=== PATIENT | female | born 1965 | race Hispanic/Latino ===

== ENCOUNTER 2017-09-14 21:57 | Inpatient (IN) | payer OTHER ==
[~2017-09-14] VITALS: Ht 154.9 cm; Wt 55.1 kg
[2017-09-14 23:41] LABS: ABSOLUTE BASOPHIL COUNT 0 /CUMM (0.0-0.2); ABSOLUTE EOSINOPHIL COUNT 0 /CUMM (0.0-0.7); ABSOLUTE GRANULOCYTE CT 9.8 /CUMM (1.4-6.5); ABSOLUTE LYMPH COUNT 0.8 /CUMM (1.2-3.4); ABSOLUTE MONOCYTE COUNT 0.6 /CUMM (0.10-0.60); BASOPHIL % 0.3 % (0.0-2.0); EOSINOPHIL % 0 % (0-5); GRANULOCYTE % 87.4 % (42.2-75.2); HEMATOCRIT 40.9 % (37-47); MEAN CORPUSCULAR HGB 28.5 PG (27.0-31.0); MEAN CORPUSCULAR HGB CONC 33.9 G/DL (33.0-37.0); MEAN CORPUSCULAR VOLUME 84.3 FL (81.0-99.0); MEAN PLATELET VOLUME 7.7 FL (7.4-10.4); PLATELET COUNT 337 /CUMM (130-400); RBC DISTRIBUTION WIDTH 13.7 % (11.5-14.5); RED BLOOD CELL CT 4.85 /CUMM (4.20-5.40); WHITE BLOOD CELL COUNT 11.2 /CUMM (4.8-10.8)
--- NOTE | 2017-09-15 00:46 | ED GI/GU/ABDOMINAL COMPLAINT ---
History of Present Illness General Chief Complaint: Abdominal Pain/Flank Pain Stated Complaint: ABD PAIN,+NVD Source: patient, family Exam Limitations: no limitations Vital Signs & Intake/Output Vital Signs & Intake/Output Vital Signs Date Time Temp Pulse Resp B/P B/P Pulse O2 O2 Flow FiO2 Mean Ox Delivery Rate 09/15 0111 84 16 135/78 98 Room Air 09/14 2247 96.3 59 14 131/82 99 Room Air ED Intake and Output 09/15 0000 09/14 1200 Intake Total Output Total Balance Patient 116 lb Weight Weight Reported by Patient Measurement Method Allergies Coded Allergies: No Known Allergies (09/14/17) Triage Note: PT PRESENTS TO THE ER C/O ABD PAIN. RUQ AND LUQ AND PER PT RADIATES TO HER BACK. 10/10 PAIN PER PT. PT IS MOANING IN TRIAGE AND CANT SEEM TO GET IN A COMFORTABLE POSITION IN THE CHAIR. PT STATES STARTED 3 DAYS AGO.. PT LAST BM THIS AM, PT STATES THAT SHE IS NAUSEOUS AND VOMITTING. PT IS ACTIVELY VOMITTING IN TRIAGE.. Triage Nurses Notes Reviewed? yes ? N Is pt currently ? No Onset: Gradual Duration: day(s): Timing: recent history Quality/Severity: cramping, vomiting Location: epigastric, generalized abdomen Radiation: no radiation Activities at Onset: none Prior Abdominal Problems: similar symptoms Modifying Factors: Worsens With: movement, palpation, vomiting. Associated Symptoms: abdominal pain HPI: 52 YO WOMAN, h/o gastric ulcer, in prior good health presents with 3 days of mid epigastric pain, nausea, vomiting, "and then today, I started vomiting and couldn't hold anything down." She had a normal bowel movement today. She notes no fever, chills, dyspnea, dizziness, chest pain. Past History Travel History Traveled to [place] past 21 day No Medical History Any Pertinent Medical History? see below for history Surgical History Surgical History: none Family History Hx Contributory? No Review of Systems Review of Systems Constitutional: Reports: no symptoms. EENTM: Reports: no symptoms. Respiratory: Reports: no symptoms. Cardiovascular: Reports: no symptoms. GI: Reports: no symptoms. Genitourinary: Reports: no symptoms. Musculoskeletal: Reports: no symptoms. Skin: Reports: no symptoms. Neurological/Psychological: Reports: no symptoms. Hematologic/Endocrine: Reports: no symptoms. Immunologic/Allergic: Reports: no symptoms. All Other Systems: Reviewed and Negative Physical Exam Physical Exam General Appearance: well developed/nourished, moderate distress Head: atraumatic, normal appearance Eyes: Bilateral: normal appearance. Ears, Nose, Throat, Mouth: hearing grossly normal, moist mucous membrane Neck: normal inspection, supple, full range of motion Respiratory: normal breath sounds, chest non-tender, no respiratory distress, quiet respiration, lungs clear Cardiovascular: regular rate/rhythm Gastrointestinal: normal bowel sounds, soft, mid epigastric tenderness to palpation. no rebound. no guarding. ruq/rlq tenderness w/o saeed's sign. Back: normal inspection, normal range of motion Extremities: normal range of motion Neurologic/Psych: no motor/sensory deficits, awake, alert, oriented x 3 Skin: intact, normal color, warm/dry Core Measures ACS in differential dx? No Sepsis Present: No Sepsis Focused Exam Completed? No Progress Differential Diagnosis: appendicitis, biliary colic, cholecystitis, diverticulitis, gastritis, hepatitis Plan of Care: Orders Procedure Date/time Status Patient Data 09/15 0309 Active Admit to inpatient 09/15 0306 Active D-DIMER 09/14 2320 Complete TROPONIN LEVEL 09/14 2315 Complete LIPASE 09/14 2315 Complete COMPREHENSIVE METABOLIC PANEL 09/14 2315 Complete CBC WITHOUT DIFFERENTIAL 09/14 2315 Complete AMYLASE 09/14 2315 Complete EKG 09/14 2254 Active Current Medications Sig/Mk Start time Last Medication Dose Stop Time Status Admin Sodium Chloride 1,000 ML BOLUS ONE 09/15 0300 AC 09/15 (Normal Saline 0.9%) 09/15 0359 0306 Laboratory Tests 09/14/17 2322: Anion Gap 13, Estimated GFR > 60, BUN/Creatinine Ratio 17.1, Glucose 175 H, Calcium 11.0 H, Total Bilirubin 3.6 H, AST 682 H, ALT 1076 H, Alkaline Phosphatase 383 H, Troponin I < 0.01, Total Protein 8.0, Albumin 4.7, Globulin 3.3, Albumin/Globulin Ratio 1.4, Amylase 4467 H, Lipase > 40216 H, D-Dimer High Sensitivty 281 H, CBC w Diff MAN DIFF ORDERED, RBC 4.85, MCV 84.3, MCH 28.5, MCHC 33.9, RDW 13.7, MPV 7.7, Gran % 87.4 H, Lymphocytes % 7.1 L, Monocytes % 5.2, Eosinophils % 0, Basophils % 0.3, Absolute Granulocytes 9.8 H, Segmented Neutrophils 90 H, Absolute Lymphocytes 0.8 L, Lymphocytes 7 L, Monocytes 3, Absolute Monocytes 0.6, Absolute Eosinophils 0, Absolute Basophils 0, Platelet Estimate ADEQUATE, Polychromasia 1+, Poikilocytosis 2+, Ovalocytes 1 +, Stomatocytes 1+, Fld Total RBCs Counted 100 Diagnostic Imaging: Viewed by Me: Radiology Read, CT Scan. Discussed w/RAD: Radiology Read, CT Scan. Radiology Impression: PATIENT: HAN KONG PRESENT AGE: 52 PATIENT ACCOUNT NO: [id number] : 67 LOCATION: ER ORDERING PHYSICIAN: Mark Ortiz MD SERVICE DATE: 09/15/17 EXAM TYPE: RAD - XRY-PORTABLE CHEST XRAY EXAMINATION: XR PORTABLE CHEST CLINICAL INFORMATION: Preoperative. Dyspnea. COMPARISON: None TECHNIQUE: Portable frontal view of the chest was obtained. FINDINGS: The lungs are well expanded. There is no focal consolidation, edema, or effusion. No pneumothorax. Probable 0.3 cm calcified granuloma at the left base. The cardiomediastinal silhouette is within normal limits. No acute osseous abnormality. IMPRESSION: No acute pulmonary findings. DICTATED BY: Joseph aLmar MD DATE/TIME DICTATED:09/15/17219 [employer]:CHUCKY DATE/TIME TRANSCRIBED:09/15/17219 CONFIDENTIAL, DO NOT COPY WITHOUT APPROPRIATE AUTHORIZATION. <Electronically signed in Other Vendor System> SIGNED BY: Joseph Lamar MD 09/15/17223, PATIENT: HAN KONG PRESENT AGE: 52 PATIENT ACCOUNT NO: [id number] : 67 LOCATION: [facility] ORDERING PHYSICIAN: Mark Ortiz MD SERVICE DATE: 09/15/17 EXAM TYPE: CAT - CT ABD & PELVIS W IV CONTRAST EXAMINATION: CT ABDOMEN AND PELVIS WITH CONTRAST CLINICAL INFORMATION: Right upper quadrant pain. Elevated LFTs. COMPARISON: None TECHNIQUE: Multidetector volumetric imaging was performed of the abdomen and pelvis following IV administration of 95 mL of Optiray 320 intravenous contrast. Sagittal and coronal reformatted images were obtained on the technologist's workstation. DLP: 254 mGy-cm FINDINGS: LUNG BASES: The visualized lung bases are unremarkable. LIVER, GALLBLADDER, AND BILIARY TREE: The liver is normal in size, shape, and attenuation. No focal hepatic lesion. Mild intrahepatic biliary ductal dilatation noted. The gallbladder is distended. Mild pericholecystic fluid noted. No definite gallstone seen within the gallbladder lumen. The common bile duct is dilated, measuring up to 1.2 cm. In the region of the pancreatic head at the distal aspect of the common duct there is a 0.3 cm calcification. This may represent choledocholithiasis. PANCREAS: The pancreas is mildly prominent and hypoattenuating suggestive of edema. Prominent peripancreatic fluid. No fluid collection identified. Fluid extends distally along the left paracolic gutter. No focal pancreatic parenchymal lesion. SPLEEN: Unremarkable. ADRENAL GLANDS: Unremarkable. KIDNEYS AND URETERS: The kidneys are normal in size, shape, and attenuation. No hydronephrosis, hydroureter, or calculi seen. No perinephric stranding. BLADDER: Unremarkable. GASTROINTESTINAL TRACT: The stomach is unremarkable. The small bowel is normal in caliber. No obstruction. Normal appendix. No colonic wall thickening or inflammatory change. No free air. ABDOMINAL WALL: No significant hernia is appreciated. LYMPH NODES: Normal. VASCULAR: Unremarkable. PELVIC VISCERA: The uterus and adnexa are unremarkable. OSSEOUS STRUCTURES: No acute or suspicious osseous abnormality. IMPRESSION: Findings are most suggestive of gallstone pancreatitis. Small calcification at the region of the pancreatic head with dilatation of the common bile duct and intrahepatic ducts. Distended gallbladder with pericholecystic fluid. Diffuse peripancreatic edema with edematous appearance of the pancreas. DICTATED BY: Joseph Lamar MD DATE/TIME DICTATED:09/15/17207 [employer]: CHUCKY DATE/TIME TRANSCRIBED:09/15/17207 CONFIDENTIAL, DO NOT COPY WITHOUT APPROPRIATE AUTHORIZATION. <Electronically signed in Other Vendor System> SIGNED BY: Joseph Lamar MD 09/15/17 0223 Initial ED EKG: normal intervals, normal p-waves, NSR Departure Departure Disposition: STILL A PATIENT Condition: Stable Clinical Impression Primary Impression: SIRS (systemic inflammatory response syndrome) Secondary Impressions: Gallstone pancreatitis Referrals: Pj MORILLO,Lee Valles (PCP/Family) Departure Forms: Customer Survey General Discharge Information Comments 09/15/17, 2:42am... discussed with dr. nieto... pt consistent with gallstone pancreatitis... they will consult in the am. 09/15/17, 2:45am... discussed with dr. gamboa... dr. brown is available for ercp Admission Note Spoke With: eKrwin Mackey MD Documentation of Exam: Documentation of any treatments & extenuating circumstances including Concerns Regarding Discharge (functional status, medication knowledge or non-compliance, living conditions, etc.) that warrant an admission rather than observation: pt with gallstone pancreatitis.... pt merits ercp in AM... pt to reside in ICU overnight for close monitoring. Critical Care Note Critical Care Note Critical Care Time: 30-74 min
--- NOTE | 2017-09-15 02:23 | CT SCAN REPORT ---
EXAMINATION: CT ABDOMEN AND PELVIS WITH CONTRAST CLINICAL INFORMATION: Right upper quadrant pain. Elevated LFTs. COMPARISON: None TECHNIQUE: Multidetector volumetric imaging was performed of the abdomen and pelvis following IV administration of 95 mL of Optiray 320 intravenous contrast. Sagittal and coronal reformatted images were obtained on the technologist's workstation. DLP: 254 mGy-cm FINDINGS: LUNG BASES: The visualized lung bases are unremarkable. LIVER, GALLBLADDER, AND BILIARY TREE: The liver is normal in size, shape, and attenuation. No focal hepatic lesion. Mild intrahepatic biliary ductal dilatation noted. The gallbladder is distended. Mild pericholecystic fluid noted. No definite gallstone seen within the gallbladder lumen. The common bile duct is dilated, measuring up to 1.2 cm. In the region of the pancreatic head at the distal aspect of the common duct there is a 0.3 cm calcification. This may represent choledocholithiasis. PANCREAS: The pancreas is mildly prominent and hypoattenuating suggestive of edema. Prominent peripancreatic fluid. No fluid collection identified. Fluid extends distally along the left paracolic gutter. No focal pancreatic parenchymal lesion. SPLEEN: Unremarkable. ADRENAL GLANDS: Unremarkable. KIDNEYS AND URETERS: The kidneys are normal in size, shape, and attenuation. No hydronephrosis, hydroureter, or calculi seen. No perinephric stranding. BLADDER: Unremarkable. GASTROINTESTINAL TRACT: The stomach is unremarkable. The small bowel is normal in caliber. No obstruction. Normal appendix. No colonic wall thickening or inflammatory change. No free air. ABDOMINAL WALL: No significant hernia is appreciated. LYMPH NODES: Normal. VASCULAR: Unremarkable. PELVIC VISCERA: The uterus and adnexa are unremarkable. OSSEOUS STRUCTURES: No acute or suspicious osseous abnormality. IMPRESSION: Findings are most suggestive of gallstone pancreatitis. Small calcification at the region of the pancreatic head with dilatation of the common bile duct and intrahepatic ducts. Distended gallbladder with pericholecystic fluid. Diffuse peripancreatic edema with edematous appearance of the pancreas.
--- NOTE | 2017-09-15 02:24 | RADIOLOGY REPORT ---
EXAMINATION: XR PORTABLE CHEST CLINICAL INFORMATION: Preoperative. Dyspnea. COMPARISON: None TECHNIQUE: Portable frontal view of the chest was obtained. FINDINGS: The lungs are well expanded. There is no focal consolidation, edema, or effusion. No pneumothorax. Probable 0.3 cm calcified granuloma at the left base. The cardiomediastinal silhouette is within normal limits. No acute osseous abnormality. IMPRESSION: No acute pulmonary findings.
--- NOTE | 2017-09-15 03:39 | History & Physical ---
Dontea Gu 09/15/17 0339: General Information and HPI MD Statement: I have seen and personally examined HAN KONG and documented this H&P. The patient is a 52 year old F who presented with a patient stated chief complaint of [ABD pain]. Source of Information: patient, family Exam Limitations: no limitations History of Present Illness: This is 52-year-old female with a medical history of GERD, hyperlipidemia not currently on medication. Presented to the emergency department with a chief complaint of abdominal pain, nausea, vomiting for the past 3 days. Patient stated that for long time she has an issue with abdominal discomfort when she eats fatty food and because of that she take some time Zantac and Tums. Patient stated that her abdominal pain symptoms started on Wednesday after she ate [place] food, she stated that was on and off in the epigastric area around 7 out of 10 in severity, relieved with Zantac. On wednesday/Wednesday after she ate her breakfast abdominal pain restarted again and she take a Zantac. On Wednesday patient stated that she ate his breakfast and she preferred to take the Zantac and she went to work and around 2 PM she started to complain off chills so she took Tums and Tylenol despite that the abdominal pain getting worse and she stated that she vomited once that was yellow in color associated with nausea. And around [address] back home she vomited twice watery, also she report that her stool become power transmission engineer in color in the past couple days and today morning she noticed that her skin color change and become more yellow. Due to that patient reports having increase in frequency, she denies any hematuria, dysuria. Her stated that for the past couple days she has issue feeling cold with chills and she required more blankets or increase the heater degree. Patient stated is the first time she has this type of abdominal pain and complaints. Patient deny any fever, shortness of breath, cough, wheezing, constipation, diarrhea, headaches, change in vision or hearing, chest pain, heart racing, lower extremity edema. In the ED CT with IV contrast of abdomen and pelvis showed gallstone pancreatitis. Small calcification at the region of the pancreatic head with dilatation of the common bile duct and intrahepatic ducts. Distended gallbladder with pericholecystic fluid. Diffuse peripancreatic edema with edematous appearance of the pancreas. Patient received aggressive IV fluid hydration, IV morphine for pain. Lab roblero he has elevated amylase, lipase and calcium level along with transaminitis. Allergies/Medications Allergies: Coded Allergies: No Known Allergies (09/14/17) Past History Travel History Traveled to [place] past 21 day No Medical History Cardiovascular: hyperlipidemia Gastrointestinal: peptic ulcer disease Surgical History Surgical History: none, Past Family/Social History Family History Relations & Conditions if any FATHER (DM, HLD, HTN). MOTHER (Healthy). Psychosocial History Where do you live? Home Smoking Status: Never Smoked ETOH Use: occasional use Illicit Drug Use: denies illicit drug use Functional Ability ADLs Independent: dressing, eating, toileting, bathing. Ambulation: independent IADLs Independent: shopping, housework, finances, food prep, telephone, transportation , medication admin. Review of Systems Review of Systems Constitutional: Reports: see HPI. Cardiovascular: Denies: see HPI. Respiratory: Denies: see HPI. GI: Reports: see HPI. Genitourinary: Reports: see HPI. Exam & Diagnostic Data Last 24 Hrs of Vital Signs/I&O Vital Signs Date Time Temp Pulse Resp B/P B/P Pulse O2 O2 Flow FiO2 Mean Ox Delivery Rate 09/15 0406 96.3 69 18 125/59 99 Room Air 09/15 0111 84 16 135/78 98 Room Air 09/14 2247 96.3 59 14 131/82 99 Room Air Intake & Output 09/15 0800 09/15 0000 09/14 1600 Intake Total 2000 Output Total Balance 2000 Intake, IV 2000 Patient 116 lb Weight Weight Reported by Patient Measurement Method Physical Exam General Appearance Alert, Oriented X3, Cooperative, Moderate Distress Skin jaundice HEENT PERRLA, EOMI Neck Supple Cardiovascular Regular Rate, Normal S1, Normal S2 Lungs Clear to Auscultation, Normal Air Movement Abdomen hypoactive bowel sound, ppositive Ryan sign, moderate tenderness with deep palpation Extremities No Cyanosis, No Edema Last 24 Hrs of Labs/Luis Antonio: Laboratory Tests 09/14/172: Anion Gap 13, Estimated GFR > 60, BUN/Creatinine Ratio 17.1, Glucose 175 H, Calcium 11.0 H, Total Bilirubin 3.6 H, AST 682 H, ALT 1076 H, Alkaline Phosphatase 383 H, Troponin I < 0.01, Total Protein 8.0, Albumin 4.7, Globulin 3.3, Albumin/Globulin Ratio 1.4, Amylase 4467 H, Lipase > 29617 H, TSH Pending , Free T4 Pending, D-Dimer High Sensitivty 281 H, CBC w Diff MAN DIFF ORDERED, RBC 4.85, MCV 84.3, MCH 28.5, MCHC 33.9, RDW 13.7, MPV 7.7, Gran % 87.4 H, Lymphocytes % 7.1 L, Monocytes % 5.2, Eosinophils % 0, Basophils % 0.3, Absolute Granulocytes 9.8 H, Segmented Neutrophils 90 H, Absolute Lymphocytes 0.8 L, Lymphocytes 7 L, Monocytes 3, Absolute Monocytes 0.6, Absolute Eosinophils 0, Absolute Basophils 0, Platelet Estimate ADEQUATE, Polychromasia 1 +, Poikilocytosis 2+, Ovalocytes 1+, Stomatocytes 1+, Fld Total RBCs Counted 100 Microbiology 09/15 0356 URINE ROUT: Urine Culture - ORD Diagnostic Data EKG Results Normal sinus rhythm, QTC 405 CXR Results EXAMINATION: XR PORTABLE CHEST CLINICAL INFORMATION: Preoperative. Dyspnea. COMPARISON: None TECHNIQUE: Portable frontal view of the chest was obtained. FINDINGS: The lungs are well expanded. There is no focal consolidation, edema, or effusion. No pneumothorax. Probable 0.3 cm calcified granuloma at the left base. The cardiomediastinal silhouette is within normal limits. No acute osseous abnormality. IMPRESSION: No acute pulmonary findings. Other Results EXAMINATION: CT ABDOMEN AND PELVIS WITH CONTRAST CLINICAL INFORMATION: Right upper quadrant pain. Elevated LFTs. COMPARISON: None TECHNIQUE: Multidetector volumetric imaging was performed of the abdomen and pelvis following IV administration of 95 mL of Optiray 320 intravenous contrast. Sagittal and coronal reformatted images were obtained on the technologist's workstation. DLP: 254 mGy-cm FINDINGS: LUNG BASES: The visualized lung bases are unremarkable. LIVER, GALLBLADDER, AND BILIARY TREE: The liver is normal in size, shape, and attenuation. No focal hepatic lesion. Mild intrahepatic biliary ductal dilatation noted. The gallbladder is distended. Mild pericholecystic fluid noted. No definite gallstone seen within the gallbladder lumen. The common bile duct is dilated, measuring up to 1.2 cm. In the region of the pancreatic head at the distal aspect of the common duct there is a 0.3 cm calcification. This may represent choledocholithiasis. PANCREAS: The pancreas is mildly prominent and hypoattenuating suggestive of edema. Prominent peripancreatic fluid. No fluid collection identified. Fluid extends distally along the left paracolic gutter. No focal pancreatic parenchymal lesion. SPLEEN: Unremarkable. ADRENAL GLANDS: Unremarkable. KIDNEYS AND URETERS: The kidneys are normal in size, shape, and attenuation. No hydronephrosis, hydroureter, or calculi seen. No perinephric stranding. BLADDER: Unremarkable. GASTROINTESTINAL TRACT: The stomach is unremarkable. The small bowel is normal in caliber. No obstruction. Normal appendix. No colonic wall thickening or inflammatory change. No free air. ABDOMINAL WALL: No significant hernia is appreciated. LYMPH NODES: Normal. VASCULAR: Unremarkable. PELVIC VISCERA: The uterus and adnexa are unremarkable. OSSEOUS STRUCTURES: No acute or suspicious osseous abnormality. IMPRESSION: Findings are most suggestive of gallstone pancreatitis. Small calcification at the region of the pancreatic head with dilatation of the common bile duct and intrahepatic ducts. Distended gallbladder with pericholecystic fluid. Diffuse peripancreatic edema with edematous appearance of the pancreas. Assessment/Plan Assessment: This is 52-year-old female with a medical history of GERD, hyperlipidemia not currently on medication. Presented to the emergency department with a chief complaint of abdominal pain, nausea, vomiting for the past 3 days. Problem list: -Acute edematous pancreatitis 2/2 gallstone and hypercalcemia -Acute cholecystitis/cholangitis with dilatation of the common bile duct -Leukocytosis/transaminitis Plan: -Admit patient to critical care unit -Vitals every shift -Keep patient nothing by mouth for bowel rest -Aggressive IV fluid hydration with lactated Ringer 200 mL per hour -IV Protonix 40 mg daily -IV Zofran as needed for nausea and vomiting -IV morphine as needed for pain -Gastroenterology consultation in a.m. -Obtain limited abdominal ultrasound with reevaluation -surgery consultation in a.m. -Lipid panel, ICU bundle, PT/PTT, CBC in AM. -Accu-Chek every 8 -DVT prophylaxis: subcutaneous Lovenox -Full code As Ranked By This Provider Problem List: 1. Gallstone pancreatitis Core Measures/Misc (04/04) Acute Coronary Syndrome ACS Diagnosis: No Congestive Heart Failure Congestive Heart Failure Diagnosis No Cerebrovascular Accident CVA/TIA Diagnosis: No VTE (View Protocol) VTE Risk Factors Acute Medical Illness No Mechanical VTE Prophylaxis d/t N/A MechProphylax Ordered No VTE Pharm Prophylaxis d/t NA PharmProphylax ordered Sepsis (View protocol) Sepsis Present: No Resident Review Statement Resident Statement: examined this patient, discussed with advertising internship, agreed with advertising internship, discussed with family, reviewed EMR data (avail), discussed with nursing , discussed with case mgmt, reviewed images, amended to note Kerwin Mackey 09/15/17 0645: Attending MD Review Statement Attending Statement Attending MD Statement: examined this patient, discuss w/resident/PA/MEDICAL STAFF ASSISTANT, agreed w/resident/PA/MEDICAL STAFF ASSISTANT, discussed with family, reviewed EMR data (avail), reviewed images, amended to note Attending Assessment/Plan: CC: Severe abdominal pain PMH: None Patient has 3 day history of severe abdominal pain, sharp, 8/10, associated with nausea and vomiting, chills. Patient's symptoms progressively worsened over last 3 days, did not have much relief with segm-xob-psheaum antacid medication. She also noticed yellowish discoloration of skin, or tarry stools. She denies any fever, chills, fall, cough. Patient and her are unclear if she had similar episodes in the past or symptoms suggestive of biliary colic in the past Vitals: Afebrile, pulse in 60s, RR 16, blood pressure 135/78, saturating well on room air. On exam: A O 3, cooperative, in acute distress due to pain, neck supple, JVD normal, no lymphadenopathy, mucosa dry, no focal neurological deficit, no dependent edema, no obvious skin rashes or inflammation CVS: S1-S2, RRR. RS: Clear to auscultate bilaterally. Abdomen: Diffuse abdominal tenderness, no guarding or rigidity, Ryan's sign positive CT abdomen and pelvis With IV contrast: Findings are most suggestive of gallstone pancreatitis. Small calcification at the region of the pancreatic head with dilatation of the common bile duct and intrahepatic ducts. Distended gallbladder with pericholecystic fluid. Diffuse peripancreatic edema with edematous appearance of the pancreas. Assessment and plan 52-year-old female with no significant past medical history presented in ER for progressively worsening severe abdominal pain over last 3 days. She has diffuse abdominal tenderness on palpation and Ryan's sign positive. She is found to have significantly elevated lipase, elevated calcium, elevated bilirubin, transaminitis, elevated alkaline phosphatase, left shift, all suggestive of gallstone pancreatitis. CT abdomen and pelvis with IV contrast confirms this finding, additionally there is suspicion of acute cholecystitis and acute ascending cholangitis secondary to choledocholithiasis. In this setting and extent of the disease patient would benefit from ICU admission for close monitoring. Vender and surgeon was informed from here. Patient also endorses drinking alcohol a day prior to symptoms. + Gallstone pancreatitis + Suspected cholecystitis and ascending cholangitis with choledocholithiasis - Admit to ICU - Every hourly vitals - Aggressive hydration with Ringer's lactate at 200 mL per hour - Continuous telemetry monitoring - Strict I's and O's - Serial abdominal exam - Continue IV Unasyn - Blood culture if fever spikes - IV Protonix - When necessary Zofran for nausea - Adequate pain control - Check lipid profile - Right upper quadrant ultrasound - GI consult - Surgical consult - Check CRP as inflammatory markers for severity monitoring - DVT prophylaxis
[2017-09-15 06:06] LABS: ABSOLUTE BASOPHIL COUNT 0 /CUMM (0.0-0.2); ABSOLUTE EOSINOPHIL COUNT 0 /CUMM (0.0-0.7); ABSOLUTE GRANULOCYTE CT 12.9 /CUMM (1.4-6.5); ABSOLUTE LYMPH COUNT 0.7 /CUMM (1.2-3.4); ABSOLUTE MONOCYTE COUNT 0.6 /CUMM (0.10-0.60); BASOPHIL % 0 % (0.0-2.0); EOSINOPHIL % 0 % (0-5); GRANULOCYTE % 91.2 % (42.2-75.2); HEMATOCRIT 36.3 % (37-47); MEAN CORPUSCULAR VOLUME 85.4 FL (81.0-99.0); MEAN PLATELET VOLUME 7.9 FL (7.4-10.4); PLATELET COUNT 308 /CUMM (130-400); RED BLOOD CELL CT 4.25 /CUMM (4.20-5.40); WHITE BLOOD CELL COUNT 14.1 /CUMM (4.8-10.8)
[2017-09-15 06:10] LABS: PTT 26 SEC (25-37)
--- NOTE | 2017-09-15 06:47 | Admission Certification ---
Admission Certification Certification Statement - As attending physician, I certify that at the time of - admission, based on clinical presentation, severity of - symptoms, need for further diagnostic testing and - therapeutic interventions, and risk of adverse outcomes - without in-hospital treatment, in my clinical assessment, - this patient requires an acute hospital stay for a minimum - of two nights or longer. I have also considered psychsocial - factors such as support system, advanced age, financial - issues, cognitive issues, and failed out-patient treatments, - past re-admission history, safety of patient, and lack of - compliance as applicable. Specific rationale supporting this admission is: Gallstone pancreatitis with suspected cholangitis, cholecystitis secondary to choledocholithiasis
[2017-09-15 07:00] VITALS: BP 117/63
--- NOTE | 2017-09-15 07:14 | Cons- CRCU ---
Rajan MORILLO,[facility] 09/15/17 0713: General Information and HPI Consulting Request Date of Consult: 09/15/17 Requested By: Dr. Ac Source of Information: patient, old records Exam Limitations: no limitations History of Present Illness: The patient is 65-year-old female with past medical history of GERD and hyperlipidemia not on any medication. She presented to [facility] ED on 09/13 with complaint of abdominal pain ongoing for the past 3 days. 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 The pain has been associated with consumption of fatty food, and has not responded to over-the- counter medications. Yesterday 2 PM patient was at work and started experiencing chills as well. At home she experienced nausea and had an episode of vomiting followed by 2 episodes of vomiting in the ED as well. Clear, Nonbloody. 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 As per patient's she has been using more blankets and adjusting the most part of the house. She has not had these episodes in the past. Vital signs at presentation were stable Examination was positive for diffuse abdominal tenderness and Ryan's sign Patient presented with elevated WBC count, lipase, and amylase, hypercalcemia, hyperbilirubinemia, elevated alkaline phosphatase, transaminitis. Her lab findings are suggestive of costochondritis which was confirmed with imaging which was consistent with gallstone pancreatitis along with calcification in head of pancreas, dilation of CBD, distended gallbladder with pericholecystic fluid, diffuse peripancreatic edematous changes. The patient was admitted to ICU for closer monitoring and is being treated and evaluated for pancreatitis, cholecystitis, cholangitis Of note patient gives history of H. pylori detected by breath test, for which she states that she has been treated twice. Does not remember the name of medication. It is a possibility that it was not completely eradicated Allergies/Medications Allergies: Coded Allergies: No Known Allergies (09/14/17) Review of Systems Review of Systems Constitutional: Reports: see HPI. Past History Travel History Traveled to [place] past 21 day No Medical History Blood Transfusion Hx: No Cardiovascular: hyperlipidemia Surgical History Surgical History: , 1 Family History Relations & Conditions If Any: FATHER (DM, HLD, HTN). MOTHER (Healthy). Psychosocial History Where Do You Live? Home Smoking Status: Never Smoked ETOH Use: occasional use Illicit Drug Use: denies illicit drug use Functional Ability ADLs Independent: dressing, eating, toileting, bathing. Ambulation: independent IADLs Independent: shopping, housework, finances, food prep, telephone, transportation , medication admin. Exam & Diagnostic Data Last 24 Hrs of Vital Signs/I&O Vital Signs Date Time Temp Pulse Resp B/P B/P Pulse O2 O2 Flow FiO2 Mean Ox Delivery Rate 09/15 0700 98.5 71 26 117/63 96 Room Air 09/15 0445 Room Air 09/15 0445 99 Room Air 09/15 0406 96.3 69 18 125/59 99 Room Air 09/15 0111 84 16 135/78 98 Room Air 09/14 2247 96.3 59 14 131/82 99 Room Air Intake & Output 09/15 1600 09/15 0800 09/15 0000 Intake Total 3520 Output Total 800 Balance 2720 Intake, IV 3520 Output, Urine 800 Patient 120 lb 116 lb Weight Weight Bed scale Reported by Patient Measurement Method Physical Exam General Appearance: alert, awake, mild distress Head: atraumatic, normal appearance Ears, Nose, Throat: normal ENT inspection Neck: normal inspection, supple Respiratory: normal breath sounds, chest non-tender, no respiratory distress Cardiovascular: regular rate/rhythm Gastrointestinal: diffuse abd tenderness Last 48 Hrs of Labs/Luis Antonio: Laboratory Tests 09/15/17 0520: Urinalysis LIGHT H, Urine Color YEL, Urine Clarity CLEAR, Urine pH 7.0, Ur Specific [place] 1.010, Urine Protein NEG, Urine Ketones TRACE H, Urine Nitrite NEG, Urine Bilirubin NEG, Urine Urobilinogen 0.2, Ur Leukocyte Esterase NEG, Ur Microscopic SEDIMENT EXAMINED, Urine RBC 3-5, Urine WBC RARE, Urine Bacteria RARE H, Urine Hemoglobin TRACE-INTACT, Urine Glucose NEG 09/15/17 0515: Anion Gap 12, Estimated GFR > 60, Glucose 145 H, Hemoglobin A1c Pending, Calcium 8.7, Phosphorus 3.5, Magnesium 1.4 L, Total Bilirubin 3.1 H, Direct Bilirubin 2.3 H, AST 426 H, ALT 749 H, Alkaline Phosphatase 286 H, Total Protein 6.1 L, Albumin 3.6, Triglycerides 41, Cholesterol 226 H, LDL Cholesterol, Calc 133 H, HDL Cholesterol 85 H, Cholesterol/HDL Ratio 3, PT 12.0, INR 1.14, APTT 26, CBC w Diff NO MAN DIFF REQ, RBC 4.25, MCV 85.4, MCH 29.0, MCHC 34.0, RDW 14.0, MPV 7.9, Gran % 91.2 H, Lymphocytes % 4.8 L, Monocytes % 4.0, Eosinophils % 0, Basophils % 0, Absolute Granulocytes 12.9 H, Absolute Lymphocytes 0.7 L, Absolute Monocytes 0.6, Absolute Eosinophils 0, Absolute Basophils 0 09/15/17 0500: Sodium Cancelled, Potassium Cancelled, Chloride Cancelled, Carbon Dioxide Cancelled, Anion Gap Cancelled, BUN Cancelled, Creatinine Cancelled, Glucose Cancelled, Calcium Cancelled, Phosphorus Cancelled, Magnesium Cancelled, Total Bilirubin Cancelled, AST Cancelled, ALT Cancelled, Albumin Cancelled 09/14/17 2322: Anion Gap 13, Estimated GFR > 60, BUN/Creatinine Ratio 17.1, Glucose 175 H, Calcium 11.0 H, Total Bilirubin 3.6 H, AST 682 H, ALT 1076 H, Alkaline Phosphatase 383 H, Troponin I < 0.01, Total Protein 8.0, Albumin 4.7, Globulin 3.3, Albumin/Globulin Ratio 1.4, Triglycerides 69, Amylase 4467 H, Lipase > 81825 H, TSH 0.759, Free T4 1.70, D-Dimer High Sensitivty 281 H, CBC w Diff MAN DIFF ORDERED, RBC 4.85, MCV 84.3, MCH 28.5, MCHC 33.9, RDW 13.7, MPV 7.7, Gran % 87.4 H, Lymphocytes % 7.1 L, Monocytes % 5.2, Eosinophils % 0, Basophils % 0.3, Absolute Granulocytes 9.8 H, Segmented Neutrophils 90 H, Absolute Lymphocytes 0.8 L, Lymphocytes 7 L, Monocytes 3, Absolute Monocytes 0.6, Absolute Eosinophils 0, Absolute Basophils 0, Platelet Estimate ADEQUATE, Polychromasia 1+, Poikilocytosis 2+, Ovalocytes 1+, Stomatocytes 1+, Fld Total RBCs Counted 100 Assessment/Plan CRCU Impression/Plan: 52-year-old female with no significant past medical history presented in ER for progressively worsening severe abdominal pain over last 3 days. She has diffuse abdominal tenderness on palpation and Ryan's sign positive. She is found to have significantly elevated lipase, elevated calcium, elevated bilirubin, transaminitis, elevated alkaline phosphatase, left shift, all suggestive of gallstone pancreatitis. CT abdomen and pelvis with IV contrast confirms this finding, additionally there is suspicion of acute cholecystitis and acute ascending cholangitis secondary to choledocholithiasis The patient was is cemented to ICU overnight for closer monitoring. She is being treated and evaluated for following conditions. #Gallstone pancreatitis Patient's presentation, presenting labs, CT scan findings are consistent with gallstone pancreatitis. Patient has been evaluated by gastroenterology in the morning, they donot believe that patient has acute cholangitis. [place]'s score 2 , 1% predicted mortality, severe pancreatitis unlikely. BISAP score 0 <1% risk of mortality. Harmless acute pancreatitis score 1 point unable to rule out severe pancreatitis -NPO -Lactated Ringer at 250 ML per hour -Monitor urine WBC curve afebrile with white count of 14 today -F/U BC x2 drawn after initiation of antibiotic therapy -F/U urine cultures -CRP with tomorrow labs for prognostic purposes -Watch for hemoconcentration (rising BUN or H/H) -Lipid profile showed total cholesterol 226 LDL 133 HDL 85 TAG WNL -Right upper quadrant ultrasound is still pending -ERCP scheduled for today -Surgical evaluation for cholecystectomy -Adequate pain control with morphine -Manage nausea with Zofran -IV protonix #Hyperbilirubinemia, Transaminitis, elevated alkaline phosphatase Insetting of gallstone pancreatitis -Continue to monitor LFTs #Hypomagnesemia -PPI may lower Mg -Continue to monitor and replete #Hypercalcemia- resolved #Outpatient follow-up -She will be provided a referral for GI services to get a baseline endoscopy/ screening colonoscopy and workup for H. pylori infection -Recheck stool antigen H. pylori after resolution of gallstone pancreatitis #DVT prophylaxis with mechanical ALPS for now, anticipated procedure hold off lovenox #CODE STATUS full code Consult Acknowledgment - Thank you for your consult request. Joe Baxter MD 09/15/17 1053: Assessment/Plan CRCU Other Findings/Comments: Joe Mcmanus M.D. have examined this patient, reviewed available EMR data, personally reviewed images, discussed with resident/PA/UNISAW OPERATOR, discussed management plan with housestaff and nursing staff, discussed managment plan all of healthcare providers, discussed management plan with patient and/or family, agreed with resident/PA/UNISAW OPERATOR. The past history and parts of the chart have been autopopulated. Impression 52-year-old woman with gallstone pancreatitis admitted to the ICU for further management until all diagnostic testing is performed. Plan -Gastroenterology and surgical input -Continue lactated Ringer's -The pain is controlled and continue pain medications -Plan for ERCP -Hold anticoagulants until plan for procedure is delineated. -DVT prophylaxis at all times TTS 40 min Consult Acknowledgment - Thank you for your consult request.
--- NOTE | 2017-09-15 07:49 | Cons- Gastroenterology ---
General Information and HPI Consulting Request Date of Consult: 09/15/17 Requested By: Kerwin Mackey MD Reason for Consult: I was just notified within the past 1/2 hour of a request by the hospitalist service to assess this patient for her "pancreatitis/cholangitis". Source of Information: patient Exam Limitations: no limitations History of Present Illness: 52 y/o female, f/b Dr. Lee Oliva for primary care, HLD (w/o meds), hx GERD & "PUD". Upon further questioning, PUD was never documented. The patient had never had an EGD or baseline screening colonoscopy, despite her age. She apparently had positive H. pylori by an outpt urea breath test, obtained by her PMD. She was treated with an unknown regimen, and it sounded like the H. pylori was not eradicated. 12/07/16: UGI series per PMD- [id number] GERD, extending up to the thoracic inlet, otherwise negative study, without any ulcer. The patient arrived at the [facility] 09/14/17 at 9:57 p.m., complaining of of RUQ/LUQ abdominal pain, radiating to her back, "10 out of 10". 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 Her last BM was the a.m. of admission. She had nausea & vomiting. She was actively vomiting in triage. There was no hematemesis. Upon arrival, BP 131/82, P 59, R 14, T 96.3, O2 sat RA 99%. The patient was given IV NS, Zofran, Morphine, Pepcid & Unasyn 3g IVPB. IVF were switched to Lactated Ringers. There was no documented hypotension, nor any temperature spikes. There was no change in mental status. The patient claimed that she has a long history of fatty food intolerance and that she occasionally uses Zantac and/or Tums. After eating greasy German food on 09/11/17, she noted onset of epigastric pain, initially "7 out of 10" in severity, partially relieved with Zantac. Her abdominal pain recurred the next day, after eating breakfast, treated with Zantac. On 09/14/17, the patient ate breakfast, had recurrent symptoms, took a Zantac, and went to work. At 2 PM she noted chills without any fevers, and took Tums and Tylenol. Despite this, her symptoms got worse, and she had bilious vomiting. She also noticed that her stools were little administrative personal assistant in color and that her skin was becoming yellow. She denied any pruritus. She had mild urinary frequency, without any hematuria or dysuria. She denied any rashes or symptoms of URI. She denied any chest pain, shortness of breath, diarrhea, constipation, melena, or rectal bleeding. She had intermittent reflux, without any odynophagia, dysphagia, hematemesis, or early satiety. She denied any weight loss or previous change in appetite. She denies any history of hepatitis or blood transfusions. There is a history of gallbladder disease in the patient's paternal uncle. Otherwise, there is no family history of any GI disease, GI CA, inherited pancreatitis, or inherited liver disease, aside from the fact that her mother incidentally had some "liver cysts". The patient denied any cigarettes, EtOH, or illicit drugs. She denied any sulfa medications, BCP, thiazides, or NSAIDs. *Her only outpatient medications included Zantac, Tums, and/or Tylenol as needed. She was born in [facility] and has lived in the [place] since 1998. The patient was admitted to the ICU overnight to watch for possible cholangitis, although she was not critically ill. 06/26/15: *previous LFTs in computer- normal, xc borderline alk phos 131, with borderline Ca2+ 10.6. 09/14/17: Admission labs- WBC 11.2 (90S/7L/3M), H/H 13.9/40.9, MCV 84.3, RDW 13.7, PLT 337, glucose 175, BUN/Cr 12/0.7, GFR > 60, Na 139, K 3.8, HCO3 28, AG 13, amylase 4467, lipase > 10K, Ca 11.0, TG 69, albumin 4.7, globulin 3.3, TBil 3.6, alk phos 383, AST 682, ALT 1076, troponin < 0.01, nl FT4 1.70, nl TSH 0.759 , mild elevated d-Dimer 281 (< 243). 09/15/17: PT 12.0, INR 1.14, PTT 26, WBC 14.1 (91% gran/13 gran Ab), H/H 12.3/ 36.3, MCV 85.4, RDW 14, PLT 308, glucose 145, BUN/Cr 9/0.5, GFR > 60, Na 140, K 3.5, HCO3 23, Ca 8.7, PO4 3.5, *Mg 1.4, albumin 3.6, globulin 2.5, TChol 226, TG 41, HDL 85, LDL 133, TBil 3.1, DBil 2.3, alk phos 286, AST 426, ALT 749; *HgA1C- pending. 09/15/17: U/A- clear, yellow, 1.010, 7.0, rare WBC, 3-5 RBC, tr ketone, tr Hgb; neg nitirite, neg esterase 09/15/17: UC- pending (no BC sent). 09/15/17: EKG- SB @ 57, nl axis, nl intervalsm w/o acute ischemic changes. 09/15/17: XRY-PORTABLE CHEST XRAY- No acute pulmonary findings. 3 mm calcified granuloma left base. 09/15/17: CT ABD & PELVIS W IV CONTRAST- Findings are most suggestive of gallstone pancreatitis. Small calcification at the region of the pancreatic head with dilatation of the common bile duct 1.2 cm and mildly dilated intrahepatic ducts. Distended gallbladder with pericholecystic fluid. Normal liver. Diffuse peripancreatic edema with edematous appearance of the pancreas. No focal fluid collection or necrosis. Focal pancreatic lesion. Fluid extends distally along the left paracolic gutter. Allergies/Medications Allergies: Coded Allergies: No Known Allergies (09/14/17) Current Medications: Current Medications Sig/Mk Start time Last Medication Dose Route Stop Time Status Admin Ampicillin Sodium/ 3,000 MG Q6H 09/15 0900 AC Sulbactam Sodium IV Sodium Chloride 100 ML Ampicillin Sodium/ 0 .STK-MED ONE 09/15 0252 DC Sulbactam Sodium .ROUTE Ampicillin Sodium/ 3,000 MG ONCE ONE 09/15 0245 DC 09/15 Sulbactam Sodium IV 09/15 0314 0250 Sodium Chloride 100 ML Enoxaparin Sodium 40 MG DAILY 09/15 1000 AC SC Famotidine 0 .STK-MED ONE 09/15 0112 DC IV Famotidine 20 MG ONCE ONE 09/15 0100 DC 09/15 IV 09/15 0101 0111 Lactated Ringer's 1,000 ML Q6H 09/15 0345 AC 09/15 IV 09/15 1344 0551 Lactated Ringer's 1,000 ML ONCE ONE 09/15 0300 DC 09/15 IV 09/15 0301 0400 Lactated Ringer's 1,000 ML ONCE ONE 09/15 0300 DC 09/15 IV 09/15 0301 0418 Magnesium Sulfate 1 GM Q2H 09/15 0845 AC Dextrose/Water 100 ML IV 09/15 1244 Morphine Sulfate 0 .STK-MED ONE 09/15 0417 DC .ROUTE Morphine Sulfate 2 MG ONCE ONE 09/15 0415 DC 09/15 IV 09/15 0416 0417 Morphine Sulfate 2 MG Q4P PRN 09/15 0345 AC IV Morphine Sulfate 0 .STK-MED ONE 09/15 0112 DC .ROUTE Morphine Sulfate 6 MG ONCE ONE 09/15 0100 DC 09/15 IV 09/15 0101 0111 Ondansetron HCl 4 MG Q8P PRN 09/15 0345 AC IV Ondansetron HCl 0 .STK-MED ONE 09/15 0101 DC .ROUTE Ondansetron HCl 4 MG ONCE ONE 09/15 0100 DC 09/15 IV 09/15 0101 0102 Pantoprazole Sodium 40 MG DAILY 09/15 0500 AC 09/15 IV 0621 Phytonadione 10 MG ONCE ONE 09/15 0845 UNVr SC 09/15 0846 Potassium Chloride 10 MEQ Q1H 09/15 0845 AC IV 09/15 0946 Sodium Chloride 1,000 ML BOLUS ONE 09/15 0300 DC 09/15 IV 09/15 0359 0306 Sodium Chloride 1,000 ML BOLUS ONE 09/15 0100 DC 09/15 IV 09/15 0159 0206 Sodium Chloride 1,000 ML BOLUS ONE 09/15 0100 DC 09/15 IV 09/15 0159 0102 Past History Travel History Traveled to [place] past 21 day No Medical History Blood Transfusion Hx: No Neurological: NONE EENT: NONE Cardiovascular: NONE (w/o meds), hyperlipidemia Respiratory: NONE Gastrointestinal: NONE (not documented; allegedly +HP), peptic ulcer disease Hepatic: NONE Renal: NONE Musculoskeletal: degen joint disease Psychiatric: NONE Endocrine: vitamin D deficiency Blood Disorders: NONE Cancer(s): NONE 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 Age 74. MOTHER (Healthy; hepatic cysts). Age 68. PU ([facility] for sx gallstones). Psychosocial History Where Do You Live? Home Who Do You Live With? spouse Services at Home: None Primary Language: Malian, Lithuanian Smoking Status: Never Smoked ETOH Use: denies use (rare), occasional use Illicit Drug Use: denies illicit drug use Living Will? no Power of Sand Car Worker/HCP? no Other Social History: to 2nd . from 1st . 1 son & 1 dtr by 1st - [employer]. No cigarettes. Rare EtOH. 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 In [place] since 1998. Functional Ability ADLs Independent: dressing, eating, toileting, bathing. Ambulation: independent IADLs Independent: shopping, housework, finances, food prep, telephone, transportation , medication admin. 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 Review of Systems Constitutional: Reports: chills. Denies: diaphoresis, fever, malaise, weakness, unexplained weight loss. EENTM: Denies: blurred vision, double vision, visual changes, eye pain, eye drainage, eye tearing, icterus, ear discharge, ear pain, ear redness, hearing changes, nasal congestion, epistaxis, nasal pain, throat pain, throat swelling, mouth pain, tooth pain. Cardiovascular: Denies: chest pain, edema, orthopena, palpitations, peripheral edema, syncope. Respiratory: Denies: cough, hemoptysis, orthopnea, short of breath, sputum production, stridor, wheezing. GI: Reports: abdominal pain, nausea, vomiting. Denies: bloating, constipation, diarrhea, distention, bowel incontinence, melena, bloody stool, changes in stool , steatorrhea. Genitourinary: Reports: frequency. Denies: discharge, dysuria, hematuria, hesitation, nocturia , pain, urgency. Musculoskeletal: Denies: back pain, gout, joint pain, joint swelling, muscle pain, muscle stiffness, neck pain. Skin: Reports: jaundice. Denies: cysts, change in skin color, change in hair/nails, dryness, erythema, lesions, lymphangitis, lumps, moles, rash. Neurological/Psychological: Denies: anxiety, ataxia, cognitive dysfunction, confusion, depressed, dementia, emotional problems, headache, numbness, paresthesia, pre-existing deficit, petit mal seizures, tingling, tremors, tonic-clonic seizures, unable to move lower ext , unable to move upper ext, weakness. Hematologic/Endocrine: Denies: bruising, bleeding, polyuria, polydipsia. Immunologic/Allergic: Denies: splenectomy, HIV/AIDS, lymphadenopathy. All Other Systems: Reviewed and Negative Exam & Diagnostic Data Vital Signs and I&O Vital Signs Date Time Temp Pulse Resp B/P B/P Pulse O2 O2 Flow FiO2 Mean Ox Delivery Rate 09/15 0700 98.5 71 26 117/63 96 Room Air 09/15 0445 Room Air 09/15 0445 99 Room Air 09/15 0406 96.3 69 18 125/59 99 Room Air 09/15 0111 84 16 135/78 98 Room Air 09/14 2247 96.3 59 14 131/82 99 Room Air Intake & Output 09/15 1600 09/15 0400 09/14 1600 09/14 0400 09/13 1600 09/13 0400 Intake Total 1520 2000 Output Total 800 Balance 720 2000 Intake, IV 1520 2000 Output, Urine 800 Patient 120 lb 116 lb Weight Weight Bed scale Reported by Patient Measurement Method Physical Exam: Well-developed well-nourished, yellow female, in mild distress. Sclera icteric. Conjunctiva pink. Oropharynx clear. No oral thrush. Dry mucus membranes. No aphthous ulcers. There is no adenopathy, thyromegaly, or JVD. No peripheral stigmata of inflammatory bowel disease or chronic liver disease on exam. No spiders on the anterior chest wall. Breast & pelvic exams: API. No CVA tenderness. No spine tenderness. Lungs: clear to A&P. No wheezing, rales, or rhonchi. Heart exam: regular rate rhythm, S1 and S2, without any murmur. Abdominal exam: normal bowel sounds, soft belly, epigastric > LUQ tenderness, with mild guarding, but no rebound. No mass. No organomegaly. No definite Ryan's sign. No fluid shift. No pulsatile mass. No epigastric bruit. Digital rectal exam: deferred by patient. Extremities: without C, C, or E. No palpable cords. Mild DJD. No acute arthropathy. No rash. No palmar erythema. No Dupuytren's contractures. Distal pulses 2+ bilaterally. DTRs 2+ bilaterally. Alert and oriented x 3. Right-handed. Motor 5/5 B/L. No tremor. No asterixis. Results Pertinent Lab Results: Laboratory Tests 09/15 09/15 0520 0515 Chemistry Sodium (137 - 145 mmol/L) 140 Potassium (3.5 - 5.1 mmol/L) 3.5 Chloride (98 - 107 mmol/L) 105 Carbon Dioxide (22 - 30 mmol/L) 23 Anion Gap (5 - 16) 12 BUN (7 - 17 mg/dL) 9 Creatinine (0.5 - 1.0 mg/dL) 0.5 Estimated GFR (>60 ml/min) > 60 Glucose (65 - 99 mg/dL) 145 H Hemoglobin A1c (4.2 - 5.8 %) Pending Calcium (8.4 - 10.2 mg/dL) 8.7 Phosphorus (2.5 - 4.5 mg/dL) 3.5 Magnesium (1.6 - 2.3 mg/dL) 1.4 L Total Bilirubin (0.2 - 1.3 mg/dL) 3.1 H Direct Bilirubin (< 0.4 mg/dL) 2.3 H AST (14 - 36 U/L) 426 H ALT (9 - 52 U/L) 749 H Alkaline Phosphatase (<127 U/L) 286 H Total Protein (6.3 - 8.2 g/dL) 6.1 L Albumin (3.5 - 5.0 g/dL) 3.6 Triglycerides (<150 mg/dL) 41 Cholesterol (<200 MG/DL) 226 H LDL Cholesterol, Calc (65 - 129 mg/dL) 133 H HDL Cholesterol (40 - 60 mg/dL) 85 H Cholesterol/HDL Ratio (0.00 - 4.23 %) 3 Coagulation PT (9.4 - 12.5 SEC) 12.0 INR (0.90 - 1.19) 1.14 APTT (25 - 37 SEC) 26 Hematology CBC w Diff NO MAN DIFF REQ WBC (4.8 - 10.8 /CUMM) 14.1 H RBC (4.20 - 5.40 /CUMM) 4.25 Hgb (12.0 - 16.0 G/DL) 12.3 Hct (37 - 47 %) 36.3 L MCV (81.0 - 99.0 FL) 85.4 MCH (27.0 - 31.0 PG) 29.0 MCHC (33.0 - 37.0 G/DL) 34.0 RDW (11.5 - 14.5 %) 14.0 Plt Count (130 - 400 /CUMM) 308 MPV (7.4 - 10.4 FL) 7.9 Gran % (42.2 - 75.2 %) 91.2 H Lymphocytes % (20.5 - 51.1 %) 4.8 L Monocytes % (1.7 - 9.3 %) 4.0 Eosinophils % (0 - 5 %) 0 Basophils % (0.0 - 2.0 %) 0 Absolute Granulocytes (1.4 - 6.5 /CUMM) 12.9 H Absolute Lymphocytes (1.2 - 3.4 /CUMM) 0.7 L Absolute Monocytes (0.10 - 0.60 /CUMM) 0.6 Absolute Eosinophils (0.0 - 0.7 /CUMM) 0 Absolute Basophils (0.0 - 0.2 /CUMM) 0 Urines Urinalysis LIGHT H Urine Color (YEL,AMB,STR) YEL Urine Clarity (CLEAR) CLEAR Urine pH (5.0 - 8.0) 7.0 Ur Specific [place] (1.001 - 1.035) 1.010 Urine Protein (NEG,<30 MG/DL) NEG Urine Ketones (NEG) TRACE H Urine Nitrite (NEG) NEG Urine Bilirubin (NEG) NEG Urine Urobilinogen (0.1 - 1.0 EU/dl) 0.2 Ur Leukocyte Esterase (NEG) NEG Ur Microscopic SEDIMENT EXAMINED Urine RBC (0 - 5 /HPF) 3-5 Urine WBC (0 - 2 /HPF) RARE Urine Bacteria (NEG/NONE) RARE H Urine Hemoglobin (NEG) TRACE-INTACT Urine Glucose (N MG/DL) NEG 09/15 09/14 0500 2322 Chemistry Sodium (137 - 145 mmol/L) Cancelled 139 Potassium (3.5 - 5.1 mmol/L) Cancelled 3.8 Chloride (98 - 107 mmol/L) Cancelled 98 Carbon Dioxide (22 - 30 mmol/L) Cancelled 28 Anion Gap (5 - 16) Cancelled 13 BUN (7 - 17 mg/dL) Cancelled 12 Creatinine (0.5 - 1.0 mg/dL) Cancelled 0.7 Estimated GFR (>60 ml/min) > 60 BUN/Creatinine Ratio (7 - 25 %) 17.1 Glucose (65 - 99 mg/dL) Cancelled 175 H Calcium (8.4 - 10.2 mg/dL) Cancelled 11.0 H Phosphorus Cancelled Magnesium Cancelled Total Bilirubin (0.2 - 1.3 mg/dL) Cancelled 3.6 H AST (14 - 36 U/L) Cancelled 682 H ALT (9 - 52 U/L) Cancelled 1076 H Alkaline Phosphatase (<127 U/L) 383 H Troponin I (< 0.11 ng/ml) < 0.01 Total Protein (6.3 - 8.2 g/dL) 8.0 Albumin (3.5 - 5.0 g/dL) Cancelled 4.7 Globulin (1.9 - 4.2 gm/dL) 3.3 Albumin/Globulin Ratio (1.1 - 2.2 %) 1.4 Triglycerides (<150 mg/dL) 69 Amylase (30 - 110 U/L) 4467 H Lipase (23 - 300 U/L) > 93866 H TSH (0.270 - 4.200 uIU/mL) 0.759 Free T4 (0.64 - 1.79 ng/dL) 1.70 Coagulation D-Dimer High Sensitivty (0 - 243 ng/ml) 281 H Hematology CBC w Diff MAN DIFF ORDERED WBC (4.8 - 10.8 /CUMM) 11.2 H RBC (4.20 - 5.40 /CUMM) 4.85 Hgb (12.0 - 16.0 G/DL) 13.9 Hct (37 - 47 %) 40.9 MCV (81.0 - 99.0 FL) 84.3 MCH (27.0 - 31.0 PG) 28.5 MCHC (33.0 - 37.0 G/DL) 33.9 RDW (11.5 - 14.5 %) 13.7 Plt Count (130 - 400 /CUMM) 337 MPV (7.4 - 10.4 FL) 7.7 Gran % (42.2 - 75.2 %) 87.4 H Lymphocytes % (20.5 - 51.1 %) 7.1 L Monocytes % (1.7 - 9.3 %) 5.2 Eosinophils % (0 - 5 %) 0 Basophils % (0.0 - 2.0 %) 0.3 Absolute Granulocytes (1.4 - 6.5 /CUMM) 9.8 H Segmented Neutrophils (42.2 - 75.2 %) 90 H Absolute Lymphocytes (1.2 - 3.4 /CUMM) 0.8 L Lymphocytes (20.5 - 51.1 %) 7 L Monocytes (1.7 - 9.3 %) 3 Absolute Monocytes (0.10 - 0.60 /CUMM) 0.6 Absolute Eosinophils (0.0 - 0.7 /CUMM) 0 Absolute Basophils (0.0 - 0.2 /CUMM) 0 Platelet Estimate (ADEQUATE) ADEQUATE Polychromasia 1+ Poikilocytosis 2+ Ovalocytes 1+ Stomatocytes 1+ Other Body Source Fld Total RBCs Counted (%) 100 Imaging/Other Studies: 09/15/17: EKG- SB @ 57, nl axis, nl intervalsm w/o acute ischemic changes. 09/15/17: XRY-PORTABLE CHEST XRAY- No acute pulmonary findings. 3 mm calcified granuloma left base. 09/15/17: CT ABD & PELVIS W IV CONTRAST- Findings are most suggestive of gallstone pancreatitis. Small calcification at the region of the pancreatic head with dilatation of the common bile duct 1.2 cm and mildly dilated intrahepatic ducts. Distended gallbladder with pericholecystic fluid. Normal liver. Diffuse peripancreatic edema with edematous appearance of the pancreas. No focal fluid collection or necrosis. Focal pancreatic lesion. Fluid extends distally along the left paracolic gutter. Assessment/Plan Assessment/Recommendations: 52 y/o female, f/b Dr. Lee Oliva for primary care, HLD (w/o meds), hx GERD & "PUD". Upon further questioning, PUD was never documented. The patient had never had an EGD or baseline screening colonoscopy, despite her age. She apparently had positive H. pylori by an outpt urea breath test, obtained by her PMD. She was treated with an unknown regimen, and it sounded like the H. pylori was not eradicated. 12/07/16: UGI series per PMD- [id number] GERD, extending up to the thoracic inlet, otherwise negative study, without any ulcer. The patient arrived at the [facility] 09/14/17 at 9:57 p.m., complaining of of RUQ/LUQ abdominal pain, radiating to her back, "10 out of 10". 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 Her last BM was the a.m. of admission. She had nausea & vomiting. She was actively vomiting in triage. There was no hematemesis. Upon arrival, BP 131/82, P 59, R 14, T 96.3, O2 sat RA 99%. The patient was given IV NS, Zofran, Morphine, Pepcid & Unasyn 3g IVPB. IVF were switched to Lactated Ringers. There was no documented hypotension, nor any temperature spikes. There was no change in mental status. The patient claimed that she has a long history of fatty food intolerance and that she occasionally uses Zantac and/or Tums. After eating greasy German food on 09/11/17, she noted onset of epigastric pain, initially "7 out of 10" in severity, partially relieved with Zantac. Her abdominal pain recurred the next day, after eating breakfast, treated with Zantac. On 09/14/17, the patient ate breakfast, had recurrent symptoms, took a Zantac, and went to work. At 2 PM she noted chills without any fevers, and took Tums and Tylenol. Despite this, her symptoms got worse, and she had bilious vomiting. She also noticed that her stools were little administrative personal assistant in color and that her skin was becoming yellow. She denied any pruritus. She had mild urinary frequency, without any hematuria or dysuria. She denied any rashes or symptoms of URI. She denied any chest pain, shortness of breath, diarrhea, constipation, melena, or rectal bleeding. She had intermittent reflux, without any odynophagia, dysphagia, hematemesis, or early satiety. She denied any weight loss or previous change in appetite. She denies any history of hepatitis or blood transfusions. There is a history of gallbladder disease in the patient's paternal uncle. Otherwise, there is no family history of any GI disease, GI CA, inherited pancreatitis, or inherited liver disease, aside from the fact that her mother incidentally had some "liver cysts". The patient denied any cigarettes, EtOH, or illicit drugs. She denied any sulfa medications, BCP, thiazides, or NSAIDs. *Her only outpatient medications included Zantac, Tums, and/or Tylenol as needed. She was born in [facility] and has lived in the [place] since 1998. The patient was admitted to the ICU overnight to watch for possible cholangitis, although she was not critically ill. 06/26/15: *previous LFTs in [facility]- normal, xc borderline alk phos 131, with borderline Ca2+ 10.6. 09/14/17: Admission labs- WBC 11.2 (90S/7L/3M), H/H 13.9/40.9, MCV 84.3, RDW 13.7, PLT 337, glucose 175, BUN/Cr 12/0.7, GFR > 60, Na 139, K 3.8, HCO3 28, AG 13, amylase 4467, lipase > 10K, Ca 11.0, TG 69, albumin 4.7, globulin 3.3, TBil 3.6, alk phos 383, AST 682, ALT 1076, troponin < 0.01, nl FT4 1.70, nl TSH 0.759 , mild elevated d-Dimer 281 (< 243). 09/15/17: PT 12.0, INR 1.14, PTT 26, WBC 14.1 (91% gran/13 gran Ab), H/H 12.3/ 36.3, MCV 85.4, RDW 14, PLT 308, glucose 145, BUN/Cr 9/0.5, GFR > 60, Na 140, K 3.5, HCO3 23, Ca 8.7, PO4 3.5, *Mg 1.4, albumin 3.6, globulin 2.5, TChol 226, TG 41, HDL 85, LDL 133, TBil 3.1, DBil 2.3, alk phos 286, AST 426, ALT 749; *HgA1C- pending. 09/15/17: U/A- clear, yellow, 1.010, 7.0, rare WBC, 3-5 RBC, tr ketone, tr Hgb; neg nitirite, neg esterase 09/15/17: UC- pending (no BC sent). 09/15/17: EKG- SB @ 57, nl axis, nl intervalsm w/o acute ischemic changes. 09/15/17: XRY-PORTABLE CHEST XRAY- No acute pulmonary findings. 3 mm calcified granuloma left base. 09/15/17: CT ABD & PELVIS W IV CONTRAST- Findings are most suggestive of gallstone pancreatitis. Small calcification at the region of the pancreatic head with dilatation of the common bile duct 1.2 cm and mildly dilated intrahepatic ducts. Distended gallbladder with pericholecystic fluid. Normal liver. Diffuse peripancreatic edema with edematous appearance of the pancreas. No focal fluid collection or necrosis. Focal pancreatic lesion. Fluid extends distally along the left paracolic gutter. *Clinically, the patient has gallstone pancreatitis. *She does not appear to have cholangitis. She had no grave signs by [place] criteria on admission, although no LDH was sent. She had no grave signs by [facility] criteria on admission. Admission chest x -ray did not show any pleural effusions. Fortunately, subsequent labs have not shown evidence of hemoconcentration despite IV fluids, which would have been a poor prognostic sign. *SUGGEST- NPO for now. *RUQ sono. *For probable ERCP later today (discussed with Dr. Abbie Toribio, as I do not perform therapeutic biliary procedures). *Check BC ( already on abx). *Empiric Vit K 10 mg sc x 1 dose. IV Lactated Ringers @ 250 cc/ hr. Strict I's & O's. *Watch for hemoconcentration (i.e.- rising BUN or H/H). Supplemental O2 as needed. *Surgical consult for eventual lap CCKY, post ERCP. * Add LDH to admit labs. *Check CRP in 1-2 days for prognostic purposes. *Replete Mg2+. Add IV PPI vs. H2B for GERD (PPI may lower Mg). *Serial LFTs and CBC with differential. Follow-up electrolytes. *IV Zofran.*Analgesics as per medical team. The patient's borderline hypercalcemia, which normalized, may have been from dehydration (this can be further worked up by the medical team). DVT prophylaxis with mechanical ALPS. *Eventual semielective outpatient baseline EGD /baseline screening colonoscopy & workup of "H. pylori" (reportedly had positive urea breath test, treated with some unknown regimen by PMD; *consider rechecking stool antigen H. pylori), once her gallstone pancreatitis is treated. The patient was given my office number for future reference. The case was discussed with the medical house staff. Further GI recommendations to follow, based on clinical course. Problem List: 1. Gallstone pancreatitis Copies To: Key MORILLO,Kerwin; Pj MORILLO,Lee Valles; Sahil MORILLO,Joe Consult Acknowledgment - Thank you for your consult request.
[2017-09-15 08:00] VITALS: BP 118/78
--- NOTE | 2017-09-15 12:55 | ULTRASOUND REPORT ---
EXAMINATION: US ABDOMEN LIMITED CLINICAL INFORMATION: Abdominal pain. Result diagnosis: Cholangitis. COMPARISON: CT of the abdomen and pelvis done earlier today. (Gallstone pancreatitis). TECHNIQUE: Real-time imaging of the right upper quadrant abdominal viscera. FINDINGS: PANCREAS: The pancreatic duct measures 3 mm. There is generalized edema of the pancreas. LIVER: Normal size and echogenicity. There is mild dilatation of intrahepatic biliary ducts. The liver demonstrates normal size, contour and echogenicity. No focal lesion. The common bile duct proximal to the head of the pancreas measures 1.2 cm. GALLBLADDER: The gallbladder is enlarged. Numerous small stones are seen in the gallbladder lumen. The gallbladder wall measures 0.4 cm. The [place] operator noted that the patient was tender over the gallbladder fossa. COMMON BILE DUCT: Normal in caliber measuring 1.2 cm in diameter. RIGHT KIDNEY: Normal. No hydronephrosis. No renal calculi or focal parenchymal lesions. The kidney measures 10.1 cm in maximum dimension. FREE FLUID: None. IMPRESSION: 1. Prominent pancreatic duct measuring 3 mm. Generalized edema of the pancreas. 2. Cholelithiasis in an enlarged gallbladder.
[2017-09-15 16:00] VITALS: BP 120/70
--- NOTE | 2017-09-15 16:31 | Proc Note ERCP ---
ERCP Procedure Procedure Date: 09/15/17 GI Procedure(s): ERCP with sphincterotomy/stone grinding machine operator: Ted Toribio M.D. ASA Classification: III Indications: Gallstone pancreatitis, jaundice, dilated bile ducts; suggestion of choledocholithiasis on CT scan Instrument: duodenoscope Meds Received: MILLY Patient's Tolerance: good Complications: none Procedure: The patient signed informed consent, was brought to the OR suite and turned into the prone position, and was medicated. Lidocaine pharyngeal spray was administered. Pulse oximetry, blood pressure and cardiac monitoring were performed continuously throughout the procedure. The Olympus duodenoscope was inserted into the mouth and advanced to the duodenum. Indomethacin 100 mg was administered per rectum. The stomach was not examined. The duodenum was normal. There was an enlarged papilla, with the suggestion of an impacted stone within the orifice. The common bile duct was cannulated, and the stone pushed upwards. Of note, the pancreatic duct was not cannulated/injected. There was mild dilatation of the common bile duct and common hepatic duct. There were several distal filling defects. The cystic duct was not opacified. The hepatic ducts were normal. A large, bloodless sphincterotomy was performed. There was bile flow. 4 stones were extracted with an inflated balloon. A final occlusion cholangiogram and sweep were normal. Impression: * Choledocholithiasis, treated with sphincterotomy and extraction Recommendations: * Nothing by mouth for 4 hours, and then begin clear liquid diet * Management of pancreatitis * Follow-up CBC and liver associated enzymes * If blood cultures negative tomorrow, may consider stopping antibiotics * Cholecystectomy once pancreatitis resolved;; please consult surgical service CC: Pj MORILLO,Lee Valles
--- NOTE | 2017-09-15 16:44 | RADIOLOGY REPORT ---
EXAM: ERCP fluoroscopy in the operating suite. INDICATION: [ERCP in the operating room for the workup of abdominal pain. Pancreatitis.] TECHNIQUE: Fluoroscopic assistance was rendered by the medical technologist microbiology to Dr. Toribio who performed ERCP . 10 spot images acquired during the procedure are reviewed. 4 minutes 14 secondsof fluoroscopy time was utilized for this study. FINDINGS/IMPRESSION: Common bile duct was cannulated and injected with retrograde contrast. Common bile duct is normal in course and caliber. There is also retrograde filling of the intrahepatic biliary ducts which appear normal. 2 small rounded filling defects are present in the distal common bile duct on the first images, which are not visualized on later images, consistent with stone removal. There is also partial filling of the cystic duct. Please refer to procedural notes for further details.
[2017-09-15 23:30] VITALS: BP 120/64
[2017-09-16 04:19] LABS: ABSOLUTE BASOPHIL COUNT 0.1 /CUMM (0.0-0.2); ABSOLUTE EOSINOPHIL COUNT 0 /CUMM (0.0-0.7); ABSOLUTE GRANULOCYTE CT 15.6 /CUMM (1.4-6.5); ABSOLUTE LYMPH COUNT 0.8 /CUMM (1.2-3.4); ABSOLUTE MONOCYTE COUNT 0.7 /CUMM (0.10-0.60); BASOPHIL % 0.6 % (0.0-2.0); EOSINOPHIL % 0.1 % (0-5); GRANULOCYTE % 90.1 % (42.2-75.2); HEMATOCRIT 41.2 % (37-47); MEAN CORPUSCULAR HGB 28.7 PG (27.0-31.0); MEAN CORPUSCULAR HGB CONC 33.4 G/DL (33.0-37.0); MEAN CORPUSCULAR VOLUME 85.9 FL (81.0-99.0); MEAN PLATELET VOLUME 7.8 FL (7.4-10.4); PLATELET COUNT 325 /CUMM (130-400); RBC DISTRIBUTION WIDTH 14.4 % (11.5-14.5); WHITE BLOOD CELL COUNT 17.3 /CUMM (4.8-10.8)
--- NOTE | 2017-09-16 07:14 | PN- Resident CRCU ---
See Addendum Rajan MORILLO,Richa 09/16/17 0714: Subjective HPI/CRCU Issues: Gallstone pancreatitis 24 Hour Events: Patient seen and examined. Postop day 1, continues to complain of pain. Tolerated the procedure well. on clear liquids. Objective Vital Signs & I&O Last 8 Hrs of Vitals and I&O: Vital Signs Date Time Temp Pulse Resp B/P B/P Pulse O2 O2 Flow FiO2 Mean Ox Delivery Rate 09/16 0800 95 Room Air 09/16 08 98.3 86 18 120/74 94 Room Air 09/16 0151 97 Nasal 1.0L Cannula 09/15 2330 98.1 82 16 120/64 97 Nasal 1.0L Cannula 09/15 2000 98 Nasal 2.0L Cannula 09/15 1600 97 Nasal 2.0L Cannula 09/15 1600 101.1 77 17 120/70 97 Nasal 2.0L Cannula 09/15 1200 96 Room Air Intake & Output 09/16 1600 09/16 0800 09/16 0000 Intake Total 800 980 Output Total 800 500 Balance 0 480 Intake, IV 800 950 Intake, Oral 30 Output, Urine 800 500 Exam General Appearance: well developed/nourished, alert, awake, comfortable Head: atraumatic Neck: normal inspection, supple Respiratory: normal breath sounds, chest non-tender Cardiovascular: regular rate/rhythm Gastrointestinal: tenderness Extremities: normal inspection Cranial Nerves: normal hearing, normal speech Current Medications: Current Medications Sig/Mk Start time Last Medication Dose Route Stop Time Status Admin Ampicillin Sodium/ 3,000 MG Q6H 09/15 0900 AC 09/16 Sulbactam Sodium IV 0341 Sodium Chloride 100 ML Enoxaparin Sodium 40 MG DAILY 09/15 1000 DC SC Heparin Sodium 5,000 UNIT Q8 09/16 0600 AC 09/16 (Porcine) SC 0558 Hydromorphone HCl 2 MG ONCE ONE 09/15 2300 DC 09/15 PO 09/15 2301 2310 Hydromorphone HCl 0.4 MG Q4P PRN 09/15 1630 CAN IV Ketorolac 30 MG ONCE ONE 09/15 1645 DC 09/15 Tromethamine IV 09/15 1646 1648 Lactated Ringer's 1,000 ML Q10H 09/15 1645 AC 09/16 IV 09/16 1244 0341 Lactated Ringer's 1,000 ML Q6H 09/15 0345 DC 09/15 IV 09/15 1344 0938 Magnesium Sulfate 1 GM Q2H 09/15 0845 DC 09/15 Dextrose/Water 100 ML IV 09/15 1244 1049 Meperidine HCl 25 MG ONCE ONE 09/16 0930 DC IV 09/16 0931 Meperidine HCl 25 MG Q4P PRN 09/15 1345 DC IV Meperidine HCl 25 MG ONCE ONE 09/15 1245 DC 09/15 IV 09/15 1246 1250 Morphine Sulfate 2 MG ONCE ONE 09/16 0615 DC 09/16 IV 09/16 0616 0616 Morphine Sulfate 2 MG ONCE ONE 09/15 2300 DC 09/15 IV 09/15 2301 2310 Morphine Sulfate 2 MG ONCE ONE 09/15 2030 DC 09/15 IV 09/15 203 2031 Morphine Sulfate 2 MG ONCE ONE 09/15 1645 DC 09/15 IV 09/15 1646 1638 Morphine Sulfate 2 MG Q4P PRN 09/15 0345 DC 09/15 IV 1008 Ondansetron HCl 4 MG Q8P PRN 09/15 0345 AC IV Pantoprazole Sodium 40 MG DAILY 09/15 0500 AC 09/15 IV 0957 Tramadol HCl 50 MG Q6 09/16 0945 AC PO Impression/Plan Impression/Problem List Impression: She is being treated and evaluate for following conditions #Gallstone pancreatitis S/P ERCP Patient's presentation, presenting labs, CT scan findings are consistent with gallstone pancreatitis. Patient has been evaluated by gastroenterology they donot believe that patient has acute cholangitis. Lipid profile showed total cholesterol 226 LDL 133 HDL 85 TAG WNL. RUQ: Prominent pancreatic duct measuring 3 mm. Generalized edema of the pancreas. Cholelithiasis in an enlarged gallbladder. She is s/p ERCP -Monitor fever and WBC curve afebrile with white count of 17 and bands 20 likely reactive postop -CRP 9 -Surgical evaluation for cholecystectomy -Adequate pain control, manage nausea with Zofran -IV protonix -Currently on Unasyn day 2 #Hyperbilirubinemia, Transaminitis, elevated alkaline phosphatase-improving Insetting of gallstone pancreatitis -Continue to monitor LFTs #Hypomagnesemia -resolved #Hypercalcemia- resolved Problem List: 1. Gallstone pancreatitis Pain Ratin Pain Location: abd Tomorrow's Labs & Rationales: cbc bep Plan DVT/Prophylaxis: mechanical, pharmacological Joe Baxter MD 09/16/17 1037: Attending MD Review Statement Attending Sign Off Attending Cosign Statement: I have: examined this patient, reviewed avalbl EMR data, personally reviewd images, discussd w/resident/PA/HUMAN RESOURCES REPRESENTATIVE, discussed mgmt plan w/lauren, discussed mgmt plan w/CM, discussed mgmt plan w/pt, agreed w/resident/PA/HUMAN RESOURCES REPRESENTATIVE, amended to note. Other Findings: I, Joe Baxter M.D. have examined this patient, reviewed available EMR data, personally reviewed images, discussed with resident/PA/HUMAN RESOURCES REPRESENTATIVE, discussed management plan with housestaff and nursing staff, discussed managment plan all of healthcare providers, discussed management plan with patient and/or family, agreed with resident/PA/HUMAN RESOURCES REPRESENTATIVE. The past history and parts of the chart have been autopopulated. Impression 52-year-old woman with gallstone pancreatitis admitted to the ICU for further management until all diagnostic testing is performed. Plan -Gastroenterology and surgical input appreciated -pain control, doing solomon -hydration -DG to gen med -DVT prophylaxis at all times TTS 35 min
[2017-09-16 08:00] VITALS: BP 120/74
--- NOTE | 2017-09-16 09:54 | Transfer of Care Summary ---
Hospital Course Course Hospital Course: Reason of ICU admission Gallstone pancreatitis with possibility of ascending cholangitis HPI The patient is 65-year-old female with past medical history of GERD and hyperlipidemia not on any medication. She presented to [facility] ED on 09/13 with complaint of abdominal pain ongoing for the past 3 days, nausea, vomiting and chills. She has been intolerent to fatty food. Of note patient gives history of H. pylori detected by breath test, for which she states that she has been treated twice. Does not remember the name of medication. It is a possibility that it was not completely eradicated She presented with elevated WBC count, lipase, and amylase, hypercalcemia, hyperbilirubinemia, elevated alkaline phosphatase, transaminitis. Her lab findings are suggestive of gall stone pancreatitis which was confirmed with imaging which was consistent with gallstone pancreatitis along with calcification in head of pancreas, dilation of CBD, distended gallbladder with pericholecystic fluid, diffuse peripancreatic edematous changes. Eland's score 2, 1% predicted mortality, severe pancreatitis unlikely. BISAP score 0 <1% risk of mortality. Harmless acute pancreatitis score 1 point unable to rule out severe pancreatitis Interval events Patient underwent ERCP on 09/15, impression Choledocholithiasis, treated with sphincterotomy and extraction of 4 stones. She tolerated the procedure well and was started on clear liquids. Initially the pain control was an issue patient responded well to demrol now she has been switched to by mouth Dilaudid and her pain is much better controlled. She undrerwent cholecystectomy on 09/18. Postprocedure patient had an episode of hypotension to 80/40 requiring 500 ML bolus, responded well BP has been ranging in 100s to 120s/50s to 60s ever since. Her diet has been advanced to full liquid. There is concern about worsening WBC count and bandemia potential etiology aspiration pneumonia versus biliary leakage during cholecystectomy. #Gallstone pancreatitis S/P ERCP, S/P cholecystectomy Patient's presentation, presenting labs, CT scan findings are consistent with gallstone pancreatitis. Patient has been evaluated by gastroenterology they donot believe that patient has acute cholangitis. Lipid profile showed total cholesterol 226 LDL 133 HDL 85 TAG WNL. CRP 9 -Monitor fever and WBC curve -F/u blood and urine cultures -Adequate pain control, manage nausea with Zofran -IV protonix can convert to Oral PPI -Unasyn Day 4 #Hyperbilirubinemia, Transaminitis, elevated alkaline phosphatase-improving Insetting of gallstone pancreatitis -Continue to monitor LFTs #Possible aspiration versus atelectasis CXR was obtained 09/16 in context of bandemia. Positive for bibasilar opacities atelectasis versus aspiration. -Monitor fever and WBC, bands curve, afebrile with normal white count persistent bandemia worsening -Continue Unasyn for now -Incentive spirometry #Hypomagnesemia -resolved #Hypercalcemia- resolved Mechanical ventilations none NIPPV none Antibiotic paln Unasyn day 4 Catheters/lines PIV Things to be be followed -F/U GI note -F/U Gen Surg note -Monitor fever and WBC curve. I'm concerned about persistent bandemia,can be secondary to biliary leakage during the procedure. If bandemia persists, WBCs worsens, if pt spikes ferver consider changing antibiotic to zosyn, draw BCx2, and call ID consult -Monitor CBC and LFTs -F/U BC x2 drawn after initiation of antibiotic therapy -Watch for hemoconcentration (rising BUN or H/H) -IV protonix can be switched to oral PPI -Referral for GI services to get a baseline endoscopy/screening colonoscopy and workup for H. pylori infection -Recheck stool antigen H. pylori after resolution of gallstone pancreatitis Nutrition initially NPO, advanced to clear liquids tolerated well after ERCP, NPO for cholecystectomy and advanced to full liquids. DVT prophylaxsis ALPS and Lovenox Code status FC Assessment/Plan: see above
[2017-09-16 16:00] VITALS: BP 104/70
--- NOTE | 2017-09-16 17:40 | PN- Gastroenterology ---
Assessment/Plan GI Assessment/Recommendations: 52 y/o female, f/b Dr. Lee Oliva for primary care, HLD (w/o meds), hx GERD & "PUD". Upon further questioning, PUD was never documented. The patient had never had an EGD or baseline screening colonoscopy, despite her age. She apparently had positive H. pylori by an outpt urea breath test, obtained by her PMD. She was treated with an unknown regimen, and it sounded like the H. pylori was not eradicated. 12/07/16: UGI series per PMD- [id number] GERD, extending up to the thoracic inlet, otherwise negative study, without any ulcer. The patient arrived at the [place] [facility] 09/14/17 at 9:57 p.m., complaining of of RUQ/LUQ abdominal pain, radiating to her back, "10 out of 10". The symptoms started 3 days [employer]. Her last BM was the a.m. of admission. She had nausea & vomiting. She was actively vomiting in triage. There was no hematemesis. Upon arrival, BP 131/82, P 59, R 14, T 96.3, O2 sat RA 99%. The patient was given IV NS, Zofran, Morphine, Pepcid & Unasyn 3g IVPB. IVF were switched to Lactated Ringers. There was no documented hypotension, nor any temperature spikes. There was no change in mental status. The patient claimed that she has a long history of fatty food intolerance and that she occasionally uses Zantac and/or Tums. After eating greasy Japanese food on 09/11/17, she noted onset of epigastric pain, initially "7 out of 10" in severity, partially relieved with Zantac. Her abdominal pain recurred the next day, after eating breakfast, treated with Zantac. On 09/14/17, the patient ate breakfast, had recurrent symptoms, took a Zantac, and went to work. At 2 PM she noted chills without any fevers, and took Tums and Tylenol. Despite this, her symptoms got worse, and she had bilious vomiting. 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 She denied any pruritus. She had mild urinary frequency, without any hematuria or dysuria. She denied any rashes or symptoms of URI. She denied any chest pain, shortness of breath, diarrhea, constipation, melena, or rectal bleeding. She had intermittent reflux, without any odynophagia, dysphagia, hematemesis, or early satiety. She denied any weight loss or previous change in appetite. She denies any history of hepatitis or blood transfusions. There is a history of gallbladder disease in the patient's paternal uncle. Otherwise, there is no family history of any GI disease, GI CA, inherited pancreatitis, or inherited liver disease, aside from the fact that her mother incidentally had some "liver cysts". The patient denied any cigarettes, EtOH, or illicit drugs. She denied any sulfa medications, BCP, thiazides, or NSAIDs. *Her only outpatient medications included Zantac, Tums, and/or Tylenol as needed. She was born in [place] [place] and has lived in the [place] since 1998. The patient was admitted to the ICU overnight to watch for possible cholangitis, although she was not critically ill. 06/26/15: *previous LFTs in [facility]- normal, xc borderline alk phos 131, with borderline Ca2+ 10.6. 09/14/17: Admission labs- WBC 11.2 (90S/7L/3M), H/H 13.9/40.9, MCV 84.3, RDW 13.7, PLT 337, glucose 175, BUN/Cr 12/0.7, GFR > 60, Na 139, K 3.8, HCO3 28, AG 13, amylase 4467, lipase > 10K, Ca 11.0, TG 69, albumin 4.7, globulin 3.3, TBil 3.6, alk phos 383, AST 682, ALT 1076, troponin < 0.01, nl FT4 1.70, nl TSH 0.759 , mild elevated d-Dimer 281 (< 243). 09/14/17; *LDH 1110. 09/15/17: PT 12.0, INR 1.14, PTT 26, WBC 14.1 (91% gran/13 gran Ab), H/H 12.3/ 36.3, MCV 85.4, RDW 14, PLT 308, glucose 145, BUN/Cr 9/0.5, GFR > 60, Na 140, K 3.5, HCO3 23, Ca 8.7, PO4 3.5, *Mg 1.4, albumin 3.6, globulin 2.5, TChol 226, TG 41, HDL 85, LDL 133, TBil 3.1, DBil 2.3, alk phos 286, AST 426, ALT 749; *HgA1C- 5.7. 09/15/17: U/A- clear, yellow, 1.010, 7.0, rare WBC, 3-5 RBC, tr ketone, tr Hgb; neg nitirite, neg esterase 09/15/17: UC- neg x 1 day. 09/15/17: BC x 2- neg x 1 day (obtained after abx rxd) 09/15/17: EKG- SB @ 57, nl axis, nl intervalsm w/o acute ischemic changes. 09/15/17: XRY-PORTABLE CHEST XRAY- No acute pulmonary findings. 3 mm calcified granuloma left base. 09/15/17: CT ABD & PELVIS W IV CONTRAST- Findings are most suggestive of gallstone pancreatitis. Small calcification at the region of the pancreatic head with dilatation of the common bile duct 1.2 cm and mildly dilated intrahepatic ducts. Distended gallbladder with pericholecystic fluid. Normal liver. Diffuse peripancreatic edema with edematous appearance of the pancreas. No focal fluid collection or necrosis. Focal pancreatic lesion. Fluid extends distally along the left paracolic gutter. *Clinically, at the time of GI consultation, the patient had gallstone pancreatitis. *She did not appear to have cholangitis. She had no grave signs by Edgar criteria on admission, although no LDH was sent. She had no grave signs by BiSAP criteria on admission. Admission chest x-ray did not show any pleural effusions (or PNA). Fortunately, subsequent labs on 09/15/17 did not show evidence of hemoconcentration despite IV fluids, which would have been a poor prognostic sign. 09/15/17: US ABDOMEN (RUQ) LIMITED- 1. Prominent pancreatic duct measuring 3 mm. Generalized edema of the pancreas. 2. Cholelithiasis in an enlarged gallbladder. Mildly dilated IHD. CBD 1.2 cm. Normal liver. No ascites. GB wall 4 mm, without pericholecystic fluid. Positive ultrasonic Ryan sign. 3. Normal right kidney. DICTATED BY: Donato Medina MD 09/15/17: XRY-ERCP BILIARY & PANCREATIC- Common bile duct was cannulated and injected with retrograde contrast. Common bile duct is normal in course and caliber. There is also retrograde filling of the intrahepatic biliary ducts which appear normal. 2 small rounded filling defects are present in the distal common bile duct on the first images, which are not visualized on later images, consistent with stone removal. There is also partial filling of the cystic duct. *Please refer to procedural notes for further details. DICTATED BY: Donato Medina MD 09/15/17: *ERCP WITH SPHINCTEROTOMY/STONE EXTRACTION- per Dr. Abbie Toribio- Impression: * Choledocholithiasis, treated with sphincterotomy and extraction of 4 stones. 09/16/17: WBC 17.3 (75S/12B/8L/5M), H/H 13.8/41.2, PLT 325, glucose 99, BUN/Cr 10/0.6, GFR > 60, Na 136, K 3.7, HCO3 25, AG 9, A/L 1933/8219, Mg 1.9, Ca 8.5, PO4 3.1, albumin 3.0, *TBil 1.2, alk phos 224, AST 147, ALT 458, *CRP > 9.0 *As of 09/16/17, the patient was hemodynamicallystable & afebrile (T-98.3), although she did spike to 101.1 the afternoon before, with O2 sat RA 95%. She remained on IV Unasyn. Lovenox was added for DVT prophylaxis. Morphine was switched to Tramadol 50 mg po Q6h for pain control. She was also on IV Protonix 40 mg daily plus IV Zofran as needed. She was tolerating clears po. Her abdominal pain was down to "7 out of 10". She denied any chills, nausea, vomiting, chest pain, or shortness of breath. Her LFTs were improving. She was no longer yellow. She was mentating well.*A surgical consult was still pending, regarding eventual CCKY.*Her IVF were D/C'd, although her H/H had risen somewhat , possibly implying hemoconcentration. Additionally, she had some leukocytosis. Although she denied any respiratory issues, aspiration should be excluded. *SUGGEST- *Clears po for now & if stable, consider full liquids po in a.m. *Follow-up BC ( already on abx). *Advise repeat CXR to rule out aspiration in view of leukocytosis and temperature spike yesterday. Continue IV Unasyn for now. Will defer to medical team regarding duration of antibiotics. If no evidence of any extrapancreatic infection, may stop antibiotics from GI perspective. *Would resume IV Lactated Ringers @ 150 cc/hr, as the patient was slightly hemoconcentrated (i.e.- rising BUN or H/H). Strict I/O's. Supplemental O2 as needed. *Surgical consult for eventual lap CCKY, post ERCP. *Replete Mg2+. Continue PPI vs. H2B for GERD (PPI may lower Mg). *Serial LFTs and CBC with differential. Follow-up electrolytes. *IV Zofran.*Analgesics as per medical team ( switched to Toradol). The patient's borderline hypercalcemia, which normalized, may have been from dehydration (this can be further worked up by the medical team). DVT prophylaxis with Lovenox. Agree with downgrading patient from the ICU to General Medicine. *Eventual semi-elective outpatient baseline EGD/baseline screening colonoscopy & workup of "H. pylori" (reportedly had positive urea breath test, treated with some unknown regimen by PMD; *consider rechecking stool antigen H. pylori), once her gallstone pancreatitis is treated. The case was again discussed with the medical house staff. I also spoke with the patient and the patient's son, Atilio, at the bedside on 09/16/17, as per patient request. *The patient was given my office number for future reference. *Further inpatient GI follow-up as needed, but at the moment, she is decompressed from a biliary perspective. *Will defer to surgery regarding timing of CCKY in relation to pancreatitis (studies have shown that the morbidity & mortality are similar regarding inpatient vs. outpatient CCKY in cases of gallstone pancreatitis, as long as it is done within a one month period). Problem List: 1. Gallstone pancreatitis Subjective Subjective: 09/15/17: US ABDOMEN (RUQ) LIMITED- 1. Prominent pancreatic duct measuring 3 mm. Generalized edema of the pancreas. 2. Cholelithiasis in an enlarged gallbladder. Mildly dilated IHD. CBD 1.2 cm. Normal liver. No ascites. GB wall 4 mm, without pericholecystic fluid. Positive ultrasonic Ryan sign. 3. Normal right kidney. DICTATED BY: Donato Medina MD 09/15/17: XRY-ERCP BILIARY & PANCREATIC- Common bile duct was cannulated and injected with retrograde contrast. Common bile duct is normal in course and caliber. There is also retrograde filling of the intrahepatic biliary ducts which appear normal. 2 small rounded filling defects are present in the distal common bile duct on the first images, which are not visualized on later images, consistent with stone removal. There is also partial filling of the cystic duct. *Please refer to procedural notes for further details. DICTATED BY: Donato Medina MD 09/15/17: *ERCP WITH SPHINCTEROTOMY/STONE EXTRACTION- per Dr. Abbie Toribio- Impression: * Choledocholithiasis, treated with sphincterotomy and extraction of 4 stones. 09/16/17: WBC 17.3 (75S/12B/8L/5M), H/H 13.8/41.2, PLT 325, glucose 99, BUN/Cr 10/0.6, GFR > 60, Na 136, K 3.7, HCO3 25, AG 9, A/L 1933/8219, Mg 1.9, Ca 8.5, PO4 3.1, albumin 3.0, *TBil 1.2, alk phos 224, AST 147, ALT 458, *CRP > 9.0 *As of 09/16/17, the patient was hemodynamicallystable & afebrile (T-98.3), although she did spike to 101.1 the afternoon before, with O2 sat RA 95%. She remained on IV Unasyn. Lovenox was added for DVT prophylaxis. Morphine was switched to Tramadol 50 mg po Q6h for pain control. She was also on IV Protonix 40 mg daily plus IV Zofran as needed. She was tolerating clears po. Her abdominal pain was down to "7 out of 10". She denied any chills, nausea, vomiting, chest pain, or shortness of breath. Her LFTs were improving. She was no longer yellow. She was mentating well.*A surgical consult was still pending, regarding eventual CCKY.*Her IVF were D/C'd, although her H/H had risen somewhat , possibly implying hemoconcentration. Additionally, she had some leukocytosis. Although she denied any respiratory issues, aspiration should be excluded. Review of Systems: Full 14 point review of systems otherwise noncontributory, and as above. Review of Systems Constitutional: Reports: chills-> resolved. Denies: diaphoresis, fever, malaise, weakness, unexplained weight loss. EENTM: Denies: blurred vision, double vision, visual changes, eye pain, eye drainage, eye tearing, icterus, ear discharge, ear pain, ear redness, hearing changes, nasal congestion, epistaxis, nasal pain, throat pain, throat swelling, mouth pain, tooth pain. Cardiovascular: Denies: chest pain, edema, orthopena, palpitations, peripheral edema, syncope. Respiratory: Denies: cough, hemoptysis, orthopnea, short of breath, sputum production, stridor, wheezing. GI: Reports: abdominal pain-> improving; nausea & vomiting-> resolved. Denies: bloating, constipation, diarrhea, distention, bowel incontinence, melena , bloody stool, changes in stool, steatorrhea. Genitourinary: Reports: mild frequency. Denies: discharge, dysuria, hematuria, hesitation, nocturia, pain, urgency. Musculoskeletal: Denies: back pain, gout, joint pain, joint swelling, muscle pain, muscle stiffness, neck pain. Skin: Reports: jaundice-> resolved Denies: cysts, change in skin color, change in hair/nails, dryness, erythema, lesions, lymphangitis, lumps, moles, rash. Neurological/Psychological: Denies: anxiety, ataxia, cognitive dysfunction, confusion, depressed, dementia, emotional problems, headache, numbness, paresthesia, pre-existing deficit, petit mal seizures, tingling, tremors, tonic-clonic seizures, unable to move lower ext , unable to move upper ext, weakness. Hematologic/Endocrine: Denies: bruising, bleeding, polyuria, polydipsia. Immunologic/Allergic: Denies: splenectomy, HIV/AIDS, lymphadenopathy. All Other Systems: Reviewed and Negative Objective Vital Signs and I&Os Vital Signs Date Time Temp Pulse Resp B/P B/P Pulse O2 O2 Flow FiO2 Mean Ox Delivery Rate 09/16 1600 98.2 80 18 104/70 94 Room Air 09/16 0800 95 Room Air 09/16 0800 98.3 86 18 120/74 94 Room Air 09/16 0151 97 Nasal 1.0L Cannula 09/15 2330 98.1 82 16 120/64 97 Nasal 1.0L Cannula 09/15 1999 98 Nasal 2.0L Cannula Intake & Output 09/16 1600 09/16 0400 09/15 1600 09/15 0400 09/14 1600 09/14 040 Intake Total 6941 260 9204 2000 Output Total 3171 076 5948 Balance 043 421 7202 1999 Intake, IV 5764 535 4355 1999 Intake, Oral 240 30 Number 0 0 Bowel Movements Output, Urine 0018 005 2109 Patient 120 lb 116 lb Weight Weight Bed scale Reported by Patient Measurement Method Physical Exam: Well-developed well-nourished female, in no apparent distress. The patient is no longer jaundiced. Sclera anicteric. Conjunctiva pink. Oropharynx clear. No oral thrush. Mucus membranes less dry. No aphthous ulcers. There is no adenopathy, thyromegaly, or JVD. No peripheral stigmata of inflammatory bowel disease or chronic liver disease on exam. No spiders on the anterior chest wall. Breast & pelvic exams: API. No CVA tenderness. No spine tenderness. Lungs : clear to A&P. No wheezing, rales, or rhonchi. Heart exam: regular rate rhythm, S1 and S2, without any murmur. Abdominal exam: normal bowel sounds, soft belly, epigastric tenderness, with mild guarding, but no rebound. No mass. No organomegaly. No definite Ryan's sign. No fluid shift. No pulsatile mass. No epigastric bruit. Digital rectal exam: deferred by patient. Extremities: without C, C, or E. No palpable cords. Mild DJD. No acute arthropathy. No rash. No palmar erythema. No Dupuytren's contractures. Distal pulses 2+ bilaterally. DTRs 2+ bilaterally. Alert and oriented x 3. Right- handed. Motor 5/5 B/L. No tremor. No asterixis. Current Medications: Current Medications Sig/Mk Start time Last Medication Dose Route Stop Time Status Admin Ampicillin Sodium/ 3,000 MG Q6H 09/15 0900 AC 09/16 Sulbactam Sodium IV 1416 Sodium Chloride 100 ML Enoxaparin Sodium 40 MG DAILY 09/17 1000 AC SC Enoxaparin Sodium 40 MG ONCE ONE 09/16 1345 DC 09/16 SC 09/16 1346 1416 Heparin Sodium 5,000 UNIT Q8 09/16 0600 DC 09/16 (Porcine) SC 0558 Hydromorphone HCl 2 MG ONCE ONE 09/15 2300 DC 09/15 PO 09/15 2301 2310 Lactated Ringer's 1,000 ML Q10H 09/15 1645 DC 09/16 IV 09/16 1244 0341 Meperidine HCl 25 MG ONCE ONE 09/16 0930 DC 09/16 IV 09/16 0931 1003 Morphine Sulfate 2 MG ONCE ONE 09/16 1430 DC 09/16 IV 09/16 1431 1424 Morphine Sulfate 2 MG ONCE ONE 09/16 0615 DC 09/16 IV 09/16 0616 0616 Morphine Sulfate 4 MG .STK-MED ONE 09/16 0613 DC IM 09/16 0614 Morphine Sulfate 2 MG ONCE ONE 09/15 2300 DC 09/15 IV 09/15 2301 2310 Morphine Sulfate 2 MG ONCE ONE 09/15 2029 DC 09/15 IV 09/15 203 203 Ondansetron HCl 4 MG Q8P PRN 09/15 0345 AC IV Pantoprazole Sodium 40 MG DAILY 09/15 0500 AC 09/16 IV 1003 Tramadol HCl 50 MG Q6 09/16 0945 AC 09/16 PO 1246 Results Pertinent Lab Results: Laboratory Tests 09/16 09/16 1000 0349 Chemistry Sodium (137 - 145 mmol/L) 136 L Potassium (3.5 - 5.1 mmol/L) 3.7 Chloride (98 - 107 mmol/L) 102 Carbon Dioxide (22 - 30 mmol/L) 25 Anion Gap (5 - 16) 9 BUN (7 - 17 mg/dL) 10 Creatinine (0.5 - 1.0 mg/dL) 0.6 Estimated GFR (>60 ml/min) > 60 Glucose (65 - 99 mg/dL) 99 Calcium (8.4 - 10.2 mg/dL) 8.5 Phosphorus (2.5 - 4.5 mg/dL) 3.1 Magnesium (1.6 - 2.3 mg/dL) 1.9 Total Bilirubin (0.2 - 1.3 mg/dL) 1.2 AST (14 - 36 U/L) 147 H ALT (9 - 52 U/L) 458 H Alkaline Phosphatase (<127 U/L) 224 H C-Reactive Prot, Quant (<1.0 mg/dL) > 9.0 H C-React Prot High Sens (1.0 - 3.0 mg/L) > 15.0 H Albumin (3.5 - 5.0 g/dL) 3.0 L Amylase (30 - 110 U/L) 1933 H Lipase (23 - 300 U/L) 8219 H Hematology CBC w Diff MAN DIFF ORDERED WBC (4.8 - 10.8 /CUMM) 17.3 H RBC (4.20 - 5.40 /CUMM) 4.80 Hgb (12.0 - 16.0 G/DL) 13.8 Hct (37 - 47 %) 41.2 MCV (81.0 - 99.0 FL) 85.9 MCH (27.0 - 31.0 PG) 28.7 MCHC (33.0 - 37.0 G/DL) 33.4 RDW (11.5 - 14.5 %) 14.4 Plt Count (130 - 400 /CUMM) 325 MPV (7.4 - 10.4 FL) 7.8 Gran % (42.2 - 75.2 %) 90.1 H Lymphocytes % (20.5 - 51.1 %) 4.9 L Monocytes % (1.7 - 9.3 %) 4.3 Eosinophils % (0 - 5 %) 0.1 Basophils % (0.0 - 2.0 %) 0.6 Absolute Granulocytes (1.4 - 6.5 /CUMM) 15.6 H Segmented Neutrophils (42.2 - 75.2 %) 75 Band Neutrophils (0.0 - 5.0 %) 12 H Absolute Lymphocytes (1.2 - 3.4 /CUMM) 0.8 L Lymphocytes (20.5 - 51.1 %) 8 L Monocytes (1.7 - 9.3 %) 5 Absolute Monocytes (0.10 - 0.60 /CUMM) 0.7 H Absolute Eosinophils (0.0 - 0.7 /CUMM) 0 Absolute Basophils (0.0 - 0.2 /CUMM) 0.1 Platelet Estimate (ADEQUATE) ADEQUATE Hypochromic-Microcytic 1+ Anisocytosis 1+ Stomatocytes FEW Urines Urinalysis LIGHT H Urine Color (YEL,AMB,STR) MIKKI Urine Clarity (CLEAR) CLEAR Urine pH (5.0 - 8.0) 6.0 Ur Specific [place] (1.001 - 1.035) >= 1.030 Urine Protein (NEG,<30 MG/DL) 30 H Urine Ketones (NEG) TRACE H Urine Nitrite (NEG) NEG Urine Bilirubin (NEG) NEG Urine Urobilinogen (0.1 - 1.0 EU/dl) 0.2 Ur Leukocyte Esterase (NEG) NEG Ur Microscopic SEDIMENT EXAMINED Urine RBC (0 - 5 /HPF) 50-75 H Urine WBC (0 - 2 /HPF) 5-10 H Ur Epithelial Cells (NONE,FEW) RARE Urine Bacteria (NEG/NONE) FEW H Hyaline Casts (0/LPF) RARE H Granular Casts (NONE /LPF) 3-5 H Urine Mucus (FEW,NONE) RARE Urine Hemoglobin (NEG) MOD H Urine Glucose (N MG/DL) NEG 09/15 09/15 0520 0515 Chemistry Sodium (137 - 145 mmol/L) 140 Potassium (3.5 - 5.1 mmol/L) 3.5 Chloride (98 - 107 mmol/L) 105 Carbon Dioxide (22 - 30 mmol/L) 23 Anion Gap (5 - 16) 12 BUN (7 - 17 mg/dL) 9 Creatinine (0.5 - 1.0 mg/dL) 0.5 Estimated GFR (>60 ml/min) > 60 Glucose (65 - 99 mg/dL) 145 H Hemoglobin A1c (4.2 - 5.8 %) 5.7 Calcium (8.4 - 10.2 mg/dL) 8.7 Phosphorus (2.5 - 4.5 mg/dL) 3.5 Magnesium (1.6 - 2.3 mg/dL) 1.4 L Total Bilirubin (0.2 - 1.3 mg/dL) 3.1 H Direct Bilirubin (< 0.4 mg/dL) 2.3 H AST (14 - 36 U/L) 426 H ALT (9 - 52 U/L) 749 H Alkaline Phosphatase (<127 U/L) 286 H Total Protein (6.3 - 8.2 g/dL) 6.1 L Albumin (3.5 - 5.0 g/dL) 3.6 Triglycerides (<150 mg/dL) 41 Cholesterol (<200 MG/DL) 226 H LDL Cholesterol, Calc (65 - 129 mg/dL) 133 H HDL Cholesterol (40 - 60 mg/dL) 85 H Cholesterol/HDL Ratio (0.00 - 4.23 %) 3 Coagulation PT (9.4 - 12.5 SEC) 12.0 INR (0.90 - 1.19) 1.14 APTT (25 - 37 SEC) 26 Hematology CBC w Diff NO MAN DIFF REQ WBC (4.8 - 10.8 /CUMM) 14.1 H RBC (4.20 - 5.40 /CUMM) 4.25 Hgb (12.0 - 16.0 G/DL) 12.3 Hct (37 - 47 %) 36.3 L MCV (81.0 - 99.0 FL) 85.4 MCH (27.0 - 31.0 PG) 29.0 MCHC (33.0 - 37.0 G/DL) 34.0 RDW (11.5 - 14.5 %) 14.0 Plt Count (130 - 400 /CUMM) 308 MPV (7.4 - 10.4 FL) 7.9 Gran % (42.2 - 75.2 %) 91.2 H Lymphocytes % (20.5 - 51.1 %) 4.8 L Monocytes % (1.7 - 9.3 %) 4.0 Eosinophils % (0 - 5 %) 0 Basophils % (0.0 - 2.0 %) 0 Absolute Granulocytes (1.4 - 6.5 /CUMM) 12.9 H Absolute Lymphocytes (1.2 - 3.4 /CUMM) 0.7 L Absolute Monocytes (0.10 - 0.60 /CUMM) 0.6 Absolute Eosinophils (0.0 - 0.7 /CUMM) 0 Absolute Basophils (0.0 - 0.2 /CUMM) 0 Urines Urinalysis LIGHT H Urine Color (YEL,AMB,STR) YEL Urine Clarity (CLEAR) CLEAR Urine pH (5.0 - 8.0) 7.0 Ur Specific [place] (1.001 - 1.035) 1.010 Urine Protein (NEG,<30 MG/DL) NEG Urine Ketones (NEG) TRACE H Urine Nitrite (NEG) NEG Urine Bilirubin (NEG) NEG Urine Urobilinogen (0.1 - 1.0 EU/dl) 0.2 Ur Leukocyte Esterase (NEG) NEG Ur Microscopic SEDIMENT EXAMINED Urine RBC (0 - 5 /HPF) 3-5 Urine WBC (0 - 2 /HPF) RARE Urine Bacteria (NEG/NONE) RARE H Urine Hemoglobin (NEG) TRACE-INTACT Urine Glucose (N MG/DL) NEG 09/15 09/14 0500 2322 Chemistry Sodium (137 - 145 mmol/L) Cancelled 139 Potassium (3.5 - 5.1 mmol/L) Cancelled 3.8 Chloride (98 - 107 mmol/L) Cancelled 98 Carbon Dioxide (22 - 30 mmol/L) Cancelled 28 Anion Gap (5 - 16) Cancelled 13 BUN (7 - 17 mg/dL) Cancelled 12 Creatinine (0.5 - 1.0 mg/dL) Cancelled 0.7 Estimated GFR (>60 ml/min) > 60 BUN/Creatinine Ratio (7 - 25 %) 17.1 Glucose (65 - 99 mg/dL) Cancelled 175 H Calcium (8.4 - 10.2 mg/dL) Cancelled 11.0 H Phosphorus Cancelled Magnesium Cancelled Total Bilirubin (0.2 - 1.3 mg/dL) Cancelled 3.6 H AST (14 - 36 U/L) Cancelled 682 H ALT (9 - 52 U/L) Cancelled 1076 H Alkaline Phosphatase (<127 U/L) 383 H Lactate Dehydrogenase (313 - 618 U/L) 1110 H Troponin I (< 0.11 ng/ml) < 0.01 Total Protein (6.3 - 8.2 g/dL) 8.0 Albumin (3.5 - 5.0 g/dL) Cancelled 4.7 Globulin (1.9 - 4.2 gm/dL) 3.3 Albumin/Globulin Ratio (1.1 - 2.2 %) 1.4 Triglycerides (<150 mg/dL) 69 Amylase (30 - 110 U/L) 4467 H Lipase (23 - 300 U/L) > 84551 H TSH (0.270 - 4.200 uIU/mL) 0.759 Free T4 (0.64 - 1.79 ng/dL) 1.70 Coagulation D-Dimer High Sensitivty (0 - 243 ng/ml) 281 H Hematology CBC w Diff MAN DIFF ORDERED WBC (4.8 - 10.8 /CUMM) 11.2 H RBC (4.20 - 5.40 /CUMM) 4.85 Hgb (12.0 - 16.0 G/DL) 13.9 Hct (37 - 47 %) 40.9 MCV (81.0 - 99.0 FL) 84.3 MCH (27.0 - 31.0 PG) 28.5 MCHC (33.0 - 37.0 G/DL) 33.9 RDW (11.5 - 14.5 %) 13.7 Plt Count (130 - 400 /CUMM) 337 MPV (7.4 - 10.4 FL) 7.7 Gran % (42.2 - 75.2 %) 87.4 H Lymphocytes % (20.5 - 51.1 %) 7.1 L Monocytes % (1.7 - 9.3 %) 5.2 Eosinophils % (0 - 5 %) 0 Basophils % (0.0 - 2.0 %) 0.3 Absolute Granulocytes (1.4 - 6.5 /CUMM) 9.8 H Segmented Neutrophils (42.2 - 75.2 %) 90 H Absolute Lymphocytes (1.2 - 3.4 /CUMM) 0.8 L Lymphocytes (20.5 - 51.1 %) 7 L Monocytes (1.7 - 9.3 %) 3 Absolute Monocytes (0.10 - 0.60 /CUMM) 0.6 Absolute Eosinophils (0.0 - 0.7 /CUMM) 0 Absolute Basophils (0.0 - 0.2 /CUMM) 0 Platelet Estimate (ADEQUATE) ADEQUATE Polychromasia 1+ Poikilocytosis 2+ Ovalocytes 1+ Stomatocytes 1+ Other Body Source Fld Total RBCs Counted (%) 100 Imaging/Other Studies: 09/15/17: EKG- SB @ 57, nl axis, nl intervalsm w/o acute ischemic changes. 09/15/17: XRY-PORTABLE CHEST XRAY- No acute pulmonary findings. 3 mm calcified granuloma left base. 09/15/17: CT ABD & PELVIS W IV CONTRAST- Findings are most suggestive of gallstone pancreatitis. Small calcification at the region of the pancreatic head with dilatation of the common bile duct 1.2 cm and mildly dilated intrahepatic ducts. Distended gallbladder with pericholecystic fluid. Normal liver. Diffuse peripancreatic edema with edematous appearance of the pancreas. No focal fluid collection or necrosis. Focal pancreatic lesion. Fluid extends distally along the left paracolic gutter. 09/15/17: US ABDOMEN (RUQ) LIMITED- 1. Prominent pancreatic duct measuring 3 mm. Generalized edema of the pancreas. 2. Cholelithiasis in an enlarged gallbladder. Mildly dilated IHD. CBD 1.2 cm. Normal liver. No ascites. GB wall 4 mm, without pericholecystic fluid. Positive ultrasonic Ryan sign. 3. Normal right kidney. DICTATED BY: Donato Medina MD 09/15/17: XRY-ERCP BILIARY & PANCREATIC- Common bile duct was cannulated and injected with retrograde contrast. Common bile duct is normal in course and caliber. There is also retrograde filling of the intrahepatic biliary ducts which appear normal. 2 small rounded filling defects are present in the distal common bile duct on the first images, which are not visualized on later images, consistent with stone removal. There is also partial filling of the cystic duct. *Please refer to procedural notes for further details. DICTATED BY: Donato Medina MD 09/15/17: *ERCP WITH SPHINCTEROTOMY/STONE EXTRACTION- per Dr. Abbie Toribio- Impression: * Choledocholithiasis, treated with sphincterotomy and extraction of 4 stones.
--- NOTE | 2017-09-16 18:53 | Cons- General Surgery ---
Suzanna Norman 09/16/17 1836: General Information and HPI Consulting Request Date of Consult: 09/16/17 Requested By: Joe Baxter MD Reason for Consult: Gall stone pancreatitis, evaluate for cholecystectomy Source of Information: patient, family, old records Exam Limitations: no limitations History of Present Illness: Flaquita is a 52 year old who presented to the hospital on 09/15 with complaints of a 3 day history of worsening abdominal pain that began in the epigastric region. She was vomitting upon arrival to ER and was concerned of a jaundice appearance. She underwent diagnostic imaging, a CT scan and abdominal ultrasound, and studies were suggestive of gall stone pancreatitis. GI was consulted and patient underwent an ERCP on 09/15 during which a sphincterotomy was performed and 4 stones were extracted. Post procedure labs were followed. They show improving LFTs although pancreatic enzymes, while trending down, remain elevated. 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 Age 74. MOTHER (Healthy; hepatic cysts). Age 68. PU ([facility] for sx gallstones). Psychosocial History Where Do You Live? Home Who Do You Live With? spouse Services at Home: None Primary Language: Citizen Of [place], Kyr[place] Smoking Status: Never Smoked ETOH Use: denies use (rare), occasional use Illicit Drug Use: denies illicit drug use Living Will? no Power of Billet Sawyer/HCP? no Other Social History: to 2nd . from 1st . 1 son & 1 dtr by 1st - [employer]. No cigarettes. Rare EtOH. No illicit drugs. 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 Born in [facility]. In [place] since [place]. Functional Ability ADLs Independent: dressing, eating, toileting, bathing. Ambulation: independent IADLs Independent: shopping, housework, finances, food prep, telephone, transportation , medication admin. 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 EENTM: Reports: no symptoms. Cardiovascular: Reports: no symptoms. Respiratory: Reports: no symptoms. GI: Reports: see HPI, abdominal pain, vomiting. Genitourinary: Reports: no symptoms (malodorous). Musculoskeletal: Reports: no symptoms. Skin: Reports: change in skin color (jaundice). Neurological/Psychological: Reports: no symptoms. Exam & Diagnostic Data Vital Signs and I&O Vital Signs Date Time Temp Pulse Resp B/P B/P Pulse O2 O2 Flow FiO2 Mean Ox Delivery Rate 09/17 1599 98.2 80 18 104/70 94 Room Air 09/16 08 95 Room Air 09/16 08 98.3 86 18 120/74 94 Room Air 09/16 0151 97 Nasal 1.0L Cannula 09/15 2330 98.1 82 16 120/64 97 Nasal 1.0L Cannula 09/15 2000 98 Nasal 2.0L Cannula Intake & Output 09/16 1600 09/16 0800 09/16 0000 09/15 1600 09/15 0800 09/15 0000 Intake Total 1040 574 858 1157 3520 Output Total 600 800 500 500 800 Balance 440 0 480 1270 2720 Intake, IV 800 769 723 9941 3520 Intake, Oral 240 30 Number 0 0 Bowel Movements Output, Urine 600 800 500 500 800 Patient 120 lb 116 lb Weight Weight Bed scale Reported by Patient Measurement Method Physical Exam: General: Alert and oriented x3, no acute distress Cardiac: RRR, s1s2 Pulm: CTA bilaterally ABD: Tender to palpation in epigastric region, no rebound tenderness, no guarding. No distension. Bowel sounds auscutated Extremties: Moves all extremities, distal sensation intact. Skin warm and well perfused. DP pulses palpable bilaterally. Bilateral calves soft and non- tender. Skin color does not appear jaundice at this time, no scleral icterus. Last 24 Hours of Labs: Laboratory Tests 09/16 09/16 1000 0349 Chemistry Sodium (137 - 145 mmol/L) 136 L Potassium (3.5 - 5.1 mmol/L) 3.7 Chloride (98 - 107 mmol/L) 102 Carbon Dioxide (22 - 30 mmol/L) 25 Anion Gap (5 - 16) 9 BUN (7 - 17 mg/dL) 10 Creatinine (0.5 - 1.0 mg/dL) 0.6 Estimated GFR (>60 ml/min) > 60 Glucose (65 - 99 mg/dL) 99 Calcium (8.4 - 10.2 mg/dL) 8.5 Phosphorus (2.5 - 4.5 mg/dL) 3.1 Magnesium (1.6 - 2.3 mg/dL) 1.9 Total Bilirubin (0.2 - 1.3 mg/dL) 1.2 AST (14 - 36 U/L) 147 H ALT (9 - 52 U/L) 458 H Alkaline Phosphatase (<127 U/L) 224 H C-Reactive Prot, Quant (<1.0 mg/dL) > 9.0 H C-React Prot High Sens (1.0 - 3.0 mg/L) > 15.0 H Albumin (3.5 - 5.0 g/dL) 3.0 L Amylase (30 - 110 U/L) 1933 H Lipase (23 - 300 U/L) 8219 H Hematology CBC w Diff MAN DIFF ORDERED WBC (4.8 - 10.8 /CUMM) 17.3 H RBC (4.20 - 5.40 /CUMM) 4.80 Hgb (12.0 - 16.0 G/DL) 13.8 Hct (37 - 47 %) 41.2 MCV (81.0 - 99.0 FL) 85.9 MCH (27.0 - 31.0 PG) 28.7 MCHC (33.0 - 37.0 G/DL) 33.4 RDW (11.5 - 14.5 %) 14.4 Plt Count (130 - 400 /CUMM) 325 MPV (7.4 - 10.4 FL) 7.8 Gran % (42.2 - 75.2 %) 90.1 H Lymphocytes % (20.5 - 51.1 %) 4.9 L Monocytes % (1.7 - 9.3 %) 4.3 Eosinophils % (0 - 5 %) 0.1 Basophils % (0.0 - 2.0 %) 0.6 Absolute Granulocytes (1.4 - 6.5 /CUMM) 15.6 H Segmented Neutrophils (42.2 - 75.2 %) 75 Band Neutrophils (0.0 - 5.0 %) 12 H Absolute Lymphocytes (1.2 - 3.4 /CUMM) 0.8 L Lymphocytes (20.5 - 51.1 %) 8 L Monocytes (1.7 - 9.3 %) 5 Absolute Monocytes (0.10 - 0.60 /CUMM) 0.7 H Absolute Eosinophils (0.0 - 0.7 /CUMM) 0 Absolute Basophils (0.0 - 0.2 /CUMM) 0.1 Platelet Estimate (ADEQUATE) ADEQUATE Hypochromic-Microcytic 1+ Anisocytosis 1+ Stomatocytes FEW Urines Urinalysis LIGHT H Urine Color (YEL,AMB,STR) MIKKI Urine Clarity (CLEAR) CLEAR Urine pH (5.0 - 8.0) 6.0 Ur Specific [place] (1.001 - 1.035) >= 1.030 Urine Protein (NEG,<30 MG/DL) 30 H Urine Ketones (NEG) TRACE H Urine Nitrite (NEG) NEG Urine Bilirubin (NEG) NEG Urine Urobilinogen (0.1 - 1.0 EU/dl) 0.2 Ur Leukocyte Esterase (NEG) NEG Ur Microscopic SEDIMENT EXAMINED Urine RBC (0 - 5 /HPF) 50-75 H Urine WBC (0 - 2 /HPF) 5-10 H Ur Epithelial Cells (NONE,FEW) RARE Urine Bacteria (NEG/NONE) FEW H Hyaline Casts (0/LPF) RARE H Granular Casts (NONE /LPF) 3-5 H Urine Mucus (FEW,NONE) RARE Urine Hemoglobin (NEG) MOD H Urine Glucose (N MG/DL) NEG Imaging Results: PATIENT: FLAQUITA KONG PRESENT AGE: 52 PATIENT ACCOUNT NO: [id number] : 67 LOCATION: [facility] ORDERING PHYSICIAN: Mark Ortiz MD SERVICE DATE: 09/15/17 EXAM TYPE: CAT - CT ABD & PELVIS W IV CONTRAST EXAMINATION: CT ABDOMEN AND PELVIS WITH CONTRAST CLINICAL INFORMATION: Right upper quadrant pain. Elevated LFTs. COMPARISON: None TECHNIQUE: Multidetector volumetric imaging was performed of the abdomen and pelvis following IV administration of 95 mL of Optiray 320 intravenous contrast. Sagittal and coronal reformatted images were obtained on the technologist's workstation. DLP: 254 mGy-cm FINDINGS: LUNG BASES: The visualized lung bases are unremarkable. LIVER, GALLBLADDER, AND BILIARY TREE: The liver is normal in size, shape, and attenuation. No focal hepatic lesion. Mild intrahepatic biliary ductal dilatation noted. The gallbladder is distended. Mild pericholecystic fluid noted. No definite gallstone seen within the gallbladder lumen. The common bile duct is dilated, measuring up to 1.2 cm. In the region of the pancreatic head at the distal aspect of the common duct there is a 0.3 cm calcification. This may represent choledocholithiasis. PANCREAS: The pancreas is mildly prominent and hypoattenuating suggestive of edema. Prominent peripancreatic fluid. No fluid collection identified. Fluid extends distally along the left paracolic gutter. No focal pancreatic parenchymal lesion. SPLEEN: Unremarkable. ADRENAL GLANDS: Unremarkable. KIDNEYS AND URETERS: The kidneys are normal in size, shape, and attenuation. No hydronephrosis, hydroureter, or calculi seen. No perinephric stranding. BLADDER: Unremarkable. GASTROINTESTINAL TRACT: The stomach is unremarkable. The small bowel is normal in caliber. No obstruction. Normal appendix. No colonic wall thickening or inflammatory change. No free air. ABDOMINAL WALL: No significant hernia is appreciated. LYMPH NODES: Normal. VASCULAR: Unremarkable. PELVIC VISCERA: The uterus and adnexa are unremarkable. OSSEOUS STRUCTURES: No acute or suspicious osseous abnormality. IMPRESSION: Findings are most suggestive of gallstone pancreatitis. Small calcification at the region of the pancreatic head with dilatation of the common bile duct and intrahepatic ducts. Distended gallbladder with pericholecystic fluid. Diffuse peripancreatic edema with edematous appearance of the pancreas. DICTATED BY: Joseph Lamar MD DATE/TIME DICTATED:09/15/17207 TAX SERVICES SPECIALIST:CHUCKY DATE/TIME TRANSCRIBED:09/15/17207 CONFIDENTIAL, DO NOT COPY WITHOUT APPROPRIATE AUTHORIZATION. <Electronically signed in Other Vendor System> SIGNED BY: Joseph Lamar MD 09/15 0223 PATIENT: FLAQUITA KONG PRESENT AGE: 52 PATIENT ACCOUNT NO: [id number] : 67 LOCATION: [facility] ORDERING PHYSICIAN: Clarissa Belcher MD SERVICE DATE: 09/15/17 EXAM TYPE: US - US-LIMITED ABDOMEN EXAMINATION: US ABDOMEN LIMITED CLINICAL INFORMATION: Abdominal pain. Result diagnosis: Cholangitis. COMPARISON: CT of the abdomen and pelvis done earlier today. (Gallstone pancreatitis). TECHNIQUE: Real-time imaging of the right upper quadrant abdominal viscera. FINDINGS: PANCREAS: The pancreatic duct measures 3 mm. There is generalized edema of the pancreas. LIVER: Normal size and echogenicity. There is mild dilatation of intrahepatic biliary ducts. The liver demonstrates normal size, contour and echogenicity. No focal lesion. The common bile duct proximal to the head of the pancreas measures 1.2 cm. GALLBLADDER: The gallbladder is enlarged. Numerous small stones are seen in the gallbladder lumen. The gallbladder wall measures 0.4 cm. The scroll saw operator noted that the patient was tender over the gallbladder fossa. COMMON BILE DUCT: Normal in caliber measuring 1.2 cm in diameter. RIGHT KIDNEY: Normal. No hydronephrosis. No renal calculi or focal parenchymal lesions. The kidney measures 10.1 cm in maximum dimension. FREE FLUID: None. IMPRESSION: 1. Prominent pancreatic duct measuring 3 mm. Generalized edema of the pancreas. 2. Cholelithiasis in an enlarged gallbladder. DICTATED BY: Donato Medina MD DATE/TIME DICTATED:09/15/171242 TAX SERVICES SPECIALIST:CHUCKY DATE/TIME TRANSCRIBED:09/15/171242 CONFIDENTIAL, DO NOT COPY WITHOUT APPROPRIATE AUTHORIZATION. <Electronically signed in Other Vendor System> SIGNED BY: Donato Medina MD [id number] Assessment/Plan Assessment/Plan This is a 52 year old female, PMH signficant for hld (non-medicated) and GERD. She presented to hospital with an acute gall stone pancreatitis for which she underwent an ERCP with sphincterotomy and stone extraction. General surgery consulted regarding need for laparoscopic cholecystectomy -NPO after midnight in preparation for possible lap radha Wednesday -IV hydration -Continue unasyn -Follow up am labs: trend CBC, LFT, pancreatic enzymes Discussed with Dr. Bowers. Decision regarding timing of lap radha to be made tomorrow Problem List: 1. Gallstone pancreatitis Consult Acknowledgment - Thank you for your consult request. Ramírez Bowers DO 09/17/172111: Assessment/Plan Consult Acknowledgment - Thank you for your consult request. Attending MD Review Statement Attending Statement Attending MD Statement: examined this patient, discuss w/resident/PA/FERRYBOAT TICKET TAKER, agreed w/resident/PA/FERRYBOAT TICKET TAKER, discussed with family, reviewed EMR data (avail), reviewed images Attending Assessment/Plan: Patient seen and examined, agree with above. Improving gallstone pancreatitis, ? cholangitis. S/P ERCP/sphincterotomy. Clinically improving, less pain, no fever. Labs improving. AVSS. PORTER Bob. Plan for La Radha today. D/W patient, family , and staff.
--- NOTE | 2017-09-16 22:56 | RADIOLOGY REPORT ---
EXAMINATION: XR PORTABLE CHEST CLINICAL INFORMATION: Worsening white blood cell count despite antibiotics. COMPARISON: 09/15/2017 TECHNIQUE: Portable frontal view of the chest was obtained. FINDINGS: Lung volumes are low. There are increased bibasilar airspace opacities. These are new when compared to the recent prior study. Likely a small left pleural effusion. No pneumothorax. The cardiomediastinal silhouette is unremarkable. IMPRESSION: Low lung volumes. New bibasilar airspace opacities. This appearance could represent atelectasis or aspiration given the short interval change. Small left pleural effusion also likely present.
[2017-09-17] VITALS: BP 96/64
[2017-09-17 05:46] LABS: ABSOLUTE BASOPHIL COUNT 0 /CUMM (0.0-0.2); ABSOLUTE EOSINOPHIL COUNT 0 /CUMM (0.0-0.7); ABSOLUTE GRANULOCYTE CT 12.8 /CUMM (1.4-6.5); ABSOLUTE LYMPH COUNT 1.3 /CUMM (1.2-3.4); ABSOLUTE MONOCYTE COUNT 0.5 /CUMM (0.10-0.60); BASOPHIL % 0.3 % (0.0-2.0); EOSINOPHIL % 0.2 % (0-5); GRANULOCYTE % 87.7 % (42.2-75.2); HEMATOCRIT 39.2 % (37-47); MEAN CORPUSCULAR HGB 28.6 PG (27.0-31.0); MEAN CORPUSCULAR HGB CONC 33.6 G/DL (33.0-37.0); MEAN CORPUSCULAR VOLUME 85.1 FL (81.0-99.0); MEAN PLATELET VOLUME 8.2 FL (7.4-10.4); PLATELET COUNT 281 /CUMM (130-400); RBC DISTRIBUTION WIDTH 14.7 % (11.5-14.5); RED BLOOD CELL CT 4.61 /CUMM (4.20-5.40); WHITE BLOOD CELL COUNT 14.6 /CUMM (4.8-10.8)
--- NOTE | 2017-09-17 07:46 | PN- Housestaff ---
Rajan MORILLO,Richa 09/17/17 0746: Subjective Follow-up For: Gallstone pancreatitis Subjective: Patient seen and examined. Sitting comfortably in chair. Reports improvement in abdominal pain. Has been switched to oral Dilaudid. Does not have any respiratory symptoms. Denies fevers and chills. Review of Systems Constitutional: Reports: see HPI. Objective Last 24 Hrs of Vital Signs/I&O Vital Signs Date Time Temp Pulse Resp B/P B/P Pulse O2 O2 Flow FiO2 Mean Ox Delivery Rate 09/17 08 93 Nasal 2.0L Cannula 09/17 0800 98.0 106 16 110/68 93 Nasal 2.0L Cannula 09/17 0049 95 Nasal 2.0L Cannula 09/17 0000 94 Nasal 2.0L Cannula 09/17 0000 97.4 100 16 96/64 94 Nasal 2.0L Cannula 09/16 1600 98.2 80 18 104/70 94 Room Air Intake & Output 09/17 1600 09/17 0800 09/17 0000 Intake Total 600 660 Output Total 300 Balance 300 660 Intake, IV 600 300 Intake, Oral 0 360 Number 0 Bowel Movements Output, Urine 300 Patient 121 lb Weight Physical Exam General Appearance: Alert, Oriented X3, Cooperative Skin: No Rashes HEENT: Atraumatic Neck: Supple Cardiovascular: Normal S1, Normal S2, No Murmurs Lungs: Clear to Auscultation, Normal Air Movement Abdomen: Normal Bowel Sounds, tenderness Neurological: Normal Speech Extremities: No Edema Current Medications: Current Medications Sig/Mk Start time Last Medication Dose Route Stop Time Status Admin Ampicillin Sodium/ 3,000 MG Q6H 09/15 0900 AC 09/17 Sulbactam Sodium IV 1002 Sodium Chloride 100 ML Dextrose/Sodium 1,000 ML Q13H 09/17 0000 AC 09/17 Chloride IV 0035 Enoxaparin Sodium 40 MG DAILY 09/17 1000 AC SC Enoxaparin Sodium 40 MG ONCE ONE 09/16 1345 DC 09/16 SC 09/16 1346 1416 Heparin Sodium 5,000 UNIT Q8 09/16 0600 DC 09/16 (Porcine) SC 0558 Hydromorphone HCl 2 MG ONCE ONE 09/16 2245 DC 09/16 PO 09/16 2246 2256 Lactated Ringer's 1,000 ML Q10H 09/15 1645 DC 09/16 IV 09/16 1244 0341 Morphine Sulfate 2 MG ONCE ONE 09/16 1430 DC 09/16 IV 09/16 1431 1424 Morphine Sulfate 4 MG .STK-MED ONE 09/16 1421 DC IM 09/16 1422 Ondansetron HCl 4 MG Q8P PRN 09/15 0345 AC IV Pantoprazole Sodium 40 MG DAILY 09/15 0500 AC 09/17 IV 1007 Tramadol HCl 50 MG Q6 09/16 0945 AC 09/17 PO 0442 Last 24 Hrs of Lab/Luis Antonio Results Last 24 Hrs of Labs/Mics: Laboratory Tests 09/17/17 0451: Anion Gap 7, Estimated GFR > 60, BUN/Creatinine Ratio 20.0, Magnesium 2.1, Total Bilirubin 1.1, Direct Bilirubin 0.6 H, AST 59 H, ALT 239 H, Alkaline Phosphatase 156 H, Total Protein 4.9 L, Albumin 2.5 L, Amylase 871 H, Lipase 2842 H, CBC w Diff MAN DIFF ORDERED, RBC 4.61, MCV 85.1, MCH 28.6, MCHC 33.6, RDW 14.7 H, MPV 8.2, Gran % 87.7 H, Lymphocytes % 8.6 L, Monocytes % 3.2, Eosinophils % 0.2, Basophils % 0.3, Absolute Granulocytes 12.8 H, Segmented Neutrophils 71, Band Neutrophils 11 H, Absolute Lymphocytes 1.3, Lymphocytes 14 L, Monocytes 4, Absolute Monocytes 0.5, Absolute Eosinophils 0, Absolute Basophils 0, Platelet Estimate ADEQUATE, Polychromasia 1+, Basophilic Stippling SLIGHT, Ovalocytes FEW, Stomatocytes FEW, Fld Total RBCs Counted 100 Assessment/Plan Assessment: Patient is 52-year-old female was being treated and evaluated for following conditions #Gallstone pancreatitis S/P ERCP-awaiting cholecystectomy Patient's presentation, presenting labs, CT scan findings are consistent with gallstone pancreatitis. Patient has been evaluated by gastroenterology they donot believe that patient has acute cholangitis. Lipid profile showed total cholesterol 226 LDL 133 HDL 85 TAG WNL. CRP 9 Patient underwent ERCP on 09/15, impression Choledocholithiasis, treated with sphincterotomy and extraction of 4 stones, treated with sphincterotomy and extraction. She tolerated the procedure well and has been started on clear liquids. Initially the pain control wasn't issue patient responded well to demrol now she has been switched to by mouth Dilaudid and her pain is much better controlled. The patient is scheduled for undergoing cholecystectomy today. -Monitor fever and WBC curve afebrile with white count of 14 and bands 11 -F/u blood and urine cultures -Cholecystectomy planned for today -Adequate pain control, manage nausea with Zofran -IV protonix can convert to Oral PPI -Unasyn Day 3 #Hyperbilirubinemia, Transaminitis, elevated alkaline phosphatase-improving Insetting of gallstone pancreatitis -Continue to monitor LFTs #Possible aspiration versus atelectasis CXR was obtained yesterday in context of bandemia. Positive for bibasilar opacities atelectasis versus aspiration. -Monitor fever and WBC, bands curve -Continue Unasyn for now -Incentive spirometry #Hypomagnesemia -resolved #Hypercalcemia- resolved FC/DVT prophylaxis alps only anticipated procedure/NPO Problem List: 1. Gallstone pancreatitis Pain Ratin Pain Location: diffuse abd pain Pain Goal: Pain 4 or less Pain Plan: prn Tomorrow's Labs & Rationales: cbc bep Joe Baxter MD 09/17/17 1131: Attending MD Review Statement Attending Statement Attending MD Statement: examined this patient, discuss w/resident/PA/FREELANCE COURT STENOGRAPHER, agreed w/resident/PA/FREELANCE COURT STENOGRAPHER, discussed with family, reviewed EMR data (avail), discussed with nursing, discussed with case mgmt, reviewed images, amended to note Attending Assessment/Plan: Joe Mcmanus M.D. have examined this patient, reviewed available EMR data, personally reviewed images, discussed with resident/PA/FREELANCE COURT STENOGRAPHER, discussed management plan with housestaff and nursing staff, discussed managment plan all of healthcare providers, discussed management plan with patient and/or family, agreed with resident/PA/FREELANCE COURT STENOGRAPHER. The past history and parts of the chart have been autopopulated. Impression 52-year-old woman with gallstone pancreatitis admitted to the ICU for further management until all diagnostic testing is performed. Plan -Gastroenterology and surgical input appreciated -pain control, doing solomon -hydration -plan for raquel today, once completed if does well can DG -cont unasyn, possible aspiration pna -DVT prophylaxis at all times
[2017-09-17 08:00] VITALS: BP 110/68
--- NOTE | 2017-09-17 10:11 | RADIOLOGY REPORT ---
EXAMINATION: CR PORTABLE CHEST CLINICAL INFORMATION: Bandemia. Rule out aspiration. COMPARISON: Chest x-ray dated 09/16/2017, 09/15/2017 and 08/02/2008. TECHNIQUE: Portable AP semierect view of the chest was obtained. FINDINGS: The cardiomediastinal silhouette is within normal limits in size. Low lung volumes are seen with bibasilar opacities again noted, perhaps minimally worsened when compared to the prior exam. Findings are nonspecific and may be related to atelectasis or pneumonia. Associated trace pleural effusions are difficult to exclude. No pulmonary edema or pneumothorax. Bony structures are unremarkable. IMPRESSION: Low lung volumes with slight increase in bibasilar opacities, likely due to atelectasis or perhaps pneumonia. There may be associated trace pleural effusions.
--- NOTE | 2017-09-17 10:40 | PN- General Surgery ---
Subjective Subjective: Reports abdominal pain improving. She is PPD#1 s/p ercp with stone extraction. She is currently npo awaiting possible cholecystectomy. Objective Vital Signs and I&Os Vital Signs Date Time Temp Pulse Resp B/P B/P Pulse O2 O2 Flow FiO2 Mean Ox Delivery Rate 09/17 0049 95 Nasal 2.0L Cannula 09/17 0000 94 Nasal 2.0L Cannula 09/17 0000 97.4 100 16 96/64 94 Nasal 2.0L Cannula 09/16 1600 98.2 80 18 104/70 94 Room Air Intake & Output 09/17 1600 09/17 0800 09/17 0000 09/16 1600 09/16 0800 09/16 0000 Intake Total 172 443 7254 800 980 Output Total 300 600 800 500 Balance 300 660 440 0 480 Intake, IV 600 300 800 800 950 Intake, Oral 0 360 240 30 Number 0 0 Bowel Movements Output, Urine 300 600 800 500 Patient 121 lb Weight Physical Exam: General - alert & oriented x 3. comfortable. no acute distress. Abdomen - soft. epigastric and right upper quadrant tenderness. Current Medications: Current Medications Sig/Mk Start time Last Medication Dose Route Stop Time Status Admin Ampicillin Sodium/ 3,000 MG Q6H 09/15 0900 AC 09/17 Sulbactam Sodium IV 1002 Sodium Chloride 100 ML Dextrose/Sodium 1,000 ML Q13H 09/17 0000 AC 09/17 Chloride IV 0035 Enoxaparin Sodium 40 MG DAILY 09/17 1000 AC SC Enoxaparin Sodium 40 MG ONCE ONE 09/16 1345 DC 09/16 SC 09/16 1346 1416 Heparin Sodium 5,000 UNIT Q8 09/16 0600 DC 09/16 (Porcine) SC 0558 Hydromorphone HCl 2 MG ONCE ONE 09/16 2245 DC 09/16 PO 09/16 2246 2256 Lactated Ringer's 1,000 ML Q10H 09/15 1645 DC 09/16 IV 09/16 1244 0341 Morphine Sulfate 2 MG ONCE ONE 09/16 1430 DC 09/16 IV 09/16 1431 1424 Morphine Sulfate 4 MG .STK-MED ONE 09/16 1421 DC IM 09/16 1422 Ondansetron HCl 4 MG Q8P PRN 09/15 0345 AC IV Pantoprazole Sodium 40 MG DAILY 09/15 0500 AC 09/17 IV 1007 Tramadol HCl 50 MG Q6 09/16 0945 AC 09/17 PO 0442 Results Last 48 Hours of Labs: Laboratory Tests 09/17 09/16 0451 1000 Chemistry Sodium (137 - 145 mmol/L) 134 L Potassium (3.5 - 5.1 mmol/L) 3.6 Chloride (98 - 107 mmol/L) 101 Carbon Dioxide (22 - 30 mmol/L) 26 Anion Gap (5 - 16) 7 BUN (7 - 17 mg/dL) 10 Creatinine (0.5 - 1.0 mg/dL) 0.5 Estimated GFR (>60 ml/min) > 60 BUN/Creatinine Ratio (7 - 25 %) 20.0 Magnesium (1.6 - 2.3 mg/dL) 2.1 Total Bilirubin (0.2 - 1.3 mg/dL) 1.1 Direct Bilirubin (< 0.4 mg/dL) 0.6 H AST (14 - 36 U/L) 59 H ALT (9 - 52 U/L) 239 H Alkaline Phosphatase (<127 U/L) 156 H Total Protein (6.3 - 8.2 g/dL) 4.9 L Albumin (3.5 - 5.0 g/dL) 2.5 L Amylase (30 - 110 U/L) 871 H Lipase (23 - 300 U/L) 2842 H Hematology CBC w Diff MAN DIFF ORDERED WBC (4.8 - 10.8 /CUMM) 14.6 H RBC (4.20 - 5.40 /CUMM) 4.61 Hgb (12.0 - 16.0 G/DL) 13.2 Hct (37 - 47 %) 39.2 MCV (81.0 - 99.0 FL) 85.1 MCH (27.0 - 31.0 PG) 28.6 MCHC (33.0 - 37.0 G/DL) 33.6 RDW (11.5 - 14.5 %) 14.7 H Plt Count (130 - 400 /CUMM) 281 MPV (7.4 - 10.4 FL) 8.2 Gran % (42.2 - 75.2 %) 87.7 H Lymphocytes % (20.5 - 51.1 %) 8.6 L Monocytes % (1.7 - 9.3 %) 3.2 Eosinophils % (0 - 5 %) 0.2 Basophils % (0.0 - 2.0 %) 0.3 Absolute Granulocytes (1.4 - 6.5 /CUMM) 12.8 H Segmented Neutrophils (42.2 - 75.2 %) 71 Band Neutrophils (0.0 - 5.0 %) 11 H Absolute Lymphocytes (1.2 - 3.4 /CUMM) 1.3 Lymphocytes (20.5 - 51.1 %) 14 L Monocytes (1.7 - 9.3 %) 4 Absolute Monocytes (0.10 - 0.60 /CUMM) 0.5 Absolute Eosinophils (0.0 - 0.7 /CUMM) 0 Absolute Basophils (0.0 - 0.2 /CUMM) 0 Platelet Estimate (ADEQUATE) ADEQUATE Polychromasia 1+ Basophilic Stippling SLIGHT Ovalocytes FEW Stomatocytes FEW Other Body Source Fld Total RBCs Counted (%) 100 Urines Urinalysis LIGHT H Urine Color (YEL,AMB,STR) MIKKI Urine Clarity (CLEAR) CLEAR Urine pH (5.0 - 8.0) 6.0 Ur Specific Nabb (1.001 - 1.035) >= 1.030 Urine Protein (NEG,<30 MG/DL) 30 H Urine Ketones (NEG) TRACE H Urine Nitrite (NEG) NEG Urine Bilirubin (NEG) NEG Urine Urobilinogen (0.1 - 1.0 EU/dl) 0.2 Ur Leukocyte Esterase (NEG) NEG Ur Microscopic SEDIMENT EXAMINED Urine RBC (0 - 5 /HPF) 50-75 H Urine WBC (0 - 2 /HPF) 5-10 H Ur Epithelial Cells (NONE,FEW) RARE Urine Bacteria (NEG/NONE) FEW H Hyaline Casts (0/LPF) RARE H Granular Casts (NONE /LPF) 3-5 H Urine Mucus (FEW,NONE) RARE Urine Hemoglobin (NEG) MOD H Urine Glucose (N MG/DL) NEG 09/16 0349 Chemistry Sodium (137 - 145 mmol/L) 136 L Potassium (3.5 - 5.1 mmol/L) 3.7 Chloride (98 - 107 mmol/L) 102 Carbon Dioxide (22 - 30 mmol/L) 25 Anion Gap (5 - 16) 9 BUN (7 - 17 mg/dL) 10 Creatinine (0.5 - 1.0 mg/dL) 0.6 Estimated GFR (>60 ml/min) > 60 Glucose (65 - 99 mg/dL) 99 Calcium (8.4 - 10.2 mg/dL) 8.5 Phosphorus (2.5 - 4.5 mg/dL) 3.1 Magnesium (1.6 - 2.3 mg/dL) 1.9 Total Bilirubin (0.2 - 1.3 mg/dL) 1.2 AST (14 - 36 U/L) 147 H ALT (9 - 52 U/L) 458 H Alkaline Phosphatase (<127 U/L) 224 H C-Reactive Prot, Quant (<1.0 mg/dL) > 9.0 H C-React Prot High Sens (1.0 - 3.0 mg/L) > 15.0 H Albumin (3.5 - 5.0 g/dL) 3.0 L Amylase (30 - 110 U/L) 1933 H Lipase (23 - 300 U/L) 8219 H Hematology CBC w Diff MAN DIFF ORDERED WBC (4.8 - 10.8 /CUMM) 17.3 H RBC (4.20 - 5.40 /CUMM) 4.80 Hgb (12.0 - 16.0 G/DL) 13.8 Hct (37 - 47 %) 41.2 MCV (81.0 - 99.0 FL) 85.9 MCH (27.0 - 31.0 PG) 28.7 MCHC (33.0 - 37.0 G/DL) 33.4 RDW (11.5 - 14.5 %) 14.4 Plt Count (130 - 400 /CUMM) 325 MPV (7.4 - 10.4 FL) 7.8 Gran % (42.2 - 75.2 %) 90.1 H Lymphocytes % (20.5 - 51.1 %) 4.9 L Monocytes % (1.7 - 9.3 %) 4.3 Eosinophils % (0 - 5 %) 0.1 Basophils % (0.0 - 2.0 %) 0.6 Absolute Granulocytes (1.4 - 6.5 /CUMM) 15.6 H Segmented Neutrophils (42.2 - 75.2 %) 75 Band Neutrophils (0.0 - 5.0 %) 12 H Absolute Lymphocytes (1.2 - 3.4 /CUMM) 0.8 L Lymphocytes (20.5 - 51.1 %) 8 L Monocytes (1.7 - 9.3 %) 5 Absolute Monocytes (0.10 - 0.60 /CUMM) 0.7 H Absolute Eosinophils (0.0 - 0.7 /CUMM) 0 Absolute Basophils (0.0 - 0.2 /CUMM) 0.1 Platelet Estimate (ADEQUATE) ADEQUATE Hypochromic-Microcytic 1+ Anisocytosis 1+ Stomatocytes FEW Assessment/Plan Assessment/Plan This 52 year old female admitted for acute gall stone pancreatitis is PPD#1 ERCP with sphincterotomy and stone extraction, with plans for cholecystectomy currently npo / ivf plans for lap raquel ?today lovenox - dvt ppx protonix - gi ppx d/w medical team will d/w tomorrow
[2017-09-17 16:00] VITALS: BP 106/70
--- NOTE | 2017-09-17 21:18 | Operative Report ---
Operative/Inv Procedure Report Surgery Date: 09/17/17 Name of Procedure: Laparoscopic Cholecystectomy Pre-Operative Diagnosis: Gallstone pancreatitis Post-Operative Diagnosis: Same Estimated Blood Loss: less than 50ml Surgeon/Checkman: Ramírez Glynn Anesthesia: general endotracheal tube IV Fluids: 900 cc Drains: None Specimens: Gallbladder Complications: None Condition: Stable Operative Indication: This is a 52-year-old female that presented to the emergency room with abdominal pain. After appropriate workup patient was diagnosed with gallstone pancreatitis. Patient was appropriately resuscitated and also underwent an ERCP with sphincterotomy. Patient was clinically improving and was cleared by primary team to undergo a laparoscopic possible open cholecystectomy. The procedure was discussed with the patient and family in detail. All risks including but not limited to bleeding, infection, bile leak, and injury to surrounding duct/bowel were discussed in detail. The patient understood everything and decided to proceed. Operative/Procedure Note Note: The patient was brought to the operating room and placed on the operating room table in supine position. Venodyne stockings were placed and adequate general endotracheal anesthesia was obtained. The patient was prepped and draped in standard surgical fashion. We began the procedure by making a 2 cm transverse incision in the infraumbilical crease. The incision was carried down to the fascia, once the fascia was clearly visualized it was picked up between 2 lori clamps. The fascia was divided in the midline and once we entered the peritoneum 2 stay 0 Vicryl sutures were placed on each side. A 12 mm blunt port was inserted and the abdominal cavity was insufflated to 15 mmHg. A 10 mm 30 laparoscope was introduced and upon initial examination no obvious gross pathology was seen. We did note a distended gallbladder in the right upper quadrant and diffuse intra-abdominal edema/ascites. Accessory trocars were placed, all 5 mm, one in the epigastrium and 2 in the right upper quadrant (one in the midclavicular line and one in the anterior axillary line, both 2 fingerbreadths below the costal margin). The gallbladder was grasped with the lateralmost trocar and retracted up over the liver. Using the other 2 accessory trocars the infundibulum was grasped and the peritoneum was lysed using blunt dissection and using hook electrocautery. The cystic duct and cystic artery were visualized. The common bile duct was visualized and it was away from our area of dissection. The cystic duct and artery were skeletonized and divided between clips, 3 clips to stay and one clip on the gallbladder side for the duct and 2 clips to stay and one clip on the gallbladder side for the artery. The gallbladder was dissected off the liver bed using hook electrocautery maintaining hemostasis. The wall was noted to be thick and edematous. Prior to completely removing the gallbladder off the liver bed we examined the area of dissection no obvious bile leak or bleeding was noted, the clips appeared to be in good position. The gallbladder was completely detached from the liver bed. We switched to a 5 mm laparoscope and a 10 mm Endobag was introduced through the umbilical trocar site. The gallbladder was placed in the bag and removed through the umbilicus. The abdomen was reinsufflated. We switched back to a 10 mm laparoscope and examined our area of dissection. No obvious bile leak or bleeding was noted. The right upper quadrant was irrigated until clear. All ports were removed under direct visualization, no obvious bleeding was noted. The umbilical trocar site was closed using 0 Vicryl suture. The skin was closed using 4-0 Monocryl. Steri-Strips and dressings were placed. The patient was successfully extubated and transferred to the recovery room in stable condition. The patient tolerated the procedure well with no complications. Findings: Edematous/thick gallbladder wall, + stones, Diffuse edema CC: Pj MORILLO,Lee Valles; Sahil MORILLO,Joe
[2017-09-17 22:10] VITALS: BP 114/72
[2017-09-18 02:00] VITALS: BP 106/66
[2017-09-18 05:18] LABS: ABSOLUTE BASOPHIL COUNT 0 /CUMM (0.0-0.2); ABSOLUTE EOSINOPHIL COUNT 0 /CUMM (0.0-0.7); ABSOLUTE GRANULOCYTE CT 8.6 /CUMM (1.4-6.5); ABSOLUTE LYMPH COUNT 0.7 /CUMM (1.2-3.4); ABSOLUTE MONOCYTE COUNT 0.7 /CUMM (0.10-0.60); BASOPHIL % 0.1 % (0.0-2.0); EOSINOPHIL % 0.3 % (0-5); GRANULOCYTE % 86.4 % (42.2-75.2); MEAN CORPUSCULAR HGB 28.7 PG (27.0-31.0); MEAN CORPUSCULAR HGB CONC 33.7 G/DL (33.0-37.0); MEAN CORPUSCULAR VOLUME 85.3 FL (81.0-99.0); MEAN PLATELET VOLUME 7.6 FL (7.4-10.4); PLATELET COUNT 292 /CUMM (130-400); RBC DISTRIBUTION WIDTH 14.4 % (11.5-14.5); RED BLOOD CELL CT 3.77 /CUMM (4.20-5.40)
[2017-09-18 05:28] LABS: HEMATOCRIT 32.1 % (37-47)
--- NOTE | 2017-09-18 05:49 | PN- General Surgery ---
Subjective Subjective: POSTOP CHECK pain controlled, feeling much better, hungry, no n/v, no flatus/bm. no cp/sob. + oob, +vouid. did recieve ivf blous for soft bp overnight, now improved Objective Vital Signs and I&Os Vital Signs Date Time Temp Pulse Resp B/P B/P Pulse O2 O2 Flow FiO2 Mean Ox Delivery Rate 09/18 0200 98.8 68 20 106/66 94 Nasal 2.0L Cannula 09/18 0000 Nasal 2.0L Cannula 09/17 2210 98.1 88 20 114/72 94 Nasal 2.0L Cannula 09/17 1600 94 Nasal 2.0L Cannula 09/17 1600 97.5 96 18 106/70 94 Nasal 2.0L Cannula 09/17 0800 93 Nasal 2.0L Cannula 09/17 0800 98.0 106 16 110/68 93 Nasal 2.0L Cannula Intake & Output 09/18 0800 / 0000 /02 1600 09/17 0800 09/17 0000 03/ 1600 Intake Total 295 685 337 164 5779 Output Total 850 300 600 Balance 295 -165 300 660 440 Intake, IV 175 625 600 300 800 Intake, Oral 120 60 0 360 240 Number 0 0 0 Bowel Movements Output, Urine 850 300 600 Patient 121 lb Weight Physical Exam: GEN: NAD CARD: [id number] RRR PULM: CTAB ABD: softly dist, ttp, right lateral incision dry bulky dressing EXT: calves soft nt, ALPS on bl Assessment/Plan Assessment/Plan A- POD1 sp lap raquel for gs pancreatitis, stable from surgical standpoint. P- fu am labs prn ultram clear liquids, aat. HL once tolerating I&Os medical mgmt per primary team will dw attending
[2017-09-18 06:00] VITALS: BP 110/68
[2017-09-18 07:45] VITALS: BP 120/60
--- NOTE | 2017-09-18 08:12 | PN- Housestaff ---
Rajan MORILLO,[facility] 09/18/17 0811: Subjective Follow-up For: Gallstone pancreatitis Subjective: Patient seen and examined. Sitting comfortably in chair. He reports improvement in overall symptoms. Continues to complain of pain. If his abdominal pain is better the pain is more concentrated on right upper quadrant as she is status post cholecystectomy. She denies any fevers and chills or respiratory symptoms. Patient was encouraged to use incentive spirometry. She has not had a bowel movement yet, passing gas -Patient became hypotensive postprocedure 80/40 responded well to 500 ML bolus. Blood pressure has been ranging in 100s to 120s/50s to 60s ever since Review of Systems Constitutional: Reports: see HPI. Objective Last 24 Hrs of Vital Signs/I&O Vital Signs Date Time Temp Pulse Resp B/P B/P Pulse O2 O2 Flow FiO2 Mean Ox Delivery Rate 09/18 0800 96 Nasal 2.0L Cannula 09/18 0745 98.3 90 20 120/60 94 Nasal 2.0L Cannula 09/18 0600 98.8 90 20 110/68 92 Nasal 2.0L Cannula 09/18 0200 98.8 68 20 106/66 94 Nasal 2.0L Cannula 09/18 0000 Nasal 2.0L Cannula 09/17 2210 98.1 88 20 114/72 94 Nasal 2.0L Cannula 09/17 1600 94 Nasal 2.0L Cannula 09/17 1600 97.5 96 18 106/70 94 Nasal 2.0L Cannula Intake & Output 09/18 1600 09/18 0800 09/18 0000 Intake Total 1195 295 Output Total Balance 1195 295 Intake, IV 1075 175 Intake, Oral 120 120 Physical Exam General Appearance: Alert, Oriented X3, Cooperative, No Acute Distress Skin: No Rashes HEENT: Atraumatic Neck: Supple Cardiovascular: Regular Rate, Normal S1, Normal S2 Lungs: Clear to Auscultation, Normal Air Movement, somewhat dscrease breaths sounds on R base Abdomen: Normal Bowel Sounds, Soft, RUQ tenderness Neurological: Normal Gait, Normal Speech Extremities: No Cyanosis, No Edema Current Medications: Current Medications Sig/Mk Start time Last Medication Dose Route Stop Time Status Admin Acetaminophen 1,000 MG .STK-MED ONE 09/17 1933 DC IV 09/17 1934 Ampicillin Sodium/ 3,000 MG Q6H 09/15 0900 AC 09/18 Sulbactam Sodium IV 0838 Sodium Chloride 100 ML Dextrose/Sodium 1,000 ML Q13H 09/17 0000 DC 09/17 Chloride IV 1506 Enoxaparin Sodium 40 MG DAILY 09/18 1000 AC 09/18 SC 1013 Enoxaparin Sodium 40 MG DAILY 09/17 1000 DC SC Fentanyl Citrate 100 MCG .STK-MED ONE 09/17 1935 DC IM 09/17 1936 Heparin Sodium 5,000 UNIT Q8 09/18 0600 CAN (Porcine) SC Hydromorphone HCl 1 MG Q8P PRN 09/18 1030 AC PO Hydromorphone HCl 2 MG ONCE ONE 09/18 0845 DC 09/18 PO 09/18 0846 0848 Ketorolac 15 MG ONCE ONE 09/18 0400 DC 09/18 Tromethamine IV 09/18 0401 0353 Lactated Ringer's 500 ML .[ONCE TIME] 09/18 0030 AC IV Lactated Ringer's 500 ML .Q1H 09/17 2345 DC 09/17 IV 2359 Midazolam HCl 2 MG .STK-MED ONE 09/17 193 DC IM 09/17 1936 Ondansetron HCl 4 MG Q8P PRN 09/15 0345 AC IV Pantoprazole Sodium 40 MG DAILY 09/15 0500 AC 09/18 IV 0837 Potassium Chloride 40 MEQ ONCE ONE 09/18 0600 DC 09/18 PO 09/18 0601 0558 Tramadol HCl 50 MG Q6 09/16 0945 AC 09/18 PO 0559 Last 24 Hrs of Lab/Luis Antonio Results Last 24 Hrs of Labs/Mics: Laboratory Tests 09/18/17 0450: Anion Gap 4 L, Estimated GFR > 60, BUN/Creatinine Ratio 14.0, Total Bilirubin 1.0, Direct Bilirubin 0.7 H, AST 40 H, ALT 142 H, Alkaline Phosphatase 126, Total Protein 4.2 L, Albumin 2.1 L, CBC w Diff MAN DIFF ORDERED, RBC 3.77 L, MCV 85.3, MCH 28.7, MCHC 33.7, RDW 14.4, MPV 7.6, Gran % 86.4 H, Lymphocytes % 6.6 L, Monocytes % 6.6, Eosinophils % 0.3, Basophils % 0.1, Absolute Granulocytes 8.6 H, Segmented Neutrophils 73, Band Neutrophils 21 H, Absolute Lymphocytes 0.7 L, Lymphocytes 5 L, Monocytes 1 L, Absolute Monocytes 0.7 H, Absolute Eosinophils 0, Absolute Basophils 0, Platelet Estimate ADEQUATE, Normocytic RBCs VERIFIED, Normochromic RBCs VERIFIED Assessment/Plan Assessment: Patient is 52-year-old female was being treated and evaluated for following conditions Patient underwent ERCP on 09/15, impression Choledocholithiasis, treated with sphincterotomy and extraction of 4 stones, treated with sphincterotomy and extraction. She tolerated the procedure well and was started on clear liquids. Initially the pain control was an issue patient responded well to demrol now she has been switched to by mouth Dilaudid and her pain is much better controlled. She undrerwent cholecystectomy on 09/18. Postprocedure patient had an episode of hypotension to 80/40 requiring 500 ML bolus, responded well BP has been ranging in 100s to 120s/50s to 60s ever since. Diet has been advanced to Full liquids. #Gallstone pancreatitis S/P ERCP, S/P cholecystectomy Patient's presentation, presenting labs, CT scan findings are consistent with gallstone pancreatitis. Patient has been evaluated by gastroenterology they donot believe that patient has acute cholangitis. Lipid profile showed total cholesterol 226 LDL 133 HDL 85 TAG WNL. CRP 9 -Monitor fever and WBC curve -F/u blood and urine cultures -Adequate pain control, manage nausea with Zofran -IV protonix can convert to Oral PPI -Unasyn Day 4 #Hyperbilirubinemia, Transaminitis, elevated alkaline phosphatase-improving Insetting of gallstone pancreatitis -Continue to monitor LFTs #Possible aspiration versus atelectasis CXR was obtained 09/16 in context of bandemia. Positive for bibasilar opacities atelectasis versus aspiration. -Monitor fever and WBC, bands curve, afebrile with normal white count persistent bandemia worsening -Continue Unasyn for now -Incentive spirometry #Hypomagnesemia -resolved #Hypercalcemia- resolved FC/DVT prophylaxis alps and lovenox/[place] Problem List: 1. Gallstone pancreatitis Pain Ratin Pain Location: RUQ Pain Goal: Pain 4 or less Pain Plan: prn Tomorrow's Labs & Rationales: cbc bep Joe Baxter MD 09/18/17 0928: Attending MD Review Statement Attending Statement Attending MD Statement: examined this patient, discuss w/resident/PA/REGISTERED DENTAL ASSISTANT, agreed w/resident/PA/REGISTERED DENTAL ASSISTANT, discussed with family, reviewed EMR data (avail), discussed with nursing, discussed with case mgmt, reviewed images, amended to note Attending Assessment/Plan: Joe Mcmanus M.D. have examined this patient, reviewed available EMR data, personally reviewed images, discussed with resident/PA/REGISTERED DENTAL ASSISTANT, discussed management plan with housestaff and nursing staff, discussed managment plan all of healthcare providers, discussed management plan with patient and/or family, agreed with resident/PA/REGISTERED DENTAL ASSISTANT. The past history and parts of the chart have been autopopulated. Impression 52-year-old woman with gallstone pancreatitis admitted to the ICU for further management until all diagnostic testing is performed. Plan -s/p cholecystectomy -Gastroenterology and surgical input appreciated -pain control, doing solomon -hydration -cont unasyn, possible aspiration pna -DVT prophylaxis at all times GM hold
[2017-09-18 16:00] VITALS: BP 98/54
[2017-09-18 21:11] VITALS: BP 96/56
[2017-09-19 07:10] VITALS: BP 102/70
--- NOTE | 2017-09-19 09:08 | PN- Housestaff ---
See Addendum Subjective Follow-up For: gallstone pancreatitis s/p lab ERCP and lap raquel Subjective: No overnight events. She feels better this morning, tolerated full liquids last night well. No further N/V/D. She has 5/10 pain in abdomin. Breathing feels good. No other complaints. Review of Systems Constitutional: Reports: no symptoms. EENTM: Reports: no symptoms. Cardiovascular: Reports: no symptoms. Respiratory: Reports: no symptoms. Gastrointestinal: Reports: see HPI. Genitourinary: Reports: no symptoms. Musculoskeletal: Reports: no symptoms. Skin: Reports: no symptoms. Neurological/Psychological: Reports: no symptoms. Hematologic/Endocrine: Reports: no symptoms. Immunologic/Allergic: Reports: no symptoms. Objective Last 24 Hrs of Vital Signs/I&O Vital Signs Date Time Temp Pulse Resp B/P B/P Pulse O2 O2 Flow FiO2 Mean Ox Delivery Rate 09/19 0710 98.8 117 20 102/70 91 Nasal 1.0L Cannula 09/19 0000 95 Nasal 1.0L Cannula 09/18 2111 98.7 117 20 96/56 95 Nasal Cannula 09/18 1600 93 Nasal 1.0L Cannula 09/18 1600 99.5 114 22 98/54 93 Nasal 1.0L Cannula Intake & Output 09/19 1600 09/19 0800 09/19 0000 Intake Total 370 370 Output Total Balance 370 370 Intake, IV 130 130 Intake, Oral 240 240 Physical Exam General Appearance: Alert, Oriented X3, Cooperative, No Acute Distress Skin: No Rashes, No Breakdown, No Significant Lesion Cardiovascular: Regular Rate, Normal S1, Normal S2 Lungs: mild basilar crackles Abdomen: mild tenderness around incision sites Extremities: No Edema, Normal Pulses, No Tenderness/Swelling Current Medications: Current Medications Sig/Mk Start time Last Medication Dose Route Stop Time Status Admin Ampicillin Sodium/ 3,000 MG Q6H 09/15 0900 AC 09/19 Sulbactam Sodium IV 0259 Sodium Chloride 100 ML Dextrose/Sodium 1,000 ML Q13H 09/17 0000 DC 09/17 Chloride IV 1506 Enoxaparin Sodium 40 MG DAILY 09/18 1000 AC 09/18 SC 1013 Hydromorphone HCl 2 MG Q4-6 PRN 09/18 1845 AC 09/19 PO 0405 Hydromorphone HCl 1 MG ONCE ONE 09/18 1845 DC 09/18 PO 09/18 1846 1842 Hydromorphone HCl 1 MG Q8P PRN 09/18 1030 DC 09/18 PO 1630 Lactated Ringer's 500 ML .[ONCE TIME] 09/18 0030 AC IV Ondansetron HCl 4 MG Q8P PRN 09/15 0345 AC IV Pantoprazole Sodium 40 MG DAILY 09/15 0500 AC 09/18 IV 0837 Tramadol HCl 50 MG Q6 09/16 0945 AC 09/19 PO 0617 Last 24 Hrs of Lab/Luis Antonio Results Last 24 Hrs of Labs/Mics: Laboratory Tests 09/19/17 0750: Sodium Pending, Potassium Pending, Chloride Pending, Carbon Dioxide Pending, Anion Gap Pending, BUN Pending, Creatinine Pending, BUN/Creatinine Ratio Pending , Magnesium Pending, Total Bilirubin Pending, Direct Bilirubin Pending, AST Pending, ALT Pending, Alkaline Phosphatase Pending, Total Protein Pending, Albumin Pending, CBC w Diff Pending, WBC Pending, RBC Pending, Hgb Pending, Hct Pending, MCV Pending, MCH Pending, MCHC Pending, RDW Pending, Plt Count Pending, MPV Pending Assessment/Plan Assessment: Patient is 52-year-old female who underwent ERCP on 09/15, impression Choledocholithiasis, treated with sphincterotomy and extraction of 4 stones, treated with sphincterotomy and extractionnow s/p cholecystectomy on 09/18. #Gallstone pancreatitis S/P ERCP, S/P cholecystectomy Patient's presentation, presenting labs, CT scan findings are consistent with gallstone pancreatitis. Patient has been evaluated by gastroenterology they donot believe that patient has acute cholangitis. Lipid profile showed total cholesterol 226 LDL 133 HDL 85 TAG WNL. CRP 9 -Monitor fever and WBC curve -F/u blood and urine cultures -Adequate pain control, manage nausea with Zofran -Oral PPI -Unasyn Day 5 -Follow up with Dr. Bowers as an outpatient #Hyperbilirubinemia, Transaminitis, elevated alkaline phosphatase-improving Insetting of gallstone pancreatitis -Continue to monitor LFTs #Possible aspiration versus atelectasis CXR was obtained 09/16 in context of bandemia. Positive for bibasilar opacities atelectasis versus aspiration. -Monitor fever and WBC, bands curve, afebrile with normal white count persistent bandemia worsening -Continue Unasyn for now -Incentive spirometry #Hypomagnesemia -resolved #Hypercalcemia- resolved FC/DVT prophylaxis alps and lovenox/[place] Problem List: 1. Gallstone pancreatitis Pain Ratin Pain Location: sd Pain Goal: Remain pain free Pain Plan: see a/p Tomorrow's Labs & Rationales: cbc bep lft
[2017-09-19 09:32] LABS: ABSOLUTE BASOPHIL COUNT 0 /CUMM (0.0-0.2); ABSOLUTE EOSINOPHIL COUNT 0.1 /CUMM (0.0-0.7); ABSOLUTE LYMPH COUNT 1.2 /CUMM (1.2-3.4); EOSINOPHIL % 0.4 % (0-5); HEMATOCRIT 34.4 % (37-47); MEAN PLATELET VOLUME 7.5 FL (7.4-10.4); PLATELET COUNT 351 /CUMM (130-400); RED BLOOD CELL CT 3.97 /CUMM (4.20-5.40)
--- NOTE | 2017-09-19 09:41 | PN- General Surgery ---
See Addendum Subjective Subjective: Pt sitting up in bed, minimal pain. no nausea, tolerating diet. ambulating. voiding. return of bowel function. denies fevers, cp/sob Objective Vital Signs and I&Os Vital Signs Date Time Temp Pulse Resp B/P B/P Pulse O2 O2 Flow FiO2 Mean Ox Delivery Rate 09/19 0710 98.8 117 20 102/70 91 Nasal 1.0L Cannula 09/19 0000 95 Nasal 1.0L Cannula 09/18 211 98.7 117 20 96/56 95 Nasal Cannula 09/18 1600 93 Nasal 1.0L Cannula 09/19 1599 99.5 114 22 98/54 93 Nasal 1.0L Cannula Intake & Output 09/19 0800 09/19 0000 09/18 1600 09/18 0809/18 0000 Intake Total 370 548 306 9748 295 Output Total Balance 370 854 355 2991 295 Intake, IV 130 851 868 2167 175 Intake, Oral 240 240 600 120 120 Number 1 Bowel Movements Physical Exam: gen- nad resp- clear cardio-rrr abd- nd, soft, nt. right lateral dressing saturated with serous fluid, dressing changed and covered with clean dry dressing, no signs of infection. Assessment/Plan Assessment/Plan A- POD2 sp lap raquel for gs pancreatitis, stable from surgical standpoint. P- prn po pain meds full liquids, advance as tolerated. HL once tolerating RN may change dressing as needs if continues to drain serous fluid, call only if drainage becomes purulent medical mgmt per primary team Pt stable from surgical standpoint, rec FU with Dr Bowers as outpatient in 10 days. Core Measures Venous Thromboembolism VTE Risk Factors Acute Medical Illness No Mechanical VTE Prophylaxis d/t N/A MechProphylax Ordered No VTE Pharm Prophylaxis d/t NA PharmProphylax ordered
[2017-09-19 09:50] LABS: ABSOLUTE GRANULOCYTE CT 13.1 /CUMM (1.4-6.5); ABSOLUTE MONOCYTE COUNT 1.1 /CUMM (0.10-0.60); BASOPHIL % 0 % (0.0-2.0); GRANULOCYTE % 84.8 % (42.2-75.2); MEAN CORPUSCULAR HGB 29.1 PG (27.0-31.0); MEAN CORPUSCULAR HGB CONC 33.6 G/DL (33.0-37.0); MEAN CORPUSCULAR VOLUME 86.5 FL (81.0-99.0); RBC DISTRIBUTION WIDTH 14.8 % (11.5-14.5)
[2017-09-19 09:52] LABS: WHITE BLOOD CELL COUNT 15.5 /CUMM (4.8-10.8)
[2017-09-19 14:40] VITALS: BP 108/69
[2017-09-19 22:18] VITALS: BP 102/60
[2017-09-20 06:42] VITALS: BP 110/70
--- NOTE | 2017-09-20 07:11 | PN- Housestaff ---
Margaret MORILLO,Roberto 09/20/17 0711: Subjective Follow-up For: Gallstone pancreatitis s/p cholecystectomy (09/17) and ERCP (09/15) Leukocytosis with bandemia Subjective: Patient was seen and examined at bedside. She was resting comfortably. She had no acute events overnight. She is, overall, feeling much better than yesterday. She rates her right-sided abdominal pain as 5/10 but well controlled with pain medication. She denies any nausea, vomiting, fever, chills, chest pain, dysuria , cough, shortness of breath, diarrhea. Review of Systems Constitutional: Denies: chills, fever. EENTM: Reports: no symptoms. Cardiovascular: Denies: chest pain, palpitations. Respiratory: Denies: cough, short of breath. Gastrointestinal: Reports: see HPI, abdominal pain (R sided abd pain at surg site). Denies: diarrhea, nausea, vomiting. Genitourinary: Denies: discharge, dysuria, frequency. Musculoskeletal: Reports: no symptoms. Skin: Reports: no symptoms. Objective Last 24 Hrs of Vital Signs/I&O Vital Signs Date Time Temp Pulse Resp B/P B/P Pulse O2 O2 Flow FiO2 Mean Ox Delivery Rate 09/20 0642 98.6 100 20 110/70 91 Nasal 1.0L Cannula 09/19 2218 98.5 102 19 102/60 95 Nasal Cannula 09/19 1600 94 Nasal 1.0L Cannula 09/19 1440 99.6 110 18 108/69 93 Nasal 1.0L Cannula Intake & Output 09/20 0800 / 0000 09/19 1600 Intake Total 200 200 900 Output Total 0 400 600 Balance 200 -200 300 Intake, IV 100 Intake, Oral 200 200 800 Output, Urine 0 400 600 Physical Exam General Appearance: Alert, Oriented X3, Cooperative, No Acute Distress Skin Temp/Moisture Exam: Warm/Dry Sepsis Skin Exam (color): Normal for Ethnicity HEENT: Atraumatic, PERRLA, EOMI, Mucous Membr. moist/pink Cardiovascular: Regular Rate, Normal S1, Normal S2 Lungs: mildly diminished breath sounds at the bases Abdomen: TTP in epigastric area and R side of abdomen around surgical site. Surgical sites are dressed (last changed 3/5 at 0000 ), with no sign of saturation or leakage Neurological: Normal Speech, Normal Tone, Sensation Intact Current Medications: Current Medications Sig/Mk Start time Last Medication Dose Route Stop Time Status Admin Ampicillin Sodium/ 3,000 MG Q6H 09/15 0900 DC 09/19 Sulbactam Sodium IV 1614 Sodium Chloride 100 ML Enoxaparin Sodium 40 MG DAILY 09/18 1000 AC 09/19 SC 1023 Hydromorphone HCl 2 MG Q4-6 PRN 09/18 1845 AC 09/19 PO 0405 Lactated Ringer's 500 ML .[ONCE TIME] 09/18 0030 AC IV Meropenem 1 GM IQ8 09/20 0000 AC 09/19 IV 2324 Ondansetron HCl 4 MG Q8P PRN 09/15 0345 AC IV Pantoprazole Sodium 40 MG DAILY 09/15 0500 AC 09/19 IV 1022 Tramadol HCl 50 MG Q6 09/16 0945 AC 09/20 PO 0527 Last 24 Hrs of Lab/Luis Antonio Results Last 24 Hrs of Labs/Mics: Laboratory Tests 09/19/17 0750: Anion Gap 10, Estimated GFR > 60, BUN/Creatinine Ratio 14.0, Magnesium 1.9, Total Bilirubin 1.2, Direct Bilirubin 0.9 H, AST 38 H, ALT 121 H, Alkaline Phosphatase 212 H, Total Protein 5.0 L, Albumin 2.4 L, CBC w Diff MAN DIFF ORDERED, RBC 3.97 L, MCV 86.5, MCH 29.1, MCHC 33.6, RDW 14.8 H, MPV 7.5, Gran % 84.8 H, Lymphocytes % 7.7 L, Monocytes % 7.1, Eosinophils % 0.4, Basophils % 0, Absolute Granulocytes 13.1 H, Segmented Neutrophils 63, Band Neutrophils 21 H, Absolute Lymphocytes 1.2, Lymphocytes 6 L, Monocytes 10 H, Absolute Monocytes 1.1 H, Absolute Eosinophils 0.1, Absolute Basophils 0, Platelet Estimate ADEQUATE, Hypochromic-Microcytic 2+, Anisocytosis 1+ Microbiology 09/20 1999 URINE ROUT: Urine Culture - RECD 09/19 1699 BLOOD: Blood Culture - RECD 09/19 1699 BLOOD: Blood Culture - RECD Assessment/Plan Assessment: Patient is 52-year-old female with a PMH significant for GERD, HLD, H. pylori infection who underwent ERCP on 09/15, impression Choledocholithiasis, treated with sphincterotomy and extraction of 4 stones, treated with sphincterotomy and extraction now s/p cholecystectomy on 09/18. #Gallstone pancreatitis S/P ERCP, S/P cholecystectomy Patient's presentation, presenting labs, CT scan findings are consistent with gallstone pancreatitis. Patient has been evaluated by gastroenterology they donot believe that patient has acute cholangitis. Lipid profile showed total cholesterol 226 LDL 133 HDL 85 TAG WNL. CRP 9 -patient has remained afebrile with leukocytosis and bandemia, source is currently not known, unlikely wound infection, patient has no urinary symptoms, and is afebrile. -F/u blood and urine cultures, currently no growth -Adequate pain control, manage nausea with Zofran -Oral PPI -DCed unasyn yesterday and began Meropenem -ID consult placed with Dr. Keen, may require further imaging to work up source of leukocytosis with persistent bandemia -Follow up with Dr. Bowers as an outpatient #Hyponatremia -DCed fluids -encouraged PO intake -will monitor for 1 more day and work up cuases if not improved tomorrow #Hyperbilirubinemia, Transaminitis, elevated alkaline phosphatase-improving Insetting of gallstone pancreatitis -Continue to monitor LFTs #Possible aspiration versus atelectasis CXR was obtained 09/16 in context of bandemia. Positive for bibasilar opacities atelectasis versus aspiration. -Incentive spirometry #Hypomagnesemia -resolved #Hypercalcemia- resolved Diet: Regular Diet DVT ppx: SC heparin Code status: Full code Problem List: 1. Gallstone pancreatitis Pain Ratin Pain Location: R sided abdome/surgical site Pain Goal: Pain 4 or less Pain Plan: continue PO dilaudid Tomorrow's Labs & Rationales: cbc, bep, LFTs Maikol Rios MD 09/20/17 1031: Attending MD Review Statement Attending Statement Attending MD Statement: examined this patient, discuss w/resident/PA/GUARDIAN AD LITEM, agreed w/resident/PA/GUARDIAN AD LITEM, reviewed EMR data (avail) Attending Assessment/Plan: 52F PMH GERD, HLD admitted to ICU with gallstone pancreatitis s/p ERCP with sphincterotomy and removal of 4 stones, followed by cholecystectomy on 09/17 without complication, now improving. Abdominal pain is improved today, and she was able to tolerate more food. Her WBC continues to rise and bandemia is persisting. Cultures drawn yesterday are negative. 1. Gallstone pancreatitis 2. Choledocholithiasis 3. Acute cholecystitis Plan - Continue on general medicine - Continue Meropenem - Repeat blood and urine cultures - ID consult - Follow surgery recommendations - DVT PPx
[2017-09-20 08:52] LABS: ABSOLUTE BASOPHIL COUNT 0 /CUMM (0.0-0.2); ABSOLUTE EOSINOPHIL COUNT 0.1 /CUMM (0.0-0.7); ABSOLUTE GRANULOCYTE CT 14.3 /CUMM (1.4-6.5); ABSOLUTE LYMPH COUNT 0.8 /CUMM (1.2-3.4); ABSOLUTE MONOCYTE COUNT 0.8 /CUMM (0.10-0.60); BASOPHIL % 0.2 % (0.0-2.0); EOSINOPHIL % 0.7 % (0-5); GRANULOCYTE % 89.5 % (42.2-75.2); MEAN CORPUSCULAR HGB 28.9 PG (27.0-31.0); MEAN CORPUSCULAR HGB CONC 34.1 G/DL (33.0-37.0); MEAN CORPUSCULAR VOLUME 84.7 FL (81.0-99.0); MEAN PLATELET VOLUME 7.4 FL (7.4-10.4); PLATELET COUNT 352 /CUMM (130-400); RBC DISTRIBUTION WIDTH 14.2 % (11.5-14.5); RED BLOOD CELL CT 3.43 /CUMM (4.20-5.40); WHITE BLOOD CELL COUNT 15.9 /CUMM (4.8-10.8)
[2017-09-20 15:28] VITALS: BP 123/80
--- NOTE | 2017-09-20 18:00 | Cons- Infect Disease ---
General Information and HPI Consulting Request Date of Consult: 09/20/17 Requested By: Maikol Rios MD Reason for Consult: Leukocytosis/bandemia Source of Information: patient, family Exam Limitations: language barrier History of Present Illness: This is a 52-year-old woman with a history of peptic ulcer disease, GERD and hyperlipidemia admitted on September 15 with a 3 day history of right upper quadrant pain, nausea and vomiting with chills. On admission she was afebrile. Laboratory data revealed a white blood cell count of 11,000, BUN/creatinine 12 and 0.7, amylase/lipase 4467 and greater than 10,000, bilirubin 3.6, alk phosphatase 383, AST/ALT 682 and 1076 urinalysis 3-5 RBCs/rare WBCs. Chest x- ray was negative. CT of the abdomen and pelvis revealed findings suggestive of gallstone pancreatitis with a small calcification of the region of the pancreatic head with dilatation of the common bile duct and intrahepatic ducts, a distended gallbladder with pericholecystic fluid and diffuse peripancreatic edema with an edematous pancreas. The right upper quadrant ultrasound revealed a prominent hepatic duct measuring 3 mm with generalized edema of the pancreas, with cholelithiasis. She was begun on Unasyn and underwent an ERCP with sphincterotomy and stone extraction from the common bile duct. She was taken to the OR late on September 17 for a laparoscopic cholecystectomy. She did spike a fever to 101.1 on September 15 but was afebrile until this afternoon, when she spiked to 101.2. Her white blood cell count increased to 17,000 on September 16, decreased to 10,000 on September 18, though with 21 bands and Dohle bodies on the peripheral smear, and has increased over the last 2 days, with persistent bandemia. She has been tolerating a diet, with no further nausea or vomiting, but she does report abdominal discomfort. She was also noted to have leakage from the surgical sites. She denies any respiratory or symptoms. 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 Age 74. MOTHER (Healthy; hepatic cysts). Age 68. PU ([place] for sx gallstones). Psychosocial History Where Do You Live? Home Who Do You Live With? spouse Services at Home: None Primary Language: Serbian, Frisian Smoking Status: Never Smoked ETOH Use: denies use (rare), occasional use Illicit Drug Use: denies illicit drug use Living Will? no Power of Commodity Industry Analyst/HCP? no Other Social History: to 2nd . from 1st . 1 son & 1 dtr by 1st - [employer]. No cigarettes. Rare EtOH. 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 In [place] since 1998. Functional Ability ADLs Independent: dressing, eating, toileting, bathing. Ambulation: independent IADLs Independent: shopping, housework, finances, food prep, telephone, transportation , medication admin. 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 Review of Systems Review of Systems All Other Systems: Reviewed and Negative Exam & Diagnostic Data Last 24 Hrs of Vital Signs/I&O Vital Signs Date Time Temp Pulse Resp B/P B/P Pulse O2 O2 Flow FiO2 Mean Ox Delivery Rate 09/20 1726 101.2 09/20 1528 101.0 105 20 123/80 93 09/20 0800 18 95 Room Air 09/20 0642 98.6 100 20 110/70 91 Nasal 1.0L Cannula 09/19 2218 98.5 102 19 102/60 95 Nasal Cannula Intake & Output 09/20 1600 /05 0800 03/05 0000 Intake Total 810 200 200 Output Total 300 0 400 Balance 510 200 -200 Intake, IV 10 Intake, Oral 800 200 200 Number 1 Bowel Movements Output, Urine 300 0 400 Physical Exam Other Physical Findings: MAXIMUM TEMPERATURE 101.2. She is awake and alert in no acute distress. Skin reveals no rash. HEENT negative. Neck is supple with no adenopathy. Lungs decreased breath sounds both bases. Heart regular rhythm with no murmur. Abdomen is mildly distended, tender to palpation over the epigastrium and right upper quadrant, with no guarding or rebound, with positive bowel sounds; dressing with evidence of drainage in the right upper quadrant. Back left CVA tenderness. Extremities no cyanosis, clubbing or edema. Neuro is without focality. Last 24 Hours of Lab Results: Laboratory Tests 09/20 0730 Chemistry Sodium (137 - 145 mmol/L) 132 L Potassium (3.5 - 5.1 mmol/L) 3.6 Chloride (98 - 107 mmol/L) 96 L Carbon Dioxide (22 - 30 mmol/L) 28 Anion Gap (5 - 16) 9 BUN (7 - 17 mg/dL) 8 Creatinine (0.5 - 1.0 mg/dL) 0.4 L Estimated GFR (>60 ml/min) > 60 BUN/Creatinine Ratio (7 - 25 %) 20.0 Total Bilirubin (0.2 - 1.3 mg/dL) 0.9 Direct Bilirubin (< 0.4 mg/dL) 0.7 H AST (14 - 36 U/L) 39 H ALT (9 - 52 U/L) 93 H Alkaline Phosphatase (<127 U/L) 182 H Total Protein (6.3 - 8.2 g/dL) 4.8 L Albumin (3.5 - 5.0 g/dL) 2.3 L Hematology CBC w Diff MAN DIFF ORDERED WBC (4.8 - 10.8 /CUMM) 15.9 H RBC (4.20 - 5.40 /CUMM) 3.43 L Hgb (12.0 - 16.0 G/DL) 9.9 L Hct (37 - 47 %) 29.0 L MCV (81.0 - 99.0 FL) 84.7 MCH (27.0 - 31.0 PG) 28.9 MCHC (33.0 - 37.0 G/DL) 34.1 RDW (11.5 - 14.5 %) 14.2 Plt Count (130 - 400 /CUMM) 352 MPV (7.4 - 10.4 FL) 7.4 Gran % (42.2 - 75.2 %) 89.5 H Lymphocytes % (20.5 - 51.1 %) 4.7 L Monocytes % (1.7 - 9.3 %) 4.9 Eosinophils % (0 - 5 %) 0.7 Basophils % (0.0 - 2.0 %) 0.2 Absolute Granulocytes (1.4 - 6.5 /CUMM) 14.3 H Segmented Neutrophils (42.2 - 75.2 %) 71 Band Neutrophils (0.0 - 5.0 %) 19 H Absolute Lymphocytes (1.2 - 3.4 /CUMM) 0.8 L Lymphocytes (20.5 - 51.1 %) 5 L Monocytes (1.7 - 9.3 %) 5 Absolute Monocytes (0.10 - 0.60 /CUMM) 0.8 H Absolute Eosinophils (0.0 - 0.7 /CUMM) 0.1 Absolute Basophils (0.0 - 0.2 /CUMM) 0 Platelet Estimate (ADEQUATE) VERIFIED BY SMEAR Polychromasia 1+ Basophilic Stippling SLIGHT Last 24 Hours of Luis Antonio Results: Blood cultures September 15 negative Blood cultures September 19 negative Urine culture September 15 negative Urine culture September 19 negative Diagnostic Data Recent Imaging Findings: Chest x-ray September [address] of the abdomen and pelvis revealed findings suggestive of gallstone pancreatitis with a small calcification of the region of the pancreatic head with dilatation of the common bile duct and intrahepatic ducts, a distended gallbladder with pericholecystic fluid and diffuse peripancreatic edema with an edematous pancreas. Right upper quadrant ultrasound revealed a prominent hepatic duct measuring 3 mm with generalized edema of the pancreas, with cholelithiasis. Chest x-ray September 17 reveals low lung volumes with slight increase in bibasilar opacities Assessment/Plan Assessment/Plan Impression: This is a 52-year-old woman with a history of peptic ulcer disease, GERD and hyperlipidemia admitted on September 15 with a 3 day history of right upper quadrant pain, nausea and vomiting with chills, found initially to be afebrile with a mild leukocytosis and markedly elevated amylase and lipase and elevated liver enzymes, found on imaging to have evidence of gallstone pancreatitis, status post ERCP with sphincterotomy on the day after admission and laparoscopic cholecystectomy 2 days later, now with fevers, leukocytosis and bandemia. She continues to have abdominal discomfort, raising concern for a postop complication, such as an abscess or biloma, particularly with the report of leakage from her surgical sites, or a complication of her pancreatitis, such as a pseudocyst, with infected pancreatitis less likely. A complication of her ERCP is possible but would have expected this to have occurred sooner. An extra -abdominal process, such as pneumonia, is possible, with a preop chest x-ray revealing bibasilar densities, though it is more suggestive of atelectasis, and she has no respiratory symptoms. She does have left flank tenderness, but she denies any urinary symptoms and her urine culture from yesterday is so far negative. She was empirically placed on Meropenem, which can be continued pending further evaluation. Suggestion: 1. CT of the chest, abdomen and pelvis with oral and IV contrast tonight 2. Follow-up recent cultures 3. Continue Meropenem pending above Consult Acknowledgment - Thank you for your consult request.
[2017-09-20 23:01] VITALS: BP 100/62
[2017-09-21 01:00] VITALS: BP 97/60
[2017-09-21 06:27] VITALS: BP 102/58
--- NOTE | 2017-09-21 07:17 | PN- Housestaff ---
Margaret MORILLO,Roberto 09/21/17 0715: Subjective Follow-up For: Gallstone pancreatitis s/p cholecystectomy (09/17) and ERCP (09/15) Leukocytosis with bandemia hypokalemia Subjective: Patient was seen and examined at bedside. She is in mild distress. Overnight she went for CT with oral and IV contrast. After taking the oral contrast reports nausea and approximately 12 loose watery bowel movements with worsening upper quadrant abdominal pain. Her most recent bowel movement was approximately 1 hour. She did not notice any blood or dark stool. Her nausea has since resolved and the pain is improved but it is still 56 out of 10. She also endorsed onset of dysuria overnight. She had an episode of dizziness with ambulation but does not endorse shortness of breath. She denies any chest pain, subjective fever, chills. Review of Systems Constitutional: Denies: chills, fever. Cardiovascular: Denies: chest pain, palpitations. Respiratory: Denies: cough, short of breath. Gastrointestinal: Reports: abdominal pain, diarrhea, nausea. Denies: melena, bloody stool, vomiting. Genitourinary: Reports: dysuria. Musculoskeletal: Reports: no symptoms. Objective Last 24 Hrs of Vital Signs/I&O Vital Signs Date Time Temp Pulse Resp B/P B/P Pulse O2 O2 Flow FiO2 Mean Ox Delivery Rate 09/21 0549 99.0 09/21 06 99.8 103 18 102/58 91 Room Air 09/21 0100 97.9 90 20 97/60 98 Room Air 09/20 2301 97.9 86 12 100/62 96 Room Air 09/20 1917 98.4 09/20 1726 101.2 09/20 1528 101.0 105 20 123/80 93 /05 0800 18 95 Room Air Intake & Output 09/21 0800 09/21 0000 05 1600 Intake Total 600 810 Output Total 3 300 Balance 597 510 Intake, IV 10 Intake, Oral 600 800 Number 1 Bowel Movements Output, Stool 3 Output, Urine 300 Physical Exam General Appearance: Alert, Oriented X3, Cooperative, No Acute Distress Skin Temp/Moisture Exam: Warm/Dry Sepsis Skin Exam (color): Normal for Ethnicity Cardiovascular: Regular Rate, Normal S1, Normal S2 Lungs: diminshed breath sounds at the bases bilaterally, no wheezes, rales, or rhonchi Abdomen: examination of the abd pad that was changed overnight showed serous drainage drainage, surgical dressings in place with no sign of saturation or leakage, TTP in epigastric area, RUQ, RLQ and mild TTP in the LUQ Neurological: Normal Speech, Normal Tone, Sensation Intact Extremities: No Clubbing, No Cyanosis, No Edema Current Medications: Current Medications Sig/Mk Start time Last Medication Dose Route Stop Time Status Admin Enoxaparin Sodium 40 MG DAILY 09/18 1000 DC 09/20 SC 0937 Heparin Sodium 5,000 UNIT Q8 09/20 1400 AC 09/21 (Porcine) SC 0527 Hydromorphone HCl 2 MG Q4-6 PRN 09/18 1845 AC 09/20 PO 0937 Ibuprofen 600 MG ONCE ONE 09/20 1615 DC 09/20 PO 09/20 1616 1726 Lactated Ringer's 500 ML .[ONCE TIME] 09/18 0030 AC IV Meropenem 1 GM IQ8 09/20 0000 AC 09/21 IV 0042 Ondansetron HCl 4 MG Q8P PRN 09/15 0345 AC IV Pantoprazole Sodium 40 MG DAILY 09/15 0500 AC 09/20 IV 0937 Potassium Chloride 10 MEQ Q1H 09/21 0145 DC 09/21 IV 09/21 0246 0319 Potassium Chloride 80 MEQ ONCE ONE 09/21 0145 DC 09/21 PO 09/21 0146 0153 Tramadol HCl 50 MG Q6 09/16 0945 AC 09/21 PO 0527 Last 24 Hrs of Lab/Luis Antonio Results Last 24 Hrs of Labs/Mics: Laboratory Tests 09/21/17 0050: Anion Gap 9, Estimated GFR > 60, BUN/Creatinine Ratio 15.0 09/20/17 0730: Anion Gap 9, Estimated GFR > 60, BUN/Creatinine Ratio 20.0, Total Bilirubin 0.9, Direct Bilirubin 0.7 H, AST 39 H, ALT 93 H, Alkaline Phosphatase 182 H, Total Protein 4.8 L, Albumin 2.3 L, CBC w Diff MAN DIFF ORDERED, RBC 3.43 L, MCV 84.7, MCH 28.9, MCHC 34.1, RDW 14.2, MPV 7.4, Gran % 89.5 H, Lymphocytes % 4.7 L, Monocytes % 4.9, Eosinophils % 0.7, Basophils % 0.2, Absolute Granulocytes 14.3 H, Segmented Neutrophils 71, Band Neutrophils 19 H, Absolute Lymphocytes 0.8 L, Lymphocytes 5 L, Monocytes 5, Absolute Monocytes 0.8 H, Absolute Eosinophils 0.1, Absolute Basophils 0, Platelet Estimate VERIFIED BY SMEAR, Polychromasia 1+, Basophilic Stippling SLIGHT Orders Radiology Findings: CT chest/abd/pelvis LUNGS: Interval development of moderate-sized bilateral pleural effusions is seen, extending posteriorly all the way up to the lung apex. Pleural fluid appears simple. There is no evidence of pleural thickening or nodularity or abnormal pleural enhancement seen. Associated near complete collapse and dense consolidation with air bronchograms of both lower lobes is noted with only a small amount of aeration remaining in the superior segments bilaterally. There is also mild dependent atelectatic changes in the right upper lobe and left upper lobe and in the dependent portions of the right middle lobe. A small calcified granuloma is seen in the left lower lobe (series 3, image 36), unchanged. Central airways are patent. LYMPHOVASCULAR STRUCTURES: Aortic and heart size are normal. No pericardial effusion is seen. Enlargement of the main pulmonary artery is seen, measuring up to 2.9 cm in diameter as compared to the adjacent ascending aorta, which measures 2.4 cm in maximal AP diameter. Findings are consistent with pulmonary arterial hypertension. No significant mediastinal, hilar or axillary adenopathy is present. THYROID GLAND: Unremarkable to the extent seen. BONES: Bifid spinous process of C7 versus incomplete posterior process midline fusion is incidentally noted. No suspicious focal finding. ABDOMEN AND PELVIS: LIVER, GALLBLADDER, BILIARY TREE: Liver normal size and attenuation. No focal cystic or solid mass or intra-or extrahepatic ductal dilatation. Hepatic and portal veins patent. The gallbladder is surgically absent. No significant focal fluid collection is seen in the gallbladder fossa. Small amount of edema and right stranding in the gallbladder fossa is noted, most likely due to extension of the peripancreatic edema and fluid. PANCREAS: The pancreas is diffusely enlarged and diffusely mildly hypoenhancing. However, no discrete areas of pancreatic necrosis are noted. No pancreatic ductal dilatation is seen. No retained gallstones are noted. There is extensive peripancreatic edema and fluid seen, extending into the gastrosplenic and gastrohepatic ligaments and into the gallbladder fossa and the lateral conal fascia bilaterally. Compared to the prior exam, the degree of edema and ascites in the abdomen has increased significantly. No walled off fluid collections are seen. SPLEEN: Normal size and appearance. Splenic vein patent. ADRENAL GLANDS AND KIDNEYS: Adrenal glands normal. Kidneys bilaterally symmetric in size and function. No focal mass, hydronephrosis, nephrolithiasis or perinephric stranding. URETERS AND BLADDER: Ureters decompressed and within normal limits. Bladder well distended and within normal limits. PELVIC VISCERA: Uterus is retroverted and retroflexed and unremarkable. No adnexal mass is seen. BOWEL LOOPS: Normal. Small and large bowel loops decompressed. Appendix in right lower quadrant normal. ABDOMINAL WALL: There is a small fat-containing umbilical hernia. LYMPHOVASCULAR STRUCTURES: Abdominal aorta normal in caliber. No periaortic collections. No abdominal or pelvic adenopathy. BONES: Within normal limits. IMPRESSION: 1. Acute interstitial pancreatitis is seen with increasing peripancreatic fluid extending through the abdomen. No evidence of abnormal pancreatic ductal dilatation, retained gallstones, intrahepatic ductal dilatation or abnormal focal abscess collection or focal localized fluid collection in the gallbladder fossa. 2. Interval development of large bilateral simple appearing pleural effusions, layering posteriorly up to the lung apices. Associated volume loss and consolidation in both lower lobes is seen, suspicious for atelectasis and/or pneumonia. 3. Enlargement of the main pulmonary arteries, suspicious for pulmonary arterial hypertension. 4. Small fat-containing umbilical hernia. Assessment/Plan Assessment: Patient is 52-year-old female with a PMH significant for GERD, HLD, H. pylori infection who underwent ERCP on 09/15, impression Choledocholithiasis, treated with sphincterotomy and extraction of 4 stones, treated with sphincterotomy and extraction now s/p cholecystectomy on 09/18. #Gallstone pancreatitis S/P ERCP, S/P cholecystectomy Patient continues to have abdominal discomfort with leakage of serious and at times serosanguineous fluid from the surgical site. With persistent leukocytosis and bandemia as well as fever yesterday MAXIMUM TEMPERATURE 101.2 there is a concern for postoperative complication. Patient also had new onset dysuria yesterday as well as significant diarrhea. CT showed bilateral pleural effusions, increasing peripancreatic fluid. She has an increased WBC today but bands are trending down. -Follow-up blood cultures, and UA and urine culture done today -Adequate pain control, manage nausea with Zofran -Oral PPI -DC meropenem and watch off of antibiotics -ID recommendations appreciated -Follow up with Dr. Bowers as an outpatient #Hypokalemia Patient's electrolytes were checked overnight in the setting of severe diarrhea she was found to have hypokalemia. She was repleted with IV and oral potassium. She had one episode of hypoglycemia after having diarrhea in the ICU. -Continue to monitor potassium levels #Hyponatremia, resolving -We'll continue to follow #Hyperbilirubinemia, Transaminitis, elevated alkaline phosphatase-improving -Continue to monitor LFTs #pleural effusion with atelectasis, possible pneumonia CXR was obtained 09/16 in context of bandemia. Positive for bibasilar opacities atelectasis versus aspiration. CT on 09/20 showed bilateral pleural effusions and atelectasis. -Incentive spirometry -US theraputic and diagnostic pleural effusions Diet: full liquid diet DVT ppx: SC heparin Code status: Full code Problem List: 1. Gallstone pancreatitis Pain Ratin Pain Location: RUQ Pain Goal: Pain 4 or less Pain Plan: pain pathway Tomorrow's Labs & Rationales: cbc, bep, LFTs Maikol Rios MD 09/21/17 1140: Attending MD Review Statement Attending Statement Attending MD Statement: examined this patient, discuss w/resident/PA/PULP PILER, agreed w/resident/PA/PULP PILER, reviewed EMR data (avail) Attending Assessment/Plan: 52F PMH GERD, HLD admitted to ICU with gallstone pancreatitis s/p ERCP with sphincterotomy and removal of 4 stones, followed by cholecystectomy on 09/17 without complication, now improving. Abdominal pain is improved today, and she was able to tolerate more food. Her WBC continues to rise and bandemia is persisting. Cultures drawn yesterday are negative. Repeat imaging shows worsening pancreatitis and bilateral pleural effusions. 1. Gallstone pancreatitis 2. Choledocholithiasis 3. Acute cholecystitis Plan - Continue on general medicine - Continue Meropenem - Repeat blood and urine cultures - ID consult - Follow surgery recommendations - DVT PPx
[2017-09-21 08:40] LABS: ABSOLUTE BASOPHIL COUNT 0 /CUMM (0.0-0.2); ABSOLUTE EOSINOPHIL COUNT 0.1 /CUMM (0.0-0.7); ABSOLUTE LYMPH COUNT 0.7 /CUMM (1.2-3.4); MEAN PLATELET VOLUME 7.5 FL (7.4-10.4)
[2017-09-21 09:06] LABS: ABSOLUTE GRANULOCYTE CT 22.1 /CUMM (1.4-6.5); ABSOLUTE MONOCYTE COUNT 1.1 /CUMM (0.10-0.60); BASOPHIL % 0 % (0.0-2.0); EOSINOPHIL % 0.5 % (0-5); GRANULOCYTE % 92.3 % (42.2-75.2); HEMATOCRIT 29.3 % (37-47); MEAN CORPUSCULAR HGB 28.8 PG (27.0-31.0); MEAN CORPUSCULAR VOLUME 84.7 FL (81.0-99.0); PLATELET COUNT 413 /CUMM (130-400); RBC DISTRIBUTION WIDTH 14.4 % (11.5-14.5); RED BLOOD CELL CT 3.45 /CUMM (4.20-5.40)
--- NOTE | 2017-09-21 09:32 | CT SCAN REPORT ---
EXAMINATION: CT CHEST, ABDOMEN AND PELVIS WITH CONTRAST CLINICAL INFORMATION: Gallstone pancreatitis. Status post cholecystectomy. Evaluate for possible source of fever after surgery. COMPARISON: CT scan of the abdomen and pelvis dated 09/15/2017. Right upper quadrant ultrasound dated 09/15/2017. ERCP dated 09/15/2017. TECHNIQUE: Multidetector CT helical images of the chest, abdomen and pelvis were performed following the administration of 900 mL of oral Redicat contrast and 95 and mL of intravenous Optiray 320. The data set was reformatted in the coronal and sagittal planes and reviewed on an independent workstation. DLP: 352.01 mGy-cm. FINDINGS: CHEST: LUNGS: Interval development of moderate-sized bilateral pleural effusions is seen, extending posteriorly all the way up to the lung apex. Pleural fluid appears simple. There is no evidence of pleural thickening or nodularity or abnormal pleural enhancement seen. Associated near complete collapse and dense consolidation with air bronchograms of both lower lobes is noted with only a small amount of aeration remaining in the superior segments bilaterally. There is also mild dependent atelectatic changes in the right upper lobe and left upper lobe and in the dependent portions of the right middle lobe. A small calcified granuloma is seen in the left lower lobe (series 3, image 36), unchanged. Central airways are patent. LYMPHOVASCULAR STRUCTURES: Aortic and heart size are normal. No pericardial effusion is seen. Enlargement of the main pulmonary artery is seen, measuring up to 2.9 cm in diameter as compared to the adjacent ascending aorta, which measures 2.4 cm in maximal AP diameter. Findings are consistent with pulmonary arterial hypertension. No significant mediastinal, hilar or axillary adenopathy is present. THYROID GLAND: Unremarkable to the extent seen. BONES: Bifid spinous process of C7 versus incomplete posterior process midline fusion is incidentally noted. No suspicious focal finding. ABDOMEN AND PELVIS: LIVER, GALLBLADDER, BILIARY TREE: Liver normal size and attenuation. No focal cystic or solid mass or intra-or extrahepatic ductal dilatation. Hepatic and portal veins patent. The gallbladder is surgically absent. No significant focal fluid collection is seen in the gallbladder fossa. Small amount of edema and right stranding in the gallbladder fossa is noted, most likely due to extension of the peripancreatic edema and fluid. PANCREAS: The pancreas is diffusely enlarged and diffusely mildly hypoenhancing. However, no discrete areas of pancreatic necrosis are noted. No pancreatic ductal dilatation is seen. No retained gallstones are noted. There is extensive peripancreatic edema and fluid seen, extending into the gastrosplenic and gastrohepatic ligaments and into the gallbladder fossa and the lateral conal fascia bilaterally. Compared to the prior exam, the degree of edema and ascites in the abdomen has increased significantly. No walled off fluid collections are seen. SPLEEN: Normal size and appearance. Splenic vein patent. ADRENAL GLANDS AND KIDNEYS: Adrenal glands normal. Kidneys bilaterally symmetric in size and function. No focal mass, hydronephrosis, nephrolithiasis or perinephric stranding. URETERS AND BLADDER: Ureters decompressed and within normal limits. Bladder well distended and within normal limits. PELVIC VISCERA: Uterus is retroverted and retroflexed and unremarkable. No adnexal mass is seen. BOWEL LOOPS: Normal. Small and large bowel loops decompressed. Appendix in right lower quadrant normal. ABDOMINAL WALL: There is a small fat-containing umbilical hernia. LYMPHOVASCULAR STRUCTURES: Abdominal aorta normal in caliber. No periaortic collections. No abdominal or pelvic adenopathy. BONES: Within normal limits. IMPRESSION: 1. Acute interstitial pancreatitis is seen with increasing peripancreatic fluid extending through the abdomen. No evidence of abnormal pancreatic ductal dilatation, retained gallstones, intrahepatic ductal dilatation or abnormal focal abscess collection or focal localized fluid collection in the gallbladder fossa. 2. Interval development of large bilateral simple appearing pleural effusions, layering posteriorly up to the lung apices. Associated volume loss and consolidation in both lower lobes is seen, suspicious for atelectasis and/or pneumonia. 3. Enlargement of the main pulmonary arteries, suspicious for pulmonary arterial hypertension. 4. Small fat-containing umbilical hernia.
--- NOTE | 2017-09-21 11:52 | PN- Gastroenterology ---
Assessment/Plan GI Assessment/Recommendations: Assessment: Ms. Troy is a 52 year old female admitted with gallstone pancreatitis s/p ERCP and CCY who was noted to have a temp spike and an increased WBC of uncertain etiology but I feel that both are reactive to worsening pancreatitis. She had some areas of hypoenhancement on her ct scan, but no discrete areas of necrosis or any obvious fluid collections so I don't feel that she needs antibiotics at least for her pancreas (? pneumonia on ct scan, but no pulmonary symptoms). Her pancreatitis appears worse on this imaging which I suspect is secondary to her not having a long enough period of bowel rest and possibly taking out her GB too soon. A retained (or dropped stone from her CCY) is also possible, but this is less likely as her LFTs have remained normal and any retained or dropped stones should of passed without incident secondary to her having a sphincterotomy. Recommendations: 1. Would make pt NPO for next 24-48hrs 2. Restart IVF with lactated rings at a rate of 150cc/hr with periodically reassessing her volume status. 3. Will defer to ID for antibiotic recommendations, but I would observe off of antibiotics for now. 4. Based on her clinical course and results of repeat blood work would consider repeating her ct scan in 24-48 hours. 5. Follow lytes and daily lfts for now. 6. If she continues to have diarrhea would check stool studies (at least a c diff) 7. Follow up cultures. 8. Consideration should be given for a nutrition consult for possible TPN or [place] tube feeds if she has a prolonged period of being kept NPO. I will continue to follow this patient and make further recommendations based on her clinical course. Problem List: 1. Gallstone pancreatitis 2. SIRS (systemic inflammatory response syndrome) Subjective Subjective: pt spiked a temp to 101F and a WBC of 24k yesterday for which a repeat ct scan was ordered and she was empiricially started on meropenem. She has not had any further temperature spikes and she is without any vomiting. She has been having non-bloody diarrhea which she attributes to the contrast she got for the ct scan. She is also complaining of abdominal pain. Objective Vital Signs and I&Os Vital Signs Date Time Temp Pulse Resp B/P B/P Pulse O2 O2 Flow FiO2 Mean Ox Delivery Rate 09/21 0649 99.0 09/21 0627 99.8 103 18 102/58 91 Room Air / 0100 97.9 90 20 97/60 98 Room Air 09/20 2301 97.9 86 12 100/62 96 Room Air 09/20 1917 98.4 09/20 1726 101.2 09/20 1528 101.0 105 20 123/80 93 Intake & Output 09/21 1600 09/21 0400 09/20 1600 09/20 0400 09/19 1600 09/19 0400 Intake Total 2218 633 7511 200 1270 370 Output Total 650 3 300 400 600 Balance 1050 597 710 -200 670 370 Intake, IV 200 10 230 130 Intake, Oral 7888 769 0044 200 1040 240 Number 8 1 Bowel Movements Output, Stool 3 Output, Urine 650 300 400 600 Physical Exam General Appearance: alert, awake, mild distress Head: atraumatic Ears, Nose, Throat: normal pharynx Neck: supple Respiratory: normal breath sounds, decreased breath sounds Cardiovascular: regular rate/rhythm Abdomen: normal bowel sounds, soft, tenderness Rectal: deferred Extremities: no edema Skin: intact, normal color Current Medications: Current Medications Sig/Mk Start time Last Medication Dose Route Stop Time Status Admin Heparin Sodium 5,000 UNIT Q8 09/20 1400 AC 09/21 (Porcine) SC 0527 Hydromorphone HCl 2 MG Q4-6 PRN 09/18 1845 AC 09/20 PO 0937 Ibuprofen 600 MG ONCE ONE 09/20 1615 DC 09/20 PO 09/20 1616 1726 Lactated Ringer's 1,000 ML Q8H 09/21 1030 CAN IV Lactated Ringer's 500 ML .[ONCE TIME] 09/18 0030 DC IV Meropenem 1 GM IQ8 09/20 0000 AC 09/21 IV 1023 Ondansetron HCl 4 MG Q8P PRN 09/15 0345 AC IV Pantoprazole Sodium 40 MG DAILY 09/15 0500 AC 09/21 IV 1023 Potassium Chloride 10 MEQ Q1H 09/21 0145 DC 09/21 IV 09/21 0246 0319 Potassium Chloride 80 MEQ ONCE ONE 09/21 0145 DC 09/21 PO 09/21 0146 0153 Tramadol HCl 50 MG Q6 09/16 0945 AC 09/21 PO 0527 Results Pertinent Lab Results: Laboratory Tests 09/21 09/21 0905 0730 Chemistry Sodium Cancelled Potassium Cancelled Chloride Cancelled Carbon Dioxide Cancelled Anion Gap Cancelled BUN Cancelled Creatinine Cancelled BUN/Creatinine Ratio Cancelled Urines Urine Color (YEL,AMB,STR) YEL Urine Clarity (CLEAR) CLEAR Urine pH (5.0 - 8.0) 8.0 Ur Specific Jay (1.001 - 1.035) 1.020 Urine Protein (NEG,<30 MG/DL) 30 H Urine Ketones (NEG) NEG Urine Nitrite (NEG) NEG Urine Bilirubin (NEG) NEG Urine Urobilinogen (0.1 - 1.0 EU/dl) 1.0 Ur Leukocyte Esterase (NEG) NEG Ur Microscopic SEDIMENT EXAMINED Urine RBC (0 - 5 /HPF) 10-15 H Urine WBC (0 - 2 /HPF) RARE Ur Epithelial Cells (NONE,FEW) RARE Urine Mucus (FEW,NONE) FEW Urine Hemoglobin (NEG) SMALL H Urine Glucose (N MG/DL) NEG 09/21 09/21 0730 0050 Chemistry Sodium (137 - 145 mmol/L) 134 L 134 L Potassium (3.5 - 5.1 mmol/L) 4.3 2.9 *L Chloride (98 - 107 mmol/L) 99 97 L Carbon Dioxide (22 - 30 mmol/L) 26 29 Anion Gap (5 - 16) 9 9 BUN (7 - 17 mg/dL) 5 L 6 L Creatinine (0.5 - 1.0 mg/dL) 0.4 L 0.4 L Estimated GFR (>60 ml/min) > 60 > 60 BUN/Creatinine Ratio (7 - 25 %) 12.5 15.0 Total Bilirubin (0.2 - 1.3 mg/dL) 0.8 Direct Bilirubin (< 0.4 mg/dL) 0.7 H AST (14 - 36 U/L) 62 H ALT (9 - 52 U/L) 99 H Alkaline Phosphatase (<127 U/L) 292 H Lactate Dehydrogenase (313 - 618 U/L) 805 H Total Protein (6.3 - 8.2 g/dL) 5.0 L 4.7 L Albumin (3.5 - 5.0 g/dL) 2.4 L Hematology CBC w Diff MAN DIFF ORDERED WBC (4.8 - 10.8 /CUMM) 24.0 H RBC (4.20 - 5.40 /CUMM) 3.45 L Hgb (12.0 - 16.0 G/DL) 10.0 L Hct (37 - 47 %) 29.3 L MCV (81.0 - 99.0 FL) 84.7 MCH (27.0 - 31.0 PG) 28.8 MCHC (33.0 - 37.0 G/DL) 34.0 RDW (11.5 - 14.5 %) 14.4 Plt Count (130 - 400 /CUMM) 413 H MPV (7.4 - 10.4 FL) 7.5 Gran % (42.2 - 75.2 %) 92.3 H Lymphocytes % (20.5 - 51.1 %) 2.8 L Monocytes % (1.7 - 9.3 %) 4.4 Eosinophils % (0 - 5 %) 0.5 Basophils % (0.0 - 2.0 %) 0 Absolute Granulocytes (1.4 - 6.5 /CUMM) 22.1 H Segmented Neutrophils (42.2 - 75.2 %) 82 H Band Neutrophils (0.0 - 5.0 %) 12 H Absolute Lymphocytes (1.2 - 3.4 /CUMM) 0.7 L Lymphocytes (20.5 - 51.1 %) 3 L Monocytes (1.7 - 9.3 %) 2 Absolute Monocytes (0.10 - 0.60 /CUMM) 1.1 H Absolute Eosinophils (0.0 - 0.7 /CUMM) 0.1 Absolute Basophils (0.0 - 0.2 /CUMM) 0 Metamyelocytes (0.0 - 1.0 %) 1 Platelet Estimate (ADEQUATE) VERIFIED BY SMEAR Anisocytosis 1+ 09/20 03/ 0730 0750 Chemistry Sodium (137 - 145 mmol/L) 132 L 136 L Potassium (3.5 - 5.1 mmol/L) 3.6 3.5 Chloride (98 - 107 mmol/L) 96 L 100 Carbon Dioxide (22 - 30 mmol/L) 28 26 Anion Gap (5 - 16) 9 10 BUN (7 - 17 mg/dL) 8 7 Creatinine (0.5 - 1.0 mg/dL) 0.4 L 0.5 Estimated GFR (>60 ml/min) > 60 > 60 BUN/Creatinine Ratio (7 - 25 %) 20.0 14.0 Magnesium (1.6 - 2.3 mg/dL) 1.9 Total Bilirubin (0.2 - 1.3 mg/dL) 0.9 1.2 Direct Bilirubin (< 0.4 mg/dL) 0.7 H 0.9 H AST (14 - 36 U/L) 39 H 38 H ALT (9 - 52 U/L) 93 H 121 H Alkaline Phosphatase (<127 U/L) 182 H 212 H Total Protein (6.3 - 8.2 g/dL) 4.8 L 5.0 L Albumin (3.5 - 5.0 g/dL) 2.3 L 2.4 L Hematology CBC w Diff MAN DIFF ORDERED MAN DIFF ORDERED WBC (4.8 - 10.8 /CUMM) 15.9 H 15.5 H RBC (4.20 - 5.40 /CUMM) 3.43 L 3.97 L Hgb (12.0 - 16.0 G/DL) 9.9 L 11.6 L Hct (37 - 47 %) 29.0 L 34.4 L MCV (81.0 - 99.0 FL) 84.7 86.5 MCH (27.0 - 31.0 PG) 28.9 29.1 MCHC (33.0 - 37.0 G/DL) 34.1 33.6 RDW (11.5 - 14.5 %) 14.2 14.8 H Plt Count (130 - 400 /CUMM) 352 351 MPV (7.4 - 10.4 FL) 7.4 7.5 Gran % (42.2 - 75.2 %) 89.5 H 84.8 H Lymphocytes % (20.5 - 51.1 %) 4.7 L 7.7 L Monocytes % (1.7 - 9.3 %) 4.9 7.1 Eosinophils % (0 - 5 %) 0.7 0.4 Basophils % (0.0 - 2.0 %) 0.2 0 Absolute Granulocytes (1.4 - 6.5 /CUMM) 14.3 H 13.1 H Segmented Neutrophils (42.2 - 75.2 %) 71 63 Band Neutrophils (0.0 - 5.0 %) 19 H 21 H Absolute Lymphocytes (1.2 - 3.4 /CUMM) 0.8 L 1.2 Lymphocytes (20.5 - 51.1 %) 5 L 6 L Monocytes (1.7 - 9.3 %) 5 10 H Absolute Monocytes (0.10 - 0.60 /CUMM) 0.8 H 1.1 H Absolute Eosinophils (0.0 - 0.7 /CUMM) 0.1 0.1 Absolute Basophils (0.0 - 0.2 /CUMM) 0 0 Platelet Estimate (ADEQUATE) VERIFIED BY SMEAR ADEQUATE Polychromasia 1+ Hypochromic-Microcytic 2+ Basophilic Stippling SLIGHT Anisocytosis 1+ Imaging/Other Studies: SERVICE DATE: 09/20/17- EXAM TYPE: CAT - CT ABD & PELVIS W ORAL & IV CO; CT CHEST W ORAL & IV CONTRAST EXAMINATION: CT CHEST, ABDOMEN AND PELVIS WITH CONTRAST CLINICAL INFORMATION: Gallstone pancreatitis. Status post cholecystectomy. Evaluate for possible source of fever after surgery. COMPARISON: CT scan of the abdomen and pelvis dated 09/15/2017. Right upper quadrant ultrasound dated 09/15/2017. ERCP dated 09/15/2017. TECHNIQUE: Multidetector CT helical images of the chest, abdomen and pelvis were performed following the administration of 900 mL of oral Redicat contrast and 95 and mL of intravenous Optiray 320. The data set was reformatted in the coronal and sagittal planes and reviewed on an independent workstation. DLP: 352.01 mGy-cm. FINDINGS: CHEST: LUNGS: Interval development of moderate-sized bilateral pleural effusions is seen, extending posteriorly all the way up to the lung apex. Pleural fluid appears simple. There is no evidence of pleural thickening or nodularity or abnormal pleural enhancement seen. Associated near complete collapse and dense consolidation with air bronchograms of both lower lobes is noted with only a small amount of aeration remaining in the superior segments bilaterally. There is also mild dependent atelectatic changes in the right upper lobe and left upper lobe and in the dependent portions of the right middle lobe. A small calcified granuloma is seen in the left lower lobe (series 3, image 36), unchanged. Central airways are patent. LYMPHOVASCULAR STRUCTURES: Aortic and heart size are normal. No pericardial effusion is seen. Enlargement of the main pulmonary artery is seen, measuring up to 2.9 cm in diameter as compared to the adjacent ascending aorta, which measures 2.4 cm in maximal AP diameter. Findings are consistent with pulmonary arterial hypertension. No significant mediastinal, hilar or axillary adenopathy is present. THYROID GLAND: Unremarkable to the extent seen. BONES: Bifid spinous process of C7 versus incomplete posterior process midline fusion is incidentally noted. No suspicious focal finding. ABDOMEN AND PELVIS: LIVER, GALLBLADDER, BILIARY TREE: Liver normal size and attenuation. No focal cystic or solid mass or intra-or extrahepatic ductal dilatation. Hepatic and portal veins patent. The gallbladder is surgically absent. No significant focal fluid collection is seen in the gallbladder fossa. Small amount of edema and right stranding in the gallbladder fossa is noted, most likely due to extension of the peripancreatic edema and fluid. PANCREAS: The pancreas is diffusely enlarged and diffusely mildly hypoenhancing. However, no discrete areas of pancreatic necrosis are noted. No pancreatic ductal dilatation is seen. No retained gallstones are noted. There is extensive peripancreatic edema and fluid seen, extending into the gastrosplenic and gastrohepatic ligaments and into the gallbladder fossa and the lateral conal fascia bilaterally. Compared to the prior exam, the degree of edema and ascites in the abdomen has increased significantly. No walled off fluid collections are seen. SPLEEN: Normal size and appearance. Splenic vein patent. ADRENAL GLANDS AND KIDNEYS: Adrenal glands normal. Kidneys bilaterally symmetric in size and function. No focal mass, hydronephrosis, nephrolithiasis or perinephric stranding. URETERS AND BLADDER: Ureters decompressed and within normal limits. Bladder well distended and within normal limits. PELVIC VISCERA: Uterus is retroverted and retroflexed and unremarkable. No adnexal mass is seen. BOWEL LOOPS: Normal. Small and large bowel loops decompressed. Appendix in right lower quadrant normal. ABDOMINAL WALL: There is a small fat-containing umbilical hernia. LYMPHOVASCULAR STRUCTURES: Abdominal aorta normal in caliber. No periaortic collections. No abdominal or pelvic adenopathy. BONES: Within normal limits. IMPRESSION: 1. Acute interstitial pancreatitis is seen with increasing peripancreatic fluid extending through the abdomen. No evidence of abnormal pancreatic ductal dilatation, retained gallstones, intrahepatic ductal dilatation or abnormal focal abscess collection or focal localized fluid collection in the gallbladder fossa. 2. Interval development of large bilateral simple appearing pleural effusions, layering posteriorly up to the lung apices. Associated volume loss and consolidation in both lower lobes is seen, suspicious for atelectasis and/or pneumonia. 3. Enlargement of the main pulmonary arteries, suspicious for pulmonary arterial hypertension. 4. Small fat-containing umbilical hernia
--- NOTE | 2017-09-21 14:39 | RADIOLOGY REPORT ---
EXAMINATION:\H\ \N\XR CHEST CLINICAL INFORMATION: Evaluate for pneumothorax after left-sided thoracentesis COMPARISON: CXR from 09/17/2017 TECHNIQUE: Frontal view of the chest was obtained. FINDINGS: The left pleural effusion has significantly decreased after the thoracentesis. Persistent opacity from atelectasis or consolidation in the retrocardiac region of left lower lobe. Small right pleural effusion or right basilar atelectasis are similar in appearance compared to 09/17/2017. Cardiac silhouette is normal in size. The hilar contours are normal. No pulmonary edema, pneumothorax or other interval change. IMPRESSION: No evidence of pneumothorax after the recent thoracentesis.
[2017-09-21 14:42] VITALS: BP 103/65
--- NOTE | 2017-09-21 15:45 | PN- Infect Dx ---
Subjective Subjective: MAXIMUM TEMPERATURE 101.2. She complains of abdominal pain, diarrhea and nausea. Objective Last 24 Hrs of Vital Signs/I&O Vital Signs Date Time Temp Pulse Resp B/P B/P Pulse O2 O2 Flow FiO2 Mean Ox Delivery Rate 09/21 1442 98.7 96 20 103/65 106 Room Air 09/21 0649 99.0 09/21 0627 99.8 103 18 102/58 91 Room Air 09/21 0100 97.9 90 20 97/60 98 Room Air 09/20 2301 97.9 86 12 100/62 96 Room Air 09/20 1917 98.4 09/20 1726 101.2 Intake & Output 09/21 1600 09/21 0800 09/21 0000 Intake Total 900 800 600 Output Total 650 3 Balance 250 800 597 Intake, IV 200 Intake, Oral 900 600 600 Number 1 7 Bowel Movements Output, Stool 3 Output, Urine 650 Physical Exam Other Physical Findings: She appears uncomfortable in mild distress Lungs decreased breath sounds at both bases Heart regular rhythm with no murmur Abdomen is soft, tender on palpation over the left upper quadrant, epigastrium and right upper quadrant, with no guarding or rebound, positive bowel sounds Back left CVA tenderness Extremities no cyanosis, clubbing or edema Results Last 24 Hours of Lab Results: Laboratory Tests 09/21 09/21 09/21 09/21 1348 1348 1045 UNK Hematology Lymphocytes (%) 1 % Normal PMNs (%) 68 Misc Hematology Test (%) 31 Miscellaneous Phlebotomy Draw Site L THORACENTESIS Other Body Source Fluid WBC (0 - 5 /CUMM) 5049 H Fld Total RBCs Counted (0 /CUMM) 1491 H Fluid Total Protein (g/dL) Cancelled 2.9 Fluid Albumin (g/dL) 1.4 Fluid LDH (U/L) 1216 Pleural pH (PH) 7.45 09/21 09/21 0905 0730 Chemistry Sodium Cancelled Potassium Cancelled Chloride Cancelled Carbon Dioxide Cancelled Anion Gap Cancelled BUN Cancelled Creatinine Cancelled BUN/Creatinine Ratio Cancelled Urines Urine Color (YEL,AMB,STR) YEL Urine Clarity (CLEAR) CLEAR Urine pH (5.0 - 8.0) 8.0 Ur Specific Mcdavid (1.001 - 1.035) 1.020 Urine Protein (NEG,<30 MG/DL) 30 H Urine Ketones (NEG) NEG Urine Nitrite (NEG) NEG Urine Bilirubin (NEG) NEG Urine Urobilinogen (0.1 - 1.0 EU/dl) 1.0 Ur Leukocyte Esterase (NEG) NEG Ur Microscopic SEDIMENT EXAMINED Urine RBC (0 - 5 /HPF) 10-15 H Urine WBC (0 - 2 /HPF) RARE Ur Epithelial Cells (NONE,FEW) RARE Urine Mucus (FEW,NONE) FEW Urine Hemoglobin (NEG) SMALL H Urine Glucose (N MG/DL) NEG 09/21 09/21 0730 0050 Chemistry Sodium (137 - 145 mmol/L) 134 L 134 L Potassium (3.5 - 5.1 mmol/L) 4.3 2.9 *L Chloride (98 - 107 mmol/L) 99 97 L Carbon Dioxide (22 - 30 mmol/L) 26 29 Anion Gap (5 - 16) 9 9 BUN (7 - 17 mg/dL) 5 L 6 L Creatinine (0.5 - 1.0 mg/dL) 0.4 L 0.4 L Estimated GFR (>60 ml/min) > 60 > 60 BUN/Creatinine Ratio (7 - 25 %) 12.5 15.0 Total Bilirubin (0.2 - 1.3 mg/dL) 0.8 Direct Bilirubin (< 0.4 mg/dL) 0.7 H AST (14 - 36 U/L) 62 H ALT (9 - 52 U/L) 99 H Alkaline Phosphatase (<127 U/L) 292 H Lactate Dehydrogenase (313 - 618 U/L) 805 H Total Protein (6.3 - 8.2 g/dL) 5.0 L 4.7 L Albumin (3.5 - 5.0 g/dL) 2.4 L Hematology CBC w Diff MAN DIFF ORDERED WBC (4.8 - 10.8 /CUMM) 24.0 H RBC (4.20 - 5.40 /CUMM) 3.45 L Hgb (12.0 - 16.0 G/DL) 10.0 L Hct (37 - 47 %) 29.3 L MCV (81.0 - 99.0 FL) 84.7 MCH (27.0 - 31.0 PG) 28.8 MCHC (33.0 - 37.0 G/DL) 34.0 RDW (11.5 - 14.5 %) 14.4 Plt Count (130 - 400 /CUMM) 413 H MPV (7.4 - 10.4 FL) 7.5 Gran % (42.2 - 75.2 %) 92.3 H Lymphocytes % (20.5 - 51.1 %) 2.8 L Monocytes % (1.7 - 9.3 %) 4.4 Eosinophils % (0 - 5 %) 0.5 Basophils % (0.0 - 2.0 %) 0 Absolute Granulocytes (1.4 - 6.5 /CUMM) 22.1 H Segmented Neutrophils (42.2 - 75.2 %) 82 H Band Neutrophils (0.0 - 5.0 %) 12 H Absolute Lymphocytes (1.2 - 3.4 /CUMM) 0.7 L Lymphocytes (20.5 - 51.1 %) 3 L Monocytes (1.7 - 9.3 %) 2 Absolute Monocytes (0.10 - 0.60 /CUMM) 1.1 H Absolute Eosinophils (0.0 - 0.7 /CUMM) 0.1 Absolute Basophils (0.0 - 0.2 /CUMM) 0 Metamyelocytes (0.0 - 1.0 %) 1 Platelet Estimate (ADEQUATE) VERIFIED BY SMEAR Anisocytosis 1+ Last 24 Hours of Luis Antonio Results: Blood cultures 2 September 19 negative Urine culture September 19 negative Left pleural fluid culture September 21 pending Recent Imaging Studies: CT of the chest, abdomen and pelvis September 20 reveals the interval development of moderate size bilateral pleural effusions, with associated near complete collapse and dense consolidation with air bronchograms of both lower lobes; mild dependent atelectatic changes in the right upper lobe and left upper lobe and the dependent portions of the right middle lobe; a small amount of edema and stranding in the gallbladder fossa; diffusely enlarged and diffusely mildly hypoenhancing pancreas with no discrete areas of necrosis and no pancreatic ductal dilatation; extensive peripancreatic edema and fluid, extending into the gastrosplenic and gastrohepatic ligaments and into the gallbladder fossa Assessment/Plan ID Impression: Persistent leukocytosis with recent fever, likely secondary to the significant amount of pancreatic inflammation noted on the recent CT scan, with no evidence for any collection in the gallbladder fossa or pancreatic necrosis. She does have bilateral effusions with collapse and consolidation of both lower lobes, likely secondary to atelectasis secondary to the intra-abdominal inflammation. She remains on Meropenem, begun empirically 2 days ago for possible sepsis, and, as her blood cultures are negative and she has no evidence for any intra- abdominal infection, feel that this can be discontinued. Suggestion: 1. Further management of her pancreatitis per GI 2. Follow-up left pleural fluid culture and await right thoracentesis, scheduled for the a.m. 3. Discontinue Meropenem and follow off antibiotics
--- NOTE | 2017-09-21 16:09 | ULTRASOUND REPORT ---
PROCEDURE: Thoracentesis CLINICAL INFORMATION: Pleural Effusion COMPARISON: Chest CT 09/20/2017 TECHNIQUE: Indirect ultrasound guided thoracentesis using a 5 [place] Yueh catheter. FINDINGS: Informed consent was obtained from the patient prior to the procedure. During this process, the procedure alternatives were explained, along with the intended outcome and benefits. The risks of the procedure, as well as the risk of not doing the procedure, was discussed. The patient was given the opportunity to ask questions regarding the procedure and appeared competent to make medical decisions. A signed consent form which documents this discussion was placed in the medical record. A timeout procedure was performed. Ultrasound evaluation of the chest for pleural fluid was performed. A small to moderate pleural effusion is noted on the left side. Using standard interventional and sterile techniques, lidocaine was used to anesthetize the region. A 5 [place] Yueh catheter was introduced into the left pleural fluid using standard safety needle technique. Approximately 560 mL of light yellow fluid was removed into the Vacutainer bottles until drainage ceased. The catheter was then removed. Good hemostasis was achieved. The patient tolerated the procedure well. A sterile dressing was placed. The patient was discharged from the department in stable condition. Patient scheduled for post procedure followup x-ray. Fluid sent for requested analysis. COMPLICATIONS: None. IMPRESSION: Successful ultrasound-guided left-sided thoracentesis yielding 560 mL of fluid.
[2017-09-21 21:53] VITALS: BP 99/50
[2017-09-22 06:39] VITALS: BP 103/64
--- NOTE | 2017-09-22 07:30 | PN- Housestaff ---
Margaret MORILLO,Roberto 09/22/17 0729: Subjective Follow-up For: Gallstone pancreatitis status post ERCP and laparoscopic cholecystectomy Persistent leukocytosis and bandemia pleural effusion s/p thoracentesis Subjective: Patient was seen and examined at bedside. She was resting comfortably. Overnight she spiked a low-grade fever of 100.6. She reports feeling significantly better than yesterday. Continues to rate her pain at between 4-6/ 10 on the right side of her abdomen. She denies any further episodes of diarrhea. She denies any nausea, vomiting, fever, chills. Review of Systems Constitutional: Denies: chills, fever. Cardiovascular: Denies: chest pain, palpitations. Gastrointestinal: Reports: abdominal pain. Denies: diarrhea, nausea, bloody stool, vomiting. Genitourinary: Reports: no symptoms. Musculoskeletal: Reports: no symptoms. Objective Last 24 Hrs of Vital Signs/I&O Vital Signs Date Time Temp Pulse Resp B/P B/P Pulse O2 O2 Flow FiO2 Mean Ox Delivery Rate 09/22 0639 99.4 98 16 103/64 95 Room Air 09/21 2153 100.6 104 16 99/50 92 Room Air / 1600 94 Room Air 09/21 1442 98.7 96 20 103/65 106 Room Air Intake & Output 09/22 0800 09/22 0000 09/21 1600 Intake Total 800 400 900 Output Total 650 Balance 800 400 250 Intake, IV 800 400 Intake, Oral 900 Number 1 Bowel Movements Output, Urine 650 Physical Exam General Appearance: Alert, Oriented X3, Cooperative, No Acute Distress Skin Temp/Moisture Exam: Warm/Dry Cardiovascular: Regular Rate, Normal S1, Normal S2 Lungs: diminished breath sounds on the R lung base, mildly diminished breath sounds of the R lung base but improved from yesterday. bandage on the L mid back from thoracentesis no signs of leakage or saturation Abdomen: Normal Bowel Sounds, Soft, TTP in the epigatric area, RUQ, RLQ. Surgical bandages in place with no signs of leakage or saturation Current Medications: Current Medications Sig/Mk Start time Last Medication Dose Route Stop Time Status Admin Heparin Sodium 5,000 UNIT Q8 09/20 1400 AC 09/22 (Porcine) SC 0603 Hydromorphone HCl 2 MG Q4-6 PRN 09/18 1845 AC 09/21 PO 1447 Lactated Ringer's 1,000 ML Q10H 09/21 1700 AC 09/22 IV 0410 Lactated Ringer's 1,000 ML Q8H 09/21 1030 CAN IV Lactated Ringer's 500 ML .[ONCE TIME] 09/18 0030 DC IV Lidocaine 1 ML .STK-MED ONE 09/21 1412 DC ID 09/21 1413 Meropenem 1 GM IQ8 09/20 0000 DC 09/21 IV 1023 Ondansetron HCl 4 MG .STK-MED ONE 09/21 1500 DC IM 09/21 1501 Ondansetron HCl 4 MG Q8P PRN 09/15 0345 AC 09/21 IV 1502 Pantoprazole Sodium 40 MG DAILY 09/15 0500 AC 09/21 IV 1023 Sodium Chloride 1,000 ML Q13H 09/21 1500 DC 09/21 IV 1604 Tramadol HCl 50 MG Q6 09/16 0945 AC 09/22 PO 0603 Last 24 Hrs of Lab/Luis Antonio Results Last 24 Hrs of Labs/Mics: Laboratory Tests 09/21/17 1348: Pleural pH 7.45 09/21/17 1348: Lymphocytes 1, % Normal PMNs 68, [facility] Hemat[facility] Test 31, Phlebotomy Draw Site L THORACENTESIS, Fluid WBC 5049 H, Fld Total RBCs Counted 1491 H 09/21/17 1045: Fluid Total Protein Cancelled 09/21/17 1000: Fluid Total Protein 2.9, Fluid Albumin 1.4, Fluid LDH 1216 09/21/17 0905: Urine Color YEL, Urine Clarity CLEAR, Urine pH 8.0, Ur Specific [place] 1.020, Urine Protein 30 H, Urine Ketones NEG, Urine Nitrite NEG, Urine Bilirubin NEG, Urine Urobilinogen 1.0, Ur Leukocyte Esterase NEG, Ur Microscopic SEDIMENT EXAMINED, Urine RBC 10-15 H, Urine WBC RARE, Ur Epithelial Cells RARE, Urine Mucus FEW, Urine Hemoglobin SMALL H, Urine Glucose NEG 09/21/17 0730: Sodium Cancelled, Potassium Cancelled, Chloride Cancelled, Carbon Dioxide Cancelled, Anion Gap Cancelled, BUN Cancelled, Creatinine Cancelled, BUN/ Creatinine Ratio Cancelled 09/21/17 0730: Anion Gap 9, Estimated GFR > 60, BUN/Creatinine Ratio 12.5, Total Bilirubin 0.8, Direct Bilirubin 0.7 H, AST 62 H, ALT 99 H, Alkaline Phosphatase 292 H, Total Protein 5.0 L, Albumin 2.4 L, CBC w Diff MAN DIFF ORDERED, RBC 3.45 L, MCV 84.7, MCH 28.8, MCHC 34.0, RDW 14.4, MPV 7.5, Gran % 92.3 H, Lymphocytes % 2.8 L, Monocytes % 4.4, Eosinophils % 0.5, Basophils % 0, Absolute Granulocytes 22.1 H, Segmented Neutrophils 82 H, Band Neutrophils 12 H, Absolute Lymphocytes 0.7 L, Lymphocytes 3 L, Monocytes 2, Absolute Monocytes 1.1 H, Absolute Eosinophils 0.1, Absolute Basophils 0, Metamyelocytes 1, Platelet Estimate VERIFIED BY SMEAR, Anisocytosis 1+ Microbiology 09/21 134 BODY FLUID: Body Fluid Culture - RECD 09/21 134 BODY FLUID: Gram Stain - RECD 09/21 09 URINE ROUT: Urine Culture - RECD Assessment/Plan Assessment: Patient is 52-year-old female with a PMH significant for GERD, HLD, H. pylori infection who underwent ERCP on 09/15, impression Choledocholithiasis, treated with sphincterotomy and extraction of 4 stones, treated with sphincterotomy and extraction now s/p cholecystectomy on 09/18. #Gallstone pancreatitis S/P ERCP, S/P cholecystectomy Patient continues to have abdominal discomfort and tenderness to palpation on the right side of the abdomen, Along with persistent leukocytosis and bandemia. White count went up today -Follow-up blood cultures, pleural fluid culture and UA and urine culture, currenlty no growth -Adequate pain control, manage nausea with Zofran -Oral PPI -continue to follow off of antibiotics -ID recommendations appreciated -if no improvement in wbc and bandemia, will consider nutritional consult for possible tube feeding vs TPN -Follow up with Dr. Bowers as an outpatient #Hyponatremia, resolving -We'll continue to follow #Hyperbilirubinemia, Transaminitis, elevated alkaline phosphatase-improving -Continue to monitor LFTs #pleural effusion with atelectasis, possible pneumonia Patient went for thoracentesis on 09/21/17. Fluid studies indicate state. This could represent pneumonia or possibly atelectasis in the setting of surgery and aggressive rehydration. -We'll hold off antibiotics for now. Low threshold for repeat CT chest abdomen pelvis with IV contrast. This plan was discussed with Mc Keen MD, infectious disease. -Continue Incentive spirometry Diet: NPO DVT ppx: SC heparin Code status: Full code Problem List: 1. Pleural effusion 2. Leukocytosis 3. Gallstone pancreatitis Pain Ratin Pain Location: R side of abdomen Pain Goal: Pain 4 or less Pain Plan: pain pathway Tomorrow's Labs & Rationales: cbc, bep, LFts Chacho Abernathy MD 09/22/17 1700: Attending MD Review Statement Attending Statement Attending MD Statement: examined this patient, discuss w/resident/PA/DIRECTOR OF MATERNITY SERVICES, agreed w/resident/PA/DIRECTOR OF MATERNITY SERVICES, discussed with family, reviewed EMR data (avail), discussed with case mgmt, amended to note Attending Assessment/Plan: The patient was seen and discussed with house staff and family. The patient feels better today. Concern regarding low grade fever and increased WBC of 28.2. If spikes temperature would culture and re- CT scan- restart antibiotics as per ID.
[2017-09-22 08:33] LABS: ABSOLUTE BASOPHIL COUNT 0 /CUMM (0.0-0.2); ABSOLUTE EOSINOPHIL COUNT 0.1 /CUMM (0.0-0.7); ABSOLUTE GRANULOCYTE CT 25.7 /CUMM (1.4-6.5); ABSOLUTE MONOCYTE COUNT 1.4 /CUMM (0.10-0.60); BASOPHIL % 0.1 % (0.0-2.0); EOSINOPHIL % 0.4 % (0-5); GRANULOCYTE % 91.2 % (42.2-75.2); HEMATOCRIT 29.2 % (37-47); MEAN CORPUSCULAR HGB CONC 34.1 G/DL (33.0-37.0); MEAN CORPUSCULAR VOLUME 84.9 FL (81.0-99.0); MEAN PLATELET VOLUME 6.8 FL (7.4-10.4); PLATELET COUNT 427 /CUMM (130-400); RBC DISTRIBUTION WIDTH 14.6 % (11.5-14.5); RED BLOOD CELL CT 3.44 /CUMM (4.20-5.40); WHITE BLOOD CELL COUNT 28.2 /CUMM (4.8-10.8)
--- NOTE | 2017-09-22 08:58 | PN- Gastroenterology ---
Assessment/Plan GI Assessment/Recommendations: 52 y/o female, f/b Dr. Lee Oliva for primary care, HLD (w/o meds), hx GERD & "PUD". Upon further questioning, PUD was never documented. The patient had never had an EGD or baseline screening colonoscopy, despite her age. She apparently had positive H. pylori by an outpt urea breath test, obtained by her PMD. She was treated with an unknown regimen, and it sounded like the H. pylori was not eradicated. 12/07/16: UGI series per PMD- [id number] GERD, extending up to the thoracic inlet, otherwise negative study, without any ulcer. The patient arrived at the [place] [facility] 09/14/17 at 9:57 p.m., complaining of of RUQ/LUQ abdominal pain, radiating to her back, "10 out of 10". The symptoms started 3 days [employer]. Her last BM was the a.m. of admission. She had nausea & vomiting. She was actively vomiting in triage. There was no hematemesis. Upon arrival, BP 131/82, P 59, R 14, T 96.3, O2 sat RA 99%. The patient was given IV NS, Zofran, Morphine, Pepcid & Unasyn 3g IVPB. IVF were switched to Lactated Ringers. There was no documented hypotension, nor any temperature spikes. There was no change in mental status. The patient claimed that she has a long history of fatty food intolerance and that she occasionally uses Zantac and/or Tums. After eating greasy [place] food on 09/11/17, she noted onset of epigastric pain, initially "7 out of 10" in severity, partially relieved with Zantac. Her abdominal pain recurred the next day, after eating breakfast, treated with Zantac. On 09/14/17, the patient ate breakfast, had recurrent symptoms, took a Zantac, and went to work. At 2 PM she noted chills without any fevers, and took Tums and Tylenol. Despite this, her symptoms got worse, and she had bilious vomiting. She also noticed that her stools were little chain saw mechanic in color and that her skin was becoming yellow. She denied any pruritus. She had mild urinary frequency, without any hematuria or dysuria. She denied any rashes or symptoms of URI. She denied any chest pain, shortness of breath, diarrhea, constipation, melena, or rectal bleeding. She had intermittent reflux, without any odynophagia, dysphagia, hematemesis, or early satiety. She denied any weight loss or previous change in appetite. She denies any history of hepatitis or blood transfusions. There is a history of gallbladder disease in the patient's paternal uncle. Otherwise, there is no family history of any GI disease, GI CA, inherited pancreatitis, or inherited liver disease, aside from the fact that her mother incidentally had some "liver cysts". The patient denied any cigarettes, EtOH, or illicit drugs. She denied any sulfa medications, BCP, thiazides, or NSAIDs. *Her only outpatient medications included Zantac, Tums, and/or Tylenol as needed. She was born in [facility] and has lived in the [place] since 1998. The patient was admitted to the ICU overnight to watch for possible cholangitis, although she was not critically ill. 06/26/15: *previous LFTs in [facility] ER- normal, xc borderline alk phos 131, with borderline Ca2+ 10.6. 09/14/17: Admission labs- WBC 11.2 (90S/7L/3M), H/H 13.9/40.9, MCV 84.3, RDW 13.7, PLT 337, glucose 175, BUN/Cr 12/0.7, GFR > 60, Na 139, K 3.8, HCO3 28, AG 13, amylase 4467, lipase > 10K, Ca 11.0, TG 69, albumin 4.7, globulin 3.3, TBil 3.6, alk phos 383, AST 682, ALT 1076, troponin < 0.01, nl FT4 1.70, nl TSH 0.759 , mild elevated d-Dimer 281 (< 243). 09/14/17; *LDH 1110. 09/15/17: PT 12.0, INR 1.14, PTT 26, WBC 14.1 (91% gran/13 gran Ab), H/H 12.3/ 36.3, MCV 85.4, RDW 14, PLT 308, glucose 145, BUN/Cr 9/0.5, GFR > 60, Na 140, K 3.5, HCO3 23, Ca 8.7, PO4 3.5, *Mg 1.4, albumin 3.6, globulin 2.5, TChol 226, TG 41, HDL 85, LDL 133, TBil 3.1, DBil 2.3, alk phos 286, AST 426, ALT 749; *HgA1C- 5.7. 09/15/17: U/A- clear, yellow, 1.010, 7.0, rare WBC, 3-5 RBC, tr ketone, tr Hgb; neg nitirite, neg esterase 09/15/17: UC- neg x 1 day. 09/15/17: BC x 2- neg x 1 day (obtained after abx rxd) 09/15/17: EKG- SB @ 57, nl axis, nl intervals, w/o acute ischemic changes. 09/15/17: XRY-PORTABLE CHEST XRAY- No acute pulmonary findings. 3 mm calcified granuloma left base. 09/15/17: CT ABD & PELVIS W IV CONTRAST- Findings are most suggestive of gallstone pancreatitis. Small calcification at the region of the pancreatic head with dilatation of the common bile duct 1.2 cm and mildly dilated intrahepatic ducts. Distended gallbladder with pericholecystic fluid. Normal liver. Diffuse peripancreatic edema with edematous appearance of the pancreas. No focal fluid collection or necrosis. Focal pancreatic lesion. Fluid extends distally along the left paracolic gutter. *Clinically, at the time of GI consultation, the patient had gallstone pancreatitis. *She did not appear to have cholangitis. She had no grave signs by Edgar criteria on admission, although no LDH was sent. She had no grave signs by BiSAP criteria on admission. Admission chest x-ray did not show any pleural effusions (or PNA). Fortunately, subsequent labs on 09/15/17 did not show evidence of hemoconcentration despite IV fluids, which would have been a poor prognostic sign. 09/15/17: US ABDOMEN (RUQ) LIMITED- 1. Prominent pancreatic duct measuring 3 mm. Generalized edema of the pancreas. 2. Cholelithiasis in an enlarged gallbladder. Mildly dilated IHD. CBD 1.2 cm. Normal liver. No ascites. GB wall 4 mm, without pericholecystic fluid. Positive ultrasonic Ryan sign. 3. Normal right kidney. DICTATED BY: Donato Medina MD 09/15/17: XRY-ERCP BILIARY & PANCREATIC- Common bile duct was cannulated and injected with retrograde contrast. Common bile duct is normal in course and caliber. There is also retrograde filling of the intrahepatic biliary ducts which appear normal. 2 small rounded filling defects are present in the distal common bile duct on the first images, which are not visualized on later images, consistent with stone removal. There is also partial filling of the cystic duct. *Please refer to procedural notes for further details. DICTATED BY: Donato Medina MD 09/15/17: *ERCP WITH SPHINCTEROTOMY/STONE EXTRACTION- per Dr. Abbie Toribio- Impression: * Choledocholithiasis, treated with sphincterotomy and extraction of 4 stones. 09/16/17: WBC 17.3 (75S/12B/8L/5M), H/H 13.8/41.2, PLT 325, glucose 99, BUN/Cr 10/0.6, GFR > 60, Na 136, K 3.7, HCO3 25, AG 9, A/L 1933/8219, Mg 1.9, Ca 8.5, PO4 3.1, albumin 3.0, *TBil 1.2, alk phos 224, AST 147, ALT 458, *CRP > 9.0 *As of 09/16/17, the patient was hemodynamicallystable & afebrile (T-98.3), although she did spike to 101.1 the afternoon before, with O2 sat RA 95%. She remained on IV Unasyn. Lovenox was added for DVT prophylaxis. Morphine was switched to Tramadol 50 mg po Q6h for pain control. She was also on IV Protonix 40 mg daily plus IV Zofran as needed. She was tolerating clears po. Her abdominal pain was down to "7 out of 10". She denied any chills, nausea, vomiting, chest pain, or shortness of breath. Her LFTs were improving. She was no longer yellow. She was mentating well.*A surgical consult was still pending, regarding eventual CCKY.*Her IVF were D/C'd, although her H/H had risen somewhat , possibly implying hemoconcentration. Additionally, she had some leukocytosis. Although she denied any respiratory issues, aspiration should be excluded. 09/16/17: XR PORTABLE CHEST- Low lung volumes. New bibasilar airspace opacities. This appearance could represent atelectasis or aspiration given the short interval change. Small left pleural effusion also likely present. 09/17/17: LAP CCKY (per Dr. Bowers)- No IOC done, as post ERCP with ES preop. Findings: Edematous/thick gallbladder wall, + stones, Diffuse edema PATH: GALLBLADDER, CHOLECYSTECTOMY: CHOLELITHIASIS. MILD CHRONIC CHOLECYSTITIS. 09/17/17: XR PORTABLE CHEST- Low lung volumes with slight increase in bibasilar opacities, likely due to atelectasis or perhaps pneumonia. There may be associated trace pleural effusions. 09/20/17: CT CHEST, ABDOMEN AND PELVIS WITH IV/PO CONTRAST- 1. Acute interstitial pancreatitis is seen with increasing peripancreatic fluid extending through the abdomen. *No evidence of abnormal pancreatic ductal dilatation, retained gallstones, intrahepatic ductal dilatation or abnormal focal abscess collection or focal localized fluid collection in the gallbladder fossa. *No areas suspicious for pancreatic necrosis. 2. Interval development of large bilateral simple appearing pleural effusions, layering posteriorly up to the lung apices. Associated volume loss and consolidation in both lower lobes is seen, suspicious for atelectasis and/or pneumonia. 3. Enlargement of the main pulmonary arteries, suspicious for pulmonary arterial hypertension. 4. Small fat-containing umbilical hernia. 09/21/17: EKG- NSR @ 96, nl axis, nl intervals, LVH, NSST. 09/21/17: US-THORACENTESIS (per IR)- Successful ultrasound-guided left-sided thoracentesis yielding 560 mL of light yellow fluid. 09/21/17: CHEST XRAY, SINGLE VIEW- No evidence of pneumothorax after the recent thoracentesis. Significantly decreased left pleural effusion, post thoracentesis. Persistent retrocardiac LLL atelectasis vs. infiltrate. Small right pleural effusion vs. right basilar atelectasis, without change. 09/15/17: UC- neg 09/15/17: BC x 2- neg 09/19/17: BC x 2- neg 09/19/17: UC- neg 09/21/17: UC- neg 09/21/17: *Left thoracentesis C&S- neg x 1 day 09/16/17: glucose 99, Ca2+ 8.5, PO4 3.1 09/17/17: amylase 871, lipase 2842 09/21/17: *WBC 24 (82S/12B/3L/2M/1Meta), H/H 10.0/29.3, MCV 84.7, RDW 14.4, PLT 413 09/21/17: *Left thoracentesis per IR- pH 7.45, RBC 1491, WBC 5049 (68P/1L/31meso -mono-histio), BF prot 2.9, BF alb 1.4 (*no lipase sent on pleural fluid). 09/22/17: BUN/Cr 6/0.4, GFR > 60, Na 133, K 3.6, HCO3 26, AG 11, albumin 2.3, globulin 2.4, TBil 0.9, DBil 0.6, alk phos 249, AST 49, ALT 85 09/22/17: *WBC 28.2 (78S/15B/3L/3M/1E), H/H 10.0/29.2, PLT 427. I returned to see the patient on 09/22/17. I had last seen her on 09/16/17, when I had signed off, 1 day post 09/15/17: ERCP with ES & CBD stone extractions , post Indocin supp. The patient subsequently had 09/17/17: Lap CCKY, per Dr. Bowers. *Extensive records & imaging studies since then were reviewed. Surgery had signed off on 09/19/17. She had been on Unasyn from 10/13/17-09/19/17. The patient was seen by Dr. Keen in ID consultation 09/20/17 for leukocytosis, bandemia & abdominal pain (the latter improving), & Dr. Ch was called back for GI reassessment 09/21/17 for similar reasons. The overall feeling was that her leukocytosis and low-grade temp spike were reactive in nature to worsening pancreatitis, based on clinical evaluation & numerous imaging studies. No focal areas of pancreatic necrosis were seen, nor any pseudocyst. She had bilateral pleural effusions, left side greater than right, with bibasilar atelectasis & a questionable retrocardiac infiltrate, although she had no symptoms of URI. Her LFTs were improving post ERCP with ES, going against a retained CBD stone, and CT did not show any gross evidence of any abscess in the GB fossa area, post CCKY, nor any gross biloma. *She had been on Meropenem 1g IVPB Q8h from 09/20/17-09/21/17, which was D/C per ID, as no area supicious for pancreatic necrosis was seen on CT & BC/UC- negative. Although she was tolerating feeds to a certain extent (i.e.- oatmeal & solids), she was made NPO on 09/21/17, with resumption of IVF: Lactated Ringers, currently at 100cc/hr. She was getting Tramadol 50 mg po Q6h, with IV Dilaudid 2 mg Q4-6h for breakthrough symptoms. She was also on IV Protonix 40 mg daily, with Zofran prn, & was getting sc heparin 5Ku Q8h for DVT prophylaxis. *As of 09/22/17, the patient was hemodynamically stable, with low normal BP, borderline tachycardic, with low grade temp, & O2 sat RA 95%. Specifically, BP 103/64, P 98, R 16, T- 99.4 (Tm 100.6), off antibiotics. Her diarrhea had resolved, which she had attributed to drinking the po contrast, although she had been on antibiotics, as above. She denied any nausea and vomiting. She denied any chills. Her abdominal pain (epigastric > RUQ), was down to "6 out of 10", previously "10 out of 10" on admission. She had mild dysuria, without any frequency. There was no jaundice, cough, CP, or SOB. There was no overt GI bleeding, hematemesis, or melena. Her drains had previously been pulled by surgery. Her port sites were healing well. There was no evidence of hemoconcentration. *Most likely, the leukocytosis & bandemia are reactive in nature from the pancreatitis. It is possible her diet may been advanced too fast, or perhaps, the pancreas didn't "cool down" enough preop. I agree that the patient does not need Meropenem, as there is no evidence of pancreatic necrosis on imaging studies. There is a question of a retrocardiac infiltrate vs. atelectasis, but the patient has no pulmonary symptoms. Also noted, in addition to the peripheral leukocytosis, are the elevated WBC in the left thoracentesis- the pleural pH 7.45 goes against an empyema. Doubt retined CBD stone post-ES, with declining LFTs. *SUGGEST- *NPO for now. Consider nutrition consult. If po feeds not resumed in near future, consideration for [place] tube feeds vs. TPN (favor enteral route, if possible). *Increase lactated Ringers to 150cc/hr. *Follow-up BC & thoracentesis cultures (off abx). *Consider adding a lipase to the pleural fluid tap. * Consider pulmonary consult, regarding thoracentesis interpretation. *Will defer to ID regarding possible antibiotics to cover lungs, but at present, no need for antibiotics to cover pancreas. *Watch for hemoconcentration. *If leukocytosis worsens, or if temp spikes, low threshold for repeating CT CAP with IV contrast within the next 24-48 hrs. Close f/u of lytes, BUN/Cr, GFR, LFTs. Strict I/O's. Supplemental O2 as needed. Continue PPI vs. H2B for hx GERD (PPI may lower Mg). *IV Zofran.*Analgesics as per medical team (Toradol, plus Dilaudid for breakthrough symptoms). The patient's initial borderline hypercalcemia, which normalized, may have been from dehydration (this can be further worked up by the medical team, if needed). DVT prophylaxis with sc Heparin. If diarrhea recurs, check stool for C. difficile (currently resolved). I previously spoke with the patient's son, Atilio, at the bedside on 09/16/17, as per patient request. *The patient was given my office number for future reference. *Will defer to medical team regarding workup of microscopic hematuria & proteinuria. *Eventual semi-elective outpatient baseline EGD/baseline screening colonoscopy & workup of "H. pylori" (reportedly had positive urea breath test, treated with some unknown regimen by PMD; *consider rechecking stool antigen H. pylori), once her gallstone pancreatitis is resolved. The case was discussed with Dr. Keen & the medical house staff. The patient will be followed by the GI team for further recommendations, based on clinical course. Problem List: 1. Gallstone pancreatitis 2. Choledocholithiasis 3. Status post endoscopic retrograde cholangiopancreatography 4. S/P laparoscopic cholecystectomy 5. SIRS (systemic inflammatory response syndrome) 6. Malnutrition 7. Leukocytosis 8. Pleural effusion Subjective Subjective: 09/16/17: XR PORTABLE CHEST- Low lung volumes. New bibasilar airspace opacities. This appearance could represent atelectasis or aspiration given the short interval change. Small left pleural effusion also likely present. 09/17/17: LAP CCKY (per Dr. Bowers)- No IOC done, as post ERCP with ES preop. Findings: Edematous/thick gallbladder wall, + stones, Diffuse edema PATH: GALLBLADDER, CHOLECYSTECTOMY: CHOLELITHIASIS. MILD CHRONIC CHOLECYSTITIS. 09/17/17: XR PORTABLE CHEST- Low lung volumes with slight increase in bibasilar opacities, likely due to atelectasis or perhaps pneumonia. There may be associated trace pleural effusions. 09/20/17: CT CHEST, ABDOMEN AND PELVIS WITH IV/PO CONTRAST- 1. Acute interstitial pancreatitis is seen with increasing peripancreatic fluid extending through the abdomen. *No evidence of abnormal pancreatic ductal dilatation, retained gallstones, intrahepatic ductal dilatation or abnormal focal abscess collection or focal localized fluid collection in the gallbladder fossa. *No areas suspicious for pancreatic necrosis. 2. Interval development of large bilateral simple appearing pleural effusions, layering posteriorly up to the lung apices. Associated volume loss and consolidation in both lower lobes is seen, suspicious for atelectasis and/or pneumonia. 3. Enlargement of the main pulmonary arteries, suspicious for pulmonary arterial hypertension. 4. Small fat-containing umbilical hernia. 09/21/17: EKG- NSR @ 96, nl axis, nl intervals, LVH, NSST. 09/21/17: US-THORACENTESIS (per IR)- Successful ultrasound-guided left-sided thoracentesis yielding 560 mL of light yellow fluid. 09/21/17: CHEST XRAY, SINGLE VIEW- No evidence of pneumothorax after the recent thoracentesis. Significantly decreased left pleural effusion, post thoracentesis. Persistent retrocardiac LLL atelectasis vs. infiltrate. Small right pleural effusion vs. right basilar atelectasis, without change. 09/15/17: UC- neg 09/15/17: BC x 2- neg 09/19/17: BC x 2- neg 09/19/17: UC- neg 09/21/17: UC- neg 09/21/17: *Left thoracentesis C&S- neg x 1 day 09/16/17: glucose 99, Ca2+ 8.5, PO4 3.1 09/17/17: amylase 871, lipase 2842 09/21/17: *WBC 24 (82S/12B/3L/2M/1Meta), H/H 10.0/29.3, MCV 84.7, RDW 14.4, PLT 413 09/21/17: *Left thoracentesis per IR- pH 7.45, RBC 1491, WBC 5049 (68P/1L/31meso -mono-histio), BF prot 2.9, BF alb 1.4 (*no lipase sent on pleural fluid). 09/22/17: BUN/Cr 6/0.4, GFR > 60, Na 133, K 3.6, HCO3 26, AG 11, albumin 2.3, globulin 2.4, TBil 0.9, DBil 0.6, alk phos 249, AST 49, ALT 85 09/22/17: *WBC 28.2 (78S/15B/3L/3M/1E), H/H 10.0/29.2, PLT 427. *I returned to see the patient on 09/22/17. I had last seen her on 09/16/17, when I had signed off, 1 day post 09/15/17: ERCP with ES & CBD stone extractions , post Indocin supp. The patient subsequently had 09/17/17: Lap CCKY, per Dr. Bowers. *Extensive records & imaging studies since then were reviewed. Surgery had signed off on 09/19/17. She had been on Unasyn from 10/13/17-09/19/17. The patient was seen by Dr. Keen in ID consultation 09/20/17 for leukocytosis, bandemia & abdominal pain (the latter improving), & Dr. Ch was called back for GI reassessment 09/21/17 for similar reasons. The overall feeling was that her leukocytosis and low-grade temp spike were reactive in nature to worsening pancreatitis, based on clinical evaluation & numerous imaging studies. No focal areas of pancreatic necrosis were seen, nor any pseudocyst. She had bilateral pleural effusions, left side greater than right, with bibasilar atelectasis & a questionable retrocardiac infiltrate, although she had no symptoms of URI. Her LFTs were improving post ERCP with ES, going against a retained CBD stone, and CT did not show any gross evidence of any abscess in the GB fossa area, post CCKY, nor any gross biloma. *She had been on Meropenem 1g IVPB Q8h from 09/20/17-09/21/17, which was D/C per ID, as no area supicious for pancreatic necrosis was seen on CT & BC/UC- negative. Although she was tolerating feeds to a certain extent (i.e.- oatmeal & solids), she was made NPO on 09/21/17, with resumption of IVF: Lactated Ringers, currently at 100cc/hr. She was getting Tramadol 50 mg po Q6h, with IV Dilaudid 2 mg Q4-6h for breakthrough symptoms. She was also on IV Protonix 40 mg daily, with Zofran prn, & was getting sc Heparin 5Ku Q8h for DVT prophylaxis. *As of 09/22/17, the patient was hemodynamically stable, with low normal BP, borderline tachycardic, with low grade temp, & O2 sat RA 95%. Specifically, BP 103/64, P 98, R 16, T- 99.4 (Tm 100.6), off antibiotics. Her diarrhea had resolved, which she had attributed to drinking the po contrast, although she had been on antibiotics, as above. She denied any nausea and vomiting. She denied any chills. Her abdominal pain (epigastric > RUQ), was down to "6 out of 10", previously "10 out of 10" on admission. She had mild dysuria, without any frequency. There was no jaundice, cough, CP, or SOB. There was no overt GI bleeding, hematemesis, or melena. Her drains had previously been pulled by surgery. Her port sites were healing well. There was no evidence of hemoconcentration. Review of Systems: Full 14 point review of systems otherwise noncontributory, and as above. Review of Systems Constitutional: Reports: low grade fever Denies: chills, diaphoresis, malaise, weakness, unexplained weight loss (except as inpt postop). EENTM: Denies: blurred vision, double vision, visual changes, eye pain, eye drainage, eye tearing, icterus, ear discharge, ear pain, ear redness, hearing changes, nasal congestion, epistaxis, nasal pain, throat pain, throat swelling, mouth pain, tooth pain. Cardiovascular: Denies: chest pain, edema, orthopena, palpitations, peripheral edema, syncope. Respiratory: Denies: cough, hemoptysis, orthopnea, short of breath, sputum production, stridor, wheezing. GI: Reports: abdominal pain-> slowly improving; nausea & vomiting-> resolved, diarrhea post po contrast-> resolved. Denies: bloating, constipation, distention, bowel incontinence, melena, bloody stool, changes in stool, steatorrhea. Genitourinary: Reports: mild dysuria (mult UC- neg). Denies: frequency, discharge, hematuria, hesitation, nocturia, pain, urgency. Musculoskeletal: Denies: back pain, gout, joint pain, joint swelling, muscle pain, muscle stiffness, neck pain. Skin: Reports: jaundice-> resolved Denies: cysts, change in skin color, change in hair/nails, dryness, erythema, lesions, lymphangitis, lumps, moles, rash. Neurological/Psychological: Denies: anxiety, ataxia, cognitive dysfunction, confusion, depressed, dementia, emotional problems, headache, numbness, paresthesia, pre-existing deficit, petit mal seizures, tingling, tremors, tonic-clonic seizures, unable to move lower ext , unable to move upper ext, weakness. Hematologic/Endocrine: Denies: bruising, bleeding, polyuria, polydipsia. Immunologic/Allergic: Denies: splenectomy, HIV/AIDS, lymphadenopathy. All Other Systems: Reviewed and Negative Objective Vital Signs and I&Os Vital Signs Date Time Temp Pulse Resp B/P B/P Pulse O2 O2 Flow FiO2 Mean Ox Delivery Rate 09/22 0639 99.4 98 16 103/64 95 Room Air 09/21 2153 100.6 104 16 99/50 92 Room Air 09/21 1600 94 Room Air 09/21 1442 98.7 96 20 103/65 106 Room Air Intake & Output 09/22 1600 09/22 0400 09/21 1600 09/21 0400 09/20 0400 Intake Total 626 959 5098 600 1010 200 Output Total 650 3 300 400 Balance 108 580 3204 597 710 -200 Intake, IV 800 400 200 10 Intake, Oral 2297 157 2328 200 Number 8 1 Bowel Movements Output, Stool 3 Output, Urine 650 300 400 Physical Exam: Well-developed, well-nourished female, in no apparent distress. The patient is no longer jaundiced. Sclera anicteric. Conjunctiva pink. Oropharynx clear. No oral thrush. Mucus membranes slightly dry. No aphthous ulcers. There is no adenopathy, thyromegaly, or JVD. No peripheral stigmata of inflammatory bowel disease or chronic liver disease on exam. No spiders on the anterior chest wall. Breast & pelvic exams: API. No CVA tenderness. No spine tenderness. Lungs : clear to A&P, with slight decreased BS at the bases B/L (post left thoracentesis 09/21/17-. site bandaged). No egophony, wheezing, rales, or rhonchi. Heart exam: regular rate rhythm, S1 and S2, without any murmur. Abdominal exam: normal bowel sounds, soft belly, epigastric > RUQ tenderness, with minimal guarding, but no rebound. Well-healed port sites post lap CCKY, without pus. Tiny reducible umbilical hernia, otherwise, no mass. No organomegaly. No fluid shift. No pulsatile mass. No epigastric bruit. Digital rectal exam: deferred by patient. Extremities: without C, C, or E. No palpable cords. Mild DJD. No acute arthropathy. No rash. No palmar erythema. No Dupuytren's contractures. Distal pulses 2+ bilaterally. DTRs 2+ bilaterally. Alert and oriented x 3. Right-handed. Motor 5/5 B/L. No tremor. No asterixis. Current Medications: Current Medications Sig/Mk Start time Last Medication Dose Route Stop Time Status Admin Heparin Sodium 5,000 UNIT Q8 09/20 1400 AC 09/22 (Porcine) SC 0603 Hydromorphone HCl 2 MG Q4-6 PRN 09/18 1845 AC 09/22 PO 0833 Lactated Ringer's 1,000 ML Q10H 09/21 1700 AC 09/22 IV 0410 Lidocaine 1 ML .STK-MED ONE 09/21 1412 DC ID 09/21 1413 Meropenem 1 GM IQ8 09/20 0000 DC 09/21 IV 1023 Ondansetron HCl 4 MG .STK-MED ONE 09/21 1500 DC IM 09/21 1501 Ondansetron HCl 4 MG Q8P PRN 09/15 0345 AC 09/21 IV 1502 Pantoprazole Sodium 40 MG DAILY 09/15 0500 AC 09/22 IV 0834 Patient Medication 1 ED ONE ONE 09/22 1030 DC Teaching ED 09/22 1031 Sodium Chloride 1,000 ML Q13H 09/21 1500 DC 09/21 IV 1604 Tramadol HCl 50 MG Q6 09/16 0945 AC 09/22 PO 0603 Results Pertinent Lab Results: Laboratory Tests 09/22 09/21 0731 1348 Chemistry Sodium (137 - 145 mmol/L) 133 L Potassium (3.5 - 5.1 mmol/L) 3.6 Chloride (98 - 107 mmol/L) 96 L Carbon Dioxide (22 - 30 mmol/L) 26 Anion Gap (5 - 16) 11 BUN (7 - 17 mg/dL) 6 L Creatinine (0.5 - 1.0 mg/dL) 0.4 L Estimated GFR (>60 ml/min) > 60 BUN/Creatinine Ratio (7 - 25 %) 15.0 Total Bilirubin (0.2 - 1.3 mg/dL) 0.9 Direct Bilirubin (< 0.4 mg/dL) 0.6 H AST (14 - 36 U/L) 49 H ALT (9 - 52 U/L) 85 H Alkaline Phosphatase (<127 U/L) 249 H Total Protein (6.3 - 8.2 g/dL) 4.7 L Albumin (3.5 - 5.0 g/dL) 2.3 L Hematology CBC w Diff MAN DIFF ORDERED WBC (4.8 - 10.8 /CUMM) 28.2 H RBC (4.20 - 5.40 /CUMM) 3.44 L Hgb (12.0 - 16.0 G/DL) 10.0 L Hct (37 - 47 %) 29.2 L MCV (81.0 - 99.0 FL) 84.9 MCH (27.0 - 31.0 PG) 29.0 MCHC (33.0 - 37.0 G/DL) 34.1 RDW (11.5 - 14.5 %) 14.6 H Plt Count (130 - 400 /CUMM) 427 H MPV (7.4 - 10.4 FL) 6.8 L Gran % (42.2 - 75.2 %) 91.2 H Lymphocytes % (20.5 - 51.1 %) 3.5 L Monocytes % (1.7 - 9.3 %) 4.8 Eosinophils % (0 - 5 %) 0.4 Basophils % (0.0 - 2.0 %) 0.1 Absolute Granulocytes (1.4 - 6.5 /CUMM) 25.7 H Segmented Neutrophils (42.2 - 75.2 %) 78 H Band Neutrophils (0.0 - 5.0 %) 15 H Absolute Lymphocytes (1.2 - 3.4 /CUMM) 1.0 L Lymphocytes (20.5 - 51.1 %) 3 L Monocytes (1.7 - 9.3 %) 3 Absolute Monocytes (0.10 - 0.60 /CUMM) 1.4 H Eosinophils (0 - 5.0 %) 1 Absolute Eosinophils (0.0 - 0.7 /CUMM) 0.1 Absolute Basophils (0.0 - 0.2 /CUMM) 0 Nucleated RBCs (0.0 - 0.0 /100WBC) 1 H Platelet Estimate (ADEQUATE) VERIFIED BY SMEAR Normocytic RBCs VERIFIED Normochromic RBCs VERIFIED Other Body Source Pleural pH (PH) 7.45 09/21 09/21 09/21 1348 1045 UNK Hematology Lymphocytes (%) 1 % Normal PMNs (%) 68 [facility] (%) 31 Miscellaneous Phlebotomy Draw Site L THORACENTESIS Other Body Source Fluid WBC (0 - 5 /CUMM) 5049 H Fld Total RBCs Counted (0 /CUMM) 1491 H Fluid Total Protein (g/dL) Cancelled 2.9 Fluid Albumin (g/dL) 1.4 Fluid LDH (U/L) 1216 09/21 09/21 0905 0730 Chemistry Sodium Cancelled Potassium Cancelled Chloride Cancelled Carbon Dioxide Cancelled Anion Gap Cancelled BUN Cancelled Creatinine Cancelled BUN/Creatinine Ratio Cancelled Urines Urine Color (YEL,AMB,STR) YEL Urine Clarity (CLEAR) CLEAR Urine pH (5.0 - 8.0) 8.0 Ur Specific [place] (1.001 - 1.035) 1.020 Urine Protein (NEG,<30 MG/DL) 30 H Urine Ketones (NEG) NEG Urine Nitrite (NEG) NEG Urine Bilirubin (NEG) NEG Urine Urobilinogen (0.1 - 1.0 EU/dl) 1.0 Ur Leukocyte Esterase (NEG) NEG Ur Microscopic SEDIMENT EXAMINED Urine RBC (0 - 5 /HPF) 10-15 H Urine WBC (0 - 2 /HPF) RARE Ur Epithelial Cells (NONE,FEW) RARE Urine Mucus (FEW,NONE) FEW Urine Hemoglobin (NEG) SMALL H Urine Glucose (N MG/DL) NEG 09/21 09/21 0730 0050 Chemistry Sodium (137 - 145 mmol/L) 134 L 134 L Potassium (3.5 - 5.1 mmol/L) 4.3 2.9 *L Chloride (98 - 107 mmol/L) 99 97 L Carbon Dioxide (22 - 30 mmol/L) 26 29 Anion Gap (5 - 16) 9 9 BUN (7 - 17 mg/dL) 5 L 6 L Creatinine (0.5 - 1.0 mg/dL) 0.4 L 0.4 L Estimated GFR (>60 ml/min) > 60 > 60 BUN/Creatinine Ratio (7 - 25 %) 12.5 15.0 Total Bilirubin (0.2 - 1.3 mg/dL) 0.8 Direct Bilirubin (< 0.4 mg/dL) 0.7 H AST (14 - 36 U/L) 62 H ALT (9 - 52 U/L) 99 H Alkaline Phosphatase (<127 U/L) 292 H Lactate Dehydrogenase (313 - 618 U/L) 805 H Total Protein (6.3 - 8.2 g/dL) 5.0 L 4.7 L Albumin (3.5 - 5.0 g/dL) 2.4 L Hematology CBC w Diff MAN DIFF ORDERED WBC (4.8 - 10.8 /CUMM) 24.0 H RBC (4.20 - 5.40 /CUMM) 3.45 L Hgb (12.0 - 16.0 G/DL) 10.0 L Hct (37 - 47 %) 29.3 L MCV (81.0 - 99.0 FL) 84.7 MCH (27.0 - 31.0 PG) 28.8 MCHC (33.0 - 37.0 G/DL) 34.0 RDW (11.5 - 14.5 %) 14.4 Plt Count (130 - 400 /CUMM) 413 H MPV (7.4 - 10.4 FL) 7.5 Gran % (42.2 - 75.2 %) 92.3 H Lymphocytes % (20.5 - 51.1 %) 2.8 L Monocytes % (1.7 - 9.3 %) 4.4 Eosinophils % (0 - 5 %) 0.5 Basophils % (0.0 - 2.0 %) 0 Absolute Granulocytes (1.4 - 6.5 /CUMM) 22.1 H Segmented Neutrophils (42.2 - 75.2 %) 82 H Band Neutrophils (0.0 - 5.0 %) 12 H Absolute Lymphocytes (1.2 - 3.4 /CUMM) 0.7 L Lymphocytes (20.5 - 51.1 %) 3 L Monocytes (1.7 - 9.3 %) 2 Absolute Monocytes (0.10 - 0.60 /CUMM) 1.1 H Absolute Eosinophils (0.0 - 0.7 /CUMM) 0.1 Absolute Basophils (0.0 - 0.2 /CUMM) 0 Metamyelocytes (0.0 - 1.0 %) 1 Platelet Estimate (ADEQUATE) VERIFIED BY SMEAR Anisocytosis 1+ 09/20 0730 Chemistry Sodium (137 - 145 mmol/L) 132 L Potassium (3.5 - 5.1 mmol/L) 3.6 Chloride (98 - 107 mmol/L) 96 L Carbon Dioxide (22 - 30 mmol/L) 28 Anion Gap (5 - 16) 9 BUN (7 - 17 mg/dL) 8 Creatinine (0.5 - 1.0 mg/dL) 0.4 L Estimated GFR (>60 ml/min) > 60 BUN/Creatinine Ratio (7 - 25 %) 20.0 Total Bilirubin (0.2 - 1.3 mg/dL) 0.9 Direct Bilirubin (< 0.4 mg/dL) 0.7 H AST (14 - 36 U/L) 39 H ALT (9 - 52 U/L) 93 H Alkaline Phosphatase (<127 U/L) 182 H Total Protein (6.3 - 8.2 g/dL) 4.8 L Albumin (3.5 - 5.0 g/dL) 2.3 L Hematology CBC w Diff MAN DIFF ORDERED WBC (4.8 - 10.8 /CUMM) 15.9 H RBC (4.20 - 5.40 /CUMM) 3.43 L Hgb (12.0 - 16.0 G/DL) 9.9 L Hct (37 - 47 %) 29.0 L MCV (81.0 - 99.0 FL) 84.7 MCH (27.0 - 31.0 PG) 28.9 MCHC (33.0 - 37.0 G/DL) 34.1 RDW (11.5 - 14.5 %) 14.2 Plt Count (130 - 400 /CUMM) 352 MPV (7.4 - 10.4 FL) 7.4 Gran % (42.2 - 75.2 %) 89.5 H Lymphocytes % (20.5 - 51.1 %) 4.7 L Monocytes % (1.7 - 9.3 %) 4.9 Eosinophils % (0 - 5 %) 0.7 Basophils % (0.0 - 2.0 %) 0.2 Absolute Granulocytes (1.4 - 6.5 /CUMM) 14.3 H Segmented Neutrophils (42.2 - 75.2 %) 71 Band Neutrophils (0.0 - 5.0 %) 19 H Absolute Lymphocytes (1.2 - 3.4 /CUMM) 0.8 L Lymphocytes (20.5 - 51.1 %) 5 L Monocytes (1.7 - 9.3 %) 5 Absolute Monocytes (0.10 - 0.60 /CUMM) 0.8 H Absolute Eosinophils (0.0 - 0.7 /CUMM) 0.1 Absolute Basophils (0.0 - 0.2 /CUMM) 0 Platelet Estimate (ADEQUATE) VERIFIED BY SMEAR Polychromasia 1+ Basophilic Stippling SLIGHT Imaging/Other Studies: 09/15/17: EKG- SB @ 57, nl axis, nl intervals, w/o acute ischemic changes. 09/15/17: XRY-PORTABLE CHEST XRAY- No acute pulmonary findings. 3 mm calcified granuloma left base. 09/15/17: CT ABD & PELVIS W IV CONTRAST- Findings are most suggestive of gallstone pancreatitis. Small calcification at the region of the pancreatic head with dilatation of the common bile duct 1.2 cm and mildly dilated intrahepatic ducts. Distended gallbladder with pericholecystic fluid. Normal liver. Diffuse peripancreatic edema with edematous appearance of the pancreas. No focal fluid collection or necrosis. Focal pancreatic lesion. Fluid extends distally along the left paracolic gutter. 09/15/17: US ABDOMEN (RUQ) LIMITED- 1. Prominent pancreatic duct measuring 3 mm. Generalized edema of the pancreas. 2. Cholelithiasis in an enlarged gallbladder. Mildly dilated IHD. CBD 1.2 cm. Normal liver. No ascites. GB wall 4 mm, without pericholecystic fluid. Positive ultrasonic Ryan sign. 3. Normal right kidney. DICTATED BY: Donato Medina MD 09/15/17: XRY-ERCP BILIARY & PANCREATIC- Common bile duct was cannulated and injected with retrograde contrast. Common bile duct is normal in course and caliber. There is also retrograde filling of the intrahepatic biliary ducts which appear normal. 2 small rounded filling defects are present in the distal common bile duct on the first images, which are not visualized on later images, consistent with stone removal. There is also partial filling of the cystic duct. *Please refer to procedural notes for further details. DICTATED BY: Donato Medina MD 09/15/17: *ERCP WITH SPHINCTEROTOMY/STONE EXTRACTION- per Dr. Abbie Toribio- Impression: * Choledocholithiasis, treated with sphincterotomy and extraction of 4 stones. 09/16/17: XR PORTABLE CHEST- Low lung volumes. New bibasilar airspace opacities. This appearance could represent atelectasis or aspiration given the short interval change. Small left pleural effusion also likely present. 09/17/17: LAP CCKY (per Dr. Bowers)- No IOC done, as post ERCP with ES preop. Findings: Edematous/thick gallbladder wall, + stones, Diffuse edema PATH: GALLBLADDER, CHOLECYSTECTOMY: CHOLELITHIASIS. MILD CHRONIC CHOLECYSTITIS. 09/17/17: XR PORTABLE CHEST- Low lung volumes with slight increase in bibasilar opacities, likely due to atelectasis or perhaps pneumonia. There may be associated trace pleural effusions. 09/20/17: CT CHEST, ABDOMEN AND PELVIS WITH IV/PO CONTRAST- 1. Acute interstitial pancreatitis is seen with increasing peripancreatic fluid extending through the abdomen. *No evidence of abnormal pancreatic ductal dilatation, retained gallstones, intrahepatic ductal dilatation or abnormal focal abscess collection or focal localized fluid collection in the gallbladder fossa. *No areas suspicious for pancreatic necrosis. 2. Interval development of large bilateral simple appearing pleural effusions, layering posteriorly up to the lung apices. Associated volume loss and consolidation in both lower lobes is seen, suspicious for atelectasis and/or pneumonia. 3. Enlargement of the main pulmonary arteries, suspicious for pulmonary arterial hypertension. 4. Small fat-containing umbilical hernia. 09/21/17: EKG- NSR @ 96, nl axis, nl intervals, LVH, NSST. 09/21/17: US-THORACENTESIS (per IR)- Successful ultrasound-guided left-sided thoracentesis yielding 560 mL of light yellow fluid. 09/21/17: CHEST XRAY, SINGLE VIEW- No evidence of pneumothorax after the recent thoracentesis. Significantly decreased left pleural effusion, post thoracentesis. Persistent retrocardiac LLL atelectasis vs. infiltrate. Small right pleural effusion vs. right basilar atelectasis, without change.
[2017-09-22 14:21] VITALS: BP 105/70
[2017-09-22 19:25] VITALS: BP 96/60
[2017-09-22 21:35] VITALS: BP 91/59
[2017-09-23 06:40] VITALS: BP 102/60
--- NOTE | 2017-09-23 07:22 | PN- Housestaff ---
Margaret MORILLO,Roberto 09/23/17 0722: Subjective Follow-up For: Gallstone pancreatitis status post ERCP and laparoscopic cholecystectomy Persistent leukocytosis and bandemia pleural effusion s/p thoracentesis Subjective: Patient seen and examined at bedside. She is resting comfortably. She had no acute events overnight. Overall she is feeling significantly improved from yesterday. She is not having extended pain-free periods. She continues to have intermittent abdominal pain approximately 46/10. She had one soft bowel movement today with no blood. She reports being hungry and denies any nausea, vomiting, fever, chills. Review of Systems Constitutional: Denies: chills, fever. Cardiovascular: Denies: chest pain, palpitations. Respiratory: Denies: cough, short of breath. Gastrointestinal: Reports: abdominal pain. Denies: bloating, diarrhea, melena, nausea, bloody stool, vomiting. Genitourinary: Reports: no symptoms. Objective Last 24 Hrs of Vital Signs/I&O Vital Signs Date Time Temp Pulse Resp B/P B/P Pulse O2 O2 Flow FiO2 Mean Ox Delivery Rate 09/23 0640 99.1 99 20 102/60 95 Room Air 09/22 2135 98.3 93 20 91/59 96 Room Air / 1925 98.8 101 20 96/60 96 / 1421 99.1 103 18 105/70 95 Room Air Intake & Output 09/23 0800 09/23 0000 09/22 1600 Intake Total 3540 380 0380 Output Total 650 400 Balance 722 15 2694 Intake, IV 0238 662 3166 Intake, Oral 20 Number 1 Bowel Movements Output, Urine 650 400 Physical Exam General Appearance: Alert, Oriented X3, Cooperative, No Acute Distress Skin Temp/Moisture Exam: Warm/Dry Sepsis Skin Exam (color): Normal for Ethnicity Cardiovascular: Regular Rate, Normal S1, Normal S2 Lungs: diminshed breath sounds on the R lower lung field Abdomen: surgical bandages in place, umbilical bandage has surrounding ecchymosis with signs of trace amounts of blood, other dressings are CDI, no longer tender in epigastric area, mild TTP in the RUQ and RLQ improved from yesterday Extremities: No Clubbing, No Cyanosis, No Edema Current Medications: Current Medications Sig/Mk Start time Last Medication Dose Route Stop Time Status Admin Heparin Sodium 5,000 UNIT Q8 09/20 1400 AC 09/23 (Porcine) SC 0509 Hydromorphone HCl 2 MG Q4-6 PRN 09/18 1845 AC 09/22 PO 2106 Lactated Ringer's 1,000 ML Q10H 09/21 1700 AC 09/23 IV 0508 Ondansetron HCl 4 MG Q8P PRN 09/15 0345 AC 09/21 IV 1502 Pantoprazole Sodium 40 MG DAILY 09/15 0500 AC 09/22 IV 0834 Patient Medication 1 ED ONE ONE 09/22 1030 DC 09/22 Teaching ED 09/22 1031 1222 Potassium Chloride 40 MEQ ONCE ONE 09/22 1800 DC 09/22 PO 09/22 1801 1818 Tramadol HCl 50 MG Q6 09/16 0945 AC 09/23 PO 0515 Last 24 Hrs of Lab/Luis Antonio Results Last 24 Hrs of Labs/Mics: Laboratory Tests 09/22/17 0731: Anion Gap 11, Estimated GFR > 60, BUN/Creatinine Ratio 15.0, Total Bilirubin 0.9 , Direct Bilirubin 0.6 H, AST 49 H, ALT 85 H, Alkaline Phosphatase 249 H, Total Protein 4.7 L, Albumin 2.3 L, CBC w Diff MAN DIFF ORDERED, RBC 3.44 L, MCV 84.9, MCH 29.0, MCHC 34.1, RDW 14.6 H, MPV 6.8 L, Gran % 91.2 H, Lymphocytes % 3.5 L, Monocytes % 4.8, Eosinophils % 0.4, Basophils % 0.1, Absolute Granulocytes 25.7 H, Segmented Neutrophils 78 H, Band Neutrophils 15 H, Absolute Lymphocytes 1.0 L, Lymphocytes 3 L, Monocytes 3, Absolute Monocytes 1.4 H, Eosinophils 1, Absolute Eosinophils 0.1, Absolute Basophils 0, Nucleated RBCs 1 H, Platelet Estimate VERIFIED BY SMEAR, Normocytic RBCs VERIFIED, Normochromic RBCs VERIFIED Assessment/Plan Assessment: Patient is 52-year-old female with a PMH significant for GERD, HLD, H. pylori infection who underwent ERCP on 09/15, impression Choledocholithiasis, treated with sphincterotomy and extraction of 4 stones, treated with sphincterotomy and extraction now s/p cholecystectomy on 09/18. #Gallstone pancreatitis S/P ERCP, S/P cholecystectomy Patient sent significant clinical improvement. Her white count and bands continue to increase. -Follow-up blood cultures, pleural fluid culture and UA and urine culture, currenlty no growth -Adequate pain control, manage nausea with Zofran -Oral PPI -continue to follow off of antibiotics -ID recommendations appreciated -if no improvement in wbc and bandemia tomorrow, will repeat CT chest abdomen and pelvis and will obtain nutritional consult for possible tube feeding vs TPN -Follow up with Dr. Bowers as an outpatient #Hyponatremia, resolving Likely secondary to aggressive rehydration with lactated Ringer's however given the proven benefit of LR over MS will continue to monitor. #Hyperbilirubinemia, Transaminitis, elevated alkaline phosphatase-improving -Continue to monitor LFTs #pleural effusion with atelectasis, possible pneumonia Patient went for thoracentesis on 09/21/17. Fluid studies indicate state. This could represent pneumonia or possibly atelectasis in the setting of surgery and aggressive rehydration. -We'll hold off antibiotics for now. Low threshold for repeat CT chest abdomen pelvis with IV contrast. This plan was discussed with Mc Keen MD, infectious disease. -Continue Incentive spirometry Diet: NPO DVT ppx: SC heparin Code status: Full code Problem List: 1. Pleural effusion 2. Leukocytosis 3. Gallstone pancreatitis Pain Ratin Pain Location: R side of abdomen, currently no pain Pain Goal: Pain 4 or less Pain Plan: pain pathawy Tomorrow's Labs & Rationales: cbc, bep, LFTs Maikol Rios MD 09/23/17 1349: Attending MD Review Statement Attending Statement Attending MD Statement: examined this patient, discuss w/resident/PA/TOOL STORAGE ATTENDANT, agreed w/resident/PA/TOOL STORAGE ATTENDANT, reviewed EMR data (avail) Attending Assessment/Plan: 52F PMH GERD, HLD admitted to ICU with gallstone pancreatitis s/p ERCP with sphincterotomy and removal of 4 stones, followed by cholecystectomy on 09/17 without complication, now improving. Abdominal pain is improved today, still NPO, looks better. Her WBC continues to rise and bandemia is persisting. Cultures are negative. Repeat imaging shows worsening pancreatitis and bilateral pleural effusions. 1. Gallstone pancreatitis 2. Choledocholithiasis 3. Acute cholecystitis Plan - Continue on general medicine - Off antibiotics for now - Continue NPO as WBC is worsening, will defer to GI for initiation of PO - Follow blood and urine cultures - Follow ID and surgery recommendations - DVT PPx
[2017-09-23 09:07] LABS: ABSOLUTE BASOPHIL COUNT 0 /CUMM (0.0-0.2); ABSOLUTE EOSINOPHIL COUNT 0.2 /CUMM (0.0-0.7); ABSOLUTE GRANULOCYTE CT 30.3 /CUMM (1.4-6.5); ABSOLUTE LYMPH COUNT 1.1 /CUMM (1.2-3.4); ABSOLUTE MONOCYTE COUNT 1.3 /CUMM (0.10-0.60); BASOPHIL % 0 % (0.0-2.0); EOSINOPHIL % 0.5 % (0-5); GRANULOCYTE % 92.1 % (42.2-75.2); HEMATOCRIT 29.1 % (37-47); MEAN CORPUSCULAR HGB 28.9 PG (27.0-31.0); MEAN CORPUSCULAR HGB CONC 34.1 G/DL (33.0-37.0); MEAN CORPUSCULAR VOLUME 84.8 FL (81.0-99.0); MEAN PLATELET VOLUME 7.1 FL (7.4-10.4); PLATELET COUNT 449 /CUMM (130-400); RBC DISTRIBUTION WIDTH 14.9 % (11.5-14.5); RED BLOOD CELL CT 3.44 /CUMM (4.20-5.40)
[2017-09-23 11:10] LABS: WHITE BLOOD CELL COUNT 32.9 /CUMM (4.8-10.8)
[2017-09-23 13:58] VITALS: BP 95/56
--- NOTE | 2017-09-23 19:06 | PN- Gastroenterology ---
See Addendum Assessment/Plan GI Assessment/Recommendations: 52 y/o female, f/b Dr. Lee Oliva for primary care, HLD (w/o meds), hx GERD & "PUD". Upon further questioning, PUD was never documented. The patient had never had an EGD or baseline screening colonoscopy, despite her age. She apparently had positive H. pylori by an outpt urea breath test, obtained by her PMD. She was treated with an unknown regimen, and it sounded like the H. pylori was not eradicated. 12/07/16: UGI series per PMD- [id number]-ct-mibzajsu GERD, extending up to the thoracic inlet, otherwise negative study, without any ulcer. The patient arrived at the [facility] 09/14/17 at 9:57 p.m., complaining of of RUQ/LUQ abdominal pain, radiating to her back, "10 out of 10". The symptoms started 3 days OTR [employer] [employer]. Her last BM was the a.m. of admission. She had nausea & vomiting. She was actively vomiting in triage. There was no hematemesis. Upon arrival, BP 131/82, P 59, R 14, T 96.3, O2 sat RA 99%. The patient was given IV NS, Zofran, Morphine, Pepcid & Unasyn 3g IVPB. IVF were switched to Lactated Ringers. There was no documented hypotension, nor any temperature spikes. There was no change in mental status. The patient claimed that she has a long history of fatty food intolerance and that she occasionally uses Zantac and/or Tums. After eating greasy [place] food on 09/11/17, she noted onset of epigastric pain, initially "7 out of 10" in severity, partially relieved with Zantac. Her abdominal pain recurred the next day, after eating breakfast, treated with Zantac. On 09/14/17, the patient ate breakfast, had recurrent symptoms, took a Zantac, and went to work. At 2 PM she noted chills without any fevers, and took Tums and Tylenol. Despite this, her symptoms got worse, and she had bilious vomiting. She also noticed that her stools were little color room attendant in color and that her skin was becoming yellow. She denied any pruritus. She had mild urinary frequency, without any hematuria or dysuria. She denied any rashes or symptoms of URI. She denied any chest pain, shortness of breath, diarrhea, constipation, melena, or rectal bleeding. She had intermittent reflux, without any odynophagia, dysphagia, hematemesis, or early satiety. She denied any weight loss or previous change in appetite. She denies any history of hepatitis or blood transfusions. There is a history of gallbladder disease in the patient's paternal uncle. Otherwise, there is no family history of any GI disease, GI CA, inherited pancreatitis, or inherited liver disease, aside from the fact that her mother incidentally had some "liver cysts". The patient denied any cigarettes, EtOH, or illicit drugs. She denied any sulfa medications, BCP, thiazides, or NSAIDs. *Her only outpatient medications included Zantac, Tums, and/or Tylenol as needed. She was born in [facility] and has lived in the [place] since 1998. The patient was admitted to the ICU overnight to watch for possible cholangitis, although she was not critically ill. 06/26/15: *previous LFTs in computer- normal, xc borderline alk phos 131, with borderline Ca2+ 10.6. 09/14/17: Admission labs- WBC 11.2 (90S/7L/3M), H/H 13.9/40.9, MCV 84.3, RDW 13.7, PLT 337, glucose 175, BUN/Cr 12/0.7, GFR > 60, Na 139, K 3.8, HCO3 28, AG 13, amylase 4467, lipase > 10K, Ca 11.0, TG 69, albumin 4.7, globulin 3.3, TBil 3.6, alk phos 383, AST 682, ALT 1076, troponin < 0.01, nl FT4 1.70, nl TSH 0.759 , mild elevated d-Dimer 281 (< 243). 09/14/17; *LDH 1110. 09/15/17: PT 12.0, INR 1.14, PTT 26, WBC 14.1 (91% gran/13 gran Ab), H/H 12.3/ 36.3, MCV 85.4, RDW 14, PLT 308, glucose 145, BUN/Cr 9/0.5, GFR > 60, Na 140, K 3.5, HCO3 23, Ca 8.7, PO4 3.5, *Mg 1.4, albumin 3.6, globulin 2.5, TChol 226, TG 41, HDL 85, LDL 133, TBil 3.1, DBil 2.3, alk phos 286, AST 426, ALT 749; *HgA1C- 5.7. 09/15/17: U/A- clear, yellow, 1.010, 7.0, rare WBC, 3-5 RBC, tr ketone, tr Hgb; neg nitirite, neg esterase 09/15/17: UC- neg x 1 day. 09/15/17: BC x 2- neg x 1 day (obtained after abx rxd) 09/15/17: EKG- SB @ 57, nl axis, nl intervals, w/o acute ischemic changes. 09/15/17: XRY-PORTABLE CHEST XRAY- No acute pulmonary findings. 3 mm calcified granuloma left base. 09/15/17: CT ABD & PELVIS W IV CONTRAST- Findings are most suggestive of gallstone pancreatitis. Small calcification at the region of the pancreatic head with dilatation of the common bile duct 1.2 cm and mildly dilated intrahepatic ducts. Distended gallbladder with pericholecystic fluid. Normal liver. Diffuse peripancreatic edema with edematous appearance of the pancreas. No focal fluid collection or necrosis. Focal pancreatic lesion. Fluid extends distally along the left paracolic gutter. *Clinically, at the time of GI consultation, the patient had gallstone pancreatitis. *She did not appear to have cholangitis. She had no grave signs by Edgar criteria on admission, although no LDH was sent. She had no grave signs by BiSAP criteria on admission. Admission chest x-ray did not show any pleural effusions (or PNA). Fortunately, subsequent labs on 09/15/17 did not show evidence of hemoconcentration despite IV fluids, which would have been a poor prognostic sign. 09/15/17: US ABDOMEN (RUQ) LIMITED- 1. Prominent pancreatic duct measuring 3 mm. Generalized edema of the pancreas. 2. Cholelithiasis in an enlarged gallbladder. Mildly dilated IHD. CBD 1.2 cm. Normal liver. No ascites. GB wall 4 mm, without pericholecystic fluid. Positive ultrasonic Ryan sign. 3. Normal right kidney. DICTATED BY: Donato Medina MD 09/15/17: XRY-ERCP BILIARY & PANCREATIC- Common bile duct was cannulated and injected with retrograde contrast. Common bile duct is normal in course and caliber. There is also retrograde filling of the intrahepatic biliary ducts which appear normal. 2 small rounded filling defects are present in the distal common bile duct on the first images, which are not visualized on later images, consistent with stone removal. There is also partial filling of the cystic duct. *Please refer to procedural notes for further details. DICTATED BY: Donato Medina MD 09/15/17: *ERCP WITH SPHINCTEROTOMY/STONE EXTRACTION- per Dr. Abbie Toribio- Impression: * Choledocholithiasis, treated with sphincterotomy and extraction of 4 stones. 09/16/17: WBC 17.3 (75S/12B/8L/5M), H/H 13.8/41.2, PLT 325, glucose 99, BUN/Cr 10/0.6, GFR > 60, Na 136, K 3.7, HCO3 25, AG 9, A/L 1933/8219, Mg 1.9, Ca 8.5, PO4 3.1, albumin 3.0, *TBil 1.2, alk phos 224, AST 147, ALT 458, *CRP > 9.0 *As of 09/16/17, the patient was hemodynamicallystable & afebrile (T-98.3), although she did spike to 101.1 the afternoon before, with O2 sat RA 95%. She remained on IV Unasyn. Lovenox was added for DVT prophylaxis. Morphine was switched to Tramadol 50 mg po Q6h for pain control. She was also on IV Protonix 40 mg daily plus IV Zofran as needed. She was tolerating clears po. Her abdominal pain was down to "7 out of 10". She denied any chills, nausea, vomiting, chest pain, or shortness of breath. Her LFTs were improving. She was no longer yellow. She was mentating well.*A surgical consult was still pending, regarding eventual CCKY.*Her IVF were D/C'd, although her H/H had risen somewhat , possibly implying hemoconcentration. Additionally, she had some leukocytosis. Although she denied any respiratory issues, aspiration should be excluded. 09/16/17: XR PORTABLE CHEST- Low lung volumes. New bibasilar airspace opacities. This appearance could represent atelectasis or aspiration given the short interval change. Small left pleural effusion also likely present. 09/17/17: LAP CCKY (per Dr. Bowers)- No IOC done, as post ERCP with ES preop. Findings: Edematous/thick gallbladder wall, + stones, Diffuse edema PATH: GALLBLADDER, CHOLECYSTECTOMY: CHOLELITHIASIS. MILD CHRONIC CHOLECYSTITIS. 09/17/17: XR PORTABLE CHEST- Low lung volumes with slight increase in bibasilar opacities, likely due to atelectasis or perhaps pneumonia. There may be associated trace pleural effusions. 09/20/17: CT CHEST, ABDOMEN AND PELVIS WITH IV/PO CONTRAST- 1. Acute interstitial pancreatitis is seen with increasing peripancreatic fluid extending through the abdomen. *No evidence of abnormal pancreatic ductal dilatation, retained gallstones, intrahepatic ductal dilatation or abnormal focal abscess collection or focal localized fluid collection in the gallbladder fossa. *No areas suspicious for pancreatic necrosis. 2. Interval development of large bilateral simple appearing pleural effusions, layering posteriorly up to the lung apices. Associated volume loss and consolidation in both lower lobes is seen, suspicious for atelectasis and/or pneumonia. 3. Enlargement of the main pulmonary arteries, suspicious for pulmonary arterial hypertension. 4. Small fat-containing umbilical hernia. 09/21/17: EKG- NSR @ 96, nl axis, nl intervals, LVH, NSST. 09/21/17: US-THORACENTESIS (per IR)- Successful ultrasound-guided left-sided thoracentesis yielding 560 mL of light yellow fluid. 09/21/17: CHEST XRAY, SINGLE VIEW- No evidence of pneumothorax after the recent thoracentesis. Significantly decreased left pleural effusion, post thoracentesis. Persistent retrocardiac LLL atelectasis vs. infiltrate. Small right pleural effusion vs. right basilar atelectasis, without change. 09/15/17: UC- neg 09/15/17: BC x 2- neg 09/19/17: BC x 2- neg 09/19/17: UC- neg 09/21/17: UC- neg 09/21/17: *Left thoracentesis C&S- neg x 1 day 09/16/17: glucose 99, Ca2+ 8.5, PO4 3.1 09/17/17: amylase 871, lipase 2842 09/21/17: *WBC 24 (82S/12B/3L/2M/1Meta), H/H 10.0/29.3, MCV 84.7, RDW 14.4, PLT 413 09/21/17: *Left thoracentesis per IR- pH 7.45, RBC 1491, WBC 5049 (68P/1L/31meso -mono-histio), BF prot 2.9, BF alb 1.4 (*lipase 803 on pleural fluid). 09/22/17: BUN/Cr 6/0.4, GFR > 60, Na 133, K 3.6, HCO3 26, AG 11, albumin 2.3, globulin 2.4, TBil 0.9, DBil 0.6, alk phos 249, AST 49, ALT 85 09/22/17: *WBC 28.2 (78S/15B/3L/3M/1E), H/H 10.0/29.2, PLT 427. I returned to see the patient on 09/22/17. I had last seen her on 09/16/17, when I had signed off, 1 day post 09/15/17: ERCP with ES & CBD stone extractions , post Indocin supp. The patient subsequently had 09/17/17: Lap CCKY, per Dr. Bowers. *Extensive records & imaging studies since then were reviewed. Surgery had signed off on 09/19/17. She had been on Unasyn from 10/13/17-09/19/17. The patient was seen by Dr. Keen in ID consultation 09/20/17 for leukocytosis, bandemia & abdominal pain (the latter improving), & Dr. Ch was called back for GI reassessment 09/21/17 for similar reasons. The overall feeling was that her leukocytosis and low-grade temp spike were reactive in nature to worsening pancreatitis, based on clinical evaluation & numerous imaging studies. No focal areas of pancreatic necrosis were seen, nor any pseudocyst. She had bilateral pleural effusions, left side greater than right, with bibasilar atelectasis & a questionable retrocardiac infiltrate, although she had no symptoms of URI. Her LFTs were improving post ERCP with ES, going against a retained CBD stone, and CT did not show any gross evidence of any abscess in the GB fossa area, post CCKY, nor any gross biloma. *She had been on Meropenem 1g IVPB Q8h from 09/20/17-09/21/17, which was D/C per ID, as no area supicious for pancreatic necrosis was seen on CT & BC/UC- negative. Although she was tolerating feeds to a certain extent (i.e.- oatmeal & solids), she was made NPO on 09/21/17, with resumption of IVF: Lactated Ringers, currently at 100cc/hr. She was getting Tramadol 50 mg po Q6h, with IV Dilaudid 2 mg Q4-6h for breakthrough symptoms. She was also on IV Protonix 40 mg daily, with Zofran prn, & was getting sc heparin 5Ku Q8h for DVT prophylaxis. *As of 09/22/17, the patient was hemodynamically stable, with low normal BP, borderline tachycardic, with low grade temp, & O2 sat RA 95%. Specifically, BP 103/64, P 98, R 16, T- 99.4 (Tm 100.6), off antibiotics. Her diarrhea had resolved, which she had attributed to drinking the po contrast, although she had been on antibiotics, as above. She denied any nausea and vomiting. She denied any chills. Her abdominal pain (epigastric > RUQ), was down to "6 out of 10", previously "10 out of 10" on admission. She had mild dysuria, without any frequency. There was no jaundice, cough, CP, or SOB. There was no overt GI bleeding, hematemesis, or melena. Her drains had previously been pulled by surgery. Her port sites were healing well. There was no evidence of hemoconcentration. *Most likely, the leukocytosis & bandemia are reactive in nature from the pancreatitis. It is possible her diet may been advanced too fast, or perhaps, the pancreas didn't "cool down" enough preop. I agree that the patient does not need Meropenem, as there is no evidence of pancreatic necrosis on imaging studies. There is a question of a retrocardiac infiltrate vs. atelectasis, but the patient has no pulmonary symptoms. Also noted, in addition to the peripheral leukocytosis, are the elevated WBC in the left thoracentesis- the pleural pH 7.45 goes against an empyema. Doubt retined CBD stone post-ES, with declining LFTs. 09/23/17: WBC 32.9 (73S/22B/1L/4M), H/H 9.9/29.1, PLT 449, BUN/Cr 8/0.5, GFR > 60, Na 131, K 4.9, HCO3 25, AG 13, albumin 2.4, globulin 2.6, TBil 1.0, DBil 0.8 , alk phos 233, AST 46, ALT 74. *As of 09/23/17, the patient had low normal BP (95/56) & was borderline tachycardic (P- 100), O2 sat RA 96%, with Tm 99.1, off antibiotics. Despite increasing leukocytosis & bandemia, clinically, she was resting comfortably, with improving abdominal pain. Her nausea & vomiting had resolved. She denied any chills or URI symptoms. There was no chest pain or shortness of breath. There was no overt GI bleeding, melena, or jaundice. She was a little hungry. *Multiple cultures remained negative, including 09/21/17: left thoracentesis; with BF lipase 803 from pleural fluid. Her Lactated Ringers remained at 100 cc/hr. Slowly improving clinically, despite increasing leukocytosis with bandemia. No evidence of necrosis on previous CT of pancreas with contrast. Elevated white cells in thoracentesis noted, along with atelectasis vs. retrocardiac PNA. Pleural pH 7.45 goes against empyema. *SUGGEST- *NPO for now. *With rising WBC, advise repeat CT CAP with IV contrast/ pancereatic protocol tomorrow. Consider nutrition consult. If repeat CT stable, consider sips of clears po. If po feeds not resumed in near future, consideration for [place] tube feeds vs. TPN (favor enteral route, if possible). * Increase lactated Ringers to 150cc/hr. *Follow-up BC & thoracentesis cultures ( off abx). *Consider pulmonary consult, regarding thoracentesis interpretation. * *Will defer to ID regarding possible antibiotics to cover lungs, but at present, no need for antibiotics to cover pancreas. *Watch for hemoconcentration. Close f /u of lytes, BUN/Cr, GFR, LFTs. Strict I/O's. Supplemental O2 as needed. Continue PPI vs. H2B for hx GERD (PPI may lower Mg). *IV Zofran.*Analgesics as per medical team (Toradol, plus Dilaudid for breakthrough symptoms). The patient's initial borderline hypercalcemia, which normalized, may have been from dehydration (this can be further worked up by the medical team, if needed). DVT prophylaxis with sc Heparin. If diarrhea recurs, check stool for C. difficile (currently resolved). I previously spoke with the patient's son, Atilio, at the bedside on 09/16/17, as per patient request. *The patient was given my office number for future reference. *Will defer to medical team regarding workup of microscopic hematuria & proteinuria. *Eventual semi-elective outpatient baseline EGD/baseline screening colonoscopy & workup of "H. pylori" (reportedly had positive urea breath test, treated with some unknown regimen by PMD; *consider rechecking stool antigen H. pylori), once her gallstone pancreatitis is resolved. The case was previously discussed with Dr. Keen & the medical house staff. The patient will be followed by the GI team for further recommendations, based on clinical course. Problem List: 1. Gallstone pancreatitis 2. Choledocholithiasis 3. Status post endoscopic retrograde cholangiopancreatography 4. S/P laparoscopic cholecystectomy 5. SIRS (systemic inflammatory response syndrome) 6. Malnutrition 7. Leukocytosis 8. Pleural effusion Subjective Subjective: 09/23/17: WBC 32.9 (73S/22B/1L/4M), H/H 9.9/29.1, PLT 449, BUN/Cr 8/0.5, GFR > 60, Na 131, K 4.9, HCO3 25, AG 13, albumin 2.4, globulin 2.6, TBil 1.0, DBil 0.8 , alk phos 233, AST 46, ALT 74. *As of 09/23/17, the patient had low normal BP (95/56) & was borderline tachycardic (P- 100), O2 sat RA 96%, with Tm 99.1, off antibiotics. Despite increasing leukocytosis & bandemia, clinically, she was resting comfortably, with improving abdominal pain. Her nausea & vomiting had resolved. She denied any chills or URI symptoms. There was no chest pain or shortness of breath. There was no overt GI bleeding, melena, or jaundice. She was a little hungry. *Multiple cultures remained negative, including 09/21/17: left thoracentesis; with BF lipase 803 from pleural fluid. Her Lactated Ringers remained at 100 cc/hr. Review of Systems: Full 14 point review of systems otherwise noncontributory, and as above. Review of Systems Constitutional: Reports: low grade fever-> improving. Denies: chills, diaphoresis, malaise, weakness, unexplained weight loss (except as inpt postop). EENTM: Denies: blurred vision, double vision, visual changes, eye pain, eye drainage, eye tearing, icterus, ear discharge, ear pain, ear redness, hearing changes, nasal congestion, epistaxis, nasal pain, throat pain, throat swelling, mouth pain, tooth pain. Cardiovascular: Denies: chest pain, edema, orthopena, palpitations, peripheral edema, syncope. Respiratory: Denies: cough, hemoptysis, orthopnea, short of breath, sputum production, stridor, wheezing. GI: Reports: abdominal pain-> slowly improving; nausea & vomiting-> resolved, diarrhea post po contrast-> resolved. Denies: bloating, constipation, distention, bowel incontinence, melena, bloody stool, changes in stool, steatorrhea. Genitourinary: Reports: mild dysuria (mult UC- neg). Denies: frequency, discharge, hematuria, hesitation, nocturia, pain, urgency. Musculoskeletal: Denies: back pain, gout, joint pain, joint swelling, muscle pain, muscle stiffness, neck pain. Skin: Reports: jaundice-> resolved Denies: cysts, change in skin color, change in hair/nails, dryness, erythema, lesions, lymphangitis, lumps, moles, rash. Neurological/Psychological: Denies: anxiety, ataxia, cognitive dysfunction, confusion, depressed, dementia, emotional problems, headache, numbness, paresthesia, pre-existing deficit, petit mal seizures, tingling, tremors, tonic-clonic seizures, unable to move lower ext , unable to move upper ext, weakness. Hematologic/Endocrine: Denies: bruising, bleeding, polyuria, polydipsia. Immunologic/Allergic: Denies: splenectomy, HIV/AIDS, lymphadenopathy. All Other Systems: Reviewed and Negative Objective Vital Signs and I&Os Vital Signs Date Time Temp Pulse Resp B/P B/P Pulse O2 O2 Flow FiO2 Mean Ox Delivery Rate 09/23 1358 99.0 100 20 95/56 96 Room Air 09/23 0640 99.1 99 20 102/60 95 Room Air 09/22 2135 98.3 93 20 91/59 96 Room Air 09/22 1925 98.8 101 20 96/60 96 Intake & Output 09/23 1600 09/23 0400 09/22 1600 09/22 0400 09/21 1600 09/21 0400 Intake Total 2400 470 2300 400 1700 600 Output Total 650 400 650 3 Balance 1750 70 2300 400 1050 597 Intake, IV 2400 450 2300 400 200 Intake, Oral 20 1500 600 Number 1 1 8 Bowel Movements Output, Stool 3 Output, Urine 650 400 650 Physical Exam: Well-developed, well-nourished female, in no apparent distress. The patient is no longer jaundiced. Sclera anicteric. Conjunctiva pink. Oropharynx clear. No oral thrush. Mucus membranes slightly dry. No aphthous ulcers. There is no adenopathy, thyromegaly, or JVD. No peripheral stigmata of inflammatory bowel disease or chronic liver disease on exam. No spiders on the anterior chest wall. Breast & pelvic exams: API. No CVA tenderness. No spine tenderness. Lungs : clear to A&P, with slight decreased BS at the bases B/L (post left thoracentesis 09/21/17-. site bandaged). No egophony, wheezing, rales, or rhonchi. Heart exam: regular rate rhythm, S1 and S2, without any murmur. Abdominal exam: normal bowel sounds, soft belly, moderate epigastric tenderness, with minimal guarding, but no rebound. Well-healed port sites post lap CCKY, without pus. Tiny reducible umbilical hernia, otherwise, no mass. No organomegaly. No fluid shift. No pulsatile mass. No epigastric bruit. Digital rectal exam: deferred by patient. Extremities: without C, C, or E. No palpable cords. Mild DJD. No acute arthropathy. No rash. No palmar erythema. No Dupuytren's contractures. Distal pulses 2+ bilaterally. DTRs 2+ bilaterally. Alert and oriented x 3. Right-handed. Motor 5/5 B/L. No tremor. No asterixis. Current Medications: Current Medications Sig/Mk Start time Last Medication Dose Route Stop Time Status Admin Heparin Sodium 5,000 UNIT Q8 09/20 1400 AC 09/23 (Porcine) SC 1453 Hydromorphone HCl 2 MG Q4-6 PRN 09/18 1845 AC 09/23 PO 0816 Lactated Ringer's 1,000 ML Q10H 09/21 1700 AC 09/23 IV 1500 Ondansetron HCl 4 MG Q8P PRN 09/15 0345 AC 09/21 IV 1502 Pantoprazole Sodium 40 MG DAILY 09/15 0500 AC 09/23 IV 0808 Patient Medication 1 ED ONE ONE 09/23 1600 DC 09/23 Teaching ED 09/23 1601 1801 Tramadol HCl 50 MG Q6 09/16 0945 AC 09/23 PO 1801 Results Pertinent Lab Results: Laboratory Tests 09/23 09/22 0735 0731 Chemistry Sodium (137 - 145 mmol/L) 131 L 133 L Potassium (3.5 - 5.1 mmol/L) 4.0 3.6 Chloride (98 - 107 mmol/L) 93 L 96 L Carbon Dioxide (22 - 30 mmol/L) 25 26 Anion Gap (5 - 16) 13 11 BUN (7 - 17 mg/dL) 8 6 L Creatinine (0.5 - 1.0 mg/dL) 0.5 0.4 L Estimated GFR (>60 ml/min) > 60 > 60 BUN/Creatinine Ratio (7 - 25 %) 16.0 15.0 Total Bilirubin (0.2 - 1.3 mg/dL) 1.0 0.9 Direct Bilirubin (< 0.4 mg/dL) 0.8 H 0.6 H AST (14 - 36 U/L) 46 H 49 H ALT (9 - 52 U/L) 74 H 85 H Alkaline Phosphatase (<127 U/L) 233 H 249 H Total Protein (6.3 - 8.2 g/dL) 5.0 L 4.7 L Albumin (3.5 - 5.0 g/dL) 2.4 L 2.3 L Hematology CBC w Diff MAN DIFF ORDERED MAN DIFF ORDERED WBC (4.8 - 10.8 /CUMM) 32.9 *H 28.2 H RBC (4.20 - 5.40 /CUMM) 3.44 L 3.44 L Hgb (12.0 - 16.0 G/DL) 9.9 L 10.0 L Hct (37 - 47 %) 29.1 L 29.2 L MCV (81.0 - 99.0 FL) 84.8 84.9 MCH (27.0 - 31.0 PG) 28.9 29.0 MCHC (33.0 - 37.0 G/DL) 34.1 34.1 RDW (11.5 - 14.5 %) 14.9 H 14.6 H Plt Count (130 - 400 /CUMM) 449 H 427 H MPV (7.4 - 10.4 FL) 7.1 L 6.8 L Gran % (42.2 - 75.2 %) 92.1 H 91.2 H Lymphocytes % (20.5 - 51.1 %) 3.4 L 3.5 L Monocytes % (1.7 - 9.3 %) 4.0 4.8 Eosinophils % (0 - 5 %) 0.5 0.4 Basophils % (0.0 - 2.0 %) 0 0.1 Absolute Granulocytes (1.4 - 6.5 /CUMM) 30.3 H 25.7 H Segmented Neutrophils (42.2 - 75.2 %) 73 78 H Band Neutrophils (0.0 - 5.0 %) 22 H 15 H Absolute Lymphocytes (1.2 - 3.4 /CUMM) 1.1 L 1.0 L Lymphocytes (20.5 - 51.1 %) 1 L 3 L Monocytes (1.7 - 9.3 %) 4 3 Absolute Monocytes (0.10 - 0.60 /CUMM) 1.3 H 1.4 H Eosinophils (0 - 5.0 %) 1 Absolute Eosinophils (0.0 - 0.7 /CUMM) 0.2 0.1 Absolute Basophils (0.0 - 0.2 /CUMM) 0 0 Nucleated RBCs (0.0 - 0.0 /100WBC) 1 H Platelet Estimate (ADEQUATE) VERIFIED BY SMEAR Normocytic RBCs VERIFIED Normochromic RBCs VERIFIED Anisocytosis 1+ 03/06 03/06 03/06 03/06 1348 1348 1045 UNK Hematology Lymphocytes (%) 1 % Normal PMNs (%) 68 Misc Hematology Test (%) 31 Miscellaneous Phlebotomy Draw Site L THORACENTESIS Other Body Source Fluid WBC (0 - 5 /CUMM) 5049 H Fld Total RBCs Counted (0 /CUMM) 1491 H Fluid Glucose (mg/dL) 111 Fluid Total Protein (g/dL) Cancelled 2.9 Fluid Albumin (g/dL) 1.4 Fluid LDH (U/L) 1216 Fluid Lipase (U/L) 803 Pleural pH (PH) 7.45 09/21 09/21 0905 0730 Chemistry Sodium Cancelled Potassium Cancelled Chloride Cancelled Carbon Dioxide Cancelled Anion Gap Cancelled BUN Cancelled Creatinine Cancelled BUN/Creatinine Ratio Cancelled Urines Urine Color (YEL,AMB,STR) YEL Urine Clarity (CLEAR) CLEAR Urine pH (5.0 - 8.0) 8.0 Ur Specific [place] (1.001 - 1.035) 1.020 Urine Protein (NEG,<30 MG/DL) 30 H Urine Ketones (NEG) NEG Urine Nitrite (NEG) NEG Urine Bilirubin (NEG) NEG Urine Urobilinogen (0.1 - 1.0 EU/dl) 1.0 Ur Leukocyte Esterase (NEG) NEG Ur Microscopic SEDIMENT EXAMINED Urine RBC (0 - 5 /HPF) 10-15 H Urine WBC (0 - 2 /HPF) RARE Ur Epithelial Cells (NONE,FEW) RARE Urine Mucus (FEW,NONE) FEW Urine Hemoglobin (NEG) SMALL H Urine Glucose (N MG/DL) NEG 09/21 09/21 0730 0050 Chemistry Sodium (137 - 145 mmol/L) 134 L 134 L Potassium (3.5 - 5.1 mmol/L) 4.3 2.9 *L Chloride (98 - 107 mmol/L) 99 97 L Carbon Dioxide (22 - 30 mmol/L) 26 29 Anion Gap (5 - 16) 9 9 BUN (7 - 17 mg/dL) 5 L 6 L Creatinine (0.5 - 1.0 mg/dL) 0.4 L 0.4 L Estimated GFR (>60 ml/min) > 60 > 60 BUN/Creatinine Ratio (7 - 25 %) 12.5 15.0 Total Bilirubin (0.2 - 1.3 mg/dL) 0.8 Direct Bilirubin (< 0.4 mg/dL) 0.7 H AST (14 - 36 U/L) 62 H ALT (9 - 52 U/L) 99 H Alkaline Phosphatase (<127 U/L) 292 H Lactate Dehydrogenase (313 - 618 U/L) 805 H Total Protein (6.3 - 8.2 g/dL) 5.0 L 4.7 L Albumin (3.5 - 5.0 g/dL) 2.4 L Hematology CBC w Diff MAN DIFF ORDERED WBC (4.8 - 10.8 /CUMM) 24.0 H RBC (4.20 - 5.40 /CUMM) 3.45 L Hgb (12.0 - 16.0 G/DL) 10.0 L Hct (37 - 47 %) 29.3 L MCV (81.0 - 99.0 FL) 84.7 MCH (27.0 - 31.0 PG) 28.8 MCHC (33.0 - 37.0 G/DL) 34.0 RDW (11.5 - 14.5 %) 14.4 Plt Count (130 - 400 /CUMM) 413 H MPV (7.4 - 10.4 FL) 7.5 Gran % (42.2 - 75.2 %) 92.3 H Lymphocytes % (20.5 - 51.1 %) 2.8 L Monocytes % (1.7 - 9.3 %) 4.4 Eosinophils % (0 - 5 %) 0.5 Basophils % (0.0 - 2.0 %) 0 Absolute Granulocytes (1.4 - 6.5 /CUMM) 22.1 H Segmented Neutrophils (42.2 - 75.2 %) 82 H Band Neutrophils (0.0 - 5.0 %) 12 H Absolute Lymphocytes (1.2 - 3.4 /CUMM) 0.7 L Lymphocytes (20.5 - 51.1 %) 3 L Monocytes (1.7 - 9.3 %) 2 Absolute Monocytes (0.10 - 0.60 /CUMM) 1.1 H Absolute Eosinophils (0.0 - 0.7 /CUMM) 0.1 Absolute Basophils (0.0 - 0.2 /CUMM) 0 Metamyelocytes (0.0 - 1.0 %) 1 Platelet Estimate (ADEQUATE) VERIFIED BY SMEAR Anisocytosis 1+ Imaging/Other Studies: 09/15/17: EKG- SB @ 57, nl axis, nl intervals, w/o acute ischemic changes. 09/15/17: XRY-PORTABLE CHEST XRAY- No acute pulmonary findings. 3 mm calcified granuloma left base. 09/15/17: CT ABD & PELVIS W IV CONTRAST- Findings are most suggestive of gallstone pancreatitis. Small calcification at the region of the pancreatic head with dilatation of the common bile duct 1.2 cm and mildly dilated intrahepatic ducts. Distended gallbladder with pericholecystic fluid. Normal liver. Diffuse peripancreatic edema with edematous appearance of the pancreas. No focal fluid collection or necrosis. Focal pancreatic lesion. Fluid extends distally along the left paracolic gutter. 09/15/17: US ABDOMEN (RUQ) LIMITED- 1. Prominent pancreatic duct measuring 3 mm. Generalized edema of the pancreas. 2. Cholelithiasis in an enlarged gallbladder. Mildly dilated IHD. CBD 1.2 cm. Normal liver. No ascites. GB wall 4 mm, without pericholecystic fluid. Positive ultrasonic Ryan sign. 3. Normal right kidney. DICTATED BY: Donato Medina MD 09/15/17: XRY-ERCP BILIARY & PANCREATIC- Common bile duct was cannulated and injected with retrograde contrast. Common bile duct is normal in course and caliber. There is also retrograde filling of the intrahepatic biliary ducts which appear normal. 2 small rounded filling defects are present in the distal common bile duct on the first images, which are not visualized on later images, consistent with stone removal. There is also partial filling of the cystic duct. *Please refer to procedural notes for further details. DICTATED BY: Donato Medina MD 09/15/17: *ERCP WITH SPHINCTEROTOMY/STONE EXTRACTION- per Dr. Abbie Toribio- Impression: * Choledocholithiasis, treated with sphincterotomy and extraction of 4 stones. 09/16/17: XR PORTABLE CHEST- Low lung volumes. New bibasilar airspace opacities. This appearance could represent atelectasis or aspiration given the short interval change. Small left pleural effusion also likely present. 09/17/17: LAP CCKY (per Dr. Bowers)- No IOC done, as post ERCP with ES preop. Findings: Edematous/thick gallbladder wall, + stones, Diffuse edema PATH: GALLBLADDER, CHOLECYSTECTOMY: CHOLELITHIASIS. MILD CHRONIC CHOLECYSTITIS. 09/17/17: XR PORTABLE CHEST- Low lung volumes with slight increase in bibasilar opacities, likely due to atelectasis or perhaps pneumonia. There may be associated trace pleural effusions. 09/20/17: CT CHEST, ABDOMEN AND PELVIS WITH IV/PO CONTRAST- 1. Acute interstitial pancreatitis is seen with increasing peripancreatic fluid extending through the abdomen. *No evidence of abnormal pancreatic ductal dilatation, retained gallstones, intrahepatic ductal dilatation or abnormal focal abscess collection or focal localized fluid collection in the gallbladder fossa. *No areas suspicious for pancreatic necrosis. 2. Interval development of large bilateral simple appearing pleural effusions, layering posteriorly up to the lung apices. Associated volume loss and consolidation in both lower lobes is seen, suspicious for atelectasis and/or pneumonia. 3. Enlargement of the main pulmonary arteries, suspicious for pulmonary arterial hypertension. 4. Small fat-containing umbilical hernia. 09/21/17: EKG- NSR @ 96, nl axis, nl intervals, LVH, NSST. 09/21/17: US-THORACENTESIS (per IR)- Successful ultrasound-guided left-sided thoracentesis yielding 560 mL of light yellow fluid. 09/21/17: CHEST XRAY, SINGLE VIEW- No evidence of pneumothorax after the recent thoracentesis. Significantly decreased left pleural effusion, post thoracentesis. Persistent retrocardiac LLL atelectasis vs. infiltrate. Small right pleural effusion vs. right basilar atelectasis, without change.
[2017-09-23 22:00] VITALS: BP 139/66
[2017-09-23 22:24] VITALS: BP 94/54
[2017-09-24 06:50] VITALS: BP 92/48
--- NOTE | 2017-09-24 06:59 | PN- Housestaff ---
Margaret MORILLO,Roberto 09/24/17 0658: Subjective Follow-up For: Gallstone pancreatitis Subjective: Patient was seen and examined at bedside. She was resting comfortably. She had no acute events overnight. She continues to have improvement of her abdominal pain. She has not had any recurrent episodes of diarrhea, nausea, vomiting. She denies any fever, chills, chest pain, shortness of breath. Review of Systems Constitutional: Denies: chills, fever. Cardiovascular: Denies: chest pain, palpitations. Respiratory: Denies: cough, short of breath. Gastrointestinal: Reports: abdominal pain. Denies: diarrhea, nausea, vomiting. Genitourinary: Reports: no symptoms. Musculoskeletal: Reports: no symptoms. Objective Last 24 Hrs of Vital Signs/I&O Vital Signs Date Time Temp Pulse Resp B/P B/P Pulse O2 O2 Flow FiO2 Mean Ox Delivery Rate 09/24 0650 98.8 90 20 92/48 96 Room Air 09/23 2224 98.3 91 20 94/54 98 Room Air 09/23 1358 99.0 100 20 95/56 96 Room Air Intake & Output 09/24 0800 09/24 0000 09/23 1600 Intake Total 1530 1200 Output Total Balance 1530 1200 Intake, IV 1050 1200 Intake, Oral 480 Number 1 1 Bowel Movements Physical Exam General Appearance: Alert, Oriented X3, Cooperative, No Acute Distress Skin Temp/Moisture Exam: Warm/Dry Cardiovascular: Regular Rate, Normal S1, Normal S2 Lungs: diminished breath sounds on the R lung base Abdomen: surgical dressings in place, TTP only in the RUQ and RLQ Neurological: Normal Gait, Normal Speech, Normal Tone, Sensation Intact Extremities: No Clubbing, No Cyanosis, No Edema Current Medications: Current Medications Sig/Mk Start time Last Medication Dose Route Stop Time Status Admin Heparin Sodium 5,000 UNIT Q8 09/20 1400 AC 09/24 (Porcine) SC 0548 Hydromorphone HCl 2 MG Q4-6 PRN 09/18 1845 AC 09/24 PO 0430 Lactated Ringer's 1,000 ML Q10H 09/21 1700 AC 09/24 IV 0245 Ondansetron HCl 4 MG Q8P PRN 09/15 0345 AC 09/21 IV 1502 Pantoprazole Sodium 40 MG DAILY 09/15 0500 AC 09/23 IV 0808 Patient Medication 1 ED ONE ONE 09/23 1600 DC 09/23 Teaching ED 09/23 1601 1801 Tramadol HCl 50 MG Q6 09/16 0945 AC 09/24 PO 0545 Last 24 Hrs of Lab/Luis Antonio Results Last 24 Hrs of Labs/Mics: Laboratory Tests 09/23/17 0735: Anion Gap 13, Estimated GFR > 60, BUN/Creatinine Ratio 16.0, Total Bilirubin 1.0 , Direct Bilirubin 0.8 H, AST 46 H, ALT 74 H, Alkaline Phosphatase 233 H, Total Protein 5.0 L, Albumin 2.4 L, CBC w Diff MAN DIFF ORDERED, RBC 3.44 L, MCV 84.8, MCH 28.9, MCHC 34.1, RDW 14.9 H, MPV 7.1 L, Gran % 92.1 H, Lymphocytes % 3.4 L, Monocytes % 4.0, Eosinophils % 0.5, Basophils % 0, Absolute Granulocytes 30.3 H, Segmented Neutrophils 73, Band Neutrophils 22 H, Absolute Lymphocytes 1.1 L, Lymphocytes 1 L, Monocytes 4, Absolute Monocytes 1.3 H, Absolute Eosinophils 0.2, Absolute Basophils 0, Anisocytosis 1+ Assessment/Plan Assessment: Patient is 52-year-old female with a PMH significant for GERD, HLD, H. pylori infection who underwent ERCP on 09/15, impression Choledocholithiasis, treated with sphincterotomy and extraction of 4 stones, treated with sphincterotomy and extraction now s/p cholecystectomy on 09/18. #Gallstone pancreatitis S/P ERCP, S/P cholecystectomy Patient continues to show clinical improvement. Her white count and bands have decreased slightly today. -Follow-up blood cultures, pleural fluid culture and UA and urine culture, currenlty no growth -Adequate pain control, manage nausea with Zofran -Oral PPI -continue to follow off of antibiotics -ID recommendations appreciated -CT shows no significant changes, with mild increase in fluid collection in the pancreas -start Clear liquids -Follow up with Dr. Bowers as an outpatient #Hyponatremia, resolving -start NS #Hyperbilirubinemia, Transaminitis, elevated alkaline phosphatase-improving -Continue to monitor LFTs #pleural effusion with atelectasis Patient went for thoracentesis on 09/21/17. Fluid studies indicate state. This could represent pneumonia or possibly atelectasis in the setting of surgery and aggressive rehydration. -continue to watch off of antibiotic -Continue Incentive spirometry Diet: Clear liquids DVT ppx: SC heparin Code status: Full code Problem List: 1. Pleural effusion 2. Gallstone pancreatitis 3. Leukocytosis Pain Ratin Pain Location: R side of abdomen Pain Goal: Pain 4 or less Pain Plan: pain pathway Tomorrow's Labs & Rationales: cbc, bep Maikol Rios MD 09/24/17 1354: Attending MD Review Statement Attending Statement Attending MD Statement: examined this patient, discuss w/resident/PA/FARM MANAGEMENT SUPERVISOR, agreed w/resident/PA/FARM MANAGEMENT SUPERVISOR, reviewed EMR data (avail) Attending Assessment/Plan: 52F PMH GERD, HLD admitted to ICU with gallstone pancreatitis s/p ERCP with sphincterotomy and removal of 4 stones, followed by cholecystectomy on 09/17 without complication, now improving. Abdominal pain is improved today, still NPO, looks better. Cultures negative. WBC down slightly to 31. CT abdomen/pelvis shows stable pancreatic fluid and bilateral pleural effusion. 1. Gallstone pancreatitis 2. Choledocholithiasis 3. Acute cholecystitis Plan - Continue on general medicine - Off antibiotics for now - Clear liquid diet - Follow blood and urine cultures - Follow ID and surgery recommendations - DVT PPx
[2017-09-24 09:07] LABS: ABSOLUTE BASOPHIL COUNT 0 /CUMM (0.0-0.2); ABSOLUTE EOSINOPHIL COUNT 0.1 /CUMM (0.0-0.7); EOSINOPHIL % 0.4 % (0-5)
[2017-09-24 09:19] LABS: ABSOLUTE GRANULOCYTE CT 28.6 /CUMM (1.4-6.5); ABSOLUTE MONOCYTE COUNT 1.4 /CUMM (0.10-0.60); BASOPHIL % 0.1 % (0.0-2.0); GRANULOCYTE % 91.8 % (42.2-75.2); HEMATOCRIT 29.1 % (37-47); MEAN CORPUSCULAR HGB 28.9 PG (27.0-31.0); MEAN CORPUSCULAR HGB CONC 33.9 G/DL (33.0-37.0); MEAN CORPUSCULAR VOLUME 85.2 FL (81.0-99.0); MEAN PLATELET VOLUME 7.3 FL (7.4-10.4); PLATELET COUNT 479 /CUMM (130-400); RBC DISTRIBUTION WIDTH 14.8 % (11.5-14.5); RED BLOOD CELL CT 3.42 /CUMM (4.20-5.40)
[2017-09-24 09:39] LABS: WHITE BLOOD CELL COUNT 31.2 /CUMM (4.8-10.8)
--- NOTE | 2017-09-24 11:48 | PN- Infect Dx ---
Subjective Subjective: Afebrile without complaints. She has had no further nausea or vomiting and denies any respiratory symptoms. Objective Last 24 Hrs of Vital Signs/I&O Vital Signs Date Time Temp Pulse Resp B/P B/P Pulse O2 O2 Flow FiO2 Mean Ox Delivery Rate 09/24 0650 98.8 90 20 92/48 96 Room Air 09/23 2224 98.3 91 20 94/54 98 Room Air 09/23 1358 99.0 100 20 95/56 96 Room Air Intake & Output 09/24 1600 09/24 0800 09/24 0000 Intake Total 1250 1530 Output Total Balance 1250 1530 Intake, IV 1200 1050 Intake, Oral 50 480 Number 0 1 Bowel Movements Patient 121 lb Weight Physical Exam Other Physical Findings: She appears comfortable in no acute distress Lungs are clear Heart regular rhythm with no murmur Abdomen is soft, mildly tender on palpation of the left upper quadrant and epigastrium, with no guarding or rebound, positive bowel sounds Results Last 24 Hours of Lab Results: Laboratory Tests 09/24 0751 Chemistry Sodium (137 - 145 mmol/L) 130 L Potassium (3.5 - 5.1 mmol/L) 3.8 Chloride (98 - 107 mmol/L) 93 L Carbon Dioxide (22 - 30 mmol/L) 24 Anion Gap (5 - 16) 13 BUN (7 - 17 mg/dL) 8 Creatinine (0.5 - 1.0 mg/dL) 0.4 L Estimated GFR (>60 ml/min) > 60 BUN/Creatinine Ratio (7 - 25 %) 20.0 Total Bilirubin (0.2 - 1.3 mg/dL) 1.1 Direct Bilirubin (< 0.4 mg/dL) 0.8 H AST (14 - 36 U/L) 40 H ALT (9 - 52 U/L) 57 H Alkaline Phosphatase (<127 U/L) 185 H Total Protein (6.3 - 8.2 g/dL) 4.8 L Albumin (3.5 - 5.0 g/dL) 2.3 L Hematology CBC w Diff MAN DIFF ORDERED WBC (4.8 - 10.8 /CUMM) 31.2 *H RBC (4.20 - 5.40 /CUMM) 3.42 L Hgb (12.0 - 16.0 G/DL) 9.9 L Hct (37 - 47 %) 29.1 L MCV (81.0 - 99.0 FL) 85.2 MCH (27.0 - 31.0 PG) 28.9 MCHC (33.0 - 37.0 G/DL) 33.9 RDW (11.5 - 14.5 %) 14.8 H Plt Count (130 - 400 /CUMM) 479 H MPV (7.4 - 10.4 FL) 7.3 L Gran % (42.2 - 75.2 %) 91.8 H Lymphocytes % (20.5 - 51.1 %) 3.1 L Monocytes % (1.7 - 9.3 %) 4.6 Eosinophils % (0 - 5 %) 0.4 Basophils % (0.0 - 2.0 %) 0.1 Absolute Granulocytes (1.4 - 6.5 /CUMM) 28.6 H Segmented Neutrophils (42.2 - 75.2 %) 82 H Band Neutrophils (0.0 - 5.0 %) 12 H Absolute Lymphocytes (1.2 - 3.4 /CUMM) 1.0 L Lymphocytes (20.5 - 51.1 %) 2 L Monocytes (1.7 - 9.3 %) 3 Absolute Monocytes (0.10 - 0.60 /CUMM) 1.4 H Absolute Eosinophils (0.0 - 0.7 /CUMM) 0.1 Absolute Basophils (0.0 - 0.2 /CUMM) 0 Metamyelocytes (0.0 - 1.0 %) 1 Platelet Estimate (ADEQUATE) VERIFIED BY SMEAR Polychromasia 1+ Hypochromic-Microcytic 1+ Anisocytosis 1+ Last 24 Hours of Luis Antonio Results: Left pleural fluid culture September 21 negative Urine culture September 21 negative Assessment/Plan ID Impression: Overall improved, off antibiotics, with no further fevers and with white blood cell count, though still elevated, slightly decreased, most likely secondary to persistent inflammation in the pancreas, with the recent CT scan negative for any evidence for an intra-abdominal infection. Her left plural effusion did reveal an elevated white blood cell count, with an elevated LDH and protein, suggestive of an exudate, but the pH was normal and the culture is negative, making an empyema unlikely. Suggestion: 1. Further management of her pancreatitis per GI 2. Continue to follow off antibiotics
--- NOTE | 2017-09-24 12:43 | CT SCAN REPORT ---
EXAMINATION: CT CHEST, ABDOMEN AND PELVIS WITHOUT CONTRAST CLINICAL INFORMATION: Persistently elevated white blood cell count. Rule out acute chest process. Rule out pancreatic necrosis or pseudotumor. COMPARISON: A scan of the chest, abdomen and pelvis dated 11/20/2017. The scan of the abdomen and pelvis dated 09/15/2017. TECHNIQUE: Multidetector volumetric imaging was performed from the base of the neck through the pubic symphysis. Sagittal and coronal reformatted images were obtained on the technologist workstation. DLP: 350.90 mGy-cm. FINDINGS: CT SCAN OF THE CHEST: LUNGS: Moderate size bilateral pleural effusions are again seen layering posteriorly all the way up to the lung apex. The effusions appear simple fluid density and no obvious pleural thickening or nodularity is appreciated on noncontrast study. There are associated parenchymal opacities with air bronchograms and volume loss in both lower lobes, unchanged from prior exam, consistent with pneumonia or atelectasis. Mild dependent atelectatic changes are also seen based upon the major fissures bilaterally in the upper lobes. Calcified density in the left lower lobe is again seen, likely a granuloma. No new or enlarging focal lung nodule or mass. No pneumothorax. Central airways patent. LYMPHOVASCULAR STRUCTURES: Aortic and heart size normal. Minimal atherosclerotic calcification of the aorta is seen. Trace pericardial fluid. There is enlargement of the main pulmonary artery seen, measuring 3.2 cm versus 2.9 cm previously. No mediastinal, hilar or axillary adenopathy or free fluid collection. THYROID GLAND: Unremarkable to the extent included. BONES: Nonfusion of the posterior elements of C7 again noted. No suspicious focal findings. CT SCAN OF THE ABDOMEN AND PELVIS: LIVER, GALLBLADDER, AND BILIARY TREE: The liver is normal in size, shape, and attenuation. No focal hepatic lesion on noncontrast imaging. No biliary ductal dilatation is present. The gallbladder is surgically absent. Small amount of edema and stranding in the gallbladder fossa persists, unchanged, consistent with extension of the peripancreatic edema. PANCREAS: The pancreas remains enlarged and edematous and is surrounded by peripancreatic fluid, which extends into the gastrosplenic and gastrohepatic ligaments, unchanged, and also extends into the pelvis, increased in volume when compared to the prior exam. No discrete walled off fluid collections are seen. SPLEEN, ADRENAL GLANDS: Unremarkable on noncontrast imaging. KIDNEYS AND URETERS: The kidneys are normal in size, shape, and attenuation. No hydronephrosis, hydroureter, or calculi seen. No perinephric stranding. BLADDER: Unremarkable. PELVIC VISCERA: Uterus is retroflexed and unremarkable. Adnexa are unremarkable. There is increasing pelvic free fluid seen.. GASTROINTESTINAL TRACT: The small and large bowel are unremarkable. Some oral contrast is seen outlining portions of the colon. The appendix is partially visualized and appears grossly unremarkable. ABDOMINAL WALL: There is a small fat-containing umbilical hernia. LYMPH NODES, VASCULAR: Unremarkable. OSSEOUS STRUCTURES: Unremarkable. IMPRESSION: 1. Again seen are changes consistent with interstitial pancreatitis. The peripancreatic fluid in the abdomen is similar to the previous study, but has increased in volume in the pelvis. No walled off fluid collections are seen. 2. No significant change in moderate size bilateral pleural effusions and associated volume loss and consolidation with air bronchograms in both lower lobes. Findings may be related to pneumonia or atelectasis. Clinical correlation requested. 3. Enlargement of the pulmonary arteries again seen, raising the suspicion of pulmonary arterial hypertension. 4. Status post cholecystectomy with no evidence of biliary obstruction. 5. Small fat-containing umbilical hernia.
[2017-09-24 15:21] VITALS: BP 99/57
[2017-09-24 22:31] VITALS: BP 101/57
[2017-09-25 06:20] VITALS: BP 91/58
--- NOTE | 2017-09-25 08:08 | PN- Housestaff ---
Margaret MORILLO,Roberto 09/25/17 0808: Subjective Follow-up For: Gallstone pancreatitis status post ERCP and cholecystectomy Persistent leukocytosis and bandemia Subjective: Patient was seen and examined at bedside. She is resting comfortably. She had no acute events overnight. She started on a clear liquid diet yesterday and states that she is feeling some abdominal discomfort secondary to gas. She reports feeling some nausea after taking a large meal of clear liquids but has an taking in less amounts and she is feeling better. Her abdominal pain is still present. She denies any chest pain, shortness of breath, vomiting, fever, chills Review of Systems Constitutional: Reports: no symptoms. EENTM: Reports: no symptoms. Cardiovascular: Reports: no symptoms. Respiratory: Reports: no symptoms. Gastrointestinal: Reports: see HPI, abdominal pain, bloating. Genitourinary: Reports: no symptoms. Musculoskeletal: Reports: no symptoms. Objective Last 24 Hrs of Vital Signs/I&O Vital Signs Date Time Temp Pulse Resp B/P B/P Pulse O2 O2 Flow FiO2 Mean Ox Delivery Rate 09/25 0620 98.1 92 18 91/58 93 Room Air 09/24 2231 98.9 102 18 101/57 96 Room Air 09/24 1521 98.3 103 18 99/57 98 Intake & Output 09/25 1600 09/25 0800 09/25 0000 Intake Total 1350 1600 Output Total Balance 1350 1600 Intake, IV 1050 1200 Intake, Oral 300 400 Number 1 Bowel Movements Physical Exam General Appearance: Alert, Oriented X3, Cooperative, No Acute Distress Skin Temp/Moisture Exam: Warm/Dry Cardiovascular: Regular Rate, Normal S1, Normal S2 Lungs: diminished breath sounds at the lung bases bilaterally Abdomen: mildly distended, TTP in the epigastric area and RUQ and RLQ Neurological: Normal Speech, Normal Tone, Sensation Intact Current Medications: Current Medications Sig/Mk Start time Last Medication Dose Route Stop Time Status Admin Dextrose/Sodium 1,000 ML Q6H 09/24 1030 AC 09/25 Chloride IV 0639 Heparin Sodium 5,000 UNIT Q8 09/20 1400 AC 09/25 (Porcine) SC 0636 Hydromorphone HCl 2 MG Q4-6 PRN 09/18 1845 AC 09/25 PO 0501 Lactated Ringer's 1,000 ML Q10H 09/21 1700 DC 09/24 IV 0245 Ondansetron HCl 4 MG Q8P PRN 09/15 0345 AC 09/21 IV 1502 Pantoprazole Sodium 40 MG DAILY 09/15 0500 AC 09/24 IV 0840 Sodium Chloride 1,000 ML Q6H 09/24 0900 DC 09/24 IV 0915 Tramadol HCl 50 MG Q6 09/16 0945 AC 09/25 PO 0636 Last 24 Hrs of Lab/Luis Antonio Results Last 24 Hrs of Labs/Mics: Laboratory Tests 09/25/17 0732: Sodium Pending, Potassium Pending, Chloride Pending, Carbon Dioxide Pending, Anion Gap Pending, BUN Pending, Creatinine Pending, BUN/Creatinine Ratio Pending , CBC w Diff Pending, WBC Pending, RBC Pending, Hgb Pending, Hct Pending, MCV Pending, MCH Pending, MCHC Pending, RDW Pending, Plt Count Pending, MPV Pending Assessment/Plan Assessment: Patient is 52-year-old female with a PMH significant for GERD, HLD, H. pylori infection who underwent ERCP on 09/15, impression Choledocholithiasis, treated with sphincterotomy and extraction of 4 stones, treated with sphincterotomy and extraction now s/p cholecystectomy on 09/18. #Gallstone pancreatitis S/P ERCP, S/P cholecystectomy Her white count and bands continued to trend down -Follow-up blood cultures, pleural fluid culture and UA and urine culture, currenlty no growth -Adequate pain control, manage nausea with Zofran -Oral PPI -continue to follow off of antibiotics -ID recommendations appreciated -CT shows no significant changes, with mild increase in fluid collection in the pancreas -Continue with clear liquids, patient has been having some nausea but no vomiting, will advance diet slowly -Follow up with Dr. Bowers as an outpatient #Hyponatremia, imrpoving -switched to D5 NS from D5 07/20 NS #Hypokalemia -Repleted orally -We'll continue to transfuse BEP #Hyperbilirubinemia, Transaminitis, elevated alkaline phosphatase-improving -Continue to monitor LFTs #pleural effusion with atelectasis Patient went for thoracentesis on 09/21/17. Fluid studies indicate state. This could represent pneumonia or possibly atelectasis in the setting of surgery and aggressive rehydration. -continue to watch off of antibiotic -Continue Incentive spirometry Diet: Clear liquids DVT ppx: SC heparin Code status: Full code Problem List: 1. Gallstone pancreatitis 2. Hyponatremia 3. Leukocytosis Pain Ratin Pain Location: abdomen Pain Goal: Pain 4 or less Pain Plan: pain pathway Tomorrow's Labs & Rationales: cbc, bep Blanca MORILLOYesseniacaitlin 09/25/17 1434: Attending MD Review Statement Attending Statement Attending MD Statement: examined this patient, discuss w/resident/PA/MINE MOTOR OPERATOR, agreed w/resident/PA/MINE MOTOR OPERATOR, reviewed EMR data (avail) Attending Assessment/Plan: 52F PMH GERD, HLD admitted to ICU with gallstone pancreatitis s/p ERCP with sphincterotomy and removal of 4 stones, followed by cholecystectomy on 09/17 without complication, now improving. Abdominal pain is improved today, looks better. Cultures negative. WBC down slightly to 28. CT abdomen/pelvis shows stable pancreatic fluid and bilateral pleural effusion. 1. Gallstone pancreatitis 2. Choledocholithiasis 3. Acute cholecystitis Plan - Continue on general medicine - Off antibiotics for now - Clear liquid diet, will advance tomorrow to full liquids if continues to improve - Follow blood and urine cultures - Follow ID and surgery recommendations - DVT PPx
[2017-09-25 09:28] LABS: ABSOLUTE BASOPHIL COUNT 0 /CUMM (0.0-0.2); ABSOLUTE EOSINOPHIL COUNT 0.1 /CUMM (0.0-0.7); ABSOLUTE GRANULOCYTE CT 26.8 /CUMM (1.4-6.5); ABSOLUTE LYMPH COUNT 0.8 /CUMM (1.2-3.4); ABSOLUTE MONOCYTE COUNT 1.1 /CUMM (0.10-0.60); BASOPHIL % 0.1 % (0.0-2.0); EOSINOPHIL % 0.4 % (0-5); HEMATOCRIT 28.6 % (37-47); MEAN CORPUSCULAR HGB 28.9 PG (27.0-31.0); MEAN CORPUSCULAR HGB CONC 33.7 G/DL (33.0-37.0); MEAN CORPUSCULAR VOLUME 85.7 FL (81.0-99.0); MEAN PLATELET VOLUME 7.3 FL (7.4-10.4); PLATELET COUNT 522 /CUMM (130-400); RBC DISTRIBUTION WIDTH 14.4 % (11.5-14.5); RED BLOOD CELL CT 3.34 /CUMM (4.20-5.40); WHITE BLOOD CELL COUNT 28.8 /CUMM (4.8-10.8)
[2017-09-25 15:06] VITALS: BP 89/62
[2017-09-25 22:20] VITALS: BP 100/50
[2017-09-26 06:45] VITALS: BP 100/58
--- NOTE | 2017-09-26 08:21 | PN- Housestaff ---
Margaret MORILLO,Roberto 09/26/17 0820: Subjective Follow-up For: Gallstone pancreatitis status post ERCP and cholecystectomy Persistent leukocytosis and bandemia, improving Subjective: Patient was seen and examined at bedside. She is resting comfortably. She had no acute events overnight. She continues to tolerate a clear liquid diet but complains of pain after meals. She continues to have mild abdominal pain but this is also improving. She has no other complaints. She denies any nausea, vomiting, fever, chills, chest pain, shortness of breath. Review of Systems Constitutional: Reports: no symptoms. EENTM: Reports: no symptoms. Cardiovascular: Reports: no symptoms. Respiratory: Reports: no symptoms. Gastrointestinal: Reports: abdominal pain, bloating. Genitourinary: Reports: no symptoms. Musculoskeletal: Reports: no symptoms. Skin: Reports: no symptoms. Objective Last 24 Hrs of Vital Signs/I&O Vital Signs Date Time Temp Pulse Resp B/P B/P Pulse O2 O2 Flow FiO2 Mean Ox Delivery Rate 09/26 0645 97.9 84 16 100/58 96 Room Air 09/25 2220 98.3 93 18 100/50 94 Room Air 09/25 1506 98.0 75 18 89/62 98 Room Air Intake & Output 09/26 1600 09/26 0800 09/26 0000 Intake Total 900 1400 Output Total Balance 900 1400 Intake, IV 800 800 Intake, Oral 100 600 Physical Exam General Appearance: Alert, Oriented X3, Cooperative, No Acute Distress Sepsis Skin Exam (color): Normal for Ethnicity Cardiovascular: Regular Rate, Normal S1, Normal S2 Lungs: Clear to Auscultation, Normal Air Movement Abdomen: TTP in the Epigastrum, and RLQ and RUQ, no significant change from yesterday, mild distension Extremities: No Clubbing, No Cyanosis, No Edema Current Medications: Current Medications Sig/Mk Start time Last Medication Dose Route Stop Time Status Admin Dextrose/Sodium 1,000 ML Q10H 09/25 1430 AC 09/26 Chloride IV 0028 Dextrose/Sodium 1,000 ML Q6H 09/24 1030 DC 09/25 Chloride IV 0639 Heparin Sodium 5,000 UNIT Q8 09/20 1400 AC 09/26 (Porcine) SC 0533 Hydromorphone HCl 2 MG Q4-6 PRN 09/18 1845 AC 09/26 PO 0533 Ketorolac 15 MG Q6PRN PRN 09/25 2345 AC Tromethamine IV Ondansetron HCl 4 MG Q8P PRN 09/15 0345 AC 09/21 IV 1502 Pantoprazole Sodium 40 MG DAILY 09/15 0500 AC 09/25 IV 1010 Potassium Chloride 40 MEQ Q2H 09/25 1000 DC 09/25 PO 09/25 1201 1157 Tramadol HCl 50 MG Q6 09/16 0945 AC 09/26 PO 0646 Last 24 Hrs of Lab/Luis Antonio Results Last 24 Hrs of Labs/Mics: Laboratory Tests 09/26/17 0725: Sodium Pending, Potassium Pending, Chloride Pending, Carbon Dioxide Pending, Anion Gap Pending, BUN Pending, Creatinine Pending, BUN/Creatinine Ratio Pending , CBC w Diff Pending, WBC Pending, RBC Pending, Hgb Pending, Hct Pending, MCV Pending, MCH Pending, MCHC Pending, RDW Pending, Plt Count Pending, MPV Pending Assessment/Plan Assessment: Patient is 52-year-old female with a PMH significant for GERD, HLD, H. pylori infection who underwent ERCP on 09/15, impression Choledocholithiasis, treated with sphincterotomy and extraction of 4 stones, treated with sphincterotomy and extraction now s/p cholecystectomy on 09/18. #Gallstone pancreatitis S/P ERCP, S/P cholecystectomy Her white count and bands continued to trend down, and she is showing slow clinical improvement. -Follow-up blood cultures, pleural fluid culture and UA and urine culture, currenlty no growth -Adequate pain control, manage nausea with Zofran -Oral PPI -continue to follow off of antibiotics -ID recommendations appreciated -CT shows no significant changes, with mild increase in fluid collection in the pancreas -Tolerating clear liquid diet but she continues to have gas pains. We will continue with clear liquids for now and advance slowly -Start Maalox for gas -Follow up with Dr. Bowers as an outpatient #Hyponatremia, imrpoving -Continue to follow BEP #pleural effusion with atelectasis Patient went for thoracentesis on 09/21/17. Fluid studies indicate state. This could represent pneumonia or possibly atelectasis in the setting of surgery and aggressive rehydration. -continue to watch off of antibiotic -Continue Incentive spirometry Diet: Clear liquids DVT ppx: SC heparin Code status: Full code Problem List: 1. Hyponatremia 2. Leukocytosis 3. Gallstone pancreatitis Pain Ratin Pain Location: abdomen Pain Goal: Pain 4 or less Pain Plan: pain pathway Tomorrow's Labs & Rationales: cbc, bep Maikol Rios MD 09/26/17 1315: Attending MD Review Statement Attending Statement Attending MD Statement: examined this patient, discuss w/resident/PA/LABORATORY SUPERVISOR, agreed w/resident/PA/LABORATORY SUPERVISOR, reviewed EMR data (avail) Attending Assessment/Plan: 52F PMH GERD, HLD admitted to ICU with gallstone pancreatitis s/p ERCP with sphincterotomy and removal of 4 stones, followed by cholecystectomy on 09/17 without complication, now improving. Abdominal pain is improved today, looks better. Cultures negative. WBC down slightly to 28. CT abdomen/pelvis shows stable pancreatic fluid and bilateral pleural effusion. 1. Gallstone pancreatitis 2. Choledocholithiasis 3. Acute cholecystitis Plan - Continue on general medicine - Off antibiotics for now - Advance to full liquid diet - Follow blood and urine cultures - Follow ID and surgery recommendations - DVT PPx
[2017-09-26 08:51] LABS: ABSOLUTE BASOPHIL COUNT 0 /CUMM (0.0-0.2); ABSOLUTE EOSINOPHIL COUNT 0.2 /CUMM (0.0-0.7); ABSOLUTE GRANULOCYTE CT 20.6 /CUMM (1.4-6.5); ABSOLUTE LYMPH COUNT 1.2 /CUMM (1.2-3.4); ABSOLUTE MONOCYTE COUNT 1.1 /CUMM (0.10-0.60); BASOPHIL % 0.1 % (0.0-2.0); EOSINOPHIL % 0.9 % (0-5); GRANULOCYTE % 88.9 % (42.2-75.2); MEAN CORPUSCULAR HGB 28.6 PG (27.0-31.0); MEAN CORPUSCULAR HGB CONC 33.4 G/DL (33.0-37.0); MEAN CORPUSCULAR VOLUME 85.5 FL (81.0-99.0); MEAN PLATELET VOLUME 7.2 FL (7.4-10.4); PLATELET COUNT 475 /CUMM (130-400); RBC DISTRIBUTION WIDTH 14.5 % (11.5-14.5); RED BLOOD CELL CT 3.28 /CUMM (4.20-5.40); WHITE BLOOD CELL COUNT 23.1 /CUMM (4.8-10.8)
--- NOTE | 2017-09-26 10:57 | PN- Infect Dx ---
Subjective Subjective: Afebrile. She notes some abdominal discomfort since beginning on a liquid diet yesterday. She has no respiratory complaints. Objective Last 24 Hrs of Vital Signs/I&O Vital Signs Date Time Temp Pulse Resp B/P B/P Pulse O2 O2 Flow FiO2 Mean Ox Delivery Rate 09/26 0645 97.9 84 16 100/58 96 Room Air 09/25 2220 98.3 93 18 100/50 94 Room Air 09/25 1506 98.0 75 18 89/62 98 Room Air Intake & Output 09/26 1600 09/26 0800 09/26 0000 Intake Total 900 1400 Output Total Balance 900 1400 Intake, IV 800 800 Intake, Oral 100 600 Physical Exam Other Physical Findings: She appears comfortable in no acute distress Lungs are clear Heart regular rhythm with no murmur Abdomen is soft, tender on palpation diffusely, with no guarding or rebound, positive bowel sounds Extremities no cyanosis, clubbing or edema Results Last 24 Hours of Lab Results: Laboratory Tests 09/26 0725 Chemistry Sodium (137 - 145 mmol/L) 133 L Potassium (3.5 - 5.1 mmol/L) 4.0 Chloride (98 - 107 mmol/L) 103 Carbon Dioxide (22 - 30 mmol/L) 24 Anion Gap (5 - 16) 6 BUN (7 - 17 mg/dL) 2 L Creatinine (0.5 - 1.0 mg/dL) 0.3 L Estimated GFR (>60 ml/min) > 60 BUN/Creatinine Ratio (7 - 25 %) 6.7 L Hematology CBC w Diff MAN DIFF ORDERED WBC (4.8 - 10.8 /CUMM) 23.1 H RBC (4.20 - 5.40 /CUMM) 3.28 L Hgb (12.0 - 16.0 G/DL) 9.4 L Hct (37 - 47 %) 28.0 L MCV (81.0 - 99.0 FL) 85.5 MCH (27.0 - 31.0 PG) 28.6 MCHC (33.0 - 37.0 G/DL) 33.4 RDW (11.5 - 14.5 %) 14.5 Plt Count (130 - 400 /CUMM) 475 H MPV (7.4 - 10.4 FL) 7.2 L Gran % (42.2 - 75.2 %) 88.9 H Lymphocytes % (20.5 - 51.1 %) 5.4 L Monocytes % (1.7 - 9.3 %) 4.7 Eosinophils % (0 - 5 %) 0.9 Basophils % (0.0 - 2.0 %) 0.1 Absolute Granulocytes (1.4 - 6.5 /CUMM) 20.6 H Segmented Neutrophils (42.2 - 75.2 %) 71 Band Neutrophils (0.0 - 5.0 %) 15 H Absolute Lymphocytes (1.2 - 3.4 /CUMM) 1.2 Lymphocytes (20.5 - 51.1 %) 4 L Monocytes (1.7 - 9.3 %) 6 Absolute Monocytes (0.10 - 0.60 /CUMM) 1.1 H Absolute Eosinophils (0.0 - 0.7 /CUMM) 0.2 Absolute Basophils (0.0 - 0.2 /CUMM) 0 Metamyelocytes (0.0 - 1.0 %) 3 H Myelocytes (0 - 0 %) 1 H Platelet Estimate (ADEQUATE) VERIFIED BY SMEAR Polychromasia 1+ Last 24 Hours of Luis Antonio Results: No new cultures Assessment/Plan ID Impression: Continues to improve, with temperatures remaining normal and white blood cell count decreasing, off antibiotics. She has had recurrent abdominal pain since she was begun on a liquid diet, presumably secondary to ongoing pancreatic inflammation. Suggestion: 1. Further management of her pancreatitis per GI 2. Continue to follow off antibiotics
[2017-09-26 13:44] VITALS: BP 118/60
--- NOTE | 2017-09-26 16:28 | PN- Gastroenterology ---
Assessment/Plan GI Assessment/Recommendations: Gallstone pancreatitis/choledocholithiasis, treated with ERCP/sphincterotomy and stone extraction. This was followed by prompt cholecystectomy. Since that time the patient has had leukocytosis, fever (resolved), increasing abdomen/pelvis fluid collections, and continued abdominal pain with inability to tolerate more than clear liquids. The pancreatitis is slow to resolve. Question infection of fluid collection(s), in the setting of cholecystectomy. Recommendations * Consider nasojejunal tube feeding versus TPN * Surgery reevaluation and recommendations: smoldering pancreatitis immediately after cholecystectomy; this is in the postoperative period. * Consider analysis of intra-abdominal fluid to rule out infection Subjective Subjective: Patient is having pain, especially postprandial, despite only clear liquid diet. She has some nausea, but no vomiting. She denies fever, sweats, chest pain, dyspnea. Objective Vital Signs and I&Os Vital Signs Date Time Temp Pulse Resp B/P B/P Pulse O2 O2 Flow FiO2 Mean Ox Delivery Rate 09/26 1344 99.2 86 18 118/60 97 09/26 0645 97.9 84 16 100/58 96 Room Air 09/25 2220 98.3 93 18 100/50 94 Room Air Intake & Output 09/26 1600 09/26 0400 09/25 1600 09/25 0400 09/24 1600 09/24 0400 Intake Total 1400 1400 2850 1600 2475 1530 Output Total 500 Balance 1400 1400 2850 1600 1975 1530 Intake, IV 667 855 2763 1200 2325 1050 Intake, Oral 600 600 650 400 150 480 Number 2 0 1 Bowel Movements Output, Urine 500 Patient 121 lb Weight Physical Exam: Alert and oriented. Appears mildly uncomfortable. Sclera anicteric. No JVD. No edema. Abdomen is soft and minimally distended, with diffuse mild tenderness , especially in the right upper quadrant and right lower quadrant. Results Pertinent Lab Results: Laboratory Tests 09/26 09/25 0725 0732 Chemistry Sodium (137 - 145 mmol/L) 133 L 132 L Potassium (3.5 - 5.1 mmol/L) 4.0 3.4 L Chloride (98 - 107 mmol/L) 103 95 L Carbon Dioxide (22 - 30 mmol/L) 24 28 Anion Gap (5 - 16) 6 9 BUN (7 - 17 mg/dL) 2 L 2 L Creatinine (0.5 - 1.0 mg/dL) 0.3 L 0.4 L Estimated GFR (>60 ml/min) > 60 > 60 BUN/Creatinine Ratio (7 - 25 %) 6.7 L 5.0 L Hematology CBC w Diff MAN DIFF ORDERED MAN DIFF ORDERED WBC (4.8 - 10.8 /CUMM) 23.1 H 28.8 H RBC (4.20 - 5.40 /CUMM) 3.28 L 3.34 L Hgb (12.0 - 16.0 G/DL) 9.4 L 9.6 L Hct (37 - 47 %) 28.0 L 28.6 L MCV (81.0 - 99.0 FL) 85.5 85.7 MCH (27.0 - 31.0 PG) 28.6 28.9 MCHC (33.0 - 37.0 G/DL) 33.4 33.7 RDW (11.5 - 14.5 %) 14.5 14.4 Plt Count (130 - 400 /CUMM) 475 H 522 H MPV (7.4 - 10.4 FL) 7.2 L 7.3 L Gran % (42.2 - 75.2 %) 88.9 H 93.0 H Lymphocytes % (20.5 - 51.1 %) 5.4 L 2.7 L Monocytes % (1.7 - 9.3 %) 4.7 3.8 Eosinophils % (0 - 5 %) 0.9 0.4 Basophils % (0.0 - 2.0 %) 0.1 0.1 Absolute Granulocytes (1.4 - 6.5 /CUMM) 20.6 H 26.8 H Segmented Neutrophils (42.2 - 75.2 %) 71 81 H Band Neutrophils (0.0 - 5.0 %) 15 H 11 H Absolute Lymphocytes (1.2 - 3.4 /CUMM) 1.2 0.8 L Lymphocytes (20.5 - 51.1 %) 4 L 1 L Monocytes (1.7 - 9.3 %) 6 4 Absolute Monocytes (0.10 - 0.60 /CUMM) 1.1 H 1.1 H Absolute Eosinophils (0.0 - 0.7 /CUMM) 0.2 0.1 Absolute Basophils (0.0 - 0.2 /CUMM) 0 0 Metamyelocytes (0.0 - 1.0 %) 3 H 2 H Myelocytes (0 - 0 %) 1 H 1 H Platelet Estimate (ADEQUATE) VERIFIED BY SMEAR INCREASED Polychromasia 1+ 1+ 09/24 0751 Chemistry Sodium (137 - 145 mmol/L) 130 L Potassium (3.5 - 5.1 mmol/L) 3.8 Chloride (98 - 107 mmol/L) 93 L Carbon Dioxide (22 - 30 mmol/L) 24 Anion Gap (5 - 16) 13 BUN (7 - 17 mg/dL) 8 Creatinine (0.5 - 1.0 mg/dL) 0.4 L Estimated GFR (>60 ml/min) > 60 BUN/Creatinine Ratio (7 - 25 %) 20.0 Total Bilirubin (0.2 - 1.3 mg/dL) 1.1 Direct Bilirubin (< 0.4 mg/dL) 0.8 H AST (14 - 36 U/L) 40 H ALT (9 - 52 U/L) 57 H Alkaline Phosphatase (<127 U/L) 185 H Total Protein (6.3 - 8.2 g/dL) 4.8 L Albumin (3.5 - 5.0 g/dL) 2.3 L Hematology CBC w Diff MAN DIFF ORDERED WBC (4.8 - 10.8 /CUMM) 31.2 *H RBC (4.20 - 5.40 /CUMM) 3.42 L Hgb (12.0 - 16.0 G/DL) 9.9 L Hct (37 - 47 %) 29.1 L MCV (81.0 - 99.0 FL) 85.2 MCH (27.0 - 31.0 PG) 28.9 MCHC (33.0 - 37.0 G/DL) 33.9 RDW (11.5 - 14.5 %) 14.8 H Plt Count (130 - 400 /CUMM) 479 H MPV (7.4 - 10.4 FL) 7.3 L Gran % (42.2 - 75.2 %) 91.8 H Lymphocytes % (20.5 - 51.1 %) 3.1 L Monocytes % (1.7 - 9.3 %) 4.6 Eosinophils % (0 - 5 %) 0.4 Basophils % (0.0 - 2.0 %) 0.1 Absolute Granulocytes (1.4 - 6.5 /CUMM) 28.6 H Segmented Neutrophils (42.2 - 75.2 %) 82 H Band Neutrophils (0.0 - 5.0 %) 12 H Absolute Lymphocytes (1.2 - 3.4 /CUMM) 1.0 L Lymphocytes (20.5 - 51.1 %) 2 L Monocytes (1.7 - 9.3 %) 3 Absolute Monocytes (0.10 - 0.60 /CUMM) 1.4 H Absolute Eosinophils (0.0 - 0.7 /CUMM) 0.1 Absolute Basophils (0.0 - 0.2 /CUMM) 0 Metamyelocytes (0.0 - 1.0 %) 1 Platelet Estimate (ADEQUATE) VERIFIED BY SMEAR Polychromasia 1+ Hypochromic-Microcytic 1+ Anisocytosis 1+ Imaging/Other Studies: CT scan on September 23: IMPRESSION: 1. Again seen are changes consistent with interstitial pancreatitis. The peripancreatic fluid in the abdomen is similar to the previous study, but has increased in volume in the pelvis. No walled off fluid collections are seen. 2. No significant change in moderate size bilateral pleural effusions and associated volume loss and consolidation with air bronchograms in both lower lobes. Findings may be related to pneumonia or atelectasis. Clinical correlation requested. 3. Enlargement of the pulmonary arteries again seen, raising the suspicion of pulmonary arterial hypertension. 4. Status post cholecystectomy with no evidence of biliary obstruction. 5. Small fat-containing umbilical hernia.
[2017-09-26 22:10] VITALS: BP 96/54
[2017-09-27 06:48] VITALS: BP 92/60
--- NOTE | 2017-09-27 07:12 | PN- Housestaff ---
Margaret MORILLO,Roberto 09/27/17 0712: Subjective Follow-up For: Gallstone pancreatitis status post ERCP and cholecystectomy Persistent leukocytosis and bandemia, improving Subjective: Patient was seen and examined at bedside. She was resting comfortably. She had no acute events overnight. She had one episode of diarrhea this morning but with accompanying mild abdominal pain. She is otherwise tolerating a full liquid diet well. She has had improved bloating and gas pain since being started on Maalox. And her overall abdominal pain is decreased 34/10 and well- controlled with current pain regimen. She denies any nausea, vomiting, fever, chills, chest pain, shortness of breath. Review of Systems Constitutional: Reports: no symptoms. EENTM: Reports: no symptoms. Cardiovascular: Reports: no symptoms. Respiratory: Reports: no symptoms. Gastrointestinal: Reports: bloating, diarrhea (one episode). Denies: nausea, vomiting. Genitourinary: Reports: no symptoms. Musculoskeletal: Reports: no symptoms. Objective Last 24 Hrs of Vital Signs/I&O Vital Signs Date Time Temp Pulse Resp B/P B/P Pulse O2 O2 Flow FiO2 Mean Ox Delivery Rate 09/27 0648 98.5 85 20 92/60 96 Room Air 09/26 2210 98.6 99 18 96/54 96 Room Air 09/26 1344 99.2 86 18 118/60 97 Intake & Output 09/27 0800 09/27 0000 09/26 1600 Intake Total 1600 1800 Output Total Balance 1600 1800 Intake, IV 800 700 Intake, Oral 800 1100 Physical Exam General Appearance: Alert, Oriented X3, Cooperative, No Acute Distress Skin Temp/Moisture Exam: Warm/Dry Cardiovascular: Regular Rate, Normal S1, Normal S2 Lungs: decreased breath sounds at the lung bases Abdomen: surgical wounds now dressed with steristrips, no sign of leakage or saturation, continued tenderness to palpation in the epigastrum, RUQ, and RLQ but this is improving. Neurological: Normal Speech, Normal Tone, Sensation Intact Extremities: No Clubbing, No Cyanosis, No Edema Current Medications: Current Medications Sig/Mk Start time Last Medication Dose Route Stop Time Status Admin Al Hydroxide/Mg 30 ML .STK-MED ONE 09/26 1655 DC Hydroxide PO 09/26 1656 Al Hydroxide/Mg 30 ML .STK-MED ONE 09/26 1651 DC Hydroxide PO 09/26 1652 Al Hydroxide/Mg 30 ML .STK-MED ONE 09/26 1046 DC Hydroxide PO 09/26 1047 Al Hydroxide/Mg 30 ML Q4-6 PRN PRN 09/26 1015 AC 09/26 Hydroxide PO 1652 Dextrose/Sodium 1,000 ML Q10H 09/25 1430 AC 09/26 Chloride IV 2132 Heparin Sodium 5,000 UNIT Q8 09/20 1400 DC 09/26 (Porcine) SC 2132 Hydromorphone HCl 2 MG Q4-6 PRN 09/18 1845 AC 09/26 PO 2045 Ketorolac 15 MG Q6PRN PRN 09/25 2345 AC Tromethamine IV Ondansetron HCl 4 MG Q8P PRN 09/15 0345 AC 09/21 IV 1502 Pantoprazole Sodium 40 MG DAILY 09/15 0500 AC 09/26 IV 1048 Tramadol HCl 50 MG Q6 09/16 0945 DC 09/26 PO 0646 Last 24 Hrs of Lab/Luis Antonio Results Last 24 Hrs of Labs/Mics: Laboratory Tests 09/26/17 0725: Anion Gap 6, Estimated GFR > 60, BUN/Creatinine Ratio 6.7 L, CBC w Diff MAN DIFF ORDERED, RBC 3.28 L, MCV 85.5, MCH 28.6, MCHC 33.4, RDW 14.5, MPV 7.2 L, Gran % 88.9 H, Lymphocytes % 5.4 L, Monocytes % 4.7, Eosinophils % 0.9, Basophils % 0.1, Absolute Granulocytes 20.6 H, Segmented Neutrophils 71, Band Neutrophils 15 H, Absolute Lymphocytes 1.2, Lymphocytes 4 L, Monocytes 6, Absolute Monocytes 1.1 H, Absolute Eosinophils 0.2, Absolute Basophils 0, Metamyelocytes 3 H, Myelocytes 1 H, Platelet Estimate VERIFIED BY SMEAR, Polychromasia 1+ Assessment/Plan Assessment: Patient is 52-year-old female with a PMH significant for GERD, HLD, H. pylori infection who underwent ERCP on 09/15, impression Choledocholithiasis, treated with sphincterotomy and extraction of 4 stones, treated with sphincterotomy and extraction now s/p cholecystectomy on 09/18. #Gallstone pancreatitis S/P ERCP, S/P cholecystectomy Her white count and bands continued to trend down. Per discussion with patient and her daughter at bedside and was determined that there has been some confusion with the patient reporting pain associated with by mouth intake. The patient's only complaint was bloating and mild discomfort secondary to gas. This has improved with Maalox. She is tolerating a full liquid diet although did have an episode of diarrhea this morning. She was seen by surgical PA Today. -Will consider sending stool stuidie if repeat episodes of diarrhea -If tolerates full liquid diet for lunch will consider progressing to regular diet, if tolerates this well overnight will consider DC in a.m. -Follow-up blood cultures, pleural fluid culture and UA and urine culture, currenlty no growth -Adequate pain control, by mouth Dilaudid is controlling pain well -Oral PPI -continue to follow off of antibiotics -ID recommendations appreciated -Continue Maalox for gas -Follow up with Dr. Bowers as an outpatient #Hyponatremia, imrpoving -Continue to follow BEP #pleural effusion with atelectasis Patient went for thoracentesis on 09/21/17. Fluid studies indicate state. This could represent pneumonia or possibly atelectasis in the setting of surgery and aggressive rehydration. -continue to watch off of antibiotic -Continue Incentive spirometry Diet: Regular diet DVT ppx: ALPS and ambulation, patient no longer wants pharmacologic heparin due to pain and bruising, the discussed the possible risks, and the patient showed good understanding of her dvt ppx options and the risks of refusing pharmacologic therapy. Code status: Full code Problem List: 1. Hyponatremia 2. Leukocytosis 3. Malnutrition Pain Ratin Pain Location: abdomen Pain Goal: Remain pain free Pain Plan: pain pathway Tomorrow's Labs & Rationales: cbc, bep Maikol Rios MD 09/27/17 1436: Attending MD Review Statement Attending Statement Attending MD Statement: examined this patient, discuss w/resident/PA/BIG DATA ANALYTICS LEAD, agreed w/resident/PA/BIG DATA ANALYTICS LEAD, reviewed EMR data (avail) Attending Assessment/Plan: 52F PMH GERD, HLD admitted to ICU with gallstone pancreatitis s/p ERCP with sphincterotomy and removal of 4 stones, followed by cholecystectomy on 09/17 without complication, now improving. Abdominal pain is improved today, looks better. Cultures negative. WBC down slightly to 18. CT abdomen/pelvis shows stable pancreatic fluid and bilateral pleural effusion. 1. Gallstone pancreatitis 2. Choledocholithiasis 3. Acute cholecystitis Plan - Continue on general medicine - Off antibiotics for now - Advance to regular diet - Follow blood and urine cultures - Follow ID and surgery recommendations - DVT PPx
[2017-09-27 09:11] LABS: ABSOLUTE BASOPHIL COUNT 0 /CUMM (0.0-0.2); ABSOLUTE EOSINOPHIL COUNT 0.2 /CUMM (0.0-0.7); ABSOLUTE GRANULOCYTE CT 15.8 /CUMM (1.4-6.5); ABSOLUTE LYMPH COUNT 1.3 /CUMM (1.2-3.4); ABSOLUTE MONOCYTE COUNT 1.1 /CUMM (0.10-0.60); BASOPHIL % 0 % (0.0-2.0); EOSINOPHIL % 1.2 % (0-5); GRANULOCYTE % 85.9 % (42.2-75.2); HEMATOCRIT 30.3 % (37-47); MEAN CORPUSCULAR HGB 28.4 PG (27.0-31.0); MEAN PLATELET VOLUME 6.9 FL (7.4-10.4); PLATELET COUNT 670 /CUMM (130-400); RBC DISTRIBUTION WIDTH 14.7 % (11.5-14.5); RED BLOOD CELL CT 3.52 /CUMM (4.20-5.40); WHITE BLOOD CELL COUNT 18.4 /CUMM (4.8-10.8)
--- NOTE | 2017-09-27 09:13 | PN- General Surgery ---
Subjective Subjective: Status post admission for gallstone pancreatitis followed by ERCP and sphincterotomy on September 15, followed by laparoscopic cholecystectomy on 09/18, now 9 days postop laparoscopic cholecystectomy. Surgery was asked to reevaluate patient due to possible smoldering pancreatitis after cholecystectomy as recommend by Ted Toribio MD from gastroenterology. Patient states that she feels as though she is slowly getting better, she is able to tolerate more food, she is not nauseous or vomiting, her diet was advanced to full liquid last night and she tolerated dinner and breakfast. She states that she has been up and ambulatory and her pain is getting slowly better. She had a repeat CT scan 2 days ago which is suggestive of interstitial pancreatitis and peripancreatic fluid collection. Her white blood cell blood cell count is slowly trending down. She has loose stool, no vomiting, she denies fever Objective Vital Signs and I&Os Vital Signs Date Time Temp Pulse Resp B/P B/P Pulse O2 O2 Flow FiO2 Mean Ox Delivery Rate 09/27 0648 98.5 85 20 92/60 96 Room Air 09/26 2210 98.6 99 18 96/54 96 Room Air 09/26 1344 99.2 86 18 118/60 97 Intake & Output 09/27 1600 09/27 0800 09/27 0000 09/26 1600 09/26 0800 09/26 0000 Intake Total 800 1600 3167 975 8420 Output Total Balance 800 1600 9765 692 3971 Intake, IV 800 800 700 800 800 Intake, Oral 0 800 1100 100 600 Number 0 Bowel Movements Physical Exam: Well-developed well-nourished no apparent distress. HEENT: Atraumatic, extraocular motion intact Neck: Supple, no lymphadenopathy Respiratory: No respiratory distress Abdomen: Mildly distended, mild tenderness in the epigastric region and right upper quadrant. Positive bowel sounds. Incision sites clean dry and intact Extremities: No edema, no calf pain Neuro: Alert and oriented x3 Psych: Mood affect normal, normal memory normal judgment. Skin: Warm and dry, no rash on exposed skin Results Last 48 Hours of Labs: Laboratory Tests 09/27 09/26 0715 0725 Chemistry Sodium (137 - 145 mmol/L) Pending 133 Potassium (3.5 - 5.1 mmol/L) Pending 4.0 Chloride (98 - 107 mmol/L) Pending 103 Carbon Dioxide (22 - 30 mmol/L) Pending 24 Anion Gap (5 - 16) Pending 6 BUN (7 - 17 mg/dL) Pending 2 L Creatinine (0.5 - 1.0 mg/dL) Pending 0.3 L Estimated GFR (>60 ml/min) > 60 BUN/Creatinine Ratio (7 - 25 %) Pending 6.7 L Total Bilirubin Pending Direct Bilirubin Pending AST Pending ALT Pending Alkaline Phosphatase Pending Total Protein Pending Albumin Pending Hematology CBC w Diff Pending MAN DIFF ORDERED WBC (4.8 - 10.8 /CUMM) Pending 23.1 H RBC (4.20 - 5.40 /CUMM) Pending 3.28 L Hgb (12.0 - 16.0 G/DL) Pending 9.4 L Hct (37 - 47 %) Pending 28.0 L MCV (81.0 - 99.0 FL) Pending 85.5 MCH (27.0 - 31.0 PG) Pending 28.6 MCHC (33.0 - 37.0 G/DL) Pending 33.4 RDW (11.5 - 14.5 %) Pending 14.5 Plt Count (130 - 400 /CUMM) Pending 475 H MPV (7.4 - 10.4 FL) Pending 7.2 L Gran % (42.2 - 75.2 %) 88.9 H Lymphocytes % (20.5 - 51.1 %) 5.4 L Monocytes % (1.7 - 9.3 %) 4.7 Eosinophils % (0 - 5 %) 0.9 Basophils % (0.0 - 2.0 %) 0.1 Absolute Granulocytes (1.4 - 6.5 /CUMM) 20.6 H Segmented Neutrophils (42.2 - 75.2 %) 71 Band Neutrophils (0.0 - 5.0 %) 15 H Absolute Lymphocytes (1.2 - 3.4 /CUMM) 1.2 Lymphocytes (20.5 - 51.1 %) 4 L Monocytes (1.7 - 9.3 %) 6 Absolute Monocytes (0.10 - 0.60 /CUMM) 1.1 H Absolute Eosinophils (0.0 - 0.7 /CUMM) 0.2 Absolute Basophils (0.0 - 0.2 /CUMM) 0 Metamyelocytes (0.0 - 1.0 %) 3 H Myelocytes (0 - 0 %) 1 H Platelet Estimate (ADEQUATE) VERIFIED BY SMEAR Polychromasia 1+ Recent Imaging Studies: PATIENT: HAN KONG PRESENT AGE: 52 PATIENT ACCOUNT NO: [id number] : 67 LOCATION: A ORDERING PHYSICIAN: Sharifa Randolph MD SERVICE DATE: 09/24/17 EXAM TYPE: CAT - CT ABD & PELVIS W/O IV CONTRAS; CT CHEST WO IV CONTRAST EXAMINATION: CT CHEST, ABDOMEN AND PELVIS WITHOUT CONTRAST CLINICAL INFORMATION: Persistently elevated white blood cell count. Rule out acute chest process. Rule out pancreatic necrosis or pseudotumor. COMPARISON: A scan of the chest, abdomen and pelvis dated 11/20/2017. The scan of the abdomen and pelvis dated 09/15/2017. TECHNIQUE: Multidetector volumetric imaging was performed from the base of the neck through the pubic symphysis. Sagittal and coronal reformatted images were obtained on the technologist workstation. DLP: 350.90 mGy-cm. FINDINGS: CT SCAN OF THE CHEST: LUNGS: Moderate size bilateral pleural effusions are again seen layering posteriorly all the way up to the lung apex. The effusions appear simple fluid density and no obvious pleural thickening or nodularity is appreciated on noncontrast study. There are associated parenchymal opacities with air bronchograms and volume loss in both lower lobes, unchanged from prior exam, consistent with pneumonia or atelectasis. Mild dependent atelectatic changes are also seen based upon the major fissures bilaterally in the upper lobes. Calcified density in the left lower lobe is again seen, likely a granuloma. No new or enlarging focal lung nodule or mass. No pneumothorax. Central airways patent. LYMPHOVASCULAR STRUCTURES: Aortic and heart size normal. Minimal atherosclerotic calcification of the aorta is seen. Trace pericardial fluid. There is enlargement of the main pulmonary artery seen, measuring 3.2 cm versus 2.9 cm previously. No mediastinal, hilar or axillary adenopathy or free fluid collection. THYROID GLAND: Unremarkable to the extent included. BONES: Nonfusion of the posterior elements of C7 again noted. No suspicious focal findings. CT SCAN OF THE ABDOMEN AND PELVIS: LIVER, GALLBLADDER, AND BILIARY TREE: The liver is normal in size, shape, and attenuation. No focal hepatic lesion on noncontrast imaging. No biliary ductal dilatation is present. The gallbladder is surgically absent. Small amount of edema and stranding in the gallbladder fossa persists, unchanged, consistent with extension of the peripancreatic edema. PANCREAS: The pancreas remains enlarged and edematous and is surrounded by peripancreatic fluid, which extends into the gastrosplenic and gastrohepatic ligaments, unchanged, and also extends into the pelvis, increased in volume when compared to the prior exam. No discrete walled off fluid collections are seen. SPLEEN, ADRENAL GLANDS: Unremarkable on noncontrast imaging. KIDNEYS AND URETERS: The kidneys are normal in size, shape, and attenuation. No hydronephrosis, hydroureter, or calculi seen. No perinephric stranding. BLADDER: Unremarkable. PELVIC VISCERA: Uterus is retroflexed and unremarkable. Adnexa are unremarkable. There is increasing pelvic free fluid seen.. GASTROINTESTINAL TRACT: The small and large bowel are unremarkable. Some oral contrast is seen outlining portions of the colon. The appendix is partially visualized and appears grossly unremarkable. ABDOMINAL WALL: There is a small fat-containing umbilical hernia. LYMPH NODES, VASCULAR: Unremarkable. OSSEOUS STRUCTURES: Unremarkable. IMPRESSION: 1. Again seen are changes consistent with interstitial pancreatitis. The peripancreatic fluid in the abdomen is similar to the previous study, but has increased in volume in the pelvis. No walled off fluid collections are seen. 2. No significant change in moderate size bilateral pleural effusions and associated volume loss and consolidation with air bronchograms in both lower lobes. Findings may be related to pneumonia or atelectasis. Clinical correlation requested. 3. Enlargement of the pulmonary arteries again seen, raising the suspicion of pulmonary arterial hypertension. 4. Status post cholecystectomy with no evidence of biliary obstruction. 5. Small fat-containing umbilical hernia. DICTATED BY: Robbie MORILLO,Kristi Sommer DATE/TIME DICTATED:09/24/171211 ELECTRIC REFRIGERATOR SERVICER:CHUCKY DATE/TIME TRANSCRIBED:09/24/171211 Assessment/Plan Assessment/Plan Postop day 9 status post laparoscopic cholecystectomy secondary to gallstone pancreatitis status post ERCP and sphincterotomy with removal of 4 gallstones. Likely persistent symptoms related to pancreatitis. There is no focal collection noted in the gallbladder fossa and her LFT's have normalized therefore there does not appear to be a significant bile leak causing peritonitis however paracentesis could be performed to analyze the fluid to investigate this further if the patient does not continue to improve. No indication for acute surgical intervention at this time. Discussed with Dr. Robinson Core Measures Venous Thromboembolism VTE Risk Factors Acute Medical Illness No Mechanical VTE Prophylaxis d/t N/A MechProphylax Ordered No VTE Pharm Prophylaxis d/t NA PharmProphylax ordered
--- NOTE | 2017-09-27 13:26 | PN- Infect Dx ---
Subjective Subjective: Afebrile. She feels improved with decreased abdominal discomfort, and she is tolerating a regular diet. Objective Last 24 Hrs of Vital Signs/I&O Vital Signs Date Time Temp Pulse Resp B/P B/P Pulse O2 O2 Flow FiO2 Mean Ox Delivery Rate 09/27 0648 98.5 85 20 92/60 96 Room Air 09/26 2210 98.6 99 18 96/54 96 Room Air 09/26 1344 99.2 86 18 118/60 97 Intake & Output 09/27 1600 09/27 0800 09/27 0000 Intake Total 800 1600 Output Total Balance 800 1600 Intake, IV 800 800 Intake, Oral 0 800 Number 0 Bowel Movements Physical Exam Other Physical Findings: She appears comfortable in no acute distress Abdomen is soft, nontender with positive bowel sounds Results Last 24 Hours of Lab Results: Laboratory Tests 09/27 0715 Chemistry Sodium (137 - 145 mmol/L) 135 L Potassium (3.5 - 5.1 mmol/L) 4.0 Chloride (98 - 107 mmol/L) 103 Carbon Dioxide (22 - 30 mmol/L) 25 Anion Gap (5 - 16) 7 BUN (7 - 17 mg/dL) 2 L Creatinine (0.5 - 1.0 mg/dL) 0.4 L Estimated GFR (>60 ml/min) > 60 BUN/Creatinine Ratio (7 - 25 %) 5.0 L Total Bilirubin (0.2 - 1.3 mg/dL) 0.5 Direct Bilirubin (< 0.4 mg/dL) 0.4 AST (14 - 36 U/L) 34 ALT (9 - 52 U/L) 48 Alkaline Phosphatase (<127 U/L) 159 H Total Protein (6.3 - 8.2 g/dL) 5.3 L Albumin (3.5 - 5.0 g/dL) 2.5 L Hematology CBC w Diff MAN DIFF ORDERED WBC (4.8 - 10.8 /CUMM) 18.4 H RBC (4.20 - 5.40 /CUMM) 3.52 L Hgb (12.0 - 16.0 G/DL) 10.0 L Hct (37 - 47 %) 30.3 L MCV (81.0 - 99.0 FL) 86.0 MCH (27.0 - 31.0 PG) 28.4 MCHC (33.0 - 37.0 G/DL) 33.0 RDW (11.5 - 14.5 %) 14.7 H Plt Count (130 - 400 /CUMM) 670 H MPV (7.4 - 10.4 FL) 6.9 L Gran % (42.2 - 75.2 %) 85.9 H Lymphocytes % (20.5 - 51.1 %) 7.1 L Monocytes % (1.7 - 9.3 %) 5.8 Eosinophils % (0 - 5 %) 1.2 Basophils % (0.0 - 2.0 %) 0 Absolute Granulocytes (1.4 - 6.5 /CUMM) 15.8 H Segmented Neutrophils (42.2 - 75.2 %) 74 Band Neutrophils (0.0 - 5.0 %) 8 H Absolute Lymphocytes (1.2 - 3.4 /CUMM) 1.3 Lymphocytes (20.5 - 51.1 %) 5 L Monocytes (1.7 - 9.3 %) 6 Absolute Monocytes (0.10 - 0.60 /CUMM) 1.1 H Eosinophils (0 - 5.0 %) 2 Absolute Eosinophils (0.0 - 0.7 /CUMM) 0.2 Absolute Basophils (0.0 - 0.2 /CUMM) 0 Metamyelocytes (0.0 - 1.0 %) 3 H Myelocytes (0 - 0 %) 2 H Platelet Estimate (ADEQUATE) VERIFIED BY SMEAR Normocytic RBCs VERIFIED Normochromic RBCs VERIFIED Last 24 Hours of Luis Antonio Results: No new cultures Assessment/Plan ID Impression: Overall improvement continues, with temperatures remaining normal and white blood cell count continuing to decrease off antibiotics, with no evidence of any active infection. She is now tolerating a regular diet with decreased abdominal discomfort. Suggestion: 1. Further management of her pancreatitis per GI 2. Continue to follow off antibiotics Will no longer follow at this time, but please call with any questions
[2017-09-27 13:56] VITALS: BP 112/50
--- NOTE | 2017-09-27 21:24 | PN- Gastroenterology ---
Assessment/Plan GI Assessment/Recommendations: Gallstone pancreatitis status post ERCP/sphincterotomy, and cholecystectomy. Moderate pancreatitis with fluid collections, slow to resolve. Improving leukocytosis off of antibiotics, fever (resolved), and improving abdominal pain. Recommendations * Advance to low fat solid diet * Appreciate surgery follow-up * Consider analysis of intra-abdominal fluid to rule out infection if develops fever or worsening leukocytosis Subjective Subjective: The patient's pain has improved. She is tolerating a full liquid diet. There has been no nausea. She had several loose bowel movements. She has been afebrile. Objective Vital Signs and I&Os Vital Signs Date Time Temp Pulse Resp B/P B/P Pulse O2 O2 Flow FiO2 Mean Ox Delivery Rate 09/27 1356 98.9 89 20 112/50 97 Room Air 09/27 0648 98.5 85 20 92/60 96 Room Air 09/26 2210 98.6 99 18 96/54 96 Room Air Intake & Output 09/27 1600 09/27 0400 09/26 1600 09/26 0400 09/25 1600 09/25 0400 Intake Total 1600 1600 2700 1400 2850 1600 Output Total 400 Balance 1200 1600 2700 1400 2850 1600 Intake, IV 728 094 8183 800 2200 1200 Intake, Oral 832 954 4122 600 650 400 Number 1 2 Bowel Movements Output, Urine 400 Physical Exam: Alert and oriented. Appears well. Sclera anicteric. No edema. No adenopathy. Abdomen soft, nondistended, with mild right upper quadrant tenderness. Current Medications: Current Medications Sig/Mk Start time Last Medication Dose Route Stop Time Status Admin Al Hydroxide/Mg 30 ML .STK-MED ONE 09/27 0753 DC Hydroxide PO 09/27 0754 Al Hydroxide/Mg 30 ML Q4-6 PRN PRN 09/26 1015 AC 09/27 Hydroxide PO 1750 Dextrose/Sodium 1,000 ML Q10H 09/25 1430 DC 09/27 Chloride IV 1033 Heparin Sodium 5,000 UNIT Q8 09/20 1400 DC 09/26 (Porcine) SC 2132 Hydromorphone HCl 2 MG Q4-6 PRN 09/18 1845 AC 09/27 PO 1512 Ketorolac 15 MG Q6PRN PRN 09/25 2345 AC Tromethamine IV Ondansetron HCl 4 MG Q8P PRN 09/15 0345 AC 03/06 IV 1502 Pantoprazole Sodium 40 MG DAILY 09/15 0500 AC 09/27 IV 0738 Patient Medication 1 ED ONE ONE 09/27 1615 DC Teaching ED 09/27 1616 Sodium Chloride 1,000 ML Q13H 09/27 1330 AC 09/27 IV 1544 Results Pertinent Lab Results: Laboratory Tests 09/27 0715 Chemistry Sodium (137 - 145 mmol/L) 135 L Potassium (3.5 - 5.1 mmol/L) 4.0 Chloride (98 - 107 mmol/L) 103 Carbon Dioxide (22 - 30 mmol/L) 25 Anion Gap (5 - 16) 7 BUN (7 - 17 mg/dL) 2 L Creatinine (0.5 - 1.0 mg/dL) 0.4 L Estimated GFR (>60 ml/min) > 60 BUN/Creatinine Ratio (7 - 25 %) 5.0 L Total Bilirubin (0.2 - 1.3 mg/dL) 0.5 Direct Bilirubin (< 0.4 mg/dL) 0.4 AST (14 - 36 U/L) 34 ALT (9 - 52 U/L) 48 Alkaline Phosphatase (<127 U/L) 159 H Total Protein (6.3 - 8.2 g/dL) 5.3 L Albumin (3.5 - 5.0 g/dL) 2.5 L Hematology CBC w Diff MAN DIFF ORDERED WBC (4.8 - 10.8 /CUMM) 18.4 H RBC (4.20 - 5.40 /CUMM) 3.52 L Hgb (12.0 - 16.0 G/DL) 10.0 L Hct (37 - 47 %) 30.3 L MCV (81.0 - 99.0 FL) 86.0 MCH (27.0 - 31.0 PG) 28.4 MCHC (33.0 - 37.0 G/DL) 33.0 RDW (11.5 - 14.5 %) 14.7 H Plt Count (130 - 400 /CUMM) 670 H MPV (7.4 - 10.4 FL) 6.9 L Gran % (42.2 - 75.2 %) 85.9 H Lymphocytes % (20.5 - 51.1 %) 7.1 L Monocytes % (1.7 - 9.3 %) 5.8 Eosinophils % (0 - 5 %) 1.2 Basophils % (0.0 - 2.0 %) 0 Absolute Granulocytes (1.4 - 6.5 /CUMM) 15.8 H Segmented Neutrophils (42.2 - 75.2 %) 74 Band Neutrophils (0.0 - 5.0 %) 8 H Absolute Lymphocytes (1.2 - 3.4 /CUMM) 1.3 Lymphocytes (20.5 - 51.1 %) 5 L Monocytes (1.7 - 9.3 %) 6 Absolute Monocytes (0.10 - 0.60 /CUMM) 1.1 H Eosinophils (0 - 5.0 %) 2 Absolute Eosinophils (0.0 - 0.7 /CUMM) 0.2 Absolute Basophils (0.0 - 0.2 /CUMM) 0 Metamyelocytes (0.0 - 1.0 %) 3 H Myelocytes (0 - 0 %) 2 H Platelet Estimate (ADEQUATE) VERIFIED BY SMEAR Normocytic RBCs VERIFIED Normochromic RBCs VERIFIED 09/26 09/25 0725 0732 Chemistry Sodium (137 - 145 mmol/L) 133 L 132 L Potassium (3.5 - 5.1 mmol/L) 4.0 3.4 L Chloride (98 - 107 mmol/L) 103 95 L Carbon Dioxide (22 - 30 mmol/L) 24 28 Anion Gap (5 - 16) 6 9 BUN (7 - 17 mg/dL) 2 L 2 L Creatinine (0.5 - 1.0 mg/dL) 0.3 L 0.4 L Estimated GFR (>60 ml/min) > 60 > 60 BUN/Creatinine Ratio (7 - 25 %) 6.7 L 5.0 L Hematology CBC w Diff MAN DIFF ORDERED MAN DIFF ORDERED WBC (4.8 - 10.8 /CUMM) 23.1 H 28.8 H RBC (4.20 - 5.40 /CUMM) 3.28 L 3.34 L Hgb (12.0 - 16.0 G/DL) 9.4 L 9.6 L Hct (37 - 47 %) 28.0 L 28.6 L MCV (81.0 - 99.0 FL) 85.5 85.7 MCH (27.0 - 31.0 PG) 28.6 28.9 MCHC (33.0 - 37.0 G/DL) 33.4 33.7 RDW (11.5 - 14.5 %) 14.5 14.4 Plt Count (130 - 400 /CUMM) 475 H 522 H MPV (7.4 - 10.4 FL) 7.2 L 7.3 L Gran % (42.2 - 75.2 %) 88.9 H 93.0 H Lymphocytes % (20.5 - 51.1 %) 5.4 L 2.7 L Monocytes % (1.7 - 9.3 %) 4.7 3.8 Eosinophils % (0 - 5 %) 0.9 0.4 Basophils % (0.0 - 2.0 %) 0.1 0.1 Absolute Granulocytes (1.4 - 6.5 /CUMM) 20.6 H 26.8 H Segmented Neutrophils (42.2 - 75.2 %) 71 81 H Band Neutrophils (0.0 - 5.0 %) 15 H 11 H Absolute Lymphocytes (1.2 - 3.4 /CUMM) 1.2 0.8 L Lymphocytes (20.5 - 51.1 %) 4 L 1 L Monocytes (1.7 - 9.3 %) 6 4 Absolute Monocytes (0.10 - 0.60 /CUMM) 1.1 H 1.1 H Absolute Eosinophils (0.0 - 0.7 /CUMM) 0.2 0.1 Absolute Basophils (0.0 - 0.2 /CUMM) 0 0 Metamyelocytes (0.0 - 1.0 %) 3 H 2 H Myelocytes (0 - 0 %) 1 H 1 H Platelet Estimate (ADEQUATE) VERIFIED BY SMEAR INCREASED Polychromasia 1+ 1+
[2017-09-27 22:16] VITALS: BP 98/64
[2017-09-28 06:07] VITALS: BP 110/70
--- NOTE | 2017-09-28 06:56 | PN- Housestaff ---
Margaret MORILLO,Roberto 09/28/17 0655: Subjective Follow-up For: Gallstone pancreatitis status post ERCP and cholecystectomy Persistent leukocytosis and bandemia, improving Subjective: Patient was seen and examined at bedside. She was resting comfortably. She had no acute events overnight. She is on a low fiber regular diet. She is tolerating her meals well. That had several loose but not watery and nonbloody stools overnight. She continues to complain of abdominal pain however is significantly improving. Review of Systems Constitutional: Reports: no symptoms. EENTM: Reports: no symptoms. Cardiovascular: Reports: no symptoms. Respiratory: Reports: no symptoms. Gastrointestinal: Reports: abdominal pain. Genitourinary: Reports: no symptoms. Musculoskeletal: Reports: no symptoms. Objective Last 24 Hrs of Vital Signs/I&O Vital Signs Date Time Temp Pulse Resp B/P B/P Pulse O2 O2 Flow FiO2 Mean Ox Delivery Rate 09/28 0607 98.1 71 20 110/70 96 Room Air 09/27 2216 98.8 89 20 98/64 95 09/27 1356 98.9 89 20 112/50 97 Room Air Intake & Output 09/28 0800 09/28 0000 09/27 1600 Intake Total 100 600 800 Output Total 400 Balance 100 600 400 Intake, IV 300 Intake, Oral 100 300 800 Number 1 Bowel Movements Output, Urine 400 Physical Exam General Appearance: Alert, Oriented X3, Cooperative, No Acute Distress Skin Temp/Moisture Exam: Warm/Dry Cardiovascular: Regular Rate, Normal S1, Normal S2 Lungs: Clear to Auscultation, Normal Air Movement Abdomen: surgical wounds are covered with steristrips, significant improvement in abdominal tenderness to palpation, only minimal tenderness at this time Neurological: Normal Gait, Normal Tone, Sensation Intact Extremities: No Clubbing, No Cyanosis, No Edema Current Medications: Current Medications Sig/Mk Start time Last Medication Dose Route Stop Time Status Admin Al Hydroxide/Mg 30 ML .STK-MED ONE 09/27 1749 DC Hydroxide PO 09/27 1750 Al Hydroxide/Mg 30 ML .STK-MED ONE 09/27 0753 DC Hydroxide PO 09/27 0754 Al Hydroxide/Mg 30 ML Q4-6 PRN PRN 09/26 1015 AC 09/27 Hydroxide PO 1750 Dextrose/Sodium 1,000 ML Q10H 09/25 1430 DC 09/27 Chloride IV 1033 Hydromorphone HCl 2 MG Q4-6 PRN 09/18 1845 09/28 PO 0534 Ketorolac 15 MG Q6PRN PRN 09/25 2345 Tromethamine IV Ondansetron HCl 4 MG Q8P PRN 09/15 0345 AC 09/21 IV 1502 Pantoprazole Sodium 40 MG DAILY 09/15 0500 AC 09/27 IV 0738 Patient Medication 1 ED ONE ONE 09/27 1615 DC Teaching ED 09/27 1616 Sodium Chloride 1,000 ML Q13H 09/27 1330 09/28 IV 0534 Last 24 Hrs of Lab/Luis Antonio Results Last 24 Hrs of Labs/Mics: Laboratory Tests 09/27/17 0715: Anion Gap 7, Estimated GFR > 60, BUN/Creatinine Ratio 5.0 L, Total Bilirubin 0.5, Direct Bilirubin 0.4, AST 34, ALT 48, Alkaline Phosphatase 159 H, Total Protein 5.3 L, Albumin 2.5 L, CBC w Diff MAN DIFF ORDERED, RBC 3.52 L, MCV 86.0, MCH 28.4, MCHC 33.0, RDW 14.7 H, MPV 6.9 L, Gran % 85.9 H, Lymphocytes % 7.1 L, Monocytes % 5.8, Eosinophils % 1.2, Basophils % 0, Absolute Granulocytes 15.8 H, Segmented Neutrophils 74, Band Neutrophils 8 H, Absolute Lymphocytes 1.3, Lymphocytes 5 L, Monocytes 6, Absolute Monocytes 1.1 H, Eosinophils 2, Absolute Eosinophils 0.2, Absolute Basophils 0, Metamyelocytes 3 H, Myelocytes 2 H, Platelet Estimate VERIFIED BY SMEAR, Normocytic RBCs VERIFIED, Normochromic RBCs VERIFIED Assessment/Plan Assessment: Patient is 52-year-old female with a PMH significant for GERD, HLD, H. pylori infection who underwent ERCP on 09/15, impression Choledocholithiasis, treated with sphincterotomy and extraction of 4 stones, treated with sphincterotomy and extraction now s/p cholecystectomy on 09/18. #Gallstone pancreatitis S/P ERCP, S/P cholecystectomy Continues to improve. She is tolerating regular diet. Anticipated discharged. -anticipated DC in AM -Follow-up blood cultures, pleural fluid culture and UA and urine culture, currenlty no growth -Adequate pain control, by mouth Dilaudid is controlling pain well -continue to follow off of antibiotics -ID recommendations appreciated -Continue Maalox for gas -Follow up with Dr. Bowers as an outpatient #Hyponatremia, imrpoving now that patient is on regular diet fluids were stopped, will no longer trend BEP #pleural effusion with atelectasis -Repeat CXR was ordered today, follow-up results prior to discharge -Continue Incentive spirometry Diet: Regular diet DVT ppx: ALPS and ambulation, patient no longer wants pharmacologic heparin due to pain and bruising, the discussed the possible risks, and the patient showed good understanding of her dvt ppx options and the risks of refusing pharmacologic therapy. Code status: Full code Problem List: 1. Gallstone pancreatitis 2. Leukocytosis Pain Ratin Pain Location: abdomen Pain Goal: Pain 4 or less Pain Plan: pain pathway Tomorrow's Labs & Rationales: none Maikol Rios MD 09/28/17 1235: Attending MD Review Statement Attending Statement Attending MD Statement: examined this patient, discuss w/resident/PA/MICA SPLITTER, agreed w/resident/PA/MICA SPLITTER, reviewed EMR data (avail) Attending Assessment/Plan: 52F PMH GERD, HLD admitted to ICU with gallstone pancreatitis s/p ERCP with sphincterotomy and removal of 4 stones, followed by cholecystectomy on 09/17 without complication, now improving. Abdominal pain is improved today, looks better. Had some pain with eating this morning and loose stools. Cultures negative. WBC down slightly to 14. CT abdomen/pelvis shows stable pancreatic fluid and bilateral pleural effusion. 1. Gallstone pancreatitis 2. Choledocholithiasis 3. Acute cholecystitis Plan - Continue on general medicine - Off antibiotics for now - Regular diet - Follow blood and urine cultures - Follow ID and surgery recommendations - DVT PPx - Anticipated discharge home tomorrow, can use Tylenol at home for pain
[2017-09-28 08:59] LABS: ABSOLUTE BASOPHIL COUNT 0 /CUMM (0.0-0.2); ABSOLUTE EOSINOPHIL COUNT 0.2 /CUMM (0.0-0.7); ABSOLUTE GRANULOCYTE CT 11.7 /CUMM (1.4-6.5); ABSOLUTE LYMPH COUNT 1.3 /CUMM (1.2-3.4); ABSOLUTE MONOCYTE COUNT 0.8 /CUMM (0.10-0.60); BASOPHIL % 0.2 % (0.0-2.0); EOSINOPHIL % 1.5 % (0-5); GRANULOCYTE % 83.5 % (42.2-75.2); HEMATOCRIT 30.8 % (37-47); MEAN CORPUSCULAR HGB 28.4 PG (27.0-31.0); MEAN CORPUSCULAR HGB CONC 33.4 G/DL (33.0-37.0); MEAN CORPUSCULAR VOLUME 85.1 FL (81.0-99.0); MEAN PLATELET VOLUME 6.7 FL (7.4-10.4); PLATELET COUNT 751 /CUMM (130-400); RBC DISTRIBUTION WIDTH 14.5 % (11.5-14.5); RED BLOOD CELL CT 3.62 /CUMM (4.20-5.40); WHITE BLOOD CELL COUNT 14.1 /CUMM (4.8-10.8)
--- NOTE | 2017-09-28 13:57 | PN- Gastroenterology ---
Assessment/Plan GI Assessment/Recommendations: Gallstone pancreatitis status post ERCP/sphincterotomy, and cholecystectomy. Moderate pancreatitis with fluid collections, slow to resolve. Improving leukocytosis off of antibiotics, fever (resolved), and improving abdominal pain. Recommendations * Continue low fat solid diet * Consider analysis of intra-abdominal fluid to rule out infection if develops fever or worsening leukocytosis * Anticipate discharge tomorrow. Please call or reconsult GI as necessary. Please arrange for outpatient follow-up with Dr. Andino following discharge. Subjective Subjective: Pain continues to improve. Tolerating regular diet. Loose stool. Objective Vital Signs and I&Os Vital Signs Date Time Temp Pulse Resp B/P B/P Pulse O2 O2 Flow FiO2 Mean Ox Delivery Rate 09/28 0607 98.1 71 20 110/70 96 Room Air 09/27 2216 98.8 89 20 98/64 95 09/27 1356 98.9 89 20 112/50 97 Room Air Intake & Output 09/28 1600 09/28 0400 09/27 1600 09/27 0400 09/26 1600 09/26 0400 Intake Total 009 573 3152 1600 2700 1400 Output Total 400 Balance 521 643 0440 1600 2700 1400 Intake, IV 300 116 957 1824 800 Intake, Oral 100 300 906 089 4657 600 Number 1 Bowel Movements Output, Urine 400 Physical Exam: Sclera anicteric. No adenopathy. Abdomen soft, nontender. Current Medications: Current Medications Sig/Mk Start time Last Medication Dose Route Stop Time Status Admin Al Hydroxide/Mg 30 ML .STK-MED ONE 09/27 1749 DC Hydroxide PO 09/27 1750 Al Hydroxide/Mg 30 ML Q4-6 PRN PRN 09/26 1015 AC 09/28 Hydroxide PO 1152 Hydromorphone HCl 2 MG Q4-6 PRN 09/18 1845 AC 09/28 PO 1339 Ketorolac 15 MG Q6PRN PRN 09/25 2345 AC Tromethamine IV Ondansetron HCl 4 MG Q8P PRN 09/15 0345 AC 09/21 IV 1502 Pantoprazole Sodium 40 MG DAILY 09/15 0500 09/28 IV 0858 Patient Medication 1 ED ONE ONE 09/27 1615 DC Teaching ED 09/27 1616 Sodium Chloride 1,000 ML Q13H 09/27 1330 DC 09/28 IV 0534 Results Pertinent Lab Results: Laboratory Tests 09/28 09/27 2436 7219 Chemistry Sodium (137 - 145 mmol/L) 138 135 L Potassium (3.5 - 5.1 mmol/L) 4.3 4.0 Chloride (98 - 107 mmol/L) 106 103 Carbon Dioxide (22 - 30 mmol/L) 24 25 Anion Gap (5 - 16) 8 7 BUN (7 - 17 mg/dL) 3 L 2 L Creatinine (0.5 - 1.0 mg/dL) 0.4 L 0.4 L Estimated GFR (>60 ml/min) > 60 > 60 BUN/Creatinine Ratio (7 - 25 %) 7.5 5.0 L Phosphorus (2.5 - 4.5 mg/dL) 4.4 Magnesium (1.6 - 2.3 mg/dL) 2.2 Total Bilirubin (0.2 - 1.3 mg/dL) 0.5 Direct Bilirubin (< 0.4 mg/dL) 0.4 AST (14 - 36 U/L) 34 ALT (9 - 52 U/L) 48 Alkaline Phosphatase (<127 U/L) 159 H Total Protein (6.3 - 8.2 g/dL) 5.3 L Albumin (3.5 - 5.0 g/dL) 2.5 L Hematology CBC w Diff MAN DIFF ORDERED MAN DIFF ORDERED WBC (4.8 - 10.8 /CUMM) 14.1 H 18.4 H RBC (4.20 - 5.40 /CUMM) 3.62 L 3.52 L Hgb (12.0 - 16.0 G/DL) 10.3 L 10.0 L Hct (37 - 47 %) 30.8 L 30.3 L MCV (81.0 - 99.0 FL) 85.1 86.0 MCH (27.0 - 31.0 PG) 28.4 28.4 MCHC (33.0 - 37.0 G/DL) 33.4 33.0 RDW (11.5 - 14.5 %) 14.5 14.7 H Plt Count (130 - 400 /CUMM) 751 H 670 H MPV (7.4 - 10.4 FL) 6.7 L 6.9 L Gran % (42.2 - 75.2 %) 83.5 H 85.9 H Lymphocytes % (20.5 - 51.1 %) 9.1 L 7.1 L Monocytes % (1.7 - 9.3 %) 5.7 5.8 Eosinophils % (0 - 5 %) 1.5 1.2 Basophils % (0.0 - 2.0 %) 0.2 0 Absolute Granulocytes (1.4 - 6.5 /CUMM) 11.7 H 15.8 H Segmented Neutrophils (42.2 - 75.2 %) 82 H 74 Band Neutrophils (0.0 - 5.0 %) 2 8 H Absolute Lymphocytes (1.2 - 3.4 /CUMM) 1.3 1.3 Lymphocytes (20.5 - 51.1 %) 11 L 5 L Monocytes (1.7 - 9.3 %) 4 6 Absolute Monocytes (0.10 - 0.60 /CUMM) 0.8 H 1.1 H Eosinophils (0 - 5.0 %) 1 2 Absolute Eosinophils (0.0 - 0.7 /CUMM) 0.2 0.2 Absolute Basophils (0.0 - 0.2 /CUMM) 0 0 Metamyelocytes (0.0 - 1.0 %) 3 H Myelocytes (0 - 0 %) 2 H Platelet Estimate (ADEQUATE) INCREASED VERIFIED BY SMEAR Normocytic RBCs VERIFIED VERIFIED Normochromic RBCs VERIFIED VERIFIED 09/26 0725 Chemistry Sodium (137 - 145 mmol/L) 133 L Potassium (3.5 - 5.1 mmol/L) 4.0 Chloride (98 - 107 mmol/L) 103 Carbon Dioxide (22 - 30 mmol/L) 24 Anion Gap (5 - 16) 6 BUN (7 - 17 mg/dL) 2 L Creatinine (0.5 - 1.0 mg/dL) 0.3 L Estimated GFR (>60 ml/min) > 60 BUN/Creatinine Ratio (7 - 25 %) 6.7 L Hematology CBC w Diff MAN DIFF ORDERED WBC (4.8 - 10.8 /CUMM) 23.1 H RBC (4.20 - 5.40 /CUMM) 3.28 L Hgb (12.0 - 16.0 G/DL) 9.4 L Hct (37 - 47 %) 28.0 L MCV (81.0 - 99.0 FL) 85.5 MCH (27.0 - 31.0 PG) 28.6 MCHC (33.0 - 37.0 G/DL) 33.4 RDW (11.5 - 14.5 %) 14.5 Plt Count (130 - 400 /CUMM) 475 H MPV (7.4 - 10.4 FL) 7.2 L Gran % (42.2 - 75.2 %) 88.9 H Lymphocytes % (20.5 - 51.1 %) 5.4 L Monocytes % (1.7 - 9.3 %) 4.7 Eosinophils % (0 - 5 %) 0.9 Basophils % (0.0 - 2.0 %) 0.1 Absolute Granulocytes (1.4 - 6.5 /CUMM) 20.6 H Segmented Neutrophils (42.2 - 75.2 %) 71 Band Neutrophils (0.0 - 5.0 %) 15 H Absolute Lymphocytes (1.2 - 3.4 /CUMM) 1.2 Lymphocytes (20.5 - 51.1 %) 4 L Monocytes (1.7 - 9.3 %) 6 Absolute Monocytes (0.10 - 0.60 /CUMM) 1.1 H Absolute Eosinophils (0.0 - 0.7 /CUMM) 0.2 Absolute Basophils (0.0 - 0.2 /CUMM) 0 Metamyelocytes (0.0 - 1.0 %) 3 H Myelocytes (0 - 0 %) 1 H Platelet Estimate (ADEQUATE) VERIFIED BY SMEAR Polychromasia 1+
[2017-09-28 14:07] VITALS: BP 100/58
--- NOTE | 2017-09-28 19:05 | RADIOLOGY REPORT ---
EXAMINATION: XR CHEST CLINICAL INFORMATION: Pleural effusions. Diminished lung sounds at lung bases. COMPARISON: Chest x-ray 09/21/2017. CT of chest 09/24/2017, 09/20/2017. Chest x-ray 09/17/2017 TECHNIQUE: 2 views of the chest were obtained. FINDINGS: There is a small right-sided pleural effusion slightly blunting the right lateral and posterior costophrenic angle. The volume of this effusion is diminished since the chest x-ray 09/21/2017. There is a moderate volume left pleural effusion. This opacifies the left lung base. The volume of this effusion has increased since the chest x-ray of 09/21/2017. No pulmonary vascular congestion. The cardiac and mediastinal contours are unchanged. IMPRESSION: 1. Small right pleural effusion slightly diminished in volume since chest x-ray 09/21/2017. 2. Moderate volume left pleural effusion. The volume of this effusion has increased since chest x-ray of 09/21/2017.
[2017-09-28] MEDS ORDERED: HYDROMORPHONE HC2 M1 PO (20:36)
--- NOTE | 2017-09-28 20:40 | Patient Discharge Instructions ---
Discharge Instructions General Discharge Information You were seen/treated for: Gallstone pancreatitis You had these procedures: ERCP, Cholecystectomy Special Instructions: Follow-up with your primary care physician within 24-48 hours of discharge. We have provided you with a referral to Dr. Le. Follow-up with Dr. Andino within 1 week of discharge to establish GI care. Follow-up with Dr. Elmore for a surgical post-operative check up. Take all medications as directed. You can buy Maalox over the counter to help control gas with meals. Continue to eat a low fiber diet until you follow up with Dr. Andino. If you should experience severe abdominal pain, difficulty breathing, chest pain , bloody bowel movements, call your doctor right away or return to the ER. Diet Recommended Diet: Low Residue Acute Coronary Syndrome Inclusion Criteria At DC or during hospital stay patient has or had the following: ACS DIAGNOSIS No Discharge Core Measures Meds if any: Prescribed or Continued at Discharge Meds if any: NOT Prescribed or Continued at Discharge Congestive Heart Failure Inclusion Criteria At DC or during hospital stay patient has or had the following: CHF DIAGNOSIS No Discharge Core Measures Meds if any: Prescribed or Continued at Discharge Meds if any: NOT Prescribed or Continued at Discharge Cerebrovascular accident Inclusion Criteria At DC or during hospital stay patient has or had the following: CVA/TIA Diagnosis No Discharge Core Measures Meds if any: Prescribed or Continued at Discharge Meds if any: NOT Prescribed or Continued at Discharge Venous thromboembolism Inclusion Criteria VTE Diagnosis No VTE Type NONE VTE Confirmed by (Test) NONE Discharge Core Measures - Per Current guidelines, there needs to be overlap - treatment for the first 5 days of Warfarin therapy. - If discharged on Warfarin prior to 5 days of - overlap therapy, the patient will need to be - assessed for post discharge needs including - *Post discharge parental anticoagulation - *Warfarin and/or parental anticoagulation education - *Follow up date to check INR post discharge At least 5 days overlap therapy as Inpatient No Meds if any: Prescribed or Continued at Discharge Note: Overlap Therapy is Warfarin and Anticoagulant Meds if any: NOT Prescribed or Continued at Discharge
[2017-09-28 22:21] VITALS: BP 100/60
[2017-09-29 06:27] VITALS: BP 102/58
--- NOTE | 2017-09-29 07:08 | PN- Housestaff ---
Margaret MORILLO,Roberto 09/29/17 0707: Subjective Follow-up For: Gallstone pancreatitis status post ERCP and cholecystectomy Persistent leukocytosis and bandemia, improving Subjective: Patient was seen and examined at bedside. She is resting comfortably. She had no acute events overnight. She is looking forward to being discharged today. Is tolerating her regular diet. And abdominal pain is minimal. Review of Systems Constitutional: Reports: no symptoms. EENTM: Reports: no symptoms. Cardiovascular: Reports: no symptoms. Respiratory: Reports: no symptoms. Gastrointestinal: Reports: no symptoms. Genitourinary: Reports: no symptoms. Musculoskeletal: Reports: no symptoms. Skin: Reports: no symptoms. Neurological/Psychological: Reports: no symptoms. Objective Last 24 Hrs of Vital Signs/I&O Vital Signs Date Time Temp Pulse Resp B/P B/P Pulse O2 O2 Flow FiO2 Mean Ox Delivery Rate 09/29 06 97.9 81 18 102/58 98 Room Air 09/28 2248 98.4 09/28 2221 75 18 100/60 98 Room Air 09/28 1407 98.0 85 20 100/58 97 Intake & Output 09/29 0800 09/29 0000 09/28 1600 Intake Total 100 1000 Output Total Balance 100 1000 Intake, IV 300 Intake, Oral 100 700 Number 1 2 Bowel Movements Physical Exam General Appearance: Alert, Oriented X3, Cooperative, No Acute Distress Skin Temp/Moisture Exam: Warm/Dry Cardiovascular: Regular Rate, Normal S1, Normal S2 Lungs: diminished breath sounds of the lung bases bilaterally Abdomen: Normal Bowel Sounds, Soft, No Tenderness, surgical sites dressed with steristrips Current Medications: Current Medications Sig/Mk Start time Last Medication Dose Route Stop Time Status Admin Al Hydroxide/Mg 30 ML .STK-MED ONE 09/28 1706 DC Hydroxide PO 09/28 1707 Al Hydroxide/Mg 30 ML .STK-MED ONE 09/28 1150 DC Hydroxide PO 09/28 1151 Al Hydroxide/Mg 30 ML .STK-MED ONE 09/28 0801 DC Hydroxide PO 09/28 0802 Al Hydroxide/Mg 30 ML Q4-6 PRN PRN 09/26 1015 AC 09/28 Hydroxide PO 1712 Hydromorphone HCl 2 MG Q4-6 PRN 09/18 1845 AC 09/29 PO 0403 Ketorolac 15 MG Q6PRN PRN 09/25 2345 AC Tromethamine IV Ondansetron HCl 4 MG Q8P PRN 09/15 0345 AC 09/21 IV 1502 Pantoprazole Sodium 40 MG DAILY 09/15 0500 AC 09/28 IV 0858 Sodium Chloride 1,000 ML Q13H 09/27 1330 DC 09/28 IV 0534 Last 24 Hrs of Lab/Luis Antonio Results Last 24 Hrs of Labs/Mics: Laboratory Tests 09/28/17 0811: Anion Gap 8, Estimated GFR > 60, BUN/Creatinine Ratio 7.5, Phosphorus 4.4, Magnesium 2.2, CBC w Diff MAN DIFF ORDERED, RBC 3.62 L, MCV 85.1, MCH 28.4, MCHC 33.4, RDW 14.5, MPV 6.7 L, Gran % 83.5 H, Lymphocytes % 9.1 L, Monocytes % 5.7, Eosinophils % 1.5, Basophils % 0.2, Absolute Granulocytes 11.7 H, Segmented Neutrophils 82 H, Band Neutrophils 2, Absolute Lymphocytes 1.3, Lymphocytes 11 L, Monocytes 4, Absolute Monocytes 0.8 H, Eosinophils 1, Absolute Eosinophils 0.2, Absolute Basophils 0, Platelet Estimate INCREASED, Normocytic RBCs VERIFIED, Normochromic RBCs VERIFIED Assessment/Plan Assessment: Patient is 52-year-old female with a PMH significant for GERD, HLD, H. pylori infection who underwent ERCP on 09/15, impression Choledocholithiasis, treated with sphincterotomy and extraction of 4 stones, treated with sphincterotomy and extraction now s/p cholecystectomy on 09/18. #Gallstone pancreatitis S/P ERCP, S/P cholecystectomy -stable for discharge -will follow up with Dr. Andino and Dr. Bowers -will be discharged on a short course of dilaudid for pain control -Continue Maalox for gas #pleural effusion with atelectasis -repeat CXR shows persistend pleural effusion, patient instructed to establish primary care with Dr. Le, or return to her previous PCP for monitoring of resolution. She is currently asymptomatic. Diet: Regular diet DVT ppx: ALPS and ambulation, patient no longer wants pharmacologic heparin due to pain and bruising, the discussed the possible risks, and the patient showed good understanding of her dvt ppx options and the risks of refusing pharmacologic therapy. Code status: Full code Problem List: 1. Pleural effusion 2. Gallstone pancreatitis Pain Ratin Pain Location: abdomen, intermittent Pain Goal: Pain 4 or less Pain Plan: pain pathway Tomorrow's Labs & Rationales: none Discharge Plan Discharge Disposition: home Stable for Discharge? Yes Anticipated Discharge (Day): today If Discharged Today/In 24 Hrs: enter antc discharge ord, CMR done Maikol Rios MD 09/29/17 1345: Attending MD Review Statement Attending Statement Attending MD Statement: examined this patient, discuss w/resident/PA/[employer], agreed w/resident/PA/[employer], reviewed EMR data (avail) Attending Assessment/Plan: 52F PMH GERD, HLD admitted to ICU with gallstone pancreatitis s/p ERCP with sphincterotomy and removal of 4 stones, followed by cholecystectomy on 09/17 without complication, now improving. Much improved today, eating comfortably without pain. 1. Gallstone pancreatitis 2. Choledocholithiasis 3. Acute cholecystitis Plan - Stable for discharge home - Low fat diet - Outpatient GI and surgery follow up
[2017-09-29] MEDS ORDERED: HYDROMORPHONE HC2 M1 PO (11:54)
== END 2017-09-29 15:00 | DRG 417 ==
LOC: ERH 21:57 → ERHI 09-15 03:06 → CRI 09-15 03:06 → ENRESERV 09-15 03:38 → CRI 09-15 04:50 → 2NA 09-18 19:47 → ENPENDDIS 09-29 12:20 → 2NA 09-29 15:00
PROVIDERS: Dermatology; Internal Medicine; Internal Medicine Hematology & Oncology; Pediatrics
PROC: 0FC98ZZ Extirpation of Matter from Common Bile Duct, Via Natural or Artificial Opening Endoscopic (ICD-10-PCS; principal; 2017-09-15)
PROC: 0FT44ZZ Resection of Gallbladder, Percutaneous Endoscopic Approach (ICD-10-PCS; 2017-09-17)
PROC: 3E0T3BZ Introduction of Anesthetic Agent into Peripheral Nerves and Plexi, Percutaneous Approach (ICD-10-PCS; 2017-09-17)
PROC: 0W9B3ZX Drainage of Left Pleural Cavity, Percutaneous Approach, Diagnostic (ICD-10-PCS; 2017-09-21)
DX: K80.41 Calculus of bile duct with cholecystitis, unspecified, with obstruction (principal); K85.10 Biliary acute pancreatitis without necrosis or infection; J90 Pleural effusion, not elsewhere classified; E46 Unspecified protein-calorie malnutrition; E87.1 Hypo-osmolality and hyponatremia; E83.30 Disorder of phosphorus metabolism, unspecified; E83.42 Hypomagnesemia; E83.52 Hypercalcemia; E78.5 Hyperlipidemia, unspecified; K21.9 Gastro-esophageal reflux disease without esophagitis; D72.829 Elevated white blood cell count, unspecified; R74.0 Nonspecific elevation of levels of transaminase and lactic acid dehydrogenase [LDH]; E80.6 Other disorders of bilirubin metabolism; M19.90 Unspecified osteoarthritis, unspecified site; K27.7 Chronic peptic ulcer, site unspecified, without hemorrhage or perforation; R00.0 Tachycardia, unspecified; K42.9 Umbilical hernia without obstruction or gangrene; D72.825 Bandemia
CPT/HCPCS: 2NAP; 87075; CCU; 36415; 36592; 71045; 71046; 74176; 74177; 81001; 82436; 87040; 87086; 88304; 88305; 93005; 93010; 96361; 96374; 96375; 99291; J0131; J0690; J1644; J1650; J1885; J2175; J2185; J2405; J3490; J7042; J7120; Q9967